=== PATIENT | female | born 1975 | race Caucasian/White ===

== ENCOUNTER 2019-11-04 03:20 | Emergency (ER) | payer MEDICARE, MEDICAID, SELFPAY ==
[2019-11-04 03:23] VITALS: BP 170/105; PULSE 81; RESP 18; TEMP 36.9; O2SAT 93
--- NOTE | 2019-11-04 03:40 | ED.EAR ---
HPI - Ear Problem General Chief complaint: Ear Stated complaint: qtip in eart Time Seen by Provider: 11/04/19 03:28 History of Present Illness HPI Narrative: Patient is a 44-year-old female who presents ER with concern for a Q-tip being retained in her left ear. She had nature nares trying to scratch it. When she pulled the Q-tip out part of it was missing. She believes a normal Q-tip went into her ear. No pain in the ear now, no difficulty hearing. Related Data Home Medications Medication Instructions Recorded Confirmed cholecalciferol (vitamin D3) 50 2,000 unit PO DAILY 07/30/19 07/30/19 mcg (2,000 unit) capsule dorzolamide 2 % eye drops 1 drop EACH EYE TID 07/30/19 07/30/19 hydrochlorothiazide 12.5 mg tablet 12.5 mg PO DAILY 07/30/19 07/30/19 ketorolac 0.5 % eye drops 1 drop EACH EYE QID ml 07/30/19 07/30/19 prednisolone acetate (PF) 1 % eye 1 drop EACH EYE QID ml 07/30/19 07/30/19 drops,suspension venlafaxine 75 mg capsule,extended 75 mg PO DAILY 07/30/19 07/30/19 release 24 hr Allergies Allergy/AdvReac Type Severity Reaction Status Date / Time No Known Allergies Allergy Verified 11/04/19 03:28 Review of Systems ENT: Comments: Left ear itching. Possible retained foreign body in ear. PMFSH Past Medical History Medical History (Updated 11/04/19 @ 03:43 by Gustavo Mcallister MD) Cholecystectomy planned 2012 Depression Hypertension Hypothyroidism Leukocytosis Prediabetes Vitamin D deficiency Surgical History Surgical History (Updated 07/30/19 @ 06:59 by Joleen Nixon CMA) H/O section 1992 H/O prior ablation treatment 2005 H/O tubal ligation BL 2001 History of carpal tunnel surgery 2009 Family History Family History (Updated 07/27/19 @ 07:12 by Joleen Nixon CMA) Sibling Hypertension Father Hypertension Cerebrovascular accident Diabetes mellitus Mother Diabetes mellitus Hypertension Social History Social History Smoking status: Heavy tobacco smoker Alcohol intake: never Exam Narrative: Exam Narrative: GENERAL: Well-appearing, well-nourished, and in no acute distress. HEAD: Normocephalic, atraumatic. ENT: Mucous membranes moist. TMs normal bilaterally. Ear canals free of foreign body or Q-tip flush. PSYCH: Normal mood and affect. Course Vital Signs Vital signs: Vital Signs Temperature 98.4 F 11/04/19 03:23 Pulse Rate 81 11/04/19 03:23 Respiratory Rate 18 11/04/19 03:23 Blood Pressure 170/105 H 11/04/19 03:23 Pulse Oximetry 93 11/04/19 03:23 Temperature 98.4 F 11/04/19 03:23 Pulse Rate 81 11/04/19 03:23 Respiratory Rate 18 11/04/19 03:23 Blood Pressure 170/105 H 11/04/19 03:23 Pulse Oximetry 93 11/04/19 03:23 Medical Decision Making Vital Signs Vital Signs: Vital Signs Temperature 98.4 F 11/04/19 03:23 Pulse Rate 81 11/04/19 03:23 Respiratory Rate 18 11/04/19 03:23 Blood Pressure 170/105 H 11/04/19 03:23 Pulse Oximetry 93 11/04/19 03:23 Temperature 98.4 F 11/04/19 03:23 Pulse Rate 81 11/04/19 03:23 Respiratory Rate 18 11/04/19 03:23 Blood Pressure 170/105 H 11/04/19 03:23 Pulse Oximetry 93 11/04/19 03:23 Discharge Plan Discharge Clinical Impression: Ear discomfort Patient Disposition: Home, Self-Care Condition: Stable Instructions: Normal Exam (ED) Additional Instructions: There is no retained foreign body in your ear. Prescriptions: No Action dorzolamide 2 % drops 1 drop EACH EYE TID RF: 0 hydrochlorothiazide 12.5 mg tablet 12.5 mg PO DAILY RF: 0 ketorolac 0.5 % drops 1 drop EACH EYE QID RF: 0 prednisolone acetate (PF) 1 % drops,suspension 1 drop EACH EYE QID RF: 0 venlafaxine 75 mg capsule,extended release 24hr 75 mg PO DAILY RF: 0 cholecalciferol (vitamin D3) 50 mcg (2,000 unit) capsule 2,000 unit PO DAILY RF: 0 lisinopril 40 mg tablet 40 mg PO DAILY Qty: 90 RF: 0 folic a
[2019-11-04 04:10] VITALS: BP 135/92; PULSE 76; RESP 20; O2SAT 94
== END 2019-11-04 04:11 | disposition home or self-care (01) ==
LOC: ANHED 04:00
PROVIDERS: Emergency Provider Emergency Medicine; PCP Internal Medicine
DX: H92.02 Otalgia, left ear (principal); F17.210 Nicotine dependence, cigarettes, uncomplicated; F32.9 Major depressive disorder, single episode, unspecified; I10 Essential (primary) hypertension; E03.9 Hypothyroidism, unspecified
CPT/HCPCS: 99281

== ENCOUNTER 2019-11-20 09:08 | Outpatient (CLI) | payer MEDICARE, MEDICAID, SELFPAY ==
--- NOTE | ~2019-11-20 | US_ITS ---
EXAMINATION: US venous doppler LE RT DATE: 11/20/2019 09:44 INDICATION: Right lower limb pain and swelling. TECHNIQUE: Grayscale ultrasound images without and with compression and Doppler ultrasound images of the right lower extremity veins were obtained. COMPARISON: Ultrasound 12/22/2016 FINDINGS: The visualized portions of right common femoral vein, profunda (deep) femoral vein, femoral vein, pop liteal vein, posterior tibial veins, and greater saphenous vein outflow are patent. There is a small Laureano's cyst. IMPRESSION: 1. No deep venous thrombosis. 2. Small Laureano's cyst. Reviewed, dictated and finalized at location A.
--- NOTE | ~2019-11-20 | XR_ITS ---
XR ankle RT min 3V 11/20/2019 09:43 INDICATION: Right ankle pain PROCEDURE: 4 views right ankle COMPARISON: No prior studies for comparison. FINDINGS: Fracture, dislocation or subluxation is not identified. Ankle mortise intact. The soft tiss ues appear within normal limits. No foreign bodies are identified. There is hardware transfixing the first tarsal metatarsal joint. IMPRESSION: 1: NO ACUTE BONE OR JOINT ABNORMALITY IDENTIFIED. Reviewed, dictated and finalized at location A.
== END 2019-11-20 09:09 | disposition home or self-care (01) ==
LOC: ANHIMG 09:10
PROVIDERS: PCP Internal Medicine; Visit Provider Clinical Nurse Specialist
DX: M79.89 Other specified soft tissue disorders (principal); M71.21 Synovial cyst of popliteal space [Baker], right knee
CPT/HCPCS: 73610; 93971

== ENCOUNTER 2020-02-08 00:32 | Day surgery (SDC) | payer MEDICARE, MEDICAID, SELFPAY ==
[2020-02-07 12:58] VITALS: BMI 42.3
--- NOTE | 2020-02-07 14:59 | PM.IMHP ---
H&P: HPI History of Present Illness Date/Time: 02/07/20 14:59 Chief complaint: Chronic Hoarseness Narrative: Bethany Domínguez is a 45 year old female With significant history of tobacco use who presents with approximately 1-2 months of hoarse voice with recent endoscopic examination demonstrating white lesions of the bilateral vocal cords. Patient presents for biopsy given her significant tobacco history and concern for malignancy. Review of Systems Constitutional: Constitutional: Denies fatigue, Denies fever(s) and Denies lethargy Eyes: Eyes: Denies blurry vision and Denies change in vision ENT: Reports as per HPI Cardiovascular: Cardiovascular: Denies chest pain Respiratory: Respiratory: Reports cough Endocrine: Endocrine: Denies fatigue Hematologic/Lymphatic: Hematologic/Lymphatic: Denies easy bleeding, Denies easy bruising and Denies lymphadenopathy [facility] Past Medical History Medical History (Updated 02/07/20 @ 15:01 by Jani Song MD) Cholecystectomy planned 2012 Depression Hypertension Hypothyroidism Leukocytosis Prediabetes Vitamin D deficiency Surgical History Surgical History (Updated 07/30/19 @ 06:59 by Joleen Nixon [facility]) H/O section 1992 H/O prior ablation treatment 2005 H/O tubal ligation 2001 History of carpal tunnel surgery 2009 Family History Family History (Updated 07/27/19 @ 07:12 by Joleen Nixon [facility]) Sibling Hypertension Father Hypertension Cerebrovascular accident Diabetes mellitus Mother Diabetes mellitus Hypertension Social History Social History (Updated 11/19/19 @ 14:48 by Sharron Cardozo [facility]) Smoking packs per day: 1 Smoking cigarettes per day: 20.0 Years smoked: 20 Smoking pack-years: 20.00 Smoking status: Current every day smoker Tobacco type: cigarettes Alcohol intake: never Living arrangements: with family Spiritual care concerns: No Meds Home Medications and Allergies Home Medications Medication Instructions Recorded Confirmed Type hydrochlorothiazide 12.5 mg tablet 12.5 mg PO DAILY #90 tablet 11/21/19 02/07/20 Rx levothyroxine 200 mcg tablet 200 mcg PO DAILY #90 tablet 12/04/19 02/07/20 Rx venlafaxine 75 mg capsule,extended 75 mg PO DAILY #90 cap 01/15/20 02/07/20 Rx release 24 hr lisinopril 40 mg tablet 40 mg PO DAILY #90 tablet 01/25/20 02/07/20 Rx cholecalciferol (vitamin D3) 50 mcg PO DAILY 02/07/20 02/07/20 History Allergies Allergy/AdvReac Type Severity Reaction Status Date / Time No Known Allergies Allergy Verified 02/07/20 12:56 Exam Const: General: cooperative, healthy appearing, comfortable, well developed and alert HENMT: Head: normal to inspection, normocephalic and atraumatic Ears: hearing grossly normal bilaterally, external ears normal, TM's normal bilaterally and EAC's normal General nose exam: Normal external nose present, Normal nares present, No nasal polyps present, Normal nasal mucous membranes and turbinates present and Normal septum present Face and sinus: normal facial exam Mouth: Yes Normal oral and palatal mucosa present, Yes lip normal, Yes tongue normal, Yes oropharynx normal and Yes moist mucous membranes Teeth and gingiva: dentition normal and gingiva normal Throat: posterior oropharynx normal, tonsils normal and uvula midline Other: Hoarse voice Eyes: General: appearance normal, both eyes and all related structures Periorbital: periorbital findings normal Eyelids: eyelids normal Conjunctivae: conjunctivae normal Sclera: sclerae normal Neck: Neck: normal visual inspection, full ROM and no lymphadenopathy Thyroid: thyroid normal Lymphatic: no lymphadenopathy noted Resp: Effort & Inspection: normal respiratory effort and able to speak in complete sentences Cardio: Jugular venous distension: no JVD Neuro: Cranial nerves: Yes CN's II-XII intact bilaterally Assessment and Plan Assessment and plan (1) Tobacco abuse: Code(s): Z72.
[2020-02-08] VITALS (8 sets, daily range): BP systolic 109–149; BP diastolic 68–114; PULSE 72–114; RESP 12–24; TEMP 36.7–37.1; O2SAT 90–97
--- NOTE | 2020-02-08 05:58 | ECG_ITS ---
Measurements Intervals [place] Rate: 79 P: 36 MT: 161 QRS: 72 QRSD: 107 T: -1 QT: 391 QTc: 448 Interpretive Statements SINUS RHYTHM DELAYED PRECORDIAL R/S TRANSITION NONSPECIFIC ST & T-WAVE ABNORMALITY- DIFFUSE LEADS BASELINE WANDER- I, II, III BORDERLINE ECG Electronically Signed On 02-08-2020 7:10:24 CDT by Reinaldo Ash D.O.
[2020-02-08] MEDS: LACTATED RINGERS 1,000 ML 30 ML IV CONT (07:20)
--- NOTE | 2020-02-08 07:33 | WPDHPUPDATE1 ---
History and Physical Update Update Date/Time: 02/08/20 07:33 History and Physical has been reviewed, including an updated exam of the patient. There are NO changes in the patient's condition. Risks, benefits, and alternatives have been discussed and questions answered. Patient agrees to proceed with procedure.
[2020-02-08 07:41] LABS: Anion Gap 7 mmol/L (8-16); Blood Urea Nitrogen 11 mg/dL (7-17); Calcium 8.9 mg/dL (8.4-10.2); Carbon Dioxide 26 mmol/L (22-30); Chloride 104 mmol/L (98-107); Estimated CRCL calculation 121 ml/min; Estimated Glomerular Filt Rate > 60; Glucose 169 mg/dL (65-105); Potassium 3.5 mmol/L (3.4-5.0); Sodium 137 mmol/L (137-145)
--- NOTE | 2020-02-08 08:19 | WPDANESEPPF ---
Anes - Initial Pre Proc Eval Procedure: Operation Date: 02/08/20 09:00 Proposed Procedures p Direct Laryngoscopy, Laryngeal Biopsy - Jani Song MD Date/Time: 02/08/20 08:19 Surgeon: Jani Song MD Pre Op Diagnosis: Chronic Hoarseness Patient Data Age: 45 Gender: F Height: 5 ft 11 in Weight: 136.8 kg Last Vital Signs Temp 98.1 F 02/08/20 06:58 Pulse 91 02/08/20 06:58 Resp 20 02/08/20 06:58 BP 147/80 H 02/08/20 06:58 Pulse Ox 97 02/08/20 06:58 Allergies Allergy/AdvReac Type Severity Reaction Status Date / Time No Known Allergies Allergy Verified 02/08/20 06:59 Home Medications Medication Instructions Recorded Confirmed Type hydrochlorothiazide 12.5 mg tablet 12.5 mg PO DAILY #90 tablet 11/21/19 02/07/20 Rx levothyroxine 200 mcg tablet 200 mcg PO DAILY #90 tablet 12/04/19 02/07/20 Rx venlafaxine 75 mg capsule,extended 75 mg PO DAILY #90 cap 01/15/20 02/07/20 Rx release 24 hr lisinopril 40 mg tablet 40 mg PO DAILY #90 tablet 01/25/20 02/07/20 Rx cholecalciferol (vitamin D3) 50 mcg PO DAILY 02/07/20 02/07/20 History Laboratory Tests 02/08/20 07:16 Sodium 137 mmol/L mmol/L (137-145) Potassium 3.5 mmol/L mmol/L (3.4-5.0) Chloride 104 mmol/L mmol/L (98-107) Carbon Dioxide 26 mmol/L mmol/L (22-30) Anion Gap 7 mmol/L L mmol/L (8-16) BUN 11 mg/dL mg/dL (7-17) Creatinine 0.80 mg/dL mg/dL (0.7-1.0) Estim Creat Clear Calc 121 ml/min ml/min Estimated GFR > 60 (59 - ) Glucose 169 mg/dL H mg/dL (65-105) Calcium 8.9 mg/dL mg/dL (8.4-10.2) Patient hx anesthesia problems: none Family hx anesthesia problems: none [facility] Past Medical History Medical History (Updated 02/07/20 @ 15:01 by Jani Song MD) Cholecystectomy planned 2012 Depression Hypertension Hypothyroidism Leukocytosis Prediabetes Vitamin D deficiency Surgical History Surgical History (Updated 07/30/19 @ 06:59 by Joleen Nixon [facility]) H/O section 1992 H/O prior ablation treatment 2005 H/O tubal ligation BL 2001 History of carpal tunnel surgery 2009 Family History Family History (Updated 07/27/19 @ 07:12 by Joleen Nixon [facility]) Sibling Hypertension Father Hypertension Cerebrovascular accident Diabetes mellitus Mother Diabetes mellitus Hypertension Social History Social History (Updated 11/19/19 @ 14:48 by Sharron Cardozo [facility]) Smoking packs per day: 1 Smoking cigarettes per day: 20.0 Years smoked: 20 Smoking pack-years: 20.00 Smoking status: Current every day smoker Tobacco type: cigarettes Alcohol intake: never Living arrangements: with family Spiritual care concerns: No Anes - Eval Final PreProcedure Day of Procedure 02/08/20 08:19 Patient weight: morbidly obese Heart: regular rate and rhythm Lungs: clear to auscultation Airway: Mallampati scale class III Neurological: alert and oriented Last oral intake: >/= 8 hours ASA classification: III Emergent: no Anesthetic plan: proceed Anesthesia type and monitoring: general ETT and standard monitoring Informed Consent: The patient's anesthetic plan and its attendant risks and benefits were discussed with the patient/family/POA. Questions were solicited and answers provided to the satisfaction of the patient/family/POA.
[2020-02-08] MEDS: OXYMETAZOLINE HCL 0.05% NAS 15 ML BTL (*BKC) 1 SPRAY NASAL (09:14)
--- NOTE | 2020-02-08 09:47 | PM.PROC ---
Procedure Note - Detailed Date of procedure: 02/08/20 Pre-op diagnosis: Chronic Hoarseness vocal cord lesion Post-op diagnosis: same Procedure performed: 1. Direct laryngoscopy 2. Vocal cord biopsy Description of procedure: the patient was correctly identified and consent was verified in the preoperative holding area. The patient was then brought to the operating room a time-out was performed. General anesthesia was induced and endotracheal tube was secured the patient's airway taped to the left lower lip. The bed was then rotated 90? and control the patient's airway was given Otolaryngology. A laryngoscope was inserted into the patient's airway following placement of a moist Ray-Peace over the maxillary gingiva. The vocal cords were brought into view. Of note the right vocal cord and false cord were somewhat edematous the left false cord was somewhat edematous and the left vocal cord anteriorly had a small ulceration/ hemorrhage as well as abnormal appearing leukoplakic tissue. This tissue was biopsied with 3 biopsies and bleeding was controlled with Afrin-soaked pledgets. No other abnormalities were noted. The laryngoscope as well as Ray-Peace remove the patient's airway and control the airway was again given over to anesthesia. This Marked the end of the procedure. I was present for and performed the entire procedure. Anesthesia: GLMA Surgeon: Jani Song MD Estimated blood loss (mL): 5 Pathology: yes Complications: No immediate complications Condition: stable Disposition: PACU Findings: See operative note
== END 2020-02-08 11:03 | disposition home or self-care (01) ==
PROVIDERS: PCP Internal Medicine; Visit Provider Otolaryngology
PROC: 0CJS8ZZ Inspection of Larynx, Via Natural or Artificial Opening Endoscopic (ICD-10-PCS; CPT 31535; principal; 2020-02-08 09:00)
DX: J04.0 Acute laryngitis (principal); J37.0 Chronic laryngitis; Z72.0 Tobacco use
CPT/HCPCS: 31535; 36415; 80048; 88305; 93005; A9270; J0330; J1100; J2250; J2405; J2704; J3010; J7120

== ENCOUNTER 2020-05-13 08:27 | Outpatient (CLI) | payer MEDICARE, MEDICAID, SELFPAY ==
--- NOTE | ~2020-05-13 | US_ITS ---
US abdomen limited 05/13/2020 09:17 Indication: Left lower quadrant pain. Procedure: Limited ultrasound of the left mid abdomen Comparison: CT dated 05/21/2016. Findings: Normal heterogeneous echotexture without focal solid or cystic mass. Impression: 1: Normal ultrasound of the left mid abdomen. No discrete mass or fluid collection identified. Reviewed, dictated and finalized at location A. E FARM MANAGER Impression: 1: Normal ultrasound of the left mid abdomen. No discrete mass or fluid collect ion identified.
--- NOTE | ~2020-05-13 | XR_ITS ---
EXAMINATION: XR chest 2V 05/13/2020 08:42 INDICATION: Shortness of breath. COPD. PROCEDURE: 2 view chest COMPARISON: 06/11/2015 FINDINGS: The lungs are clear. The cardiomediastinal silhouette is within normal limits. There are no pleural effusions. There is no pneumothorax suspected. IMPRESSION: 1: NO ACUTE CARDIOPULMONARY DISEASE. Reviewed, dictated and finalized at location A. REPRESENTATIVE
== END 2020-05-13 08:28 | disposition home or self-care (01) ==
PROVIDERS: PCP Internal Medicine; Visit Provider Clinical Nurse Specialist
DX: R10.32 Left lower quadrant pain (principal); R06.02 Shortness of breath
CPT/HCPCS: 71046; 76705

== ENCOUNTER 2020-05-19 17:23 | Outpatient (CLI) | payer MEDICARE, MEDICAID, SELFPAY ==
--- NOTE | ~2020-05-19 | CT_ITS ---
EXAMINATION: CT abdomen pelvis wo con DATE: 05/19/2020 17:52 INDICATION: Left lower quadrant abdominal pain TECHNIQUE: Computed tomography (CT) of the abdomen and pelvis was performed without intravenous contr ast. Automated exposure control and iterative reconstruction technique were employed. The dose-length product was 1569.45 mGy-cm. COMPARISON: 05/21/2016 FINDINGS: Mild emphysema. Discoid atelectasis in the bilateral lower lobes, right greater than left. Heart size is normal. No pericardial or pleural effusion. Cholecystectomy clips at the gallbladder fossa. Liver , spleen, pancreas and bilateral adrenal glands are normal. Bilateral nonobstructing nephrolithiasis with 1 mm stones at a lower pole calyx of the right kidney and middle calyx of the left kidney. No hy dronephrosis or stones seen along the course of the ureters. Bladder, anteverted uterus and bilateral adnexa are unremarkable. There is moderate colonic diverticulosis with a sigmoid predominance. Ther e is no adjacent inflammatory change to suggest diverticulitis. Small bowel and appendix are normal. No free intraperitoneal gas or fluid. No pathologically enlarged abdominal or pelvic lymphadenopathy. Surgical clips at the left groin likely related to prior vascular access. Small fat-containing umbil ical hernia. Moderate bilateral facet osteoarthritis at L5-S1 resulting in mild bilateral neural fora migue stenosis at this level. Bone islands at the right sacral ala and left femoral neck. IMPRESSION: 1. Bilateral nonobstructing nephrolithiasis. 2. Moderate diverticulosis. 3. Mild emphysema. Reviewed, dictated and finalized at location A. BURNER
== END 2020-05-19 17:24 | disposition home or self-care (01) ==
PROVIDERS: PCP Internal Medicine; Visit Provider Clinical Nurse Specialist
DX: R10.32 Left lower quadrant pain (principal); N20.0 Calculus of kidney; K57.90 Diverticulosis of intestine, part unspecified, without perforation or abscess without bleeding; J43.9 Emphysema, unspecified
CPT/HCPCS: 74176

== ENCOUNTER 2020-08-27 15:19 | Outpatient (CLI) | payer MEDICARE, MEDICAID, SELFPAY ==
--- NOTE | ~2020-08-27 | XR_ITS ---
XR chest 2V 08/27/2020 15:00 Indication: Shortness of breath Procedure: PA and lateral views of the chest Comparison: Comparison to multiple prior studies sequentially, with oldest reviewed study dated 05/21. Findings: Heart size is normal. There are developing ill-defined nodular densities in the left upper lung zone. The lungs are hyperinflated which is consistent with, but not diagnostic of chronic obstru ctive pulmonary disease. No focal pneumonia, pleural effusion or pneumothorax. Impression: 1: Developing nodular densities left upper lung zone. Follow-up CT chest recommended. Reviewed, dictated and finalized at location A. TATION ENGINEER Impression: 1: Developing nodular densities left upper lung zone. Follow-up CT chest recomm ended.
[2020-08-27 15:47] LABS: Basophils Absolute Auto 0.1 K/mm3 (0.0-0.1); Basophils Percent Auto 0.9 % (0.2-1.2); Eosinophils Absolute Auto 0.3 K/mm3 (0-0.3); Eosinophils Percent Auto 2.3 % (0-4.4); Hematocrit 46.9 % (37.0-47.0); Hemoglobin 15.9 g/dL (12.0-15.0); Immature Granulocyte Absolute 0.05 K/mm3 (0.00-0.031); Immature Granulocyte Percent A 0.4 % (0-0.5); Lymphocytes Absolute Auto 2.96 K/mm3 (0.9-3.2); Mean Corpuscular HGB Conc 33.9 g/dl (32-36); Mean Corpuscular Hemoglobin 30.9 pg (26-34); Mean Corpuscular Volume 91.1 fl (80-100); Mean Platelet Volume 9.3 fl (7.4-10.4); Monocytes Absolute Auto 0.6 K/mm3 (0.1-0.6); Monocytes Percent Auto 4.9 % (2.6-8.5); Neutrophils Absolute Auto 7.5 K/mm3 (1.3-6.7); Neutrophils Percent Auto 65.5 % (45.5-73.1); Platelet Count Result 303 k/mm3 (150-375); Red Blood Count 5.15 M/mm3 (4.2-5.4); Red Cell Distribution Width 13.6 % (11.5-14.5); White Blood Count 11.4 K/mm3 (4.5-10.0)
[2020-08-27 16:00] LABS: Alanine Aminotransferase 17 U/L (4-35); Albumin Level 3.9 g/dL (3.5-5.1); Alkaline Phosphatase 74 U/L (38-126); Anion Gap 2 mmol/L (8-16); Aspartate Amino Transferase 20 U/L (14-36); Bilirubin,Total 0.4 mg/dL (0.2-1.3); Blood Urea Nitrogen 9 mg/dL (7-17); Calcium 9.1 mg/dL (8.4-10.2); Carbon Dioxide 34 mmol/L (22-30); Chloride 104 mmol/L (98-107); Estimated Glomerular Filt Rate > 60; Glucose 107 mg/dL (65-105); Potassium 3.9 mmol/L (3.4-5.0); Sodium 140 mmol/L (137-145)
[2020-08-27 16:17] LABS: Hemoglobin A1C 5.9 % (<5.7)
[2020-08-27 17:32] LABS: Free T4 Free Thyroxine 1.46 ng/mL (0.78-2.19)
[2020-08-30 06:35] LABS: Triiodothyronine T3 Free 2.8 pg/mL (2.3-4.2)
== END 2020-08-27 15:20 | disposition home or self-care (01) ==
LOC: ANHIMG 15:19
PROVIDERS: PCP Internal Medicine; Visit Provider Clinical Nurse Specialist
DX: R06.02 Shortness of breath (principal); E03.9 Hypothyroidism, unspecified; I10 Essential (primary) hypertension; Z13.228 Encounter for screening for other metabolic disorders; E55.9 Vitamin D deficiency, unspecified; R73.9 Hyperglycemia, unspecified; R91.8 Other nonspecific abnormal finding of lung field
CPT/HCPCS: 36415; 71046; 80053; 83036; 84439; 84443; 84481; 85025

== ENCOUNTER 2020-09-02 09:06 | Outpatient (CLI) | payer MEDICARE, MEDICAID, SELFPAY ==
--- NOTE | ~2020-09-02 | CT_ITS ---
EXAMINATION: CT diagnostic chest w con EXAM DATE: 09/02/2020 09:43 INDICATION: Nodular densities left upper lung zone on chest x-ray. TECHNIQUE: Spiral CT of the chest following intravenous injection of 75 mL Omnipaque 350. Axial, cor onal and sagittal images were reviewed. Coronal maximum intensity pixel images of chest reviewed. T autumn dose-length product (DLP) for this examination was 952.54 mGy-cm. The exposure was tailored accor ding to patient size (auto mA exposure control), and iterative reconstruction (ASIR) was used as hortencia tional dose reduction technique. Correlation is made to chest x-ray 08/27/2020. FINDINGS: There is mild to moderate emphysema. There is posterior dependent groundglass opacity prob ably atelectasis. There is right basilar subsegmental atelectasis. No suspicious pulmonary nodules. There are no pleural or pericardial effusions. Tracheobronchial tree is patent. There is no media stinal, hilar or axillary lymphadenopathy. There is no pneumothorax. Heart normal in size. No e vidence of coronary arterial calcification. There are cholecystectomy clips. Left adrenal hyperplasi a. There is thoracic spondylosis without osteoblastic or osteolytic lesions identified. IMPRESSION: 1. Dependent groundglass opacity, likely atelectasis. 2. Mild to moderate emphysema. 3. No suspicious pulmonary nodules. Reviewed, dictated and finalized at location A.
== END 2020-09-02 09:07 | disposition home or self-care (01) ==
PROVIDERS: PCP Internal Medicine; Visit Provider Clinical Nurse Specialist
DX: R93.89 Abnormal findings on diagnostic imaging of other specified body structures (principal); R06.02 Shortness of breath; J43.9 Emphysema, unspecified
CPT/HCPCS: 71260; Q9967

== ENCOUNTER 2020-11-28 08:55 | Outpatient (CLI) | payer MEDICARE, MEDICAID, SELFPAY ==
[2020-11-28 09:30] VITALS: PULSE 95; O2SAT 93
[2020-11-28 09:35] VITALS: PULSE 114; O2SAT 86
[2020-11-28 09:37] VITALS: O2SAT 87
[2020-11-28 09:38] VITALS: PULSE 115; O2SAT 91
[2020-11-28 09:45] VITALS: PULSE 93; O2SAT 93
--- NOTE | 2020-11-28 10:06 | HOMEO2EVAL ---
Evaluation was performed at [facility] Home Oxygen Evaluation RC: Home Oxygen (O2) Evaluation Start: 11/28/20 10:04 Freq: Status: Active Protocol: RPE Activity Type Activity Date Activity User E-Sign Co-Sign Detail Recorded Client Recorded Date Recorded By Document 11/28/20 09:30 SHIRA [id number] 11/28/20 10:06 SHIRA Document 11/28/20 09:35 SHIRA [id number] 11/28/20 10:06 SHIRA Document 11/28/20 09:37 SHIRA [id number] 11/28/20 10:06 SHIRA Document 11/28/20 09:38 SHIRA [id number] 11/28/20 10:06 SHIRA Document 11/28/20 09:45 SHIRA [id number] 11/28/20 10:06 SHIRA 11/28/20 11/28/20 11/28/20 09:30 09:35 09:37 Home O2 Evaluation Test Phase Resting Exercise Exercise Oxygen Delivery Room Air Room Air Nasal Cannula Oxygen Flow Rate (L/min) 1 Pulse Oximetry (90-100 %) 93 86 L 87 L Pulse Rate (60-100 beats/min) 95 114 H Activity Tolerance Excellent Ambulation Distance (feet) 400 Home Oxygen Evaluation Comments Treatment Charges O2 Evaluation - Outpatient 11/28/20 11/28/20 09:38 09:45 Home O2 Evaluation Test Phase Exercise Resting Oxygen Delivery Nasal Cannula Room Air Oxygen Flow Rate (L/min) 2 Pulse Oximetry (90-100 %) 91 93 Pulse Rate (60-100 beats/min) 115 H 93 Activity Tolerance Ambulation Distance (feet) Home Oxygen Evaluation Comments Pt requires 2 L with exertion/ activity. Treatment Charges
--- NOTE | 2020-11-28 10:08 | PCRCNOTE ---
Faxed home O2 eval to office staff for set up with DME.
--- NOTE | 2020-12-05 12:01 | WPDPFTINT ---
PFT Procedure Performed PFT Procedure Performed Spirometry with Pre/Post Bronchodilator Plethysmography (Lung Vol) Diffusing Cap (DLCO) Flow Vol Loop PFT Interpretation DOS:11/28/2020 REQUESTING: Dr Awad REASON FOR TESTING: COPD, dyspnea PULMONARY FUNCTION TESTS Results are reliable and reproducible. Spirometry: FEV1 is 55% predicted, 1.96 L. This is moderately reduced. FVC is 72% predicted. The FEV1/ FVC ratio is 61% predicted. There is no significant response to bronchodilator administration. Lung volumes: Total lung capacity is normal 99% predicted. The slow vital capacity is 75% much higher than the forced vital capacity noted in the spirometry. This is consistent with dynamic airway collapse. residual volume is increased 131% mild air trapping. RV/TLC is increased 43%. Airway resistance is increased 213%. Diffusion: DLCO 62% mildly decreased. Flow volume loop: There is mild scooping of the expiratory limb. IMPRESSION: Moderate obstructive ventilatory impairment with mild air trapping and mild diffusion impairment. No response to bronchodilator. Lack of response to bronchodilator should not preclude use if clinically indicated. Compared to prior study on June 27, 2015 the FEV1 was normal 84%, there was no air trapping and the DLCO was 59% which is similar to the current DLCO 62%. There has been a significant decrease in the FEV1. Veronique Cowan MD
== END 2020-11-28 08:56 | disposition home or self-care (01) ==
PROVIDERS: PCP Internal Medicine; Visit Provider Internal Medicine Pulmonary Disease
DX: R06.00 Dyspnea, unspecified (principal); J44.9 Chronic obstructive pulmonary disease, unspecified
CPT/HCPCS: 94060; 94618; 94726; 94729

== ENCOUNTER 2021-03-22 22:45 | Emergency (ER) | payer MEDICARE, MEDICAID, SELFPAY ==
--- NOTE | ~2021-03-22 | XR_ITS ---
EXAMINATION: XR chest 1V portable DATE: 03/23/2021 01:41 INDICATION: Cough. Sore throat. TECHNIQUE: A single frontal view of the chest was obtained on 2 radiographs. COMPARISON: Chest 2 views 08/27/2020, chest CT 03/23/2021 FINDINGS: There are lucencies in the upper lungs, consistent with emphysema. There is mild atelectasi s in the lower lung zones. No pleural effusion or pneumothorax. The heart size is normal. IMPRESSION: 1. Mild atelectasis in the lower lung zones. 2. Emphysema. Reviewed, dictated and finalized at location A.
--- NOTE | ~2021-03-22 | CT_ITS ---
EXAMINATION: CT diagnostic chest wo con DATE: 03/23/2021 04:29 INDICATION: dyspnea TECHNIQUE: Computed tomography (CT) of the chest was performed without intravenous contrast. Addition al 3D reconstructions utilizing coronal maximum intensity projection (MIP) were performed. Automated exposure control and iterative reconstruction technique were employed. The dose-length product was 10 18.56 mGy-cm. COMPARISON: 09/02/2020 FINDINGS: Moderate emphysema. No significant change in discoid atelectasis at the bilateral lower lobes. No pne umonia, pulmonary edema or pleural effusion. Heart size is normal. No pericardial effusion. Thoracic aorta is normal in caliber. No pathologically enlarged thoracic lymphadenopathy. Cholecystectomy clip s at the gallbladder fossa. IMPRESSION: 1. Moderate emphysema with chronic discoid atelectasis/scarring the bilateral lower lobes. No evident acute cardiopulmonary disease. Reviewed, dictated and finalized at location B. IMPRESSION: 1. Moderate emphysema with chronic discoid atelectasis/scarring the bilateral l ower lobes. No evident acute cardiopulmonary disease.
[2021-03-22 23:02] VITALS: BP 154/112; PULSE 102; RESP 20; TEMP 36.8; O2SAT 100
[2021-03-23] VITALS (19 sets, daily range): BP systolic 150–176; BP diastolic 94–102; PULSE 77–88; RESP 16–20; O2SAT 93–98
[2021-03-23] MEDS: ACETAMINOPHEN 500 MG TABLET 1000 MG PO (02:29)
[2021-03-23 02:45] LABS: Alanine Aminotransferase 48 U/L (4-35); Albumin Level 4.5 g/dL (3.5-5.1); Alkaline Phosphatase 88 U/L (38-126); Anion Gap 7 mmol/L (8-16); Aspartate Amino Transferase 40 U/L (14-36); Bilirubin,Total 0.4 mg/dL (0.2-1.3); Blood Urea Nitrogen 15 mg/dL (7-17); Calcium 9.8 mg/dL (8.4-10.2); Carbon Dioxide 33 mmol/L (22-30); Chloride 99 mmol/L (98-107); Estimated CRCL calculation 120 ml/min; Estimated Glomerular Filt Rate > 60; Glucose 158 mg/dL (65-110); Sodium 139 mmol/L (137-145)
[2021-03-23 02:46] LABS: Lactic Acid Reflex 0.9 mmol/L (0.7-2.1)
[2021-03-23 02:53] LABS: Basophils Absolute Auto 0.1 K/mm3 (0.0-0.1); Basophils Percent Auto 0.8 % (0.2-1.2); Eosinophils Absolute Auto 0.3 K/mm3 (0-0.3); Eosinophils Percent Auto 2.6 % (0-4.4); Hematocrit 47.2 % (37.0-47.0); Hemoglobin 15.9 g/dL (12.0-15.0); Immature Granulocyte Absolute 0.11 K/mm3 (0.00-0.031); Immature Granulocyte Percent A 0.8 % (0-0.5); Lymphocytes Percent Auto 18.3 % (18.3-44.2); Mean Corpuscular HGB Conc 33.7 g/dl (32-36); Mean Corpuscular Hemoglobin 31.6 pg (26-34); Mean Corpuscular Volume 93.8 fl (80-100); Mean Platelet Volume 9.4 fl (7.4-10.4); Monocytes Absolute Auto 0.6 K/mm3 (0.1-0.6); Monocytes Percent Auto 4.3 % (2.6-8.5); Neutrophils Absolute Auto 9.6 K/mm3 (1.3-6.7); Neutrophils Percent Auto 73.2 % (45.5-73.1); Platelet Count Result 275 k/mm3 (150-375); Red Blood Count 5.03 M/mm3 (4.2-5.4); Red Cell Distribution Width 14.6 % (11.5-14.5); White Blood Count 13.1 K/mm3 (4.5-10.0)
[2021-03-23 03:31] LABS: Partial Thromboplastin Time 32.2 SECONDS (22.3-36.8)
[2021-03-23 03:33] LABS: D Dimer 0.44 ug/mL (<0.48)
[2021-03-23] MEDS: IPRATROPIUM BR 0.02% INH SOLN 0.5 MG/2.5 ML VIAL INHALATION (03:54)
[2021-03-23] MEDS: ALBUTEROL SULFATE NEB 2.5 MG/0.5 ML INH 5 MG INHALATION (03:54)
--- NOTE | 2021-03-23 05:12 | ED.GENADULT ---
HPI - General Adult General Chief complaint: Unspecified Stated complaint: Sore throat, pain and swelling. Time Seen by Provider: 03/23/21 00:39 Source: RN notes reviewed History of Present Illness HPI narrative: Patient presents emergency department from home for upper respiratory infection symptoms. Patient states symptoms began approximately a week ago states that she has had a sore throat with pain worse with swallowing she states that with this she has been having a feeling of shortness of breath and a cough that is been productive of some clear sputum patient states she has a history of COPD and is normally on oxygen 1 to 2 L however she is had to bump it up to 3 L over the past several days she denies any fevers or chills chest pain abdominal pain nausea or vomiting does note some rhinorrhea patient states she has not received Covid vaccination Related Data Home Medications Medication Instructions Recorded Confirmed cholecalciferol (vitamin D3) 50 mcg PO DAILY 02/07/20 01/01/21 Allergies Allergy/AdvReac Type Severity Reaction Status Date / Time No Known Allergies Allergy Verified 03/22/21 23:08 Review of Systems Review of Systems: Gen.: Denies fevers or chills Eyes: Denies eye pain or visual change ENT: See HPI Respiratory: Reports shortness of breath and cough CV: Denies chest pain or palpitations GI: Denies abdominal pain nausea, emesis or diarrhea Musculoskeletal: Denies back pain or muscle pain Neuro: Denies numbness, tingling, weakness or focal weakness Skin: Denies rash Except as documented, all other systems reviewed and negative PMF Past Medical History Medical History (Updated 03/23/21 @ 05:17 by Rahat Galarza DO) Cholecystectomy planned 2012 COPD (chronic obstructive pulmonary disease) Depression Hypertension Hypothyroidism Leukocytosis Prediabetes Vitamin D deficiency Surgical History Surgical History H/O section 1992 H/O prior ablation treatment 2005 H/O tubal ligation BL 2001 History of carpal tunnel surgery 2009 Family History Family History Sibling Hypertension Father Hypertension Cerebrovascular accident Diabetes mellitus Mother Diabetes mellitus Hypertension Social History Social History Social History: Patient states down to 1/2 pack a day Smoking packs per day: 1 Smoking cigarettes per day: 20.0 Years smoked: 25 Smoking pack-years: 25.00 Smoking status: Current every day smoker Tobacco type: cigarettes Alcohol intake: never Spiritual care concerns: No Exam Narrative: APPEARANCE: No acute distress, nontoxic, resting in bed EYES: EOMI HEENT: Normocephalic, atraumatic, TMs clear bilaterally nares patent oromucosa moist erythema the posterior pharynx and bilateral tonsils bilateral tonsils 3+ with whitish exudate present uvula midline no trismus tolerating own secretions RESPIRATORY: No respiratory distress mild wheezing the bilateral upper lung kulkarni no rhonchi or rales CARDIOVASCULAR: Regular rate and rhythm without murmurs rubs or gallops. ABDOMINAL: Soft, nontender, nondistended, no rebound or guarding MUSCULOSKELETAl: Moves all extremities. No clubbing, cyanosis or edema. NEURO: Awake and alert. Following commands, speech normal, no focal deficits SKIN:: Warm, dry. No rashes lesions or abrasions PSYCHIATRIC: Normal affect/mood, Course Course Emergency Course: Patient states she feels better following breathing treatment reveal exam clear to station bilaterally Discussed with patient results of workup and diagnosis. Discussed need for follow-up with primary care, proper use of medication, and reasons to return to the emergency department. Patient understands and agrees to current treatment plan discussed with patient will swab for COVID-19 with patient
[2021-03-23] MEDS: methylPREDNISolone SOD SUCC 125 MG VIAL IV PUSH (05:29)
[2021-03-23] MEDS: AMOXICILLIN/CLAVULANATE K 875-125 MG TAB 1 TABLET PO (05:29)
[2021-03-23 16:47] LABS: SARS-CoV-2 RNA PCR Negative
== END 2021-03-23 05:29 | disposition home or self-care (01) ==
PROVIDERS: Emergency Provider Emergency Medicine; PCP Internal Medicine
DX: J44.9 Chronic obstructive pulmonary disease, unspecified (principal); J06.9 Acute upper respiratory infection, unspecified; Z20.822 Contact with and (suspected) exposure to COVID-19; I10 Essential (primary) hypertension; E03.9 Hypothyroidism, unspecified; R73.03 Prediabetes; E55.9 Vitamin D deficiency, unspecified; F17.210 Nicotine dependence, cigarettes, uncomplicated; R06.02 Shortness of breath
CPT/HCPCS: 36415; 71045; 71250; 80053; 83605; 85025; 85380; 85610; 85730; 87040; 87081; 87880; 94640; 96374; 99284; A9270; C9803; J2930; U0003; U0005

== ENCOUNTER 2021-04-23 14:13 | Emergency (ER) | payer MEDICARE, MEDICAID, SELFPAY ==
[2021-04-23 14:23] VITALS: BP 148/99; PULSE 107; RESP 20; TEMP 37.4; O2SAT 97
[2021-04-23 14:28] VITALS: BP 148/99; PULSE 107; RESP 20; TEMP 37.4; O2SAT 97
--- NOTE | 2021-04-23 14:46 | ED.SKABFB ---
HPI - Skin/Abscess/Foreign Bdy General Chief complaint: Skin/Abscess/Foreign Body Stated complaint: Rash Time Seen by Provider: 04/23/21 14:38 Source: patient and RN notes reviewed Mode of arrival: ambulatory Limitations: no limitations History of Present Illness HPI narrative: Patient presents today complaining of a 2-week history of a rash to the groin folds, lower abdomen, and upper thighs. Prior to onset of symptoms, patient more a disposable undergarment for bladder leakage and is wondering if this is the cause of her symptoms. Patient has no rash to her buttocks. She has tried Benadryl, calamine lotion, hydrocortisone, eczema cream without relief. Patient states she has been profusely scratching her rash since onset. MD complaint: rash Related Data Allergies Allergy/AdvReac Type Severity Reaction Status Date / Time No Known Allergies Allergy Verified 04/07/21 13:16 Review of Systems Review of Systems: CONSTITUTIONAL: Denies body aches, fever, chills, or sweats. EYES: Denies visual changes, redness, or discharge. ENT: Denies rhinorrhea, congestion, sore throat, or otalgia. CARDIOVASCULAR: Denies chest pain, palpitations, or edema. RESPIRATORY: Denies cough or dyspnea. GASTROINTESTINAL: Denies abdominal pain, nausea, vomiting, or diarrhea. GENITOURINARY: Denies dysuria or hematuria. SKIN: Denies wounds.+ Pruritic rash MUSCULOSKELETAL: Denies back pain, joint pain, or myalgia. NEUROLOGIC: Denies headache, numbness, tingling, or weakness. PSYCH: Denies depression or anxiety. [facility] Past Medical History Medical History Cholecystectomy planned 2012 COPD (chronic obstructive pulmonary disease) Depression Hypertension Hypothyroidism Leukocytosis Prediabetes Vitamin D deficiency Surgical History Surgical History H/O section 1992 H/O prior ablation treatment 2005 H/O tubal ligation 2001 History of carpal tunnel surgery 2009 Family History Family History Sibling Hypertension Father Hypertension Cerebrovascular accident Diabetes mellitus Mother Diabetes mellitus Hypertension Social History Social History Social History: Caffeine- 6pk canned soda Smoking packs per day: 0.5 Smoking cigarettes per day: 10.0 Years smoked: 25 Smoking pack-years: 12.50 Smoking status: Current every day smoker Tobacco type: cigarettes Alcohol intake: never Spiritual care concerns: No Comments At time of signature, I have reviewed and agree with nursing past medical, surgical, social and family history unless otherwise noted. Please see nursing chart for further information. There is no relevant family history pertinent to the presenting complaint Exam Narrative: GENERAL: Well-appearing, well-nourished, and in no acute distress. HEAD: Normocephalic, atraumatic. EYES: EOMI. No redness or drainage. Conjunctivae normal. ENT: Mucous membranes pink and moist. NECK: Normal AROM. CHEST: No respiratory distress. EXTREMITIES: Normal range of motion. No edema. SKIN: Warm, dry. Capillary refill normal. Normal skin turgor. Scattered erythematous scabbed papular rash to the lower abdomen and pannus region, groin folds, upper thighs bilaterally. No induration or drainage noted, or signs of active bacterial infection. NEURO: No focal deficits. Alert and oriented x3. Gait steady. PSYCH: Normal affect. No signs of depression or anxiety. Course Vital Signs Vital signs: Vital Signs Temperature 99.3 F 04/23/21 14:23 Pulse Rate 107 H 04/23/21 14:23 Respiratory Rate 20 04/23/21 14:23 Blood Pressure 148/99 H 04/23/21 14:23 Pulse Oximetry 97 04/23/21 14:23 Temperature 99.3 F 04/23/21 14:28 Pulse Rate 107 H 04/23/21 14:28 R
== END 2021-04-23 14:54 | disposition home or self-care (01) ==
PROVIDERS: Emergency Provider Nurse Practitioner; PCP Internal Medicine
DX: L25.9 Unspecified contact dermatitis, unspecified cause (principal); F17.210 Nicotine dependence, cigarettes, uncomplicated; J44.9 Chronic obstructive pulmonary disease, unspecified; I10 Essential (primary) hypertension; E03.9 Hypothyroidism, unspecified; R73.03 Prediabetes; E55.9 Vitamin D deficiency, unspecified; F32.A Depression, unspecified
CPT/HCPCS: 99213; G0463

== ENCOUNTER 2021-07-04 09:36 | Emergency (ER) | payer MEDICARE, MEDICAID, SELFPAY ==
--- NOTE | ~2021-07-04 | CT_ITS ---
EXAMINATION: CT lumbar spine [facility] EXAM DATE: 07/04/2021 11:13 INDICATION: Low back pain radiating down right leg. TECHNIQUE: Spiral CT of the lumbar spine was performed without contrast. Axial, coronal and sagittal images lumbar spine were reviewed. The dose-length product (DLP) for this examination was 1230.85 m Gy-cm. The exposure was tailored according to patient size (auto mA exposure control), and iterativ e reconstruction (ASIR) was used as additional dose reduction technique. There is no prior study for comparison. FINDINGS: There are no acute fractures identified. There is no spondylolysis. Mild to moderate L5-S1 disc disease, mild at the other lumbar levels. Mild bilateral sacroiliac joint primary osteoarthritis . The vertebral bodies are aligned in the AP dimension. Paraspinal soft tissue is unremarkable. Level by level evaluation: T12-L1: Disc does not extend beyond the endplate margin. Facet arthropathy: None. Neural foraminal stenosis: No stenosis. Central canal stenosis: No stenosis. L1-L2: Disc does not extend beyond the endplate margin. Facet arthropathy: Mild. Neural foraminal stenosis: No stenosis. Central canal stenosis: No stenosis. L2-L3: There is a mild diffuse disc bulge. Facet arthropathy: Mild. Neural foraminal stenosis: No stenosis. Central canal stenosis: No stenosis. L3-L4: There is a mild to moderate diffuse disc bulge. Facet arthropathy: Mild. Neural foraminal stenosis: No stenosis. Central canal stenosis: Mild to moderate. L4-L5: There is a mild to moderate diffuse disc bulge. Facet arthropathy: Mild to moderate. Neural foraminal stenosis: Mild to moderate left, mild right. Central canal stenosis: Moderate. L5-S1: There is a moderate diffuse disc bulge. Facet arthropathy: Moderate. Neural foraminal stenosis: Severe right, moderate to severe left. Central canal stenosis: Moderate. Left lateral recess stenosis. IMPRESSION: 1. L5-S1 severe right, moderate to severe left neural foraminal stenosis. 2. No acute lumbar findings. Reviewed, dictated and finalized at location G. [employer]
[2021-07-04 09:42] VITALS: BP 152/97; PULSE 92; RESP 26; TEMP 36.9; O2SAT 97
--- NOTE | 2021-07-04 10:53 | ED.BACK ---
HPI - Back Pain/Injury General Chief Complaint: Back Pain/Injury Stated Complaint: severe back pain Time Seen by Provider: 07/04/21 10:14 Source: patient Mode of arrival: ambulatory Limitations: no limitations History of Present Illness HPI Narrative: This is a 46-year-old female that presents to the emergency department for low back pain present since yesterday. No recent injury or trauma. Reports sharp pain in the lower back. Worse with movement and relieved with rest. She has been taking anti-inflammatories with little relief. Does report history of disc disease. Denies fever, abdominal pain, vomiting, dysuria, hematuria, saddle anesthesia, or bowel/bladder incontinence. Related Data Allergies Allergy/AdvReac Type Severity Reaction Status Date / Time No Known Allergies Allergy Verified 07/04/21 09:44 Review of Systems Review of Systems: CONSTITUTIONAL: Denies fever GASTROINTESTINAL: Denies abdominal pain, nausea, vomiting GENITOURINARY: Denies dysuria or hematuria. SKIN: Denies rash MUSCULOSKELETAL: Reports back pain, joint pain, and myalgia. NEUROLOGIC: Denies numbness, or weakness. All systems reviewed & are unremarkable except as noted in HPI and below PMFSH Past Medical History Medical History (Updated 07/04/21 @ 15:29 by Beverly Guallpa PA-C) Cholecystectomy planned 2012 Chronic respiratory failure with hypoxia COPD (chronic obstructive pulmonary disease) Depression Hypertension Hypothyroidism Leukocytosis Prediabetes Vitamin D deficiency Surgical History Surgical History H/O section 1992 H/O prior ablation treatment 2005 H/O tubal ligation BL 2001 History of carpal tunnel surgery 2009 Family History Family History Sibling Hypertension Father Hypertension Cerebrovascular accident Diabetes mellitus Mother Diabetes mellitus Hypertension Social History Social History Social History: Caffeine- 6pk canned soda Smoking packs per day: 0.5 Smoking cigarettes per day: 10.0 Years smoked: 25 Smoking pack-years: 12.50 Smoking status: Current every day smoker Tobacco type: cigarettes Alcohol intake: never Spiritual care concerns: No Exam Narrative: GENERAL: Well-appearing, well-nourished, and in no acute distress. HEAD: Normocephalic, atraumatic. EYES: EOMI. CHEST: Clear to auscultation. No respiratory distress. No wheezes rales or rhonchi HEART: Regular rate and rhythm. No murmur heard. Normal peripheral pulses. BACK: No midline spinal tenderness EXTREMITIES: Normal range of motion. No edema. Strength equal in bilateral lower extremities (5/5) SKIN: Warm, dry, no rash. NEURO: No focal deficits. Alert and oriented x3. PSYCH: Normal mood and affect Course Vital Signs Vital signs: Vital Signs Temperature 98.5 F 07/04/21 09:42 Pulse Rate 92 07/04/21 09:42 Respiratory Rate 26 H 07/04/21 09:42 Blood Pressure 152/97 H 07/04/21 09:42 Pulse Oximetry 97 07/04/21 09:42 Temperature 98.5 F 07/04/21 09:42 Pulse Rate 92 07/04/21 09:42 Respiratory Rate 26 H 07/04/21 09:42 Blood Pressure 152/97 H 07/04/21 09:42 Pulse Oximetry 97 07/04/21 09:42 MDM - Back Pain/Injury MDM Narrative Medical decision making narrative: Patient presents to the ER for low back pain present since yesterday. No recent injury or trauma. Patient is neurologically intact. Denies any saddle anesthesia or bowel/bladder incontinence. Lumbar spine CT is without acute findings. She does have L5-S1 disc bulge with neural foraminal stenosis. Patient was updated on case findings. Instructed to rest, ice and take [id number] pain medication as needed. Will be prescribed muscle relaxer as needed for pain and given steroid taper. Instructed to have close follow-up with primary doc
[2021-07-04] MEDS: ACETAMINOPHEN 500 MG TABLET 1000 MG PO (11:01)
[2021-07-04] MEDS: diazePAM INJ (*CRX) 10 MG/2 ML SYRINGE 5 MG IM (11:02)
[2021-07-04] MEDS: oxyCODONE HCL (*CRX) 5 MG TAB IR PO (14:06)
[2021-07-04] MEDS: KETOROLAC (*BKC) 60 MG/2 ML VIAL IM (14:07)
[2021-07-04 15:45] VITALS: BP 156/90; PULSE 70; RESP 20; O2SAT 97
== END 2021-07-04 15:45 | disposition home or self-care (01) ==
PROVIDERS: Emergency Provider Emergency Medicine; PCP Internal Medicine
DX: M54.16 Radiculopathy, lumbar region (principal); J96.11 Chronic respiratory failure with hypoxia; J44.9 Chronic obstructive pulmonary disease, unspecified; I10 Essential (primary) hypertension; E03.9 Hypothyroidism, unspecified; R73.03 Prediabetes; E55.9 Vitamin D deficiency, unspecified; F17.210 Nicotine dependence, cigarettes, uncomplicated; M48.061 Spinal stenosis, lumbar region without neurogenic claudication
CPT/HCPCS: 72131; 96372; 99284; A9270; J1885; J3360

== ENCOUNTER → 2021-07-11 00:12 | Outpatient (CLI) | payer MEDICARE, MEDICAID, SELFPAY ==
[2021-07-11 20:23] LABS: SARS-CoV-2 RNA PCR Negative
== END ==
PROVIDERS: PCP Internal Medicine; Visit Provider Internal Medicine Critical Care Medicine
DX: Z01.812 Encounter for preprocedural laboratory examination (principal); Z01.818 Encounter for other preprocedural examination
CPT/HCPCS: C9803; U0003; U0005

== ENCOUNTER 2021-07-14 07:57 | Outpatient (CLI) | payer MEDICARE, MEDICAID, SELFPAY ==
--- NOTE | 2021-07-25 23:22 | WPDSLEEPSTUD ---
Sleep Study Date of Study: 07/14/21 <Alicia Flores, DO - Last Filed: 07/27/21 16:45> Ordering Provider: DANIEL Juarez <Alicia Flores DO - Last Filed: 07/27/21 16:45> Interpreting Physician: Alicia Flores DO <Alicia Flores DO - Last Filed: 07/27/21 16:45> Sleep Study Type: Split Polysomnogram <Alicia Flores DO - Last Filed: 07/27/21 16:45> Height: 1.78 m <Alicia Flores DO - Last Filed: 07/27/21 16:45> Weight: 145.603 kg <Alicia Flores DO - Last Filed: 07/27/21 16:45> Body Mass Index: 46.0 <Alicia Flores DO - Last Filed: 07/27/21 16:45> Neck Circumference (inches): 18 <Alicia Flores DO - Last Filed: 07/27/21 16:45> [place]: 7 <Alicia Flores DO - Last Filed: 07/27/21 16:45> Reason for Sleep Study Unrefreshing sleep, daytime hypersomnia <Alicia Flores DO - Last Filed: 07/27/21 16:45> Sleep History The patient is a 46-year-old female with COPD, depression, hypertension, hypothyroidism, prediabetes and over-active bladder that had a Split study ordered by the pulmonary group for evaluation of NIKOLE. She is currently using oxygen when she sleeps. The patient occasionally awakens from sleep short of breath. She occasionally awakens at night with heartburn, belching or cough. She occasionally snores but it is rarely loud enough that others complaints. She occasionally has trouble sleeping when she has a cold. She rarely wakes up gasping for air throughout the night. She occasionally sweats excessively at night. She rarely notices heart palpitations or irregular heartbeats during the night. She frequently falls asleep during the day but never while driving. She frequently has trouble at work due to sleepiness. She denies sleep paralysis, cataplexy and hypnagogic / hypnopompic hallucinations. She denies having nightmares. She frequently has thoughts racing through her mind. She frequently feels sad or depressed. She occasionally has anxiety. She rarely notices parts of her body jerk. She denies kicking during the night. She denies crawling and aching feelings in her legs as well as leg pain during the night. She denies grinding her teeth during sleep and awakening with morning jaw pain. She is occasionally bothered by pain during the day and a occasionally awakened by pain during the night. She rarely wakes up feeling stiff in the morning with sore or achy muscles. She rarely wakes up with pain in the neck, spine and other joints. She goes to bed between 11:00 p.m. and midnight on both weekdays and weekends. It takes her 30-45 minutes to fall asleep. She typically wakes up 2-3 times per night to use the restroom or to get a drink. It takes her 30-60 minutes to fall back asleep. She wakes up between 6 and 7 on weekdays and any time after 8:00 a.m. on the weekends. She typically gets at least 5 hours of sleep per night. She will stay in bed for 5-10 minutes after waking up in the morning. She currently lives with her , 2 adult children and 2 grand kids. Is she will consume caffeinated tea within 2 hours of bedtime. She does not engage in physical exercise before bedtime. She will read and watch television before falling asleep. She will take naps in the afternoon or the evening but they are not refreshing. She drinks caffeinated beverages throughout the day. She smokes 1 pack of cigarettes per day. She denies alcohol and recreational drug use. <Alicia Flores DO - Last Filed: 07/27/21 16:45> [facility] Past Medical History Medical History: Medical History Cholecystectomy planned 2012 Chronic respiratory failure with hypoxia COPD (chronic obstructive pulmonary disease) Depression Hypertension Hypothyroidism Leukocytosis Prediabetes Vitamin D deficiency <Alicia Flores DO - Last Filed: 07/27/21 16:45
[2021-07-27 16:32] VITALS: BMI 46.0
== END 2021-07-15 07:02 | disposition home or self-care (01) ==
LOC: ANHCSM 07:58
PROVIDERS: PCP Internal Medicine; Visit Provider Physician Assistant
DX: G47.10 Hypersomnia, unspecified (principal)
CPT/HCPCS: 95811

== ENCOUNTER 2021-11-06 02:16 | Emergency (ER) | payer MEDICARE, MEDICAID, SELFPAY ==
[2021-11-06] VITALS (27 sets, daily range): BP systolic 112–142; BP diastolic 75–115; PULSE 63–87; RESP 14–25; TEMP 36.4; O2SAT 88–99
--- NOTE | ~2021-11-06 | XR_ITS ---
EXAMINATION: [id number] DATE: 11/06/2021 04:51 INDICATION: Left flank pain TECHNIQUE: A frontal inspiratory view of the chest and 3 views of the left ribs were obtained. COMPARISON: Chest x-ray dated 08/27/[address] dated 03/23/2021 FINDINGS: Old healed fracture at the lateral left ninth rib. No acute rib fractures identified. Linear bandlike atelectasis at the left lung base. No other airspace opacities, pulmonary edema, pleural effusion or pneumothorax. Borderline heart size. Cholecystectomy clips in the right upper quadrant. Excreted con trast the bilateral renal collecting systems from an earlier contrast-enhanced CT. IMPRESSION: 1. No acute rib fractures. 2. Linear discoid atelectasis/scarring at the left lung base. Reviewed, dictated and finalized at location A.
--- NOTE | ~2021-11-06 | CT_ITS ---
EXAMINATION: CT abdomen pelvis w con DATE: 11/06/2021 04:33 INDICATION: Left flank pain TECHNIQUE: Computed tomography (CT) of the abdomen and pelvis was performed with 75 mL Omnipaque-300 intravenous contrast. Automated exposure control and iterative reconstruction technique were employed . The dose-length product was 1701.69 mGy-cm. COMPARISON: 05/19/2020 FINDINGS: Groundglass opacities in the bilateral lower lobes with bandlike consolidation on the right most like ly atelectasis. Heart size is normal. No pericardial or pleural effusion. Cholecystectomy clips the g allbladder fossa. Diffuse hepatic steatosis. Spleen, pancreas, bilateral adrenal glands and right kid ling are normal. 2 mm nonobstructing stone in a lower pole calyx of the left kidney. No ureteral stone s or hydronephrosis. There is mild colonic diverticulosis with a sigmoid predominance. There is no a djacent inflammatory change to suggest diverticulitis. Small fat-containing umbilical hernia with mi ld stranding in the immediately underlying omentum. Bladder, uterus and right adnexa are unremarkable . 3.1 cm left adnexal cyst/follicle. No free intraperitoneal gas or fluid. No pathologically enlarged abdominal or pelvic lymphadenopathy. Bone island at the left femoral neck. Mild scattered degenerati ve skeletal changes. IMPRESSION: 1. Nonobstructing 2 mm left renal stone. 2. Mild inflammatory stranding in the omental fat at the orifice of a small fat-containing umbilical hernia. Reviewed, dictated and finalized at location A. IMPRESSION: 1. Nonobstructing 2 mm left renal stone. 2. Mild inflammatory stranding in the omental fat at the orifice of a small fat -containing umbilical hernia.
--- NOTE | 2021-11-06 02:34 | ECG_ITS ---
Measurements Intervals Richards Rate: 76 P: 51 CT: 165 QRS: 72 QRSD: 113 T: 84 QT: 352 QTc: 397 Interpretive Statements SINUS RHYTHM DELAYED PRECORDIAL R/S TRANSITION BORDERLINE T WAVE ABNORMALITY- LAT/HIGH LAT LEADS BASELINE ARTIFACT- V4-V5 BORDERLINE ECG Electronically Signed On 11-06-2021 6:35:19 CDT by Reinaldo Ash D.O.
--- NOTE | 2021-11-06 02:38 | ED.GENADULT ---
HPI - General Adult General Chief complaint: Abdominal Pain Stated complaint: left flank pain and sob Time Seen by Provider: 11/06/21 02:17 Source: RN notes reviewed History of Present Illness HPI narrative: Patient presents emergency department from home for left-sided rib pain. Patient states symptoms been ongoing for the past 1 week but it worsened today the pain is located in the left lateral lower ribs pain is described as sharp and stabbing worse with deep inspiration and coughing movement of the torso states the pain radiates around into the back she denies any fevers or chills chest pain, abdominal pain nausea vomiting diarrhea or any other symptoms. States she has COPD and chronically feels short of breath. Patient states she wears 2 L nasal cannula at all times was not oriented upon arrival Related Data Allergies Allergy/AdvReac Type Severity Reaction Status Date / Time No Known Allergies Allergy Verified 11/06/21 02:23 Review of Systems Review of Systems: Gen.: Denies fevers or chills ENT: Denies congestion Respiratory: Denies shortness of breath or cough CV: Denies chest pain or palpitations reports left-sided rib pain GI: Denies abdominal pain nausea, emesis or diarrhea denies burning, urgency, frequency or hematuria Musculoskeletal: Denies back pain or muscle pain Neuro: Denies numbness, tingling, weakness or focal weakness Skin: Denies rash Except as documented, all other systems reviewed and negative PMFSH Past Medical History Medical History Cholecystectomy planned 2012 Chronic respiratory failure with hypoxia COPD (chronic obstructive pulmonary disease) Depression Hypertension Hypothyroidism Leukocytosis Prediabetes Vitamin D deficiency Surgical History Surgical History H/O section 1992 H/O prior ablation treatment 2005 H/O tubal ligation BL 2001 History of carpal tunnel surgery 2009 Family History Family History Sibling Hypertension Father Hypertension Cerebrovascular accident Diabetes mellitus Mother Diabetes mellitus Hypertension Social History Social History Social History: Caffeine- 6pk canned soda Smoking packs per day: 0.5 Smoking cigarettes per day: 10.0 Years smoked: 25 Smoking pack-years: 12.50 Smoking status: Current some day smoker Tobacco type: cigarettes Alcohol intake: never Spiritual care concerns: No Exam Narrative: APPEARANCE: No acute distress, nontoxic, resting in bed EYES: EOMI HEENT: Normocephalic, atraumatic, OMM RESPIRATORY: No respiratory distress wheezing throughout the bilateral lung kulkarni no rhonchi's or rales CARDIOVASCULAR: Regular rate and rhythm without murmurs rubs or gallops. Chest: Tender palpation over the left lateral ribs 8 through 10 no overlying erythema pain increased with deep inspiration and movement of the torso ABDOMINAL: Soft, nontender, nondistended, no rebound or guarding no flank tenderness MUSCULOSKELETAl: Moves all extremities. No clubbing, cyanosis or edema. NEURO: Awake and alert. Following commands, speech normal, no focal deficits SKIN:: Warm, dry. No rashes lesions or abrasions PSYCHIATRIC: Normal affect/mood, Course Course Emergency Course: Patient states she is feeling better following medication repeat lung exam is clear to auscultation bilaterally Discussed with patient results of workup and diagnosis. Discussed need for follow-up with primary care, proper use of medication, and reasons to return to the emergency department. Patient understands and agrees to current treatment plan. Patient states she has inhalers at home Vital Signs Vital signs: Vital Signs Pulse Oximetry 90 11/06/21 02:22 Temperature 97.6 F 11/06/21 02:23 Pulse Rate
[2021-11-06] MEDS: ALBUTEROL SULFATE NEB 2.5 MG/3 ML INH 5 MG INHALATION (02:43)
[2021-11-06] MEDS: IPRATROPIUM BR 0.02% INH SOLN 0.5 MG/2.5 ML VIAL INHALATION (02:43)
[2021-11-06 03:01] LABS: Basophils Absolute Auto 0.1 K/mm3 (0.0-0.1); Basophils Percent Auto 0.9 % (0.2-1.2); Eosinophils Absolute Auto 0.5 K/mm3 (0-0.3); Eosinophils Percent Auto 4.5 % (0-4.4); Hematocrit 48.7 % (37.0-47.0); Hemoglobin 16.2 g/dL (12.0-15.0); Immature Granulocyte Absolute 0.07 K/mm3 (0.00-0.031); Immature Granulocyte Percent A 0.6 % (0-0.5); Lymphocytes Absolute Auto 3.69 K/mm3 (0.9-3.2); Lymphocytes Percent Auto 31.3 % (18.3-44.2); Mean Corpuscular HGB Conc 33.3 g/dl (32-36); Mean Corpuscular Hemoglobin 31.6 pg (26-34); Mean Corpuscular Volume 94.9 fl (80-100); Mean Platelet Volume 10.1 fl (7.4-10.4); Monocytes Absolute Auto 0.6 K/mm3 (0.1-0.6); Monocytes Percent Auto 4.8 % (2.6-8.5); Neutrophils Absolute Auto 6.8 K/mm3 (1.3-6.7); Neutrophils Percent Auto 57.9 % (45.5-73.1); Platelet Count Result 310 k/mm3 (150-375); Red Blood Count 5.13 M/mm3 (4.2-5.4); Red Cell Distribution Width 13.6 % (11.5-14.5); White Blood Count 11.8 K/mm3 (4.5-10.0)
[2021-11-06 03:03] LABS: Appearance Urine Clear (Clear); Bilirubin Urine 1+ (Negative); Blood Urine 1+ (Negative); Color Urine Yellow (Yellow); Glucose Urine UA Negative (Negative); Ketones Urine Negative (Negative); Leukocyte Esterase Ur Negative LEU/UL (Negative); Nitrate Urine Negative (Negative); Protein Urine Negative (Negative); Specific Grav Ur >= 1.030 (1.001-1.035); Urobilinogen Urine 0.2 mg/dL (<2.0)
[2021-11-06] MEDS: MORPHINE SULFATE (*CRX) 4 MG/ML INJ IV PUSH (03:05)
[2021-11-06] MEDS: methylPREDNISolone SOD SUCC 125 MG VIAL IV PUSH (03:05)
[2021-11-06 03:10] LABS: Bacteria Urine Trace /hpf; Mucus Urine Rare /lpf; RBC Urine 51-75 /hpf (0-2); Squamous Epithelial Cell Urine Many /hpf (Few)
[2021-11-06 03:12] LABS: Add Urine Microscopic? YES
[2021-11-06 03:22] LABS: INR 1.1; Prothrombin Time 13.7 Seconds (11.1-14.7)
[2021-11-06 03:23] LABS: Partial Thromboplastin Time 31.4 SECONDS (22.3-36.8)
[2021-11-06 03:25] LABS: D Dimer 0.43 ug/mL (<0.48)
[2021-11-06 03:32] LABS: Troponin I < 0.012 ng/mL (0.000-0.034)
[2021-11-06 04:00] LABS: Alanine Aminotransferase 17 U/L (6-35); Alkaline Phosphatase 100 U/L (38-126); Anion Gap 7 mmol/L (8-16); Aspartate Amino Transferase 18 U/L (14-36); Bilirubin,Total 0.3 mg/dL (0.2-1.3); Blood Urea Nitrogen 17 mg/dL (7-17); Calcium 9.5 mg/dL (8.4-10.2); Carbon Dioxide 31 mmol/L (22-30); Chloride 102 mmol/L (98-107); Estimated CRCL calculation 110 ml/min; Estimated Glomerular Filt Rate > 60; Glucose 177 mg/dL (65-110); Lipase 74 U/L (23-300); Potassium 3.8 mmol/L (3.4-5.0); Sodium 140 mmol/L (137-145)
[2021-11-06] MEDS: KETOROLAC 30 MG/ML VIAL (*BKC) IV PUSH (04:53)
== END 2021-11-06 07:04 | disposition home or self-care (01) ==
PROVIDERS: Emergency Provider Emergency Medicine; PCP Internal Medicine
DX: J44.1 Chronic obstructive pulmonary disease with (acute) exacerbation (principal); R10.9 Unspecified abdominal pain; J96.11 Chronic respiratory failure with hypoxia; I10 Essential (primary) hypertension; E03.9 Hypothyroidism, unspecified; E55.9 Vitamin D deficiency, unspecified; R73.03 Prediabetes; F17.210 Nicotine dependence, cigarettes, uncomplicated; N20.0 Calculus of kidney; K42.9 Umbilical hernia without obstruction or gangrene; R94.31 Abnormal electrocardiogram [ECG] [EKG]
CPT/HCPCS: 36415; 71101; 74177; 80053; 81001; 83690; 84484; 85025; 85380; 85610; 85730; 93005; 94640; 96374; 96375; 99284; J1885; J2270; J2930; Q9967

== ENCOUNTER 2021-11-20 10:27 | Outpatient (CLI) | payer MEDICARE, MEDICAID, SELFPAY ==
--- NOTE | ~2021-11-20 | MM_ITS ---
EXAMINATION: MM screening miky BI w cary HISTORY: Screening mammogram TECHNIQUE: Craniocaudal and mediolateral oblique 3-D tomosynthesis images were obtained and synthetic 2-D images were generated. CAD analysis was submitted and interpreted. COMPARISON: August 09, 2017 bilateral screening mammogram BREAST PARENCHYMAL COMPOSITION: The breasts are almost entirely fatty. FINDINGS: There is no evidence of suspicious mass, calcification, or architectural distortion to sugg est malignancy in either breast. There has been no suspicious interval change. IMPRESSION: 1. No mammographic evidence of malignancy. 2. Recommend routine screening mammography in one year. BI-RADS Category 1: Negative Reviewed, dictated and finalized at location A.
== END 2021-11-20 10:28 | disposition home or self-care (01) ==
PROVIDERS: PCP Internal Medicine
DX: Z12.31 Encounter for screening mammogram for malignant neoplasm of breast (principal)
CPT/HCPCS: 77063; 77067

== ENCOUNTER 2022-01-05 16:44 | Inpatient (IN) | payer MEDICARE, MEDICAID, SELFPAY ==
--- NOTE | ~2022-01-05 | XR_ITS ---
EXAMINATION: XR abdomen obstructive series DATE: 01/06/2022 09:07 INDICATION: Incarcerated umbilical hernia TECHNIQUE: Frontal supine and upright views of the abdomen were obtained. COMPARISON: CT dated 01/05/2022 FINDINGS: Cholecystectomy clips in right upper quadrant. Small amount of colonic gas scattered throughout the a bdomen. No dilated gas-filled loops of small bowel to suggest obstruction. Excreted contrast within t he bladder related to the contrast enhanced CT performed one day prior. No free intraperitoneal gas. Persistent bibasilar atelectasis. Heart size is normal. IMPRESSION: 1. No free intraperitoneal gas or dilated gas-filled loops of bowel to suggest obstruction. Reviewed, dictated and finalized at location A.
--- NOTE | ~2022-01-05 | US_ITS ---
EXAMINATION: US thyroid DATE: 01/07/2022 10:49 INDICATION: Hypothyroidism. TECHNIQUE: Multiple ultrasound images of the thyroid were obtained. COMPARISON: Ultrasound 09/07/2016 FINDINGS: The right thyroid lobe measures 4.8 x 1.8 x 2.3 cm. The left thyroid lobe measures 3.5 x 1.5 x 2.4 c m. The thyroid demonstrates heterogeneous echogenicity. Vascularity is normal. No discrete nodule. IMPRESSION: 1. Heterogeneous thyroid, likely chronic lymphocytic (Hermes) thyroiditis. Reviewed, dictated and finalized at location A.
--- NOTE | ~2022-01-05 | CT_ITS ---
EXAMINATION: CT abdomen pelvis w con DATE: 01/05/2022 19:42 INDICATION: RLQ pain, bladder sling 3 weeks ago TECHNIQUE: Computed tomography (CT) of the abdomen and pelvis was performed with 100 mL Omnipaque-300 intravenous contrast. Automated exposure control and iterative reconstruction technique were employe d. The dose-length product was 1543.13 mGy-cm. COMPARISON: 11/06/2021. FINDINGS: Lower thorax: Bibasilar scar/atelectasis. Liver: Enlarged fatty infiltrated liver Biliary/Gallbladder: Gallbladder is absent. No bile duct dilation. Pancreas: No mass or duct dilation. Spleen: Normal. Adrenals:No mass. Kidneys: No mass or hydronephrosis. 2 mm left lower pole nonobstructive calcification. GI tract: No small or large bowel dilation. A short loop of small bowel herniates at the umbilicus th rough a narrow 1.6 cm neck, with mild dilation wall hyperemia and inflammation. Normal appendix. Gilman jenny submucosal fat as can be seen with chronic IBD, obesity, chemotherapy treatment, and celiac disea se. Diverticulosis without diverticulitis. Mesentery/Peritoneum: No ascites, mass, or free air. Retroperitoneum: No mass. Atherosclerotic abdominal aortic and/or arterial calcifications. Pelvis: Pelvic organs are within normal limits. Soft Tissues: Soft tissues and body wall unremarkable. Bones: No acute osseous finding. IMPRESSION: Small bowel containing umbilical hernia with inflammatory change. No proximal small bowel dilation at this time. Hepatomegaly and steatosis. Reviewed, dictated and finalized at location K. IMPRESSION: Small bowel containing umbilical hernia with inflammatory change. No proximal s mall bowel dilation at this time. Hepatomegaly and steatosis.
[2022-01-05 16:58] VITALS: BP 204/114; PULSE 85; RESP 18; TEMP 36.4; O2SAT 97
[2022-01-05 17:20] LABS: Basophils Absolute Auto 0.1 K/mm3 (0.0-0.1); Basophils Percent Auto 0.8 % (0.2-1.2); Eosinophils Absolute Auto 0.3 K/mm3 (0-0.3); Eosinophils Percent Auto 3.1 % (0-4.4); Hematocrit 47.8 % (37.0-47.0); Hemoglobin 15.8 g/dL (12.0-15.0); Immature Granulocyte Absolute 0.05 K/mm3 (0.00-0.031); Immature Granulocyte Percent A 0.4 % (0-0.5); Lymphocytes Absolute Auto 1.96 K/mm3 (0.9-3.2); Lymphocytes Percent Auto 17.6 % (18.3-44.2); Mean Corpuscular HGB Conc 33.1 g/dl (32-36); Mean Corpuscular Hemoglobin 31.5 pg (26-34); Mean Corpuscular Volume 95.4 fl (80-100); Mean Platelet Volume 9.3 fl (7.4-10.4); Monocytes Absolute Auto 0.4 K/mm3 (0.1-0.6); Monocytes Percent Auto 3.4 % (2.6-8.5); Neutrophils Absolute Auto 8.3 K/mm3 (1.3-6.7); Neutrophils Percent Auto 74.7 % (45.5-73.1); Platelet Count Result 310 k/mm3 (150-375); Red Blood Count 5.01 M/mm3 (4.2-5.4); Red Cell Distribution Width 14.2 % (11.5-14.5); White Blood Count 11.1 K/mm3 (4.5-10.0)
[2022-01-05 17:32] LABS: Alanine Aminotransferase 30 U/L (6-35); Albumin Level 4.4 g/dL (3.5-5.1); Alkaline Phosphatase 103 U/L (38-126); Anion Gap 3 mmol/L (8-16); Aspartate Amino Transferase 29 U/L (14-36); Bilirubin,Total 0.4 mg/dL (0.2-1.3); Blood Urea Nitrogen 13 mg/dL (7-17); Calcium 9.1 mg/dL (8.4-10.2); Carbon Dioxide 33 mmol/L (22-30); Chloride 103 mmol/L (98-107); Estimated CRCL calculation 99 ml/min; Estimated Glomerular Filt Rate 60; Glucose 170 mg/dL (65-110); Lipase 75 U/L (23-300); Potassium 4.8 mmol/L (3.4-5.0); Sodium 139 mmol/L (137-145)
--- NOTE | 2022-01-05 19:45 | ED.ABDPAIN ---
HPI - Abdominal Pain General Chief Complaint: Abdominal Pain <KIMBERLY Mckeon Last Filed: 01/05/22 22:06> Stated Complaint: abd pain <KIMBERLY Mckeon Last Filed: 01/05/22 22:06> Time Seen by Provider: 01/05/22 18:56 <KIMBERLY Mckeon Last Filed: 01/05/22 22:06> Source: patient <KIMBERLY Mckeon Last Filed: 01/05/22 22:06> Mode of arrival: ambulatory <KIMBERLY Mckeon Last Filed: 01/05/22 22:06> Limitations: no limitations <KIMBERLY Mckeon Last Filed: 01/05/22 22:06> History of Present Illness HPI narrative: Patient is a 46 y/o female who presents to the ED with c/o right lower quadrant abdominal pain. Patient reports she suddenly developed pain around 1:30 PM today while she was sitting down. She tried taking Tylenol around 2 PM without much relief. The pain has since worsened, and is aggravated with any movement or hitting bumps on the road here. Denies any nausea, vomiting, diarrhea, constipation, urinary symptoms, fever, chills, back pain, chest pain, difficulty breathing. Patient does mention she had a vaginal wall repair with bladder sling performed [address] Paulson at [facility]. She has not had any issues with this since. Patient has history of COPD and chronically wears 2 L nasal cannula. She denies any worsening of this recently. Oxygen saturation 97% on her 2 L currently. <KIMBERLY Mckeon Last Filed: 01/05/22 22:06> Related Data Allergies/Adverse Reactions: Allergies Allergy/AdvReac Type Severity Reaction Status Date / Time No Known Allergies Allergy Verified 11/10/21 11:28 <KIMBERLY Mckeon Last Filed: 01/05/22 22:06> Review of Systems Review of Systems: CONSTITUTIONAL: Denies fever, chills, or sweats. CARDIOVASCULAR: Denies chest pain. RESPIRATORY: Denies dyspnea. GASTROINTESTINAL: Reports right lower quadrant abdominal pain. Denies constipation, nausea, vomiting, or diarrhea. GENITOURINARY: Denies dysuria or hematuria. MUSCULOSKELETAL: Denies back pain, joint pain, or myalgia. NEUROLOGIC: Denies headache, numbness, or weakness. <Izzy Murphy PA-C - Last Filed: 01/05/22 22:06> All systems reviewed & are unremarkable except as noted in HPI and below <Izzy Murphy PA-C - Last Filed: 01/05/22 22:06> [facility] Past Medical History Medical History: Medical History Cholecystectomy planned 2012 Chronic respiratory failure with hypoxia COPD (chronic obstructive pulmonary disease) Depression Hypertension Hypothyroidism Leukocytosis Prediabetes Vitamin D deficiency <Izzy Murphy PA-C - Last Filed: 01/05/22 22:06> Surgical History Surgical History: Surgical History H/O section 1992 H/O prior ablation treatment 2005 H/O tubal ligation BL 2001 History of bladder surgery History of carpal tunnel surgery 2009 History of vaginal surgery <Izzy Murphy PA-C - Last Filed: 01/05/22 22:06> Family History Family History: Family History Sibling Hypertension Father Hypertension Cerebrovascular accident Diabetes mellitus Mother Diabetes mellitus Hypertension <Izzy Murphy PA-C - Last Filed: 01/05/22 22:06> Social History Social History: Social History Social History: Caffeine- 6pk canned soda Smoking packs per day: 0.5 Smoking cigarettes per day: 10.0 Years smoked: 25 Smoking pack-years: 12.50 Smoking status: Current every day smoker Tobacco type: cigarettes Alcohol intake: never Spiritual care concerns: No <Izzy Murphy PA-C - Last Filed: 01/05/22 22:06> Exam Narrative: GENERAL: Well appearing, morbid obesity, non-toxic, in no acute distress. HEAD: Normocephalic, atraumatic. NECK:
[2022-01-05 19:56] LABS: Appearance Urine Clear (Clear); Bilirubin Urine Negative (Negative); Color Urine Yellow (Yellow); Glucose Urine UA Negative (Negative); Ketones Urine Negative (Negative); Leukocyte Esterase Ur 1+ LEU/UL (Negative); Nitrate Urine Negative (Negative); Protein Urine Negative (Negative); Urobilinogen Urine 0.2 mg/dL (<2.0)
[2022-01-05 20:04] LABS: Bacteria Urine Trace /hpf; Mucus Urine Rare /lpf; Squamous Epithelial Cell Urine Rare /hpf (Few); WBC Urine 0-3 /hpf
[2022-01-05 20:07] LABS: Add Urine Microscopic? YES; Blood Urine Trace (Negative)
[2022-01-05] MEDS: MORPHINE SULFATE (*CRX) 4 MG/ML INJ IV PUSH (20:13)
[2022-01-05] MEDS: ONDANSETRON INJ 4 MG/2 ML VIAL IV PUSH (20:13)
[2022-01-05 21:10] VITALS: BP 178/87; PULSE 78; RESP 18; O2SAT 99
[2022-01-05] MEDS: HYDROmorphone HCL INJ (*CRX) 1 MG/ML SYR IV PUSH (21:37)
[2022-01-05 22:16] LABS: SARS-CoV-2 RNA PCR Negative
--- NOTE | 2022-01-05 23:11 | PC.NURSE ---
Assumed care of pt at this time, pt is alert to verbal stimuli - resting on stretcher. Discussed POC. VSS.
[2022-01-05 23:14] VITALS: BP 110/70; PULSE 79; RESP 18; O2SAT 93
[2022-01-06] VITALS (17 sets, daily range): BP systolic 109–175; BP diastolic 56–98; PULSE 61–96; RESP 12–25; TEMP 36.1–37.1; O2SAT 90–100; BMI 45.8
[2022-01-06] MEDS: MORPHINE SULFATE (*CRX) 4 MG/ML INJ IV PUSH ×3 (00:10→08:17)
[2022-01-06] MEDS: HYDROmorphone HCL INJ (*CRX) 1 MG/ML SYR IV PUSH ×2 (01:46→06:21)
[2022-01-06] MEDS: SODIUM CHLORIDE 0.9% IV 1,000 ML 125 ML IV CONT (03:12)
--- NOTE | 2022-01-06 08:52 | PM.IMHP ---
H&P: HPI History of Present Illness Date/Time: 01/06/22 08:52 <Lindsey Leong PA-C - Last Filed: 01/06/22 17:51> Chief Complaint: Abdominal pain x 8 hrs <Lindsey Leong PA-C - Last Filed: 01/06/22 17:51> Narrative: Patient reports yesterday at 1:30 PM, she noticed sharp lower abdominal pain which was not relieved with tylenol.At that point she came into the ER to be seen. She denies nausea, vomiting, diarrhea, constipation. She recently had surgery for vaginal wall prolapse with bladder sling placement 3 weeks ago at [facility]. She denies issues with this procedure. She denies prior episodes of umbilical hernia. She has been NPO since arrival last night at 10PM. She states she continues to have an appetite and would like to eat. She denies any new medications or foods leading up to this incident. she is a current every day smoker with a 12.5 pack year history. She denies alcohol or street/elicit drug use. CT showed small bowel containing umbilical hernia, which was unable to be reduced by ER or general surgery. She will be tentatively scheduled for surgical repair tonight at 5pm. She has been told that she is in fact a high risk surgical candidate due to her body habitus and COPD. She understands the risks and is proceeding with the surgery per general surgery's recommendations. Of note, her TSH was significantly elevated at 79, with low T4. She does have a history of hypothyroidism for which she takes daily Synthroid 225mcg daily, and she does not skip any doses. She also has depression for which she takes lamotrigine and venlafaxine. She also has hypertension for which she takes HCTZ daily. She also has COPD and is followed by Dr. Awad, pulmonology. She wears 2L supplemental O2 at home. She has only a rescue inhaler and does not take a daily steroid inhaler for this. Surgical history includes C-sections, tubal ligation, gallbladder surgery, carpal tunnel surgery, and the recent vaginal surgery with bladder sling. She reports family history significant for father from an [place] w/ history of DMII, mother and brother both living with DMII, and Grandfather with colon cancer. <Lindsey Leong PA-C - Last Filed: 01/06/22 17:51> Review of Systems Review of Systems: All systems reviewed & are unremarkable except as noted in HPI and below <Lindsey Leong PA-C - Last Filed: 01/06/22 17:51> [facility] Past Medical History Medical History: Medical History (Updated 01/20/22 @ 10:42 by Linda Hope) Chronic respiratory failure with hypoxia COPD (chronic obstructive pulmonary disease) Depression Hypertension Hypothyroidism On home O2 NIKOLE (obstructive sleep apnea) (~07/14/21) Tobacco abuse Vaginal wall prolapse 12/15/2021 Vitamin D deficiency <Lindsey Leong PA-C - Last Filed: 01/06/22 17:51> Surgical History Surgical History: Surgical History (Updated 01/20/22 @ 10:34 by NANCIE Juarez) H/O section 1992 H/O hernia repair 01/06/2022 H/O prior ablation treatment uterine ablation - 2005 H/O tubal ligation BL 2001 H/O ventral hernia repair 01/05/22 History of bladder surgery History of carpal tunnel surgery 2009 History of laparoscopic cholecystectomy 2013 History of vaginal surgery <Lindsey Leong PA-C - Last Filed: 01/06/22 17:51> Family History Family History: Family History Sibling Hypertension Father Hypertension Cerebrovascular accident Diabetes mellitus Mother Diabetes mellitus Hypertension <Lindsey Leong PA-C - Last Filed: 01/06/22 17:51> Social History Social History: Social History Social History: Caffeine- 6pk canned soda Smoking packs per day: 0.5 Smoking cigarettes per day: 10.0 Years smoked: 25 Smoking pack-years: 12.50 Smoking status: Former smoker Tobacco type: cigarettes Smok
[2022-01-06 08:53] LABS: Basophils Absolute Auto 0.1 K/mm3 (0.0-0.1); Basophils Percent Auto 0.8 % (0.2-1.2); Eosinophils Absolute Auto 0.4 K/mm3 (0-0.3); Eosinophils Percent Auto 3.9 % (0-4.4); Hematocrit 47.7 % (37.0-47.0); Hemoglobin 15.9 g/dL (12.0-15.0); Immature Granulocyte Absolute 0.02 K/mm3 (0.00-0.031); Immature Granulocyte Percent A 0.2 % (0-0.5); Lymphocytes Absolute Auto 2.66 K/mm3 (0.9-3.2); Lymphocytes Percent Auto 24.5 % (18.3-44.2); Mean Corpuscular HGB Conc 33.3 g/dl (32-36); Mean Corpuscular Hemoglobin 31.9 pg (26-34); Mean Corpuscular Volume 95.6 fl (80-100); Mean Platelet Volume 9.6 fl (7.4-10.4); Monocytes Absolute Auto 0.5 K/mm3 (0.1-0.6); Neutrophils Absolute Auto 7.1 K/mm3 (1.3-6.7); Neutrophils Percent Auto 65.6 % (45.5-73.1); Platelet Count Result 328 k/mm3 (150-375); Red Blood Count 4.99 M/mm3 (4.2-5.4); Red Cell Distribution Width 14.4 % (11.5-14.5); White Blood Count 10.9 K/mm3 (4.5-10.0)
[2022-01-06 09:04] LABS: Alanine Aminotransferase 34 U/L (6-35); Albumin Level 4.2 g/dL (3.5-5.1); Alkaline Phosphatase 100 U/L (38-126); Anion Gap 6 mmol/L (8-16); Aspartate Amino Transferase 33 U/L (14-36); Bilirubin,Total 0.4 mg/dL (0.2-1.3); Blood Urea Nitrogen 13 mg/dL (7-17); Calcium 8.8 mg/dL (8.4-10.2); Carbon Dioxide 30 mmol/L (22-30); Chloride 103 mmol/L (98-107); Estimated CRCL calculation 110 ml/min; Estimated Glomerular Filt Rate > 60; Glucose 164 mg/dL (65-110); Potassium 3.9 mmol/L (3.4-5.0); Sodium 139 mmol/L (137-145)
--- NOTE | 2022-01-06 09:40 | PM.CNGS ---
Assessment and Plan Assessment and plan (1) Umbilical hernia, incarcerated: Code(s): K42.0 - Umbilical hernia with obstruction, without gangrene Status: Acute Assessment and Plan: CT scan reviewed and discussed with the patient in detail. There is a loop of small bowel with inflammatory change in the periumbilical hernia. This was unable to be reduced in the ER, and I was also unsuccessful at reducing the hernia after multiple attempts. Her body habitus does make this more difficult. She continues to have abdominal pain, which has now been ongoing for just under 24 hours. There is definitely concern for strangulation and bowel ischemia, which I discussed with the patient. There is no evidence of obstruction on CT or plain films this morning, but without reducing the hernia this continues to be a concern. Even though she is a higher risk surgical candidate given her co-morbidities, tobacco abuse, and morbid obesity, it is possible she will need urgent surgical repair. I have discussed the case with Dr. Sevilla this morning. He will review the CT scan and decide if and when surgery should be scheduled. Will keep her NPO for now with IV fluids and analgesics as needed. She was getting IV Morphine and IV Dilaudid through the night, which I switched to just getting Dilaudid and IV Ofirmev for pain control. (2) Chronic respiratory failure with hypoxia: Code(s): J96.11 - Chronic respiratory failure with hypoxia Status: Acute Assessment and Plan: Increases risks for surgery and general anesthesia. (3) COPD (chronic obstructive pulmonary disease): Code(s): J44.9 - Chronic obstructive pulmonary disease, unspecified Status: Chronic Assessment and Plan: Increases risks for surgery and general anesthesia. (4) NIKOLE (obstructive sleep apnea): Onset Date: ~07/14/21 Code(s): G47.33 - Obstructive sleep apnea (adult) (pediatric) Status: Chronic Assessment and Plan: Increases risks for surgery and general anesthesia. (5) Obesity, morbid, BMI 40.0-49.9: Code(s): E66.01 - Morbid (severe) obesity due to excess calories Status: Chronic Assessment and Plan: Increases risks for surgery. Discussed the importance of diet and lifestyle modification to promote weight loss, which should be continued after discharge. (6) Tobacco abuse: Code(s): Z72.0 - Tobacco use Status: Chronic Assessment and Plan: Increases risks for surgery. Thoroughly discussed the importance of smoking cessation and how this can affect her healing from surgery and risk of recurrence. She states she has been trying to quit and seems open to the idea. (7) Hypertension: Qualifiers: Hypertension type: essential hypertension Qualified Code(s): I10 - Essential (primary) hypertension Code(s): I10 - Essential (primary) hypertension Status: Chronic (8) Hepatic steatosis: Code(s): K76.0 - Fatty (change of) liver, not elsewhere classified Status: Acute Assessment and Plan: Incidentally noted on CT. We discussed weight recommendations and f/u with PCP. Plan I have discussed the patient's case and plan of care with Dr. Sevilla. History of Present Illness Consult details Consult date: 01/06/22 Reason for consult: other ( incarcerated umbilical hernia) Requesting physician: Izzy Murphy PA-C Narrative: This is a 46-year-old woman with a history of COPD, chronic respiratory failure on 2 L of oxygen, tobacco abuse, hypertension, and hypothyroidism, who presented to the ER with complaints of periumbilical abdominal pain last night. She reports around 1:30 p.m. yesterday she had gotten up from her dining room to go sit in the living room, and immediately after sitting down she had a sudden onset of periumbilical pain. The pain was severe and there were no alleviating factors. Denies any nausea, vomiting, or bloating. Due to the persistent emir
[2022-01-06] MEDS: HYDROmorphone HCL INJ (*CRX) 1 MG/ML SYR 0.5 MG IV PUSH ×2 (10:35→13:08)
[2022-01-06 11:17] LABS: Free T4 Free Thyroxine Reflex 0.55 ng/dL (0.78-2.19)
--- NOTE | 2022-01-06 14:25 | WPDHPUPDATE1 ---
History and Physical Update Update Date/Time: 01/06/22 14:25 History and Physical has been reviewed, including an updated exam of the patient. There are NO changes in the patient's condition. I did try again to reduce this at the bedside with ice Trendelenburg position and pre medication with pain medicine. I could not reduce the incarcerated hernias shown on CT last night. Therefore, I have discussed with the patient and her proceeding to operative intervention and let them know that we may have to do a bowel resection but hopefully not. Have emphasized the importance of cessation of smoking wearing an abdominal binder and losing weight after the procedure. Risks, benefits, and alternatives have been discussed and questions answered. Patient agrees to proceed with procedure. JORGE.
--- NOTE | 2022-01-06 16:39 | PM.CNPUL ---
Assessment and Plan Assessment and plan (1) COPD (chronic obstructive pulmonary disease): Code(s): J44.9 - Chronic obstructive pulmonary disease, unspecified Status: Chronic Assessment and Plan: GOLD grade 2 group B 46-year-old woman with a history of current tobacco use and GOLD grade 2 group B COPD (FEV1 55%, airtrapping) and hypoxemic respiratory failure on 2 L at rest and 3 L with ambulation maintained on triple inhalers. Currently there is no evidence of a COPD exacerbation. At this time I will continue patient on triple inhalers and will provide them as nebulizers including albuterol 2.5 mg q.4 hours, ipratropium 0.5 mg q.4 hours and budesonide 500 mcg q.12 hours. Patient currently on 2 L nasal cannula saturations 92%. I do not feel the need for antibiotics form a pulmonary perspective. Do not feel a need to give her systemic steroids from a pulmonary perspective at this time. Postoperatively will encourage her to be out of bed with deep inspiration in order to help her pulmonary hygiene. I have spoken with the transporter who will discuss her COPD and obstructive sleep apnea with the anesthesia team. If possible would give her an albuterol and ipratropium nebulizer preoperatively. Discussed with Dr. Sevilla. Will follow with you. (2) NIKOLE (obstructive sleep apnea): Onset Date: ~07/14/21 Code(s): G47.33 - Obstructive sleep apnea (adult) (pediatric) Status: Chronic Assessment and Plan: patient was diagnosed with obstructive sleep apnea from a split night sleep study on 07/25/2021 with an AHI of 8.8 and her optimal CPAP pressure was 10 with 1 L bleed in. Patient has been unable to tolerate this pressure and has not been wearing her CPAP at home. I will order CPAP 8 with 1 L bleed in tonight. I spoken with Dr. Sevilla the surgeon and if there is any concern regarding her bowel integrity postoperatively from CPAP and the possibility of gastric distension would hold CPAP tonight. History of Present Illness History of Present Illness Consult date: 01/06/22 Chief complaint: Strangulated umbilical hernia Narrative: 01/06/2022: This is a new pulmonary consult for perioperative management of COPD and obstructive sleep apnea. 46-year-old woman with a history of GOLD grade 2 group B COPD (FEV1 55%, airtrapping) and hypoxemic respiratory failure on 2 L at rest and 3 L with ambulation maintained on triple inhalers. patient was diagnosed with obstructive sleep apnea from a split night sleep study on 07/25/2021 with an AHI of 8.8 and her optimal CPAP pressure was 10 with 1 L bleed in. Patient has been unable to tolerate this pressure and has not been wearing her CPAP at home. Patient presented to the hospital on 01/05/2022 with abdominal pain and was found to have an incarcerated umbilical hernia and is scheduled to go to the emergency room today. I was consulted for perioperative management of her COPD and obstructive sleep apnea. The patient denies any change in her respiratory symptoms and came to the hospital only for abdominal pain. She denies fever, chills, rigors, cough, phlegm production or chest pains. She denies wheezing. Patient states her breathing status is at her baseline. Patient continues to smoke but has improved on her cessation is down to 5 cigarettes a day. 01/06 Patient is in bed on 2 L nasal cannula saturations 92%. She has no wheezes on exam. She is not taking any bronchodilators today. DATA: 03/23/2021 - CT chest wo con - Moderate emphysema.? Chronic discoid atelectasis / scarring bilateral lower lobes.? No acute cardiopulmonary disease. 09/02/2020 CT with contrast - Moderate panlobular apical predominant emphysema.? Dependent ground-glass opacities likely atelectasis.? No suspicious pulmonary nodules. 11/20/2019 - RLE Doppler which demonstrated no DVT and a small Laureano cyst. 11/28/2020 - PFT -? Moderate obstructive venti
--- NOTE | 2022-01-06 17:30 | WPDANESEPPF ---
Anes - Initial Pre Proc Eval Procedure: Operation Date: 01/06/22 17:30 Proposed Procedures p Exploratory Laparotomy, Reduction Umbilical Hernia, Possible Bowel Resection - Donavan Sevilla MD Date/Time: 01/06/22 17:30 Surgeon: Lindsey Leong PA-C Pre Op Diagnosis: Strangulated umbilical hernia Patient Data Age: 46 Gender: F Height: 1.78 m Weight: 145 kg Last Vital Signs Temp 37.1 C 01/06/22 16:50 Pulse 65 01/06/22 16:50 Resp 12 01/06/22 16:50 BP 138/98 H 01/06/22 16:50 Pulse Ox 99 01/06/22 16:50 O2 Del Method Nasal Cannula 01/06/22 16:50 O2 Flow Rate 2 01/06/22 16:50 Allergies Allergy/AdvReac Type Severity Reaction Status Date / Time No Known Allergies Allergy Verified 11/10/21 11:28 Home Medications Medication Instructions Recorded Confirmed Type venlafaxine 150 mg 150 mg PO DAILY #90 caps 10/21/21 01/06/22 Rx capsule,extended release 24 hr venlafaxine 75 mg capsule,extended 75 mg PO DAILY #90 caps 10/21/21 01/06/22 Rx release 24 hr hydrochlorothiazide 12.5 mg tablet 12.5 mg PO DAILY #90 tabs 11/12/21 01/06/22 Rx lisinopril 40 mg tablet 40 mg PO DAILY #90 tabs 11/12/21 01/06/22 Rx levothyroxine 25 mcg tablet See Rx Instructions .Route 12/01/21 01/06/22 Rx .COMPLEX #90 tabs levothyroxine 200 mcg tablet See Rx Instructions .Route 12/09/21 01/06/22 Rx .COMPLEX #90 tabs lamotrigine 100 mg tablet 100 mg PO DAILY 01/06/22 01/06/22 History lamotrigine 25 mg tablet 25 mg PO DAILY 01/06/22 01/06/22 History Laboratory Tests 01/05/22 01/05/22 01/05/22 17:09 19:47 20:16 WBC RBC Hgb Hct MCV MCH MCHC RDW Plt Count MPV Immature Gran % (Auto) Neut % (Auto) Lymph % (Auto) Casey % (Auto) Eos % (Auto) Baso % (Auto) Lymph # (Auto) Casey # (Auto) Eos # (Auto) Baso # (Auto) Abs Immat Gran (auto) Absolute Neuts (auto) Absolute Nucleated RBC Nucleated RBC % Sodium 139 mmol/L mmol/L (137-145) Potassium 4.8 mmol/L mmol/L (3.4-5.0) Chloride 103 mmol/L mmol/L (98-107) Carbon Dioxide 33 mmol/L H mmol/L (22-30) Anion Gap 3 mmol/L L mmol/L (8-16) BUN 13 mg/dL mg/dL (7-17) Creatinine 1.00 mg/dL mg/dL (0.7-1.0) Estim Creat Clear Calc 99 ml/min ml/min Estimated GFR 60 (59 - ) Glucose 170 mg/dL H mg/dL (65-110) Lactic Acid 1.0 mmol/L mmol/L (0.7-2.0) Calcium 9.1 mg/dL mg/dL (8.4-10.2) Total Bilirubin 0.4 mg/dL mg/dL (0.2-1.3) AST 29 U/L U/L (14-36) ALT 30 U/L U/L (6-35) Alkaline Phosphatase 103 U/L U/L (38-126) Total Protein 8.0 g/dL g/dL (6.3-8.2) Albumin 4.4 g/dL g/dL (3.5-5.1) Lipase 75 U/L U/L (23-300) TSH (Reflex) Free T4 Urine Color Yellow (Yellow) Urine Appearance Clear (Clear) Urine pH 7.0 (5.0-9.0) Ur Specific [place] 1.020 (1.001-1.035) Urine Protein Negative mg/dL mg/dL (Negative) Urine Glucose (UA) Negative mg/dL mg/dL (Negative) Urine Ketones Negative mg/dL mg/dL (Negative) Ur Blood (Man) Trace (Negative) Urine Nitrate Negative (Negative) Urine Bilirubin Negative (Negative) Urine Urobilinogen 0.2 mg/dL mg/dL (<2.0) Leukocyte Esterase Rfl 1+ JAYLEEN/UL H JAYLEEN/UL (Negative) Urine RBC 3-5 /hpf H /hpf (0-2) Urine WBC 0-3 /hpf /hpf Ur Squamous Epith Cells Rare /hpf /hpf (Few) Urine Bacteria Trace /hpf /hpf Urine Mucus Rare /lpf /lpf CHANTAL
[2022-01-06] MEDS: BUPIVACAINE/EPINEPHRINE 0.25% 10 ML VIAL 30 ML INFILTRATE (17:39)
[2022-01-06] MEDS: LACTATED RINGERS 1,000 ML 30 ML IV CONT (18:58)
--- NOTE | 2022-01-06 19:24 | SUR.PHASEI ---
1900 - ice bag to abd umbilical area.
--- NOTE | 2022-01-06 19:24 | W.PM.PROC2 ---
Procedure Note - Detailed Date of Procedure 01/06/22 Pre-op Diagnosis Incarcerated ventral incisional hernia near umbilicus Post-op Diagnosis Same Procedure Performed Open exploration, reduction, and repair of ventral incisional hernia just above the umbilicus with sutures. Surgeon Donavan Sevilla MD Assistant Chief Of Police Sisi VALDEZ. OR First Asst. Indications bulging and pain under a supraumbilical scar from her previous laparoscopic cholecystectomy. Workup in ED last night using a CT scan of the abdomen and pelvis showeda suspicion for a loop of small bowel entering but not well exiting a narrow necked fascial defect just above the umbilicus. Multiple attempts last night in the ED this morning by our service service and in the early afternoon by myself were unsuccessful in reducing in maintain reduction of the apparent incarcerated hernia. Therefore, I recommended surgical intervention with reduction and closure. Findings A supraumbilical incision was made transversely & we found a fairly good size hernia sac approximately 5 x 4 cm with a 1.5-2 cm fascial defect allowing both hernia sac and densely adhered small bowel to herniate through. Description of Procedure Patient was brought to the OR room on a cart. She then slid over onto the OR table. After induction of adequate general anesthesia including placement of a standard oral endotracheal tube by James anesthesia we prepped the entire abdomen concentrating on the center with chlorhexidine. Time-out was then performed with the surgery team and appropriate draping was completed. Local anesthetic was then instilled in a curvilinear line right above the umbilicus as previously outlined. This transverse incision was measured to be approximately 5 cm long and curve slightly across the curve of the umbilicus. We then carefully lifted the skin flap superiorly off the hernia sac and dissected straight down to the inferior edge of the fascial defect. It was a round fascial defect. I used a 15 blade knife and two Allis's to elevate the umbilical skin and at the apex of the hernia sac we entered the sac and a little bit of the thin hernia sac was left on the underside of the skin overlying the middle of hernia. As we lifted the skin each way it appeared that there was some filmy adhesions or thinned out fascia outlining a hernia sac which was able to be dissected and gradually dissected down. I then carefully incised the hernia sac and dissected into the subcutaneous tissues above the level of the defect in the fascia such that we could dissect under the subcutaneous tissues for 1 cm cephalad. This nicely exposed the circular fascial defect Which we appeared to be about 2 cm in diameter. There were dense adhesions around most of it and eventually I entered the sac then we defined the edges of the fascia with Bovie cautery used to stop any bleeding and careful dissection with Metzenbaum scissors exposing the fascial edges. I then used a small Brice scissors to dissect adherent omentum off the edges of the fascial defect and the omentum was able to be pushed back into the abdomen. and did also appear to be 1 adhesed somewhat curvilinear area of bowel that almost look like a diverticulum up in the hernia sac and we dissected completely around this and then I was able to reduce it within the abdomen. It was pink did not appear to have any purulence around it or any hole in it. After freshening the edges of the fascia I then did a [id number] closure with 8 sutures. Four of these were 0 Ethibond starting each suture with a deep bite superiorly then the superficial bite by coming through top to bottom inferiorly then going again deep under inferiorly and then bringing the suture in a [id number] fashion superficially superiorly deep to superficial such that when we tied all of them it pulled the lower fascia slightly underneath the edge of the upper fascia. In between each of these and using a simple s
[2022-01-06] MEDS: fentaNYL CITRATE INJ (*CRX) 100 MCG/2 ML VIAL 25 MCG IV PUSH ×2 (19:40→19:49)
[2022-01-06] MEDS: HYDROcodone/acetaminophen (*CRX) 7.5-325 MG TABLET 1 TAB PO (21:10)
[2022-01-06] MEDS: SENNA/DOCUSATE SODIUM TABLET 2 TAB PO (21:10)
[2022-01-06] MEDS: ALBUTEROL SULFATE NEB 2.5 MG/3 ML INH INHALATION (21:41)
[2022-01-06] MEDS: BUDESONIDE RESPULE NEB 0.5 MG/2 ML AMP INHALATION (21:41)
[2022-01-06] MEDS: IPRATROPIUM BR 0.02% INH SOLN 0.5 MG/2.5 ML VIAL INHALATION (21:41)
--- NOTE | 2022-01-06 22:40 | PC.NURSE ---
01/06/222035 pt back to floor from surgery. pt noncompliant with care refusing iv fluids, persistent to ambulating to the restroom with unsteady gait. family member at bedside.
--- NOTE | 2022-01-06 23:14 | PC.NURSE ---
01/06/22 2310 gino on floor at this time given update on pt and also informed pt noncompliant.
[2022-01-07] VITALS (10 sets, daily range): BP systolic 108–135; BP diastolic 62–100; PULSE 64–88; RESP 16–22; TEMP 35.9–36.5; O2SAT 91–95
--- NOTE | 2022-01-07 | ECHO_ITS ---
Patient Info Name: Bethany Domínguez Age: 46 years : 1975 Gender: Female Ht: 70 in Wt: 319 lbs BSA: 2.75 m2 HR: 80 bpm BP: 116 / 98 mmHg Heart Rhythm: Sinus Rhythm Technical Quality: Poor Exam Date: 01/07/2022 11:08 AM Exam Location: [facility] Pulmonary Exam Room: 302 Patient Status: Inpatient Admit Date: 01/07/2022 Staff Ordering Physician: Lindsey Leong PA-C Barrel Filler: Lashaun Finch RDCS Attending Provider: Lindsey Leong PA-C Referring Physician: Salo FARIAS; Exam Type: CA echo dop color flow w con Study Info Indications - severe hypothyroidism Complete two-dimensional, color flow and Doppler transthoracic echocardiogram is performed with contrast to opacify the left ventricle and to improve the deliniation of the left ventricle endocardial borders. Contrast/Agitated Saline Contrast/Ag. Saline: Definity Amount: 2.00 ml Administered By: Lashaun Finch [facility] Existing IV Access: Yes IV Access Condition: patent with no signs of infiltration Reason for Poor Study: patient body habitus Summary 1. Left ventricular size at the upper limit of normal. Moderate concentric hypertrophy. Good systolic function of all segments with no segmental wall motion abnormalities. Ejection fraction is 60-65%. Normal diastolic function. 2. Left atrial chamber dimension is mildly enlarged. 3. No pulmonary hypertension, estimated pulmonary arterial systolic pressure is 33 mmHg. 4. No significant valve disease. 5. Normal sinus rhythm. 6. Technically difficult study due to body habitus. Definity echo contrast used. Left Ventricle Left ventricular chamber dimension is normal. Left ventricular systolic function is normal, estimated at 60-65%. There is moderately increased left ventricular wall thickness. Left ventricular septal wall motion is normal. The left ventricular diastolic function is normal. Right Ventricle Right ventricular chamber dimension is normal. Right ventricular systolic function is normal. Left Atria Left atrial chamber dimension is mildly enlarged. Right Atria Right atrial chamber dimension is normal. Aortic Valve The aortic valve is trileaflet. There is no aortic valve sclerosis. There is no aortic valve stenosis. There is no aortic valve regurgitation. Pulmonic Valve The pulmonic valve is normal. There is no pulmonic valve stenosis. There is no pulmonic regurgitation. Mitral Valve The mitral valve has normal leaflets. There is no mitral valve stenosis. There is trace mitral valve regurgitation. Tricuspid Valve The tricuspid valve leaflets are normal. There is no significant tricuspid valve stenosis. There is trace tricuspid valve regurgitation. No pulmonary hypertension, estimated pulmonary arterial systolic pressure is 33 mmHg. Pericardium/Pleural The pericardium appears normal. There is no pericardial effusion. Inferior Vena Cava Normal inferior vena cava with >50% collapse upon inspiration consistent with Empty right atrial pressure, 10 mmHg. Aorta The aortic root size at the sinus of Valsalva is normal. The prox ascending aorta size is normal. Left Ventricular Outflow Tract Name Value Normal LVOT 2D
[2022-01-07] MEDS: HYDROcodone/acetaminophen (*CRX) 7.5-325 MG TABLET 1 TAB PO (01:03)
[2022-01-07] MEDS: IPRATROPIUM BR 0.02% INH SOLN 0.5 MG/2.5 ML VIAL INHALATION ×2 (02:00→07:52)
[2022-01-07] MEDS: ALBUTEROL SULFATE NEB 2.5 MG/3 ML INH INHALATION ×2 (02:00→07:52)
[2022-01-07] MEDS: HYDROmorphone HCL INJ (*CRX) 1 MG/ML SYR 0.5 MG IV PUSH (03:05)
[2022-01-07] MEDS: HYDROcodone/acetaminophen (*CRX) 5-325 MG TABLET 1 TAB PO ×3 (05:17→17:49)
[2022-01-07] MEDS: LEVOTHYROXINE SODIUM INJ 100 MCG/5 ML VIAL 112.5 MCG IV PUSH (05:32)
[2022-01-07 06:27] LABS: Basophils Absolute Auto 0.1 K/mm3 (0.0-0.1); Basophils Percent Auto 0.6 % (0.2-1.2); Eosinophils Absolute Auto 0.2 K/mm3 (0-0.3); Eosinophils Percent Auto 1.7 % (0-4.4); Hemoglobin 14.4 g/dL (12.0-15.0); Immature Granulocyte Absolute 0.07 K/mm3 (0.00-0.031); Immature Granulocyte Percent A 0.5 % (0-0.5); Lymphocytes Absolute Auto 1.95 K/mm3 (0.9-3.2); Lymphocytes Percent Auto 14.4 % (18.3-44.2); Mean Corpuscular Hemoglobin 31.2 pg (26-34); Mean Corpuscular Volume 97.6 fl (80-100); Monocytes Absolute Auto 0.4 K/mm3 (0.1-0.6); Monocytes Percent Auto 3.2 % (2.6-8.5); Neutrophils Absolute Auto 10.8 K/mm3 (1.3-6.7); Neutrophils Percent Auto 79.6 % (45.5-73.1); Platelet Count Result 293 k/mm3 (150-375); Red Blood Count 4.61 M/mm3 (4.2-5.4); Red Cell Distribution Width 14.3 % (11.5-14.5); White Blood Count 13.6 K/mm3 (4.5-10.0)
[2022-01-07] MEDS: BUDESONIDE RESPULE NEB 0.5 MG/2 ML AMP INHALATION (07:52)
--- NOTE | 2022-01-07 08:14 | PM.IMPN ---
Progress Note: A&P Assessment and Plan (1) Umbilical hernia, incarcerated: Code(s): K42.0 - Umbilical hernia with obstruction, without gangrene <Lindsey Leong PA-C - Last Filed: 01/07/22 16:53> Status: Acute <Lindsey Leong PA-C - Last Filed: 01/07/22 16:53> Assessment and Plan: Pt now POD 1 Incarcerated ventral incisional hernia repair near umbilicus, which she tolerated well. Surgery will be managing her postoperative care. Pt presented with <24 hr history of abdominal pain, attempts at reduction non-successful in the ER. CT abd pelvis showing small bowel containing umbilical hernia with inflammatory change. No proximal small-bowel dilation at that time. Persistent mild leukocytosis at 13.6 likely postoperative. Diet order remains NPO except meds with sips Awaiting return of bowel function, patient will remain inpatient at this time. Nausea and pain control per surgery Daily labs. <Lindsey Leong PA-C - Last Filed: 01/07/22 16:53> (2) History of vaginal surgery: Code(s): Z98.890 - Other specified postprocedural states <Lindsey Leong PA-C - Last Filed: 01/07/22 16:53> Status: Acute <Lindsey Leong PA-C - Last Filed: 01/07/22 16:53> Assessment and Plan: vaginal wall repair with bladder sling 3 wks ago at [place] with Dr. Paulson. No other complications. <Lindsey Leong PA-C - Last Filed: 01/07/22 16:53> (3) Depression with anxiety: Code(s): F41.8 - Other specified anxiety disorders <Lindsey Leong PA-C - Last Filed: 01/07/22 16:53> Status: Acute <Lindsey Leong PA-C - Last Filed: 01/07/22 16:53> Assessment and Plan: Continued home meds <Lindsey Leong PA-C - Last Filed: 01/07/22 16:53> (4) NIKOLE (obstructive sleep apnea): Onset Date: ~07/14/21 <Lindsey Leong PA-C - Last Filed: 01/07/22 16:53> Code(s): G47.33 - Obstructive sleep apnea (adult) (pediatric) <OSMAR DiazC - Last Filed: 01/07/22 16:53> Status: Chronic <Lindsey NessLILY Sarmiento-C - Last Filed: 01/07/22 16:53> Assessment and Plan: Will order CPAP for use in hospital. <OSMAR DiazC - Last Filed: 01/07/22 16:53> (5) COPD (chronic obstructive pulmonary disease): Code(s): J44.9 - Chronic obstructive pulmonary disease, unspecified <LILY Diaz-C - Last Filed: 01/07/22 16:53> Status: Chronic <Lindsey NessLILY Sarmiento-C - Last Filed: 01/07/22 16:53> Assessment and Plan: Chronically on 2L supplemental O2 by nasal cannula at home. Will continue this. In addition, pulmonology has been consulted for their post-operative management of patient's respiratory conditions. - Pulm added albuteral PRN, Budesonide, and ipraptropium bromide inhalers for patient. <OSMAR DiazC - Last Filed: 01/07/22 16:53> (6) Tobacco abuse: Code(s): Z72.0 - Tobacco use <LILY Diaz-C - Last Filed: 01/07/22 16:53> Status: Chronic <OSMAR DiazC - Last Filed: 01/07/22 16:53> Assessment and Plan: 12.5 pack year smoking history and current smoker. Smoking cessation discussed. <LILY Diaz-C - Last Filed: 01/07/22 16:53> (7) Hypothyroidism: Qualifiers: Hypothyroidism type: unspecified Qualified Code(s): E03.9 - Hypothyroidism, unspecified <LILY Diaz-C - Last Filed: 01/07/22 16:53> Code(s): E03.9 - Hypothyroidism, unspecified <LILY Diaz-C - Last Filed: 01/07/22 16:53> Status: Chronic <Lindsey Leong PA-C - Last Filed: 01/07/22 16:53> Assessment and Plan: Dosed with IV levothyroxine preoperatively, will restart PO synthroid tomorrow. TSH 79, T4 0.55, low. Patient confirmed compliance and appropriate administration of synthroid QAM with water 1-2 hrs prior to food or other medications. subtherapeutic on her home dose of 225mcg synthroid. - Free T3 ordere
[2022-01-07 08:31] LABS: Alanine Aminotransferase 28 U/L (6-35); Albumin Level 3.6 g/dL (3.5-5.1); Alkaline Phosphatase 79 U/L (38-126); Anion Gap 3 mmol/L (8-16); Aspartate Amino Transferase 25 U/L (14-36); Bilirubin,Total 0.5 mg/dL (0.2-1.3); Blood Urea Nitrogen 9 mg/dL (7-17); Calcium 8.6 mg/dL (8.4-10.2); Carbon Dioxide 31 mmol/L (22-30); Chloride 104 mmol/L (98-107); Estimated CRCL calculation 110 ml/min; Estimated Glomerular Filt Rate > 60; Glucose 124 mg/dL (65-110); Sodium 138 mmol/L (137-145)
[2022-01-07] MEDS: ENOXAPARIN 40 MG/0.4 ML SYRINGE SUB-Q (08:41)
[2022-01-07 09:15] LABS: Hemoglobin A1C 7.3 % (<5.7)
[2022-01-07] MEDS: lisinopriL 20 MG TABLET 40 MG PO (09:38)
[2022-01-07] MEDS: VENLAFAXINE HCL XR 75 MG CAP.ER.24H 225 MG PO (09:38)
[2022-01-07] MEDS: hydroCHLOROthiazide 12.5 MG CAPSULE PO (09:38)
[2022-01-07] MEDS: lamoTRIgine 100 MG TABLET PO (09:38)
[2022-01-07] MEDS: lamoTRIgine 25 MG TABLET PO (09:39)
[2022-01-07] MEDS: SODIUM CHLORIDE 0.9% IV 1,000 ML 125 ML IV CONT (09:49)
[2022-01-07] MEDS: PERFLUTREN LIPID MICROSPHERES 1.5 ML VIAL DILUTED TO 10 ML TOTAL VOLUME IV PUSH (11:28)
--- NOTE | 2022-01-07 11:28 | IVDEFINITY ---
Prior to administration of IV Definity the patient was educated on the risks and benefits of the imaging enhancing agent including potential adverse side effects. The patient verbalized understanding. Allergies were verified. No exclusion criteria were identified and at least one of the following inclusion criteria were met: 1) physician request, 2) patient technically difficult to image (per the [place] [employer] guidelines of two or more segments not discernable within the apical view), or 3) questionable left ventricular function. ?
--- NOTE | 2022-01-07 11:57 | PM.PNPUL ---
Progress Note: A&P Assessment and Plan (1) COPD (chronic obstructive pulmonary disease): Code(s): J44.9 - Chronic obstructive pulmonary disease, unspecified Status: Chronic Assessment and Plan: GOLD grade 2 group B 46-year-old woman with a history of current tobacco use and GOLD grade 2 group B COPD (FEV1 55%, airtrapping) and hypoxemic respiratory failure on 2 L at rest and 3 L with ambulation maintained on triple inhalers. 01/06 Currently there is no evidence of a COPD exacerbation. At this time I will continue patient on triple inhalers and will provide them as nebulizers including albuterol 2.5 mg q.4 hours, ipratropium 0.5 mg q.4 hours and budesonide 500 mcg q.12 hours. Patient currently on 2 L nasal cannula saturations 92%. I do not feel the need for antibiotics form a pulmonary perspective. Do not feel a need to give her systemic steroids from a pulmonary perspective at this time. Postoperatively will encourage her to be out of bed with deep inspiration in order to help her pulmonary hygiene. I have spoken with the transporter who will discuss her COPD and obstructive sleep apnea with the anesthesia team. If possible would give her an albuterol and ipratropium nebulizer preoperatively. Discussed with Dr. Sevilla. 01/07 Patient was sitting up in the chair and said that she has some incisional abdominal pain but no incarcerated hernia pain and denied any shortness of breath. Patient denies cough, hemoptysis, wheezing or phlegm production. She is currently on 3 L nasal cannula with saturatiosn 94%. she tolerated the hospital CPAP of 8 with a fullface mask and said the fullface mask is more comfortable than which he was using at home which was nasal pillows. Today I will change her nebulized medicines to inhaled trelegy. Will follow with you. (2) NIKOLE (obstructive sleep apnea): Onset Date: ~07/14/21 Code(s): G47.33 - Obstructive sleep apnea (adult) (pediatric) Status: Chronic Assessment and Plan: patient was diagnosed with obstructive sleep apnea from a split night sleep study on 07/25/2021 with an AHI of 8.8 and her optimal CPAP pressure was 10 with 1 L bleed in. Patient has been unable to tolerate this pressure and has not been wearing her CPAP at home. 01/06 I will order CPAP 8 with 1 L bleed in tonight. I spoken with Dr. Sevilla the surgeon and if there is any concern regarding her bowel integrity postoperatively from CPAP and the possibility of gastric distension would hold CPAP tonight. 01/07 she tolerated the hospital CPAP of 8 with a fullface mask and said the fullface mask is more comfortable than which he was using at home which was nasal pillows. Tonight I will place her on a hospital machine with a CPAP 10 with 1 L bleed in and a fullface mask to see if she can tolerate this. Subjective Date/time seen: 01/07/22 11:57 Interval history: 01/06/2022:? This is a new pulmonary consult for perioperative management of COPD and obstructive sleep apnea. ? 46-year-old woman with a history of GOLD grade 2 group B COPD (FEV1 55%, airtrapping) and hypoxemic respiratory failure on 2 L at rest and 3 L with ambulation maintained on triple inhalers.? patient was diagnosed with obstructive sleep apnea from a split night sleep study on 07/25/2021 with an AHI of 8.8 and her optimal CPAP pressure was 10 with 1 L bleed in.? Patient has been unable to tolerate this pressure and has not been wearing her CPAP at home. ? Patient presented? to the hospital on 01/05/2022 with abdominal pain and was found to have an incarcerated umbilical hernia and is scheduled to go to the emergency room today.? I was consulted for perioperative management of her COPD and obstructive sleep apnea.? The patient denies any change in her respiratory symptoms and came to the hospital only for abdominal pain.? She denies fever, chills, rigors, cough, phlegm production or chest pains.? She rachel
--- NOTE | 2022-01-07 16:23 | PM.PNGS ---
Progress Note: A&P Assessment and Plan (1) Ventral incisional hernia with obstruction: Code(s): K43.0 - Incisional hernia with obstruction, without gangrene Status: Acute Assessment and Plan: postop day status post exploration, reduction repair of same. Starting to tolerate liquids Positive flatus, no bowel movement probably needs 1 more day of recovery & unless medically needs further treatment here hopefully home tomorrow. (2) Hepatic steatosis: Code(s): K76.0 - Fatty (change of) liver, not elsewhere classified Status: Acute Assessment and Plan: Secondary to her obesity encouraged her to consider working hard at losing weight. Discussed with her yesterday that if she is really hypothyroid which some of the testing here indicate this could be a contributing factor to why she has trouble losing weight and why she feels tired. (3) Tobacco abuse: Code(s): Z72.0 - Tobacco use Status: Chronic Assessment and Plan: Again continue to talk to themm about smoking cessation. (4) Obesity, morbid, BMI 40.0-49.9: Code(s): E66.01 - Morbid (severe) obesity due to excess calories Status: Chronic (5) NIKOLE (obstructive sleep apnea): Onset Date: ~07/14/21 Code(s): G47.33 - Obstructive sleep apnea (adult) (pediatric) Status: Chronic Assessment and Plan: as per Pulmonary (6) Hypothyroidism: Qualifiers: Hypothyroidism type: unspecified Qualified Code(s): E03.9 - Hypothyroidism, unspecified Code(s): E03.9 - Hypothyroidism, unspecified Status: Chronic Assessment and Plan: this may be severe. Medicine/ hospitalist continue to work this up. (7) COPD (chronic obstructive pulmonary disease): Qualifiers: COPD type: unspecified COPD Qualified Code(s): J44.9 - Chronic obstructive pulmonary disease, unspecified Code(s): J44.9 - Chronic obstructive pulmonary disease, unspecified Status: Acute Assessment and Plan: As per Pulmonary. Seems to be doing okay status post general anesthesia. However, did have some rales or rhonchi at right base. I whole emphasized again the importance of the incentive spirometry and moving. Subjective Subjective Date/Time Seen: 01/07/22 11:23 Post Op day: 1 ( Status post reduction repair of incarcerated ventral incisional hernia near umbilicus) Patient reports: feels better, pain is less, tolerating liquids well, flatus and no bowel movement Review of Systems Review of Systems: All systems reviewed & are unremarkable except as noted in HPI and below Constitutional: Constitutional: Reports as per HPI, Denies chills and Denies fever(s) Cardiovascular: Cardiovascular: Denies chest pain and Denies dyspnea Respiratory: Respiratory: Reports no additional respiratory complaints and Denies dyspnea Comments: history of smoking History of obstructive sleep apnea on CPAP at home History of continued smoking even though on home oxygen. Gastrointestinal: Gastrointestinal: Reports as per HPI and Denies bloating Musculoskeletal: Musculoskeletal: Reports no additional musculoskeletal complaints Neurologic: Denies memory loss Psychiatric: Psychiatric: Denies anxiety and Denies memory loss Exam Const: General: cooperative, comfortable, alert and awake Orientation/consciousness: patient oriented x3 HENMT: Head: normal to inspection Mouth: Yes moist mucous membranes Eyes: Sclera: sclerae normal Pupils: Equal, round and reactive pupils present Neck: Neck: normal visual inspection and no JVD Chest: Chest palpation & inspection: normal inspection of the chest Resp: Effort & Inspection: normal respiratory effort Auscultation: rhonchi ( Right base greater than left) Other: nasal cannula oxygen in place. Cardio: Jugular venous distension: no JVD Rate: regular rate GI: Inspection: incision ( Clean and dry with Tegaderm and Telfa over
[2022-01-07] MEDS: SENNA/DOCUSATE SODIUM TABLET 2 TAB PO (20:55)
[2022-01-08] MEDS: HYDROcodone/acetaminophen (*CRX) 5-325 MG TABLET 1 TAB PO (00:42)
[2022-01-08] MEDS: SODIUM CHLORIDE 0.9% IV 1,000 ML 125 ML IV CONT (03:47)
[2022-01-08] MEDS: LEVOTHYROXINE SODIUM 75 MCG TABLET 225 MCG PO (05:27)
[2022-01-08 06:00] VITALS: BP 121/65; PULSE 70; RESP 20; TEMP 36.1; O2SAT 99
[2022-01-08 06:25] LABS: Basophils Absolute Auto 0.1 K/mm3 (0.0-0.1); Basophils Percent Auto 0.7 % (0.2-1.2); Eosinophils Absolute Auto 0.4 K/mm3 (0-0.3); Eosinophils Percent Auto 4.9 % (0-4.4); Hematocrit 42.4 % (37.0-47.0); Hemoglobin 13.5 g/dL (12.0-15.0); Immature Granulocyte Absolute 0.03 K/mm3 (0.00-0.031); Immature Granulocyte Percent A 0.3 % (0-0.5); Lymphocytes Absolute Auto 1.92 K/mm3 (0.9-3.2); Lymphocytes Percent Auto 21.9 % (18.3-44.2); Mean Corpuscular HGB Conc 31.8 g/dl (32-36); Mean Corpuscular Hemoglobin 31.3 pg (26-34); Mean Corpuscular Volume 98.4 fl (80-100); Mean Platelet Volume 9.8 fl (7.4-10.4); Monocytes Absolute Auto 0.5 K/mm3 (0.1-0.6); Monocytes Percent Auto 5.8 % (2.6-8.5); Neutrophils Absolute Auto 5.8 K/mm3 (1.3-6.7); Neutrophils Percent Auto 66.4 % (45.5-73.1); Platelet Count Result 235 k/mm3 (150-375); Red Blood Count 4.31 M/mm3 (4.2-5.4); White Blood Count 8.8 K/mm3 (4.5-10.0)
[2022-01-08 06:41] LABS: Alanine Aminotransferase 22 U/L (6-35); Albumin Level 3.3 g/dL (3.5-5.1); Alkaline Phosphatase 76 U/L (38-126); Anion Gap 3 mmol/L (8-16); Aspartate Amino Transferase 20 U/L (14-36); Bilirubin,Total 0.4 mg/dL (0.2-1.3); Blood Urea Nitrogen 9 mg/dL (7-17); Calcium 8.7 mg/dL (8.4-10.2); Carbon Dioxide 32 mmol/L (22-30); Chloride 104 mmol/L (98-107); Estimated CRCL calculation 138 ml/min; Estimated Glomerular Filt Rate > 60; Glucose 152 mg/dL (65-110); Potassium 3.7 mmol/L (3.4-5.0); Sodium 139 mmol/L (137-145)
--- NOTE | 2022-01-08 07:34 | PM.DS ---
DS: Admitting Diagnosis Discharge Date 01/08/2022 1600 <Lindsey BlountKIMBERLY - Last Filed: 01/10/22 06:42> Admitting Diagnosis Abdominal pain <Lindsey BlountKIMBERLY - Last Filed: 01/10/22 06:42> DS: Discharge Diagnosis Discharge Diagnosis (1) Umbilical hernia, incarcerated: Code(s): K42.0 - Umbilical hernia with obstruction, without gangrene <Lindsey LeongOSMARC - Last Filed: 01/10/22 06:42> Status: Acute <Lindsey Leong, OSMARC - Last Filed: 01/10/22 06:42> Assessment and Plan: Pt now POD 2 incarcerated ventral incisional hernia repair near umbilicus, which she tolerated well. Pt presented with <24 hr history of abdominal pain, attempts at reduction non-successful in the ER. CT abd pelvis showing small bowel containing umbilical hernia with inflammatory change. No proximal small-bowel dilation at that time. Leukocytosis has now resolved. Diet advanced to full liquids per surgery. Awaiting return of bowel function, surgery states likely discharge today. <Lindsey Leong, OSMARC - Last Filed: 01/10/22 06:42> (2) COPD (chronic obstructive pulmonary disease): Code(s): J44.9 - Chronic obstructive pulmonary disease, unspecified <Lindsey Leong, PA-C - Last Filed: 01/10/22 06:42> Status: Chronic <Lindsey Leong, LILY-C - Last Filed: 01/10/22 06:42> Assessment and Plan: Chronically on 2L supplemental O2 by nasal cannula at home. Will continue this. In addition, pulmonology has been consulted for their post-operative management of patient's respiratory conditions. - Pulm added albuteral PRN, Budesonide, and trelegy ellipta inhaler while in the hospital. I spoke with pulmonology who advised patient has these inhalers already and does not ened a prescription upon discharge. <Lindsey Leong, OSMARC - Last Filed: 01/10/22 06:42> (3) Hypothyroidism: Qualifiers: Hypothyroidism type: unspecified Qualified Code(s): E03.9 - Hypothyroidism, unspecified <Lindsey LeongKIMBERLY - Last Filed: 01/10/22 06:42> Code(s): E03.9 - Hypothyroidism, unspecified <Lindsey RGt Salo, KIMBERLY - Last Filed: 01/10/22 06:42> Status: Chronic <Lindsey R. Salo, OSMARC - Last Filed: 01/10/22 06:42> Assessment and Plan: Dosed with IV levothyroxine preoperatively, will restart PO synthroid tomorrow. On admission: TSH 79, T4 0.55, low. 01/08: repeat TSH 44.5, T4 still low. Patient has been compliant with her Thyroid medication during her stay here. Patient confirmed compliance and appropriate administration of synthroid QAM with water 1-2 hrs prior to food or other medications. subtherapeutic on her home dose of 225mcg synthroid. - Free T3 ordered - Thyroid US showed chronic jarad thyroiditis - Echo showed preserved EF with a technically difficult study due to body habitus. - Will refer patient to OP endocrinology, Dr. Pérez for further follow up. <Lindsey LeongKIMBERLY - Last Filed: 01/10/22 06:42> (4) History of vaginal surgery: Code(s): Z98.890 - Other specified postprocedural states <Lindsey LaiixKIMBERLY - Last Filed: 01/10/22 06:42> Status: Acute <Lindsey R. Salo, OSMARC - Last Filed: 01/10/22 06:42> Assessment and Plan: vaginal wall repair with bladder sling 3 wks ago at [place] with Dr. Paulson. No other complications. <Lindsey RGt LaiixKIMBERLY - Last Filed: 01/10/22 06:42> (5) Depression with anxiety: Code(s): F41.8 - Other specified anxiety disorders <Lindsey Laiix, KIMBERLY - Last Filed: 01/10/22 06:42> Status: Acute <Lindsey R. SaloKIMBERLY - Last Filed: 01/10/22 06:42> Assessment and Plan: Continued home meds <Lindsey BlountKIMBERLY - Last Filed: 01/10/22 06:42> (6) NIKOLE (obstructive sleep apnea): Onset Date: ~07/14/21 <Lindsey BlountKIMBERLY - Last Filed: 01/10/22 06:42> Code(s): G47.33
[2022-01-08] MEDS: FLUTICASONE/UMECLIDIN/VILANTER 100-62.5-25 MCG ELLIPTA 1 PUFF INHALATION (07:48)
[2022-01-08 07:49] VITALS: O2SAT 96
[2022-01-08 08:25] LABS: Cholesterol 188 mg/dL (0-200); HDL Direct 33 mg/dL; Triglycerides 201 mg/dL (<150)
[2022-01-08 08:37] LABS: LDL Cholesterol Direct 113 mg/dL
[2022-01-08] MEDS: lamoTRIgine 100 MG TABLET PO (09:47)
[2022-01-08] MEDS: hydroCHLOROthiazide 12.5 MG CAPSULE PO ×2 (09:47→16:34)
[2022-01-08] MEDS: lisinopriL 20 MG TABLET 40 MG PO (09:47)
[2022-01-08] MEDS: VENLAFAXINE HCL XR 75 MG CAP.ER.24H 225 MG PO (09:47)
[2022-01-08] MEDS: ENOXAPARIN 40 MG/0.4 ML SYRINGE SUB-Q (09:47)
[2022-01-08] MEDS: lamoTRIgine 25 MG TABLET PO (09:48)
--- NOTE | 2022-01-08 10:00 | PM.PNPUL ---
Progress Note: A&P Assessment and Plan (1) COPD (chronic obstructive pulmonary disease): Code(s): J44.9 - Chronic obstructive pulmonary disease, unspecified Status: Chronic Assessment and Plan: GOLD grade 2 group B 46-year-old woman with a history of current tobacco use and GOLD grade 2 group B COPD (FEV1 55%, airtrapping) and hypoxemic respiratory failure on 2 L at rest and 3 L with ambulation maintained on triple inhalers. 01/06 Currently there is no evidence of a COPD exacerbation. At this time I will continue patient on triple inhalers and will provide them as nebulizers including albuterol 2.5 mg q.4 hours, ipratropium 0.5 mg q.4 hours and budesonide 500 mcg q.12 hours. Patient currently on 2 L nasal cannula saturations 92%. I do not feel the need for antibiotics form a pulmonary perspective. Do not feel a need to give her systemic steroids from a pulmonary perspective at this time. Postoperatively will encourage her to be out of bed with deep inspiration in order to help her pulmonary hygiene. I have spoken with the transporter who will discuss her COPD and obstructive sleep apnea with the anesthesia team. If possible would give her an albuterol and ipratropium nebulizer preoperatively. Discussed with Dr. Sevilla. 01/07 Patient was sitting up in the chair and said that she has some incisional abdominal pain but no incarcerated hernia pain and denied any shortness of breath. Patient denies cough, hemoptysis, wheezing or phlegm production. She is currently on 3 L nasal cannula with saturatiosn 94%. she tolerated the hospital CPAP of 8 with a fullface mask and said the fullface mask is more comfortable than which he was using at home which was nasal pillows. Today I will change her nebulized medicines to inhaled trelegy. 01/08 Patient says she has no respiratory complaints. Patient tolerated fullface mask with CPAP 8 last night with 1 L bleed in. Tolerating trelegy with no wheezes or SOB. White blood cell count is 8.8. Patient on 3 L nasal cannula saturations 96%. patient to be referred to endocrinology for thyroid condition and diabetes. From a pulmonary perspective patient can be discharged today on these pulmonary medicines: Trelegy 100/62.5/25 at 1 puff Q day ( she told me she has medicine and does not need a prescription) Rescue albuterol 2 puffs q.4 hours p.r.n. shortness of breath or wheezing Home oxygen 2 L at rest and 3 with ambulation CPAP 10 with full face mask with 1 L bleed in when she sleeps. Follow-up in Pulmonary Clinic in 4 weeks. I have informed our medical appointment scheduler. discussed with Lindsey Leong and Dr. Sevilla. (2) NIKOLE (obstructive sleep apnea): Onset Date: ~07/14/21 Code(s): G47.33 - Obstructive sleep apnea (adult) (pediatric) Status: Chronic Assessment and Plan: patient was diagnosed with obstructive sleep apnea from a split night sleep study on 07/25/2021 with an AHI of 8.8 and her optimal CPAP pressure was 10 with 1 L bleed in. Patient has been unable to tolerate this pressure and has not been wearing her CPAP at home. 01/06 I will order CPAP 8 with 1 L bleed in tonight. I spoken with Dr. Sevilla the surgeon and if there is any concern regarding her bowel integrity postoperatively from CPAP and the possibility of gastric distension would hold CPAP tonight. 01/07 she tolerated the hospital CPAP of 8 with a fullface mask and said the fullface mask is more comfortable than which he was using at home which was nasal pillows. Tonight I will place her on a hospital machine with a CPAP 10 with 1 L bleed in and a fullface mask to see if she can tolerate this. 01/08 Patient tolerated fullface mask with CPAP 8 last night with 1 L bleed in. She was not placed on CPAP 10. We have called her DME, [employer] and they have confirmed she is on CPAP 10 and we have placed an order for fullface mask and will fax that to [employer] today. We will also give her the
[2022-01-08 11:45] LABS: Free T4 Free Thyroxine Reflex 0.76 ng/dL (0.78-2.19)
[2022-01-08 12:03] LABS: Glucose Point of Care 124 mg/dl (65-105)
[2022-01-08 12:32] LABS: Creatinine Urine 16.9 mg/dL
[2022-01-08 12:35] LABS: Total Protein Urine Random 11 mg/dL
[2022-01-08 13:50] VITALS: BMI 45.8
[2022-01-08 14:00] VITALS: BP 182/118; PULSE 74; RESP 22; TEMP 35.7; O2SAT 92
--- NOTE | 2022-01-08 15:09 | PM.PNGS ---
Progress Note: A&P Assessment and Plan (1) Ventral incisional hernia with obstruction: Code(s): K43.0 - Incisional hernia with obstruction, without gangrene Status: Acute Assessment and Plan: postop day #2 status post exploration, reduction repair of same. tolerating liquids & soft deiet Positive flatus, no + bowel movement Okay with me if she has discharge. Would recommend 3-4 days more of oral narcotic medication. No antibiotics required. (2) Hepatic steatosis: Code(s): K76.0 - Fatty (change of) liver, not elsewhere classified Status: Acute Assessment and Plan: Secondary to her obesity encouraged her to consider working hard at losing weight. Discussed with her yesterday that if she is really hypothyroid which some of the testing here indicate this could be a contributing factor to why she has trouble losing weight and why she feels tired. (3) Tobacco abuse: Code(s): Z72.0 - Tobacco use Status: Chronic Assessment and Plan: Again continue to talk to themm about smoking cessation. Patient indicated to me yesterday that shows the plan is for her to stop. She was unclear about whether her is stopping with her. (4) Obesity, morbid, BMI 40.0-49.9: Code(s): E66.01 - Morbid (severe) obesity due to excess calories Status: Chronic Assessment and Plan: Will see how treatment of her diabetes NIKOLE and newly discovered severe hypothyroidism affect her possibility of weight loss then if not consider referral to a bariatric surgical center for evaluation and possible treatment. (5) NIKOLE (obstructive sleep apnea): Onset Date: ~07/14/21 Code(s): G47.33 - Obstructive sleep apnea (adult) (pediatric) Status: Chronic Assessment and Plan: as per Pulmonary (6) Hypothyroidism: Qualifiers: Hypothyroidism type: unspecified Qualified Code(s): E03.9 - Hypothyroidism, unspecified Code(s): E03.9 - Hypothyroidism, unspecified Status: Chronic Assessment and Plan: this may be severe. Medicine/ hospitalist continue to work this up. (7) COPD (chronic obstructive pulmonary disease): Qualifiers: COPD type: unspecified COPD Qualified Code(s): J44.9 - Chronic obstructive pulmonary disease, unspecified Code(s): J44.9 - Chronic obstructive pulmonary disease, unspecified Status: Acute Assessment and Plan: As per Pulmonary. Seems to be doing okay status post general anesthesia. However, did have some rales or rhonchi at right base. I whole emphasized again the importance of the incentive spirometry and moving. Subjective Subjective Date/Time Seen: 01/08/22 10:09 Post Op day: 2 (Status post reduction & repair of ventral incisional hernia just above the umbilicus) Patient reports: no new complaints, feels better and bowel movement Interval history: Indicates verbally to me she is going to stop smoking and also realizes that she has problems with diabetes and hypothyroidism. Review of Systems Review of Systems: All systems reviewed & are unremarkable except as noted in HPI and below Constitutional: Constitutional: Reports as per HPI, Denies chills and Denies fever(s) Cardiovascular: Cardiovascular: Denies chest pain and Denies dyspnea Respiratory: Respiratory: Reports no additional respiratory complaints and Denies dyspnea Comments: history of smoking History of obstructive sleep apnea on CPAP at home History of continued smoking even though on home oxygen. Gastrointestinal: Gastrointestinal: Reports as per HPI and Denies bloating Musculoskeletal: Musculoskeletal: Reports no additional musculoskeletal complaints Neurologic: Denies memory loss Psychiatric: Psychiatric: Denies anxiety and Denies memory loss Exam Const: General: cooperative, comfortable, alert and awake Orientation/consciousness: patient oriented x3 HENMT: Head: normal to inspection
[2022-01-08 16:51] LABS: Glucose Point of Care 125 mg/dl (65-105)
[2022-01-08] MEDS: hydrALAZINE HCL 20 MG/ML VIAL 10 MG IV PUSH (17:45)
[2022-01-10 03:42] LABS: Triiodothyronine T3 Free 1.9 pg/mL (2.3-4.2)
== END 2022-01-08 18:32 | disposition home or self-care (01) | DRG 354 ==
LOC: ANHED 21:40 → ANH3MEDSUR 01-06 00:47
PROVIDERS: Emergency Medicine; Physician Assistant; Student in an Organized Health Care Education/Training Program; Surgery; Admitting Provider Internal Medicine; Emergency Provider Emergency Medicine; PCP Internal Medicine; Visit Provider Internal Medicine
PROC: 0WQF0ZZ Repair Abdominal Wall, Open Approach (ICD-10-PCS; CPT 49000; principal; 2022-01-06 17:30)
DX: K42.0 Umbilical hernia with obstruction, without gangrene (principal); J96.11 Chronic respiratory failure with hypoxia; Z68.42 Body mass index [BMI] 45.0-49.9, adult; J44.9 Chronic obstructive pulmonary disease, unspecified; E03.9 Hypothyroidism, unspecified; F41.8 Other specified anxiety disorders; E11.9 Type 2 diabetes mellitus without complications; G47.33 Obstructive sleep apnea (adult) (pediatric); I10 Essential (primary) hypertension; E55.9 Vitamin D deficiency, unspecified; K76.0 Fatty (change of) liver, not elsewhere classified; E66.01 Morbid (severe) obesity due to excess calories; Z20.822 Contact with and (suspected) exposure to COVID-19; F17.210 Nicotine dependence, cigarettes, uncomplicated; Z99.81 Dependence on supplemental oxygen; Z98.890 Other specified postprocedural states; Z90.49 Acquired absence of other specified parts of digestive tract
CPT/HCPCS: 36415; 74019; 74177; 76536; 80053; 80061; 81001; 81025; 81050; 82570; 82948; 83036; 83605; 83690; 84156; 84439; 84443; 84481; 85025; 94640; 96361; 96365; 96372; 96374; 96375; 96376; 99285; A9270; C8929; C9803; G0378; J0131; J0360; J1170; J1650; J1940; J2250; J2270; J2370; J2405; J2704; J2710; J3010; J7030; J7120; Q9957; Q9967; U0003; U0005

== ENCOUNTER 2022-05-04 13:46 | Outpatient (CLI) | payer MEDICARE, MEDICAID, SELFPAY | END 2022-05-04 13:47 | disposition home or self-care (01) | LOC: ANHWCLAB 13:49 | PROVIDERS: PCP Internal Medicine; Visit Provider Internal Medicine Endocrinology, Diabetes & Metabolism | DX: E03.9 Hypothyroidism, unspecified (principal) | CPT/HCPCS: 36415; 84439; 84443 ==

== ENCOUNTER 2022-06-28 13:45 | Outpatient (CLI) | payer MEDICARE, MEDICAID, SELFPAY ==
--- NOTE | ~2022-06-28 | CT_ITS ---
EXAMINATION: CT abdomen pelvis wo con DATE: 06/28/2022 14:07 INDICATION: Recurrent ventral hernia TECHNIQUE: Computed tomography (CT) of the abdomen and pelvis was performed without intravenous contr ast. The dose-length product (DLP) was 1623.45 mGy-cm. Automated exposure control and iterative recon struction technique were employed. COMPARISON: 01/05/2022 FINDINGS: Minimal dependent atelectasis is present in the lung bases. The heart size is normal. There is a healed left seventh rib fracture. The gallbladder is surgically absent. The liver, spleen, panc reas, and adrenal glands are normal. The right kidney is unremarkable. There is a 2 mm nonobstructing stone of the left kidney. No pathologically enlarged abdominal or pelvic lymph nodes are identified. There is no free intraperitoneal gas or evidence of bowel obstruction. Colonic diverticulosis is pre sent without evidence of diverticulitis. The appendix is normal. There is an umbilical hernia contain ing a short segment of nonobstructed small bowel. There is mild lower lumbar spondylosis. IMPRESSION: 1. Small umbilical hernia containing a short segment of nonobstructed small bowel. 2. Nonobstructing left nephrolithiasis. Reviewed, dictated and finalized at location [facility]. [facility] IMPRESSION: 1. Small umbilical hernia containing a short segment of nonobstructed small bow el. 2. Nonobstructing left nephrolithiasis.
== END 2022-06-28 13:46 | disposition home or self-care (01) ==
PROVIDERS: PCP Internal Medicine; Visit Provider Surgery
DX: K42.9 Umbilical hernia without obstruction or gangrene (principal); N20.0 Calculus of kidney
CPT/HCPCS: 74176

== ENCOUNTER 2022-07-27 08:24 | Outpatient (CLI) | payer MEDICARE, MEDICAID, SELFPAY ==
[2022-07-27 10:13] LABS: Anion Gap 4 mmol/L (8-16); Blood Urea Nitrogen 11 mg/dL (7-17); Calcium 9.3 mg/dL (8.4-10.2); Carbon Dioxide 32 mmol/L (22-30); Chloride 104 mmol/L (98-107); Estimated Glomerular Filt Rate > 60; Glucose 230 mg/dL (65-110); Potassium 4.9 mmol/L (3.4-5.0); Sodium 140 mmol/L (137-145)
== END 2022-07-27 08:25 | disposition home or self-care (01) ==
LOC: ANHSURGERY 08:28
PROVIDERS: Anesthesiology; PCP Internal Medicine; Visit Provider Surgery
DX: Z01.818 Encounter for other preprocedural examination (principal); K43.2 Incisional hernia without obstruction or gangrene
CPT/HCPCS: 36415; 80048

== ENCOUNTER 2022-08-03 14:43 | Inpatient (IN) | payer MEDICARE, MEDICAID, SELFPAY ==
[2022-07-22 08:23] VITALS: BMI 45.8
--- NOTE | 2022-07-22 08:30 | PC.NURSE ---
Report to the Outpatient Waiting Room, entrance under the green pavilion located off [facility], at time _0600_ on date _[id number]_. Planned Procedure Time: _0730_. Time changes happen often and if your time is changed the preop area will call you the afternoon before. - You and your visitor will be asked to self-screen and do not enter if you have any COVID symptoms. - Only one visitor is requested with a max of two and NO children visitors are allowed at this time. - The patient visitor may be requested to leave or wait in car when not with patient due to distancing restrictions. - A mask is optional within the hospital at this time. Patients may have clear liquids (water, carbonated beverages, clear teas, apple juice) until 3 hours prior to surgery with a maximum of 20 ounces. - No food from midnight until time of surgery Take the following medications with a SIP of water the morning of surgery: _Levothyroxine, Venlafaxine, Pregabalin and inhalers. DO NOT STOP ANY OF YOUR OTHER PRESCRIPTION MEDICATIONS PRIOR TO SURGERY ?EXCEPT THE FOLLOWING Medications to discontinue per physician ____Multivitamin Date to take last jwtw___[id number] Please no make-up, nail kenyan, hairspray, perfume, deodorant, or body powder the day of surgery. No jewelry (including any body piercings) or valuables the day of surgery, leave them at home. Please take a shower or bath the night before, or the morning of, surgery with an antibacterial soap. Wear comfortable, loose fitting clothing. - Jewelry must be removed prior to entering the operating room. Rings and piercings that are not removed may be cut off. - The hospital will not accept responsibility for valuables. - Please leave all valuables, including medications, at home the day of surgery. If you are going home after surgery, a licensed waste collection driver must drive you home. - NO public transportation without another adult if you receive anesthesia. - We recommend that an adult stay with you for 24 hours following discharge. - We also recommend that you do not drive, make important decision, drink alcoholic beverages, or take any drugs that were not prescribed by your health care provider for at least 24 hours after your discharge time. Follow any additional instructions given to you from your surgeon. If you or anyone in your household have experienced Covid symptoms in the past week, please notify your surgeon or the nurse liaison at the phone number below for possible testing. Telephone instructions given to __Patient___and asked if any additional questions and then verbalized understanding. Patient advised to call surgeon office or pre surgery nurse liaison [phone] if any additional questions.
[2022-08-02] VITALS (21 sets, daily range): BP systolic 117–174; BP diastolic 74–124; PULSE 74–104; RESP 15–21; TEMP 36.4–36.9; O2SAT 91–98
[2022-08-02] MEDS: ACETAMINOPHEN 500 MG TABLET 1000 MG PO (06:49)
[2022-08-02] MEDS: LACTATED RINGERS 1,000 ML 30 ML IV CONT ×2 (07:00→09:57)
[2022-08-02] MEDS: KETOROLAC 15 MG/ML VIAL (*BKC) IV PUSH (07:01)
[2022-08-02 07:05] LABS: Glucose Point of Care 237 mg/dl (65-105)
--- NOTE | 2022-08-02 07:12 | WPDHPUPDATE1 ---
History and Physical Update Update Date/Time: 08/02/22 07:12 History and Physical has been reviewed, including an updated exam of the patient. There are NO changes in the patient's condition. Risks, benefits, and alternatives have been discussed and questions answered. Patient agrees to proceed with procedure.
[2022-08-02] MEDS: ceFAZolin 3 GM/D5W 100 ML 100 ML IVPB (07:24)
[2022-08-02] MEDS: BUPivacaine HCL 0.5% PF 30 ML VIAL INFILTRATE (08:13)
[2022-08-02] MEDS: ALBUTEROL SULFATE NEB 2.5 MG/3 ML INH INHALATION ×3 (10:10→13:46)
[2022-08-02 10:19] LABS: Glucose Point of Care 227 mg/dl (65-105)
[2022-08-02] MEDS: fentaNYL CITRATE INJ (*CRX) 100 MCG/2 ML VIAL 25 MCG IV PUSH ×2 (11:17→11:20)
--- NOTE | 2022-08-02 11:38 | ADMGEN ---
This patient, Bethany Domínguez, was admitted to 2 Medical Room 261-01. Patient/family oriented to hospital policies and general routines including ID bracelet, bed and alarms, visiting hours, pain management, procedures, bathroom and other care routines, personal items, smoking policy, room service/diet, and visiting hours. Information on how to activate the Rapid Response Team has been discussed. Patient/Family are encouraged to report perceived risks to care and to ask questions if they do not understand what they are told or what they should do.
[2022-08-02] MEDS: SODIUM CHLORIDE 0.9% IV 1,000 ML 100 ML IV CONT ×2 (12:02→22:46)
[2022-08-02] MEDS: guaiFENesin/DEXTROMETHORPHAN 10 ML UDC PO ×2 (12:02→17:08)
[2022-08-02] MEDS: diazePAM INJ (*CRX) 10 MG/2 ML SYRINGE 5 MG IV PUSH ×2 (12:03→21:33)
[2022-08-02] MEDS: VENLAFAXINE HCL XR 75 MG CAP.ER.24H 225 MG BY MOUTH (12:37)
[2022-08-02] MEDS: lisinopriL 20 MG TABLET 40 MG BY MOUTH (12:38)
--- NOTE | 2022-08-02 13:18 | PM.IMCN ---
Assessment and Plan Assessment and plan (1) History of incisional hernia repair: Code(s): Z98.890 - Other specified postprocedural states; Z87.19 - Personal history of other diseases of the digestive system Status: Acute Assessment and Plan: See anesthesia an operative note. -wound care per surgery. -analgesics per surgery -DVT prophylaxis per surgery. The patient currently has on SCDs. (2) Chronic respiratory failure with hypoxia: Code(s): J96.11 - Chronic respiratory failure with hypoxia Status: Acute Assessment and Plan: -the patient is on 2 L per nasal cannula at home but has been bump to 3 L per nasal cannula here. -patient uses tobacco products and has a history of COPD. (3) COPD (chronic obstructive pulmonary disease): Code(s): J44.9 - Chronic obstructive pulmonary disease, unspecified Status: Chronic Assessment and Plan: -continue with oxygen -continue with Trelegy Ellipta -continue with albuterol nebulizer treatments and add Atrovent as well. (4) Depression with anxiety: Code(s): F41.8 - Other specified anxiety disorders Status: Acute Assessment and Plan: -continue with Effexor -continue with Lyrica (5) Hyperglycemia: Code(s): R73.9 - Hyperglycemia, unspecified Status: Acute Assessment and Plan: Patient denies diagnosis of diabetes. However her blood sugars are in the 200s today. -Accu-Cheks AC and HS with sliding scale insulin and hypoglycemic protocol. -check A1c (6) Hypertension: Qualifiers: Hypertension type: essential hypertension Qualified Code(s): I10 - Essential (primary) hypertension Code(s): I10 - Essential (primary) hypertension Status: Chronic Assessment and Plan: P.r.n. hydralazine -continue with lisinopril and monitor renal functions. -her hydrochlorothiazide has been continued as well. (7) Hypothyroidism: Qualifiers: Hypothyroidism type: unspecified Qualified Code(s): E03.9 - Hypothyroidism, unspecified Code(s): E03.9 - Hypothyroidism, unspecified Status: Chronic Assessment and Plan: -her levothyroxine has been continued. (8) Tobacco abuse: Code(s): Z72.0 - Tobacco use Status: Chronic Assessment and Plan: -the patient was given smoking cessation information. -we spoke for approximately 5 minutes concerning smoking cessation. -the patient was offered a nicotine patch. HPI Data of Consult Consult date: 08/02/22 Requesting Physician: Richard Lee MD Primary Care Provider: Asad Stahl DO Consult Narrative Narrative: Bethany Domínguez is a 47 year old female who has a history of COPD and chronic hypoxia chronically on oxygen at 2 L per nasal cannula. The patient has a chronic cough due to her COPD. The patient's coughing has aggravated her incisional hernia. She has a history of open exploration, read adduction, and repair of ventral incisional hernia just above the umbilicus. Her pain is been getting worse and feels that the hernia has been getting bigger. The patient had open recurrent incisional hernia repair with mesh today. The patient's oxygen was turned up to 3 L per nasal cannula postoperatively. The hospitalist group was asked to consult on the patient today. Although the patient denies diabetes her blood sugars have been in the 200s. The patient denies any recent prednisone use. The hospitalist consultation date of service is 08/02/2022. Review of Systems Review of Systems: See HPI All systems reviewed & are unremarkable except as noted in HPI and below Constitutional: Constitutional: Reports as per HPI and Reports no additional constitutional complaints Eyes: Eyes: Reports as per HPI and Reports no additional eye complaints ENT: Reports system reviewed and no additional complaints, except as documented and Reports Normal hearing present Cardiovascular: Cardiovascular: Reports
[2022-08-02] MEDS: LEVOTHYROXINE SODIUM 125 MCG TABLET 250 MCG PO (13:39)
[2022-08-02] MEDS: IPRATROPIUM BR 0.02% INH SOLN 0.5 MG/2.5 ML VIAL INHALATION (13:46)
[2022-08-02 16:53] LABS: Glucose Point of Care 342 mg/dl (65-105)
[2022-08-02] MEDS: INSULIN ASPART (*BKC) 100 UNITS/ML SUB-Q (17:07)
[2022-08-02] MEDS: FLUTICASONE PROPIONATE 0.05% NA SPR 16 GM BTL (*BKC) 1 SPRAY NASAL (17:08)
[2022-08-02] MEDS: PREGABALIN (*CRX) 50 MG CAPSULE 100 MG PO (17:13)
[2022-08-02] MEDS: oxyCODONE HCL (*CRX) 5 MG TAB IR PO (17:20)
--- NOTE | 2022-08-02 17:58 | W.PM.PROC2 ---
Procedure Note - Detailed Date of Procedure 08/02/22 Pre-op Diagnosis Reducible incisional hernia Post-op Diagnosis Same Procedure Performed Open reducible incisional hernia repair with Phasix ST mesh Surgeon Richard Lee MD Nylon Winder ABIODUN Denny Anesthesia General Indications Patient is a 47-year-old female who underwent an emergent incarcerated periumbilical ventral hernia repair without mesh last year. She has a recurrence of the hernia with increasing pain and a loop of small bowel within the hernia on CT scan which is at risk for small bowel obstruction. She presents now for an open repair of the incisional hernia. Findings Contents of the hernia sac reducible. The hernia defect was approximately 4cm in diameter. The defect was located in the periumbilical region. Description of Procedure After informed consent was obtained the patient was brought to the operating room where she is placed in a supine position and then general endotracheal anesthesia was administered. A Peraza catheter was placed to decompress the bladder and an orogastric tube placed to decompress the stomach. The abdomen was then prepped draped in usual sterile fashion and a time-out was performed correctly identifying the patient as well as the procedure to be performed and verified she was given 3g of Ancef for preoperative IV antibiotics. I then made an incision in the midline extending from the mid epigastric region to midway between the umbilicus and pubic symphysis. Dissection is carried down through the subcutaneous tissues into the hernia sac was encountered. I then dissected around the hernia sac with electrocautery and then opened the hernia sac with electrocautery. There were no incarcerated contents within the hernia sac and I then proceeded to resect the hernia sac down to the level of the fascial defect. The defect in the fascia was approximately 4cm in diameter. There was some old Ethibond sutures noted but no mesh. I then swept underneath the anterior abdominal wall with my fingers and there were no adhesions of the omentum or bowel in the central portion of the abdomen. I then opened the defect for about 2cm cephalad and caudad with electrocautery so that I could place a larger piece of Phasix ST mesh. I then chose a piece of Phasix ST mesh with the open positioning system measuring 20cm in length by 15cm in width . I placed it into the abdomen with the barrier surface facing the intra-abdominal viscera and the bioprosthetic mesh the surface facing the undersurface of the anterior abdominal wall. I centered the mesh in the defect and there was at least 6 to 7 cm of overlap between the edges of the fascia and the edge of the mesh. I then secured the mesh with 0 Ethibond sutures placed transfascially with the aid of a suture assist device at the 4 cardinal points with the mesh. I then utilized an absorable tacker and placed a double crown of circumferential abnormal tacks within the positioning pocket of the mesh. In total 30 as overall tacks were placed. This secured the mesh in the intraperitoneal underlay position very nicely. I then removed the opening positioning device from the pocket of the mesh and discarded it. I then irrigated out the mesh with sterile saline solution. A 15 [place] round Abel drain was brought in through the left lower quadrant abdominal wall and placed within the positioning pocket of the mesh. The drain was sutured in place at the skin with a 3-0 nylon suture. I then proceeded to approximate the fascial edges utilizing looped #1 PDS sutures and the fascial edges approximated in the midline easily without any tension. The mesh was completely covered with vascularized fascia and muscle. The subcutaneous tissues were then closed utilizing multiple layers of interrupted 3-0 Vicryl sutures. The skin edges were then approximated utilizing a running subcuticular 4-0 Monocryl suture. I then injected Exparel liposomal bu
[2022-08-02 19:58] LABS: Glucose Point of Care 284 mg/dl (65-105)
[2022-08-02] MEDS: HYDROmorphone HCL INJ (*CRX) 1 MG/ML SYR IV PUSH (21:33)
[2022-08-03] VITALS (14 sets, daily range): BP systolic 134–158; BP diastolic 81–96; PULSE 80–100; RESP 18–20; TEMP 36.4–37.1; O2SAT 90–94
--- NOTE | ~2022-08-03 | XR_ITS ---
EXAMINATION: XR chest 2V DATE: 08/04/2022 10:42 INDICATION: Cough TECHNIQUE: AP and lateral views of the chest are obtained. COMPARISON: 03/23/2021; CT, 06/28/2022 FINDINGS: There is airspace opacity of the right lower lobe not seen on the relatively recent CT of t he abdomen and pelvis which included the lung bases. There are small pleural effusions. No pneumothor ax is identified. The cardiomediastinal silhouette is normal. There is moderate thoracic spondylosis. Cholecystectomy clips are noted. There is a healed left-sided rib fracture. IMPRESSION: 1. Right lower lobe airspace opacity, likely pneumonia. Reviewed, dictated and finalized at location B. STICS MANAGEMENT SPECIALIST
[2022-08-03] MEDS: guaiFENesin/DEXTROMETHORPHAN 10 ML UDC PO ×4 (01:02→17:05)
[2022-08-03] MEDS: IPRATROPIUM BR 0.02% INH SOLN 0.5 MG/2.5 ML VIAL INHALATION ×4 (02:44→20:56)
[2022-08-03] MEDS: ALBUTEROL SULFATE NEB 2.5 MG/3 ML INH INHALATION ×4 (02:46→20:55)
[2022-08-03] MEDS: HYDROmorphone HCL INJ (*CRX) 1 MG/ML SYR IV PUSH ×2 (05:56→21:04)
[2022-08-03] MEDS: LEVOTHYROXINE SODIUM 125 MCG TABLET 250 MCG PO (05:57)
[2022-08-03 06:20] LABS: Basophils Absolute Auto 0.1 K/mm3 (0.0-0.1); Basophils Percent Auto 0.5 % (0.2-1.2); Eosinophils Absolute Auto 0.1 K/mm3 (0-0.3); Eosinophils Percent Auto 0.4 % (0-4.4); Hemoglobin 15.5 g/dL (12.0-15.0); Immature Granulocyte Absolute 0.17 K/mm3 (0.00-0.031); Immature Granulocyte Percent A 0.8 % (0-0.5); Lymphocytes Percent Auto 16.9 % (18.3-44.2); Mean Corpuscular Hemoglobin 31.7 pg (26-34); Mean Corpuscular Volume 96.1 fl (80-100); Mean Platelet Volume 9.6 fl (7.4-10.4); Monocytes Absolute Auto 0.9 K/mm3 (0.1-0.6); Monocytes Percent Auto 4.4 % (2.6-8.5); Neutrophils Absolute Auto 15.9 K/mm3 (1.3-6.7); Platelet Count Result 291 k/mm3 (150-375); Red Blood Count 4.89 M/mm3 (4.2-5.4); Red Cell Distribution Width 14.4 % (11.5-14.5); White Blood Count 20.7 K/mm3 (4.5-10.0)
[2022-08-03 06:32] LABS: Anion Gap 4 mmol/L (8-16); Blood Urea Nitrogen 9 mg/dL (7-17); Calcium 8.7 mg/dL (8.4-10.2); Carbon Dioxide 29 mmol/L (22-30); Chloride 102 mmol/L (98-107); Estimated CRCL calculation 135 ml/min; Estimated Glomerular Filt Rate > 60; Glucose 170 mg/dL (65-110); Potassium 4.3 mmol/L (3.4-5.0); Sodium 135 mmol/L (137-145)
[2022-08-03 07:25] LABS: Hemoglobin A1C 7.9 % (<5.7)
[2022-08-03] MEDS: FLUTICASONE/UMECLIDIN/VILANTER 100-62.5-25 MCG ELLIPTA 1 PUFF INHALATION (07:55)
[2022-08-03 08:59] LABS: Glucose Point of Care 207 mg/dl (65-105)
[2022-08-03] MEDS: VENLAFAXINE HCL XR 75 MG CAP.ER.24H 225 MG BY MOUTH (09:08)
[2022-08-03] MEDS: LORATADINE 10 MG TABLET PO (09:08)
[2022-08-03] MEDS: DOCUSATE SODIUM 100 MG CAPSULE PO (09:08)
[2022-08-03] MEDS: MULTIVITAMINS THERAPEUTIC TAB (*BKC) 1 TABLET PO (09:08)
[2022-08-03] MEDS: PANTOPRAZOLE 40 MG TABLET PO (09:08)
[2022-08-03] MEDS: hydroCHLOROthiazide 25 MG TABLET PO (09:08)
[2022-08-03] MEDS: lisinopriL 20 MG TABLET 40 MG BY MOUTH (09:08)
[2022-08-03] MEDS: diazePAM INJ (*CRX) 10 MG/2 ML SYRINGE 5 MG IV PUSH ×2 (09:09→20:05)
[2022-08-03] MEDS: ENOXAPARIN 40 MG/0.4 ML SYRINGE SUB-Q (09:09)
[2022-08-03] MEDS: PREGABALIN (*CRX) 50 MG CAPSULE 100 MG PO ×2 (09:10→16:39)
[2022-08-03] MEDS: INSULIN ASPART (*BKC) 100 UNITS/ML SUB-Q ×3 (09:11→16:39)
[2022-08-03] MEDS: FLUTICASONE PROPIONATE 0.05% NA SPR 16 GM BTL (*BKC) 1 SPRAY NASAL ×2 (09:14→16:39)
[2022-08-03] MEDS: oxyCODONE HCL (*CRX) 5 MG TAB IR PO ×2 (11:41→15:48)
[2022-08-03] MEDS: SODIUM CHLORIDE 0.9% IV 1,000 ML 100 ML IV CONT (11:42)
[2022-08-03 12:42] LABS: Glucose Point of Care 250 mg/dl (65-105)
--- NOTE | 2022-08-03 13:19 | WPDANESPN ---
Anes - Prog Note Post-Op Date/Time: 08/03/22 13:19 Cardiovascular status: normal Respiratory status: normal Airway patency: baseline Mental status: baseline Post-Op hydration status: normal Vital Signs: Last Vital Signs Temp 36.9 C 08/03/22 05:13 Pulse 87 08/03/22 08:00 Resp 18 08/03/22 08:00 BP 134/87 08/03/22 05:13 Pulse Ox 91 08/03/22 09:05 O2 Del Method Nasal Cannula 08/03/22 09:05 O2 Flow Rate 2 08/03/22 09:05 Pain Score (VAS): Patient asleep, no nonverbal signs of pain present at this time I/O: Intake & Output 08/02/22 08/03/22 08/03/22 23:59 07:59 15:59 Intake Total 1757 594 8347 Output Total 150 Balance 5012 550 1951 Laboratory Tests 08/03/22 06:04 08/03/22 06:04 08/02/22 08/02/22 08/03/22 16:49 19:41 06:04 WBC RBC Hgb Hct MCV MCH MCHC RDW Plt Count MPV Immature Gran % (Auto) Neut % (Auto) Lymph % (Auto) Young % (Auto) Eos % (Auto) Baso % (Auto) Lymph # (Auto) Young # (Auto) Eos # (Auto) Baso # (Auto) Abs Immat Gran (auto) Absolute Neuts (auto) Absolute Nucleated RBC Nucleated RBC % Sodium Potassium Chloride Carbon Dioxide Anion Gap BUN Creatinine Estim Creat Clear Calc Estimated GFR Glucose POC Capillary Glucose 342 H 284 H Hemoglobin A1c 7.9 H Calcium 08/03/22 08/03/22 08/03/22 06:04 06:04 08:48 WBC 20.7 H RBC 4.89 Hgb 15.5 H Hct 47.0 MCV 96.1 MCH 31.7 MCHC 33.0 RDW 14.4 Plt Count 291 MPV 9.6 Immature Gran % (Auto) 0.8 H Neut % (Auto) 77.0 H Lymph % (Auto) 16.9 L Young % (Auto) 4.4 Eos % (Auto) 0.4 Baso % (Auto) 0.5 Lymph # (Auto) 3.50 H Young # (Auto) 0.9 H Eos # (Auto) 0.1 Baso # (Auto) 0.1 Abs Immat Gran (auto) 0.17 H Absolute Neuts (auto) 15.9 H Absolute Nucleated RBC 0.0 Nucleated RBC % 0.0 Sodium 135 L Potassium 4.3 Chloride 102 Carbon Dioxide 29 Anion Gap 4 L BUN 9 Creatinine 0.70 Estim Creat Clear Calc 135 Estimated GFR > 60 Glucose 170 H POC Capillary Glucose 207 H Hemoglobin A1c Calcium 8.7 08/03/22 12:38 WBC RBC Hgb Hct MCV MCH MCHC RDW Plt Count MPV Immature Gran % (Auto) Neut % (Auto) Lymph % (Auto) Young % (Auto) Eos % (Auto) Baso % (Auto) Lymph # (Auto) Young # (Auto) Eos # (Auto) Baso # (Auto) Abs Immat Gran (auto) Absolute Neuts (auto) Absolute Nucleated RBC Nucleated RBC % Sodium Potassium Chloride Carbon Dioxide Anion Gap BUN Creatinine Estim Creat Clear Calc Estimated GFR Glucose POC Capillary Glucose 250 H Hemoglobin A1c Calcium Post-procedural complaints: none Patient Feedback: Patient satisfied with anesthetic care.
--- NOTE | 2022-08-03 13:43 | PM.IMPN ---
Progress Note: A&P Assessment and Plan (1) History of incisional hernia repair: Code(s): Z98.890 - Other specified postprocedural states; Z87.19 - Personal history of other diseases of the digestive system Status: Acute Assessment and Plan: See anesthesia an operative note. -wound care per surgery. -analgesics per surgery -DVT prophylaxis per surgery. The patient currently has on SCDs. (2) Chronic respiratory failure with hypoxia: Code(s): J96.11 - Chronic respiratory failure with hypoxia Status: Acute Assessment and Plan: -the patient is on 2 L per nasal cannula at home but has been bump to 3 L per nasal cannula here. -patient uses tobacco products and has a history of COPD. (3) COPD (chronic obstructive pulmonary disease): Code(s): J44.9 - Chronic obstructive pulmonary disease, unspecified Status: Chronic Assessment and Plan: -continue with oxygen -continue with Trelegy Ellipta -continue with albuterol nebulizer treatments and add Atrovent as well. -consider chest x-ray if white count and wheezing is not improved by tomorrow. (4) Depression with anxiety: Code(s): F41.8 - Other specified anxiety disorders Status: Acute Assessment and Plan: -continue with Effexor -continue with Lyrica (5) Hyperglycemia: Code(s): R73.9 - Hyperglycemia, unspecified Status: Acute Assessment and Plan: Patient denies diagnosis of diabetes. However her blood sugars are in the 200s today. -Accu-Cheks AC and HS with sliding scale insulin and hypoglycemic protocol. -Hemoglobin A1c 7.9 and sugars are in the mid 200s. -Start metformin 500 mg BID (6) Hypertension: Qualifiers: Hypertension type: essential hypertension Qualified Code(s): I10 - Essential (primary) hypertension Code(s): I10 - Essential (primary) hypertension Status: Chronic Assessment and Plan: P.r.n. hydralazine -continue with lisinopril and monitor renal functions. -her hydrochlorothiazide has been continued as well. (7) Hypothyroidism: Qualifiers: Hypothyroidism type: unspecified Qualified Code(s): E03.9 - Hypothyroidism, unspecified Code(s): E03.9 - Hypothyroidism, unspecified Status: Chronic Assessment and Plan: -her levothyroxine has been continued. (8) Tobacco abuse: Code(s): Z72.0 - Tobacco use Status: Chronic Assessment and Plan: -the patient was given smoking cessation information. -we spoke for approximately 5 minutes concerning smoking cessation. -the patient was offered a nicotine patch. Time Spent With Patient Time with patient: 25 - 35 minutes Subjective Date/time seen: 08/03/22 13:43 Interval history: Patient resting comfortably in bed. Patient is still having some abdominal pain but is being managed with medications. Patient does wear 2 L of O2 at home and this has increased to 3.5 L in the hospital. Patient denies shortness of breath although she is a little wheezy. Patient has no difficulty with walking. Patient does not have any new complaints at this time. Review of Systems Review of Systems: All systems reviewed & are unremarkable except as noted in HPI and below Exam Narrative: GENERAL: Comfortable, no acute distress HENMT: moist mucous membranes EYES: EOM intact b/l NECK: no lymphadenopathy RESPIRATORY: clear to auscultation CARDIO: RRR GI: soft, tender, bowel sounds present, abdominal binder present with 1 drain draining bloody fluid SKIN: no rashes EXTREMITIES: no edema, redness or tenderness Objective Data Vital Signs Vital Signs: Vital Signs - 24 hr 08/02/22 13:52 08/02/22 17:53 08/02/22 21:27 Temperature 97.9 F 98.0 F Pulse Rate 92 81 78 Respiratory Rate 18 20 18 Blood Pressure 138/83 120/74 Pulse Oximetry 91 92 Oxygen Delivery Oxygen Flow Rate 08/02/22 20:00 02
--- NOTE | 2022-08-03 14:00 | PM.PNGS ---
Progress Note: A&P Assessment and Plan (1) Recurrent incisional hernia: Code(s): K43.2 - Incisional hernia without obstruction or gangrene Status: Acute Assessment and Plan: Post-op day 1 and the patient is doing well. Pain is well controlled but did still require IV Dilaudid this morning for pain. Try transitioning to oral analgesics today. She is tolerating a low fat diet. Will stop her IV fluids. Increase activity as tolerated and walk in the halls today. Monitor OSIRIS drain output. Patient could potentially discharge in the next 1-2 days if she continues to progress well. (2) COPD (chronic obstructive pulmonary disease): Qualifiers: COPD type: unspecified COPD Qualified Code(s): J44.9 - Chronic obstructive pulmonary disease, unspecified Code(s): J44.9 - Chronic obstructive pulmonary disease, unspecified Status: Acute Assessment and Plan: Currently on 3 liters NC and typically wears 2 liters at home. No respiratory complaints. Hospitalist was consulted for medical management. Continue to monitor. Plan I have discussed the patient's case and plan of care with Dr. Lee. Subjective Subjective Date/Time Seen: 08/03/22 11:40 Post Op day: 1 (Open reducible incisional hernia repair with Phasix ST mesh) Patient reports: tolerating a regular diet, no flatus, no bowel movement and afebrile Interval history: Patient is currently sitting in bed eating lunch. She reports having surgical soreness and pain at the center of her abdomen, but this being controlled with the analgesics. She did require IV Dilaudid earlier this morning but is going to try sticking to the oral analgesics today. She is tolerating walking into the bathroom and is voiding without any difficulty. She does have a hx of COPD on 2 liters of O2 at home and is currently on 3L O2. Denies shortness of breath or cough. No other complaints at this time. Review of Systems Review of Systems: All systems reviewed & are unremarkable except as noted in HPI and below Exam Const: General: comfortable, no acute distress and awake Orientation/consciousness: patient oriented x3 Resp: Effort & Inspection: normal respiratory effort Auscultation: clear to auscultation bilaterally Cardio: Rate: regular rate Rhythm: regular rhythm GI: Inspection: non-distended, incision (dry and glue intact) and other (OSIRIS drain with serosanguineous drainage) GI Palp: Yes Soft to palpation and Yes Tenderness to palpation present (GI) (incisional) Auscultation: Hypoactive bowel sounds present Neuro: General: moves all extremities and no focal motor deficits Extrem: General: no calf tenderness and no edema Psych: Mental Status: mental status grossly normal Insight: Good insight present (Psych) Objective Data Vital Signs Vital Signs: Vital Signs - 24 hr 08/02/22 17:53 08/02/22 21:27 08/02/22 20:00 Temperature 97.9 F 98.0 F Pulse Rate 81 78 Respiratory Rate 20 18 Blood Pressure 138/83 120/74 Pulse Oximetry 91 92 93 Oxygen Delivery Nasal Cannula Oxygen Flow Rate 2 08/03/22 02:47 08/03/22 02:56 08/03/22 05:13 Temperature 98.4 F Pulse Rate 84 86 80 Respiratory Rate 18 18 18 Blood Pressure 134/87 Pulse Oximetry 92 Oxygen Delivery Oxygen Flow Rate 08/03/22 07:55 08/03/22 07:55 08/03/22 08:00 Temperature Pulse Rate 86 86 87 Respiratory Rate 18 18 18 Blood Pressure Pulse Oximetry 91 Oxygen Delivery Nasal Cannula Oxygen Flow Rate 3 08/03/22 09:05 Temperature Pulse Rate Respiratory Rate Blood Pressure Pulse Oximetry 91 Oxygen Delivery Nasal Cannula Oxygen Flow Rate 2 Intake/Output Intake/Output: Intake & Output 07/31/22 08/01/22 08/02/22 08/03/22 23:59 23:59 23:59 23:59 Intake Total 3520 1940 Output Total 150 Balance 3370 1940 Meds/Results Medications: Active Medications Generic Name Dose Route Start Last Admin Trade Name Freq PRN Reason Stop Dose Admi
[2022-08-03 16:28] LABS: Glucose Point of Care 206 mg/dl (65-105)
[2022-08-03] MEDS: metFORMIN HCL 500 MG TABLET PO (16:39)
[2022-08-03 22:48] LABS: Glucose Point of Care 224 mg/dl (65-105)
[2022-08-04] VITALS (20 sets, daily range): BP systolic 120–163; BP diastolic 69–97; PULSE 80–96; RESP 16–18; TEMP 36.4–37; O2SAT 75–94
[2022-08-04] MEDS: guaiFENesin/DEXTROMETHORPHAN 10 ML UDC PO ×5 (00:43→23:35)
[2022-08-04] MEDS: IPRATROPIUM BR 0.02% INH SOLN 0.5 MG/2.5 ML VIAL INHALATION ×4 (02:55→21:17)
[2022-08-04] MEDS: ALBUTEROL SULFATE NEB 2.5 MG/3 ML INH INHALATION ×4 (02:55→21:17)
[2022-08-04] MEDS: HYDROmorphone HCL INJ (*CRX) 1 MG/ML SYR IV PUSH (04:29)
[2022-08-04 06:25] LABS: Basophils Absolute Auto 0.1 K/mm3 (0.0-0.1); Basophils Percent Auto 0.7 % (0.2-1.2); Eosinophils Absolute Auto 0.3 K/mm3 (0-0.3); Eosinophils Percent Auto 1.9 % (0-4.4); Hematocrit 45.5 % (37.0-47.0); Hemoglobin 14.4 g/dL (12.0-15.0); Immature Granulocyte Absolute 0.11 K/mm3 (0.00-0.031); Immature Granulocyte Percent A 0.8 % (0-0.5); Lymphocytes Absolute Auto 2.33 K/mm3 (0.9-3.2); Lymphocytes Percent Auto 16.8 % (18.3-44.2); Mean Corpuscular HGB Conc 31.6 g/dl (32-36); Mean Corpuscular Hemoglobin 31.6 pg (26-34); Mean Corpuscular Volume 99.8 fl (80-100); Monocytes Absolute Auto 0.7 K/mm3 (0.1-0.6); Monocytes Percent Auto 4.7 % (2.6-8.5); Neutrophils Absolute Auto 10.4 K/mm3 (1.3-6.7); Neutrophils Percent Auto 75.1 % (45.5-73.1); Platelet Count Result 264 k/mm3 (150-375); Red Blood Count 4.56 M/mm3 (4.2-5.4); Red Cell Distribution Width 14.7 % (11.5-14.5); White Blood Count 13.8 K/mm3 (4.5-10.0)
[2022-08-04] MEDS: LEVOTHYROXINE SODIUM 125 MCG TABLET 250 MCG PO (06:40)
[2022-08-04] MEDS: oxyCODONE HCL (*CRX) 5 MG TAB IR PO ×4 (06:40→21:45)
[2022-08-04 06:43] LABS: Alanine Aminotransferase 20 U/L (6-35); Albumin Level 3.8 g/dL (3.5-5.1); Alkaline Phosphatase 101 U/L (38-126); Anion Gap 2 mmol/L (8-16); Aspartate Amino Transferase 23 U/L (14-36); Bilirubin,Total 0.6 mg/dL (0.2-1.3); Blood Urea Nitrogen 8 mg/dL (7-17); Calcium 8.7 mg/dL (8.4-10.2); Carbon Dioxide 38 mmol/L (22-30); Chloride 99 mmol/L (98-107); Estimated CRCL calculation 135 ml/min; Estimated Glomerular Filt Rate > 60; Glucose 210 mg/dL (65-110); Potassium 4.5 mmol/L (3.4-5.0); Sodium 139 mmol/L (137-145)
[2022-08-04] MEDS: VENLAFAXINE HCL XR 75 MG CAP.ER.24H 225 MG BY MOUTH (08:26)
[2022-08-04] MEDS: LORATADINE 10 MG TABLET PO (08:26)
[2022-08-04] MEDS: MULTIVITAMINS THERAPEUTIC TAB (*BKC) 1 TABLET PO (08:27)
[2022-08-04] MEDS: DOCUSATE SODIUM 100 MG CAPSULE PO (08:27)
[2022-08-04] MEDS: PREGABALIN (*CRX) 50 MG CAPSULE 100 MG PO ×2 (08:27→16:22)
[2022-08-04] MEDS: metFORMIN HCL 500 MG TABLET PO ×2 (08:28→16:22)
[2022-08-04] MEDS: diazePAM INJ (*CRX) 10 MG/2 ML SYRINGE 5 MG IV PUSH (08:28)
[2022-08-04] MEDS: hydroCHLOROthiazide 25 MG TABLET PO (08:29)
[2022-08-04] MEDS: FLUTICASONE PROPIONATE 0.05% NA SPR 16 GM BTL (*BKC) 1 SPRAY NASAL ×2 (08:29→16:22)
[2022-08-04] MEDS: ENOXAPARIN 40 MG/0.4 ML SYRINGE SUB-Q (08:29)
[2022-08-04] MEDS: lisinopriL 20 MG TABLET 40 MG BY MOUTH (08:29)
[2022-08-04] MEDS: PANTOPRAZOLE 40 MG TABLET PO (08:30)
[2022-08-04 08:34] LABS: Glucose Point of Care 184 mg/dl (65-105)
[2022-08-04] MEDS: FLUTICASONE/UMECLIDIN/VILANTER 100-62.5-25 MCG ELLIPTA 1 PUFF INHALATION (09:16)
--- NOTE | 2022-08-04 11:45 | PM.PNGS ---
Progress Note: A&P Assessment and Plan (1) Recurrent incisional hernia: Code(s): K43.2 - Incisional hernia without obstruction or gangrene Status: Acute Assessment and Plan: Post-op day 2 and doing fair. Encouraged sticking with oral analgesics for post-op pain. Tolerating a low fat diet. Encouraged increasing activity as tolerated and ambulating more today. (2) COPD (chronic obstructive pulmonary disease): Qualifiers: COPD type: unspecified COPD Qualified Code(s): J44.9 - Chronic obstructive pulmonary disease, unspecified Code(s): J44.9 - Chronic obstructive pulmonary disease, unspecified Status: Acute Assessment and Plan: Patient had an increase in her oxygen requirements this morning, currently at 6 liters, which occurred possibly after aspirating and having a coughing fit. CXR ordered by Hospitalist and reviewed, suggesting possible pneumonia. Discussed with the Hospitalist who is adding empiric IV antibiotics. Plan I have discussed the patient's case and plan of care with Dr. Lee. Subjective Subjective Date/Time Seen: 08/04/22 11:45 Post Op day: 2 Patient reports: tolerating a regular diet, voiding w/o difficulty, no flatus, no bowel movement and afebrile Interval history: Patient is currently complaining of some lower abdominal gas pains. She said it feels like she needs to pass gas. She did get up and walk this morning. The patient reports believing she choked on some of her breakfast and had a coughing fit. At that time, she became short of breath and her O2 sats went down into the 70's per nursing. They then increased her O2 to 8 liters, which has since been titrated down to 6 liters. She denies any shortness of breath now, but does report a productive cough. No other complaints at this time. Exam Const: General: no acute distress Orientation/consciousness: patient oriented x3 Resp: Effort & Inspection: normal respiratory effort Auscultation: rhonchi throughout, wheezes expiratory wheezes and right upper and diminished lung sounds bilateral in the lower lung kulkarni Cardio: Rate: regular rate Rhythm: regular rhythm GI: Inspection: non-distended, incision (dry and glue intact) and other (OSIRIS drain with more serous drainage today) GI Palp: Yes Soft to palpation, Yes Tenderness to palpation present (GI) (across the lower abdomen and expected incisional tenderness), No Guarding due to palpation present (GI), No Hernia present and No Rebound tenderness present Auscultation: normal bowel sounds Neuro: General: moves all extremities Extrem: General: no calf tenderness and no edema Psych: Mental Status: mental status grossly normal Insight: Good insight present (Psych) Objective Data Vital Signs Vital Signs: Vital Signs - 24 hr 08/03/22 13:40 08/03/22 13:45 08/03/22 14:40 Temperature 97.6 F Pulse Rate 88 86 86 Respiratory Rate 18 18 18 Blood Pressure 158/96 H Pulse Oximetry 94 Oxygen Delivery Oxygen Flow Rate 08/03/22 16:06 08/03/22 20:57 08/03/22 21:12 Temperature 98.7 F Pulse Rate 97 100 Respiratory Rate 20 18 Blood Pressure 148/84 H 152/81 H Pulse Oximetry 90 Oxygen Delivery Oxygen Flow Rate 08/03/22 21:11 08/03/22 20:00 08/04/22 01:00 Temperature 98.4 F Pulse Rate 91 96 Respiratory Rate 18 16 Blood Pressure 163/97 H Pulse Oximetry 90 91 Oxygen Delivery Nasal Cannula Oxygen Flow Rate 3 08/04/22 02:55 08/04/22 03:03 08/04/22 06:32 Temperature 98.6 F Pulse Rate 89 87 84 Respiratory Rate 18 18 16 Blood Pressure 138/78 Pulse Oximetry 90 Oxygen Delivery Oxygen Flow Rate 08/04/22 08:54 08/04/22 08:48 08/04/22 08:58 Temperature Pulse Rate 89 80 88 Respiratory Rate 18 18 Blood Pressure Pulse Oximetry 91 Oxygen Delivery Nasal Cannula Oxygen Flow Rate 3.5 08/04/22 09:35 08/04/22 08:24 08/04/22 08:24 Temperature Pulse Rate Respiratory Rate Blood
[2022-08-04 12:09] LABS: Glucose Point of Care 200 mg/dl (65-105)
--- NOTE | 2022-08-04 13:52 | PM.IMPN ---
Progress Note: A&P Assessment and Plan (1) Pneumonia: Code(s): J18.9 - Pneumonia, unspecified organism Status: Acute Assessment and Plan: Chest x-ray performed on 08/04/2022 due to increased secretions and bibasilar crackles on exam. Chest x-ray revealed pneumonia. Is unclear pneumonia is postoperative vs hospital-acquired vs community-acquired. patient was seen on 08/03/2022 with wheezing and bibasilar crackles and was postop day 1. Patient continued on breathing treatments and guaifenesin. When patient did not improve overnight chest x-ray performed today revealed pneumonia. Patient with a white count of 20.7 when consulted. This could have been due to surgery and could have reactive white count 08/04/2022 white count of 13.8 Per up-to-date guidelines patient was started on cefepime and Levaquin. Patient requiring higher oxygen demands. Consider pulmonology consultation if patient does not improve on antibiotic therapy (2) History of incisional hernia repair: Code(s): Z98.890 - Other specified postprocedural states; Z87.19 - Personal history of other diseases of the digestive system Status: Acute Assessment and Plan: See anesthesia an operative note. -wound care per surgery. -analgesics per surgery -DVT prophylaxis per surgery. The patient currently has on SCDs. (3) Chronic respiratory failure with hypoxia: Code(s): J96.11 - Chronic respiratory failure with hypoxia Status: Acute Assessment and Plan: -the patient is on 2 L per nasal cannula at home but has been bump to 3 L per nasal cannula here. -patient uses tobacco products and has a history of COPD. (4) COPD (chronic obstructive pulmonary disease): Code(s): J44.9 - Chronic obstructive pulmonary disease, unspecified Status: Chronic Assessment and Plan: -continue with oxygen -continue with Trelegy Ellipta -continue with albuterol nebulizer treatments and add Atrovent as well. -consider chest x-ray if white count and wheezing is not improved by tomorrow. (5) Hyperglycemia: Code(s): R73.9 - Hyperglycemia, unspecified Status: Acute Assessment and Plan: Patient denies diagnosis of diabetes. However her blood sugars are in the 200s today. -Accu-Cheks AC and HS with sliding scale insulin and hypoglycemic protocol. -Hemoglobin A1c 7.9 and sugars are in the mid 200s. -Start metformin 500 mg BID (6) Hypertension: Qualifiers: Hypertension type: essential hypertension Qualified Code(s): I10 - Essential (primary) hypertension Code(s): I10 - Essential (primary) hypertension Status: Chronic Assessment and Plan: P.r.n. hydralazine -continue with lisinopril and monitor renal functions. -her hydrochlorothiazide has been continued as well. (7) Tobacco abuse: Code(s): Z72.0 - Tobacco use Status: Chronic Assessment and Plan: -the patient was given smoking cessation information. -we spoke for approximately 5 minutes concerning smoking cessation. -the patient was offered a nicotine patch. Time Spent With Patient Time with patient: 25 - 35 minutes Subjective Date/time seen: 08/04/22 13:52 Interval history: Patient lying in bed resting. Patient states that she is still having some abdominal pain. Patient has chronic wet cough that she states is not new or worsened. Patient denies shortness of breath although she has required increased oxygen demands. Patient denies fevers, Chills,difficulty breathing, chest pain, shortness a breath worse than baseline, nausea, vomiting and diarrhea. Review of Systems Review of Systems: All systems reviewed & are unremarkable except as noted in HPI and below Exam Narrative: GENERAL: Comfortable, no acute distress HENMT: moist mucous membranes EYES: EOM intact b/l NECK: no lymphadenopathy RESPIRATORY: diffuse bibasilar crackles CARDIO: RR
[2022-08-04 17:23] LABS: Glucose Point of Care 171 mg/dl (65-105)
[2022-08-04 20:52] LABS: Glucose Point of Care 158 mg/dl (65-105)
[2022-08-04] MEDS: diazePAM (*CRX) 5 MG TABLET PO (21:35)
[2022-08-05] VITALS (11 sets, daily range): BP systolic 127–130; BP diastolic 76–88; PULSE 87–93; RESP 16–20; TEMP 36.4–36.8; O2SAT 92–98
[2022-08-05] MEDS: guaiFENesin/DEXTROMETHORPHAN 10 ML UDC PO ×3 (05:42→16:50)
[2022-08-05] MEDS: oxyCODONE HCL (*CRX) 5 MG TAB IR PO ×3 (05:47→16:49)
[2022-08-05 06:32] LABS: Basophils Absolute Auto 0.1 K/mm3 (0.0-0.1); Basophils Percent Auto 0.5 % (0.2-1.2); Eosinophils Absolute Auto 0.3 K/mm3 (0-0.3); Eosinophils Percent Auto 2.1 % (0-4.4); Hematocrit 44.1 % (37.0-47.0); Hemoglobin 14.1 g/dL (12.0-15.0); Immature Granulocyte Absolute 0.08 K/mm3 (0.00-0.031); Immature Granulocyte Percent A 0.6 % (0-0.5); Lymphocytes Percent Auto 14.1 % (18.3-44.2); Mean Corpuscular Hemoglobin 31.4 pg (26-34); Mean Corpuscular Volume 98.2 fl (80-100); Mean Platelet Volume 9.5 fl (7.4-10.4); Monocytes Absolute Auto 0.6 K/mm3 (0.1-0.6); Monocytes Percent Auto 4.2 % (2.6-8.5); Neutrophils Absolute Auto 10.6 K/mm3 (1.3-6.7); Neutrophils Percent Auto 78.5 % (45.5-73.1); Platelet Count Result 253 k/mm3 (150-375); Red Blood Count 4.49 M/mm3 (4.2-5.4); Red Cell Distribution Width 14.6 % (11.5-14.5); White Blood Count 13.5 K/mm3 (4.5-10.0)
[2022-08-05 06:39] LABS: Alanine Aminotransferase 25 U/L (6-35); Albumin Level 3.6 g/dL (3.5-5.1); Alkaline Phosphatase 96 U/L (38-126); Anion Gap 1 mmol/L (8-16); Aspartate Amino Transferase 27 U/L (14-36); Bilirubin,Total 0.7 mg/dL (0.2-1.3); Blood Urea Nitrogen 8 mg/dL (7-17); Calcium 8.8 mg/dL (8.4-10.2); Carbon Dioxide 39 mmol/L (22-30); Chloride 94 mmol/L (98-107); Estimated CRCL calculation 156 ml/min; Estimated Glomerular Filt Rate > 60; Glucose 186 mg/dL (65-110); Potassium 3.8 mmol/L (3.4-5.0); Sodium 134 mmol/L (137-145)
[2022-08-05 08:18] LABS: Glucose Point of Care 170 mg/dl (65-105)
[2022-08-05] MEDS: PREGABALIN (*CRX) 50 MG CAPSULE 100 MG PO ×2 (09:08→16:48)
[2022-08-05] MEDS: LORATADINE 10 MG TABLET PO (09:08)
[2022-08-05] MEDS: PANTOPRAZOLE 40 MG TABLET PO (09:08)
[2022-08-05] MEDS: metFORMIN HCL 500 MG TABLET PO ×2 (09:08→16:49)
[2022-08-05] MEDS: MULTIVITAMINS THERAPEUTIC TAB (*BKC) 1 TABLET PO (09:08)
[2022-08-05] MEDS: lisinopriL 20 MG TABLET 40 MG BY MOUTH (09:08)
[2022-08-05] MEDS: VENLAFAXINE HCL XR 75 MG CAP.ER.24H 225 MG BY MOUTH (09:08)
[2022-08-05] MEDS: DOCUSATE SODIUM 100 MG CAPSULE PO ×2 (09:09→21:12)
[2022-08-05] MEDS: hydroCHLOROthiazide 25 MG TABLET PO (09:09)
[2022-08-05] MEDS: ENOXAPARIN 40 MG/0.4 ML SYRINGE SUB-Q (09:10)
[2022-08-05] MEDS: diazePAM (*CRX) 5 MG TABLET PO ×2 (09:10→21:11)
[2022-08-05] MEDS: FLUTICASONE PROPIONATE 0.05% NA SPR 16 GM BTL (*BKC) 1 SPRAY NASAL ×2 (09:11→16:50)
[2022-08-05] MEDS: IPRATROPIUM BR 0.02% INH SOLN 0.5 MG/2.5 ML VIAL INHALATION ×2 (09:16→20:52)
[2022-08-05] MEDS: ALBUTEROL SULFATE NEB 2.5 MG/3 ML INH INHALATION ×2 (09:18→20:53)
[2022-08-05] MEDS: ACETYLCYSTEINE 20% INHAL SOLN 800 MG/4 ML VIAL 200 MG INHALATION (09:18)
--- NOTE | 2022-08-05 09:34 | PM.PNGS ---
Progress Note: A&P Assessment and Plan (1) Recurrent incisional hernia: Code(s): K43.2 - Incisional hernia without obstruction or gangrene Status: Acute Assessment and Plan: Post-op day 3 and doing well from a surgical standpoint. Incisions healing well. Continue to monitor OSIRIS drain, which we plan to keep in place for at least a week. Tolerating a low fat diet. Continue increasing activity as tolerated and try ambulating. (2) COPD (chronic obstructive pulmonary disease): Qualifiers: COPD type: unspecified COPD Qualified Code(s): J44.9 - Chronic obstructive pulmonary disease, unspecified Code(s): J44.9 - Chronic obstructive pulmonary disease, unspecified Status: Acute Assessment and Plan: CXR yesterday suggesting possible RLL pneumonia. She was started on empiric IV antibiotics. Lungs sound better today and she is down to 5 liters of O2. Continue medical management per Hospitalist. Plan I have discussed the patient's case and plan of care with Dr. Lee. Subjective Subjective Date/Time Seen: 08/05/22 09:34 Post Op day: 3 (Open reducible incisional hernia repair with Phasix ST mesh) Patient reports: no new complaints, feels better, tolerating a regular diet, voiding w/o difficulty, flatus, no bowel movement and afebrile Interval history: Patient seen this morning. Her O2 has been titrated down to 5 liters. She denies any coughing through the night or today. She denies any shortness of breath that is different from her baseline. Her post-op pain is being controlled with the oxycodone and has not required IV Dilaudid since early yesterday morning. She reports the gas pains she was experiencing yesterday has resolved now that she is passing flatus. No acute events overnight. Review of Systems Review of Systems: ROS unchanged Exam Const: General: comfortable and no acute distress Nutritional Appearance: obese Orientation/consciousness: patient oriented x3 Resp: Effort & Inspection: normal respiratory effort Auscultation: wheezes inspiratory wheezes and upper bilaterally and diminished lung sounds bilateral in the lower lung kulkarni Cardio: Rate: regular rate Rhythm: regular rhythm GI: Inspection: non-distended, incision (dry and glue intact) and other (OSIRIS drain with serous drainage) GI Palp: Yes Soft to palpation and Yes Tenderness to palpation present (GI) (expected incisional tenderness) Auscultation: Hypoactive bowel sounds present Neuro: General: moves all extremities and no focal motor deficits Extrem: General: no calf tenderness and no edema Psych: Mental Status: mental status grossly normal Insight: Good insight present (Psych) Objective Data Vital Signs Vital Signs: Vital Signs - 24 hr 08/04/22 09:35 08/04/22 16:15 08/04/22 16:29 Temperature Pulse Rate 89 85 Respiratory Rate 18 18 Blood Pressure Pulse Oximetry 91 Oxygen Delivery High Flow Nasal Cannula Oxygen Flow Rate 8 08/04/22 13:30 08/04/22 16:47 08/04/22 18:46 Temperature 97.6 F Pulse Rate 94 Respiratory Rate 18 Blood Pressure 139/81 Pulse Oximetry 93 93 91 Oxygen Delivery High Flow Nasal Cannula Nasal Cannula Oxygen Flow Rate 6 5 08/04/22 21:17 08/04/22 21:25 08/04/22 21:26 Temperature Pulse Rate 92 92 88 Respiratory Rate 18 18 Blood Pressure Pulse Oximetry 92 Oxygen Delivery Nasal Cannula Oxygen Flow Rate 5 08/04/22 21:39 08/05/22 07:08 08/05/22 09:18 Temperature 98.1 F 97.6 F Pulse Rate 88 92 93 Respiratory Rate 16 18 Blood Pressure 120/69 130/76 Pulse Oximetry 94 93 92 Oxygen Delivery Nasal Cannula Oxygen Flow Rate 5 Intake/Output Intake/Output: Intake & Output 08/02/22 08/03/22 08/04/22 08/05/22 23:59 23:59 23:59 23:59 Intake Total 3520 2190 1460 450 Output Total 150 60 280 Balance 3370 2130 1180 450 Meds/Results Medications: Active Medications Generic Name Dose Route Start Last Admin Trad
[2022-08-05 12:17] LABS: Glucose Point of Care 199 mg/dl (65-105)
--- NOTE | 2022-08-05 14:41 | P.PNIM_ITS ---
Progress Note: A&P Assessment and Plan (1) Pneumonia: Code(s): J18.9 - Pneumonia, unspecified organism Status: Acute Assessment and Plan: Chest x-ray performed on 08/04/2022 due to increased secretions and bibasilar crackles on exam. Chest x-ray revealed pneumonia. Is unclear pneumonia is postoperative vs hospital-acquired vs community-acquired. patient was seen on 08/03/2022 with wheezing and bibasilar crackles and was postop day 1. Patient continued on breathing treatments and guaifenesin. When patient did not improve overnight chest x-ray performed today revealed pneumonia. * Patient with a white count of 20.7 when consulted. This could have been due to surgery and could have reactive white count * 08/04/2022 white count of 13.8 * Per up-to-date guidelines patient was started on cefepime and Levaquin. * Patient requiring higher oxygen demands. * Consider pulmonology consultation if patient does not improve on antibiotic therapy 08/05/22 * Patient still does not have any symptoms * patient's O2 demands are decreasing. Patient currently on 5 L And saturation at 92%. * goal is to decrease oxygen demands as well as improve lung sounds. * cefepime and Levaquin antibiotic day 2 (2) History of incisional hernia repair: Code(s): Z98.890 - Other specified postprocedural states; Z87.19 - Personal history of other diseases of the digestive system Status: Acute Assessment and Plan: See anesthesia an operative note. * wound care per surgery. * analgesics per surgery * DVT prophylaxis per surgery. The patient currently has on SCDs. 08/05/22 * Patient cleared to be discharged per surgery. * Will follow-up as an outpatient for drain removal (3) Chronic respiratory failure with hypoxia: Code(s): J96.11 - Chronic respiratory failure with hypoxia Status: Acute Assessment and Plan: * the patient is on 2 L per nasal cannula at home. * patient uses tobacco products and has a history of COPD. * continue with oxygen * continue with Trelegy Ellipta * continue with albuterol nebulizer treatments and add Atrovent as well. * consider chest x-ray if white count and wheezing is not improved by tomorrow. (4) Hyperglycemia: Code(s): R73.9 - Hyperglycemia, unspecified Status: Acute Assessment and Plan: Patient denies diagnosis of diabetes. However her blood sugars are in the 200s today. * Accu-Cheks AC and HS with sliding scale insulin and hypoglycemic protocol. * Hemoglobin A1c 7.9 and sugars are in the mid 200s. * Start metformin 500 mg BID * audiovisual lead technician consulted (5) Hypertension: Qualifiers: Hypertension type: essential hypertension Qualified Code(s): I10 - Essential (primary) hypertension Code(s): I10 - Essential (primary) hypertension Status: Chronic Assessment and Plan: * P.r.n. hydralazine * continue with lisinopril and monitor renal functions. * her hydrochlorothiazide has been continued as well. (6) Tobacco abuse: Code(s): Z72.0 - Tobacco use Status: Chronic Assessment and Plan: * the patient was given smoking cessation information. * we spoke for approximately 5 minutes concerning smoking cessation. * the patient was offered a nicotine patch. Time Spent With Patient Time with patient: Greater than 35 minutes Subjective Date/time seen: 08/05/22 14:41 Interval history: patient sitting up in bed doing well. Patient states she has no n
--- NOTE | 2022-08-05 14:41 | PM.IMPN ---
Progress Note: A&P Assessment and Plan (1) Pneumonia: Code(s): J18.9 - Pneumonia, unspecified organism Status: Acute Assessment and Plan: Chest x-ray performed on 08/04/2022 due to increased secretions and bibasilar crackles on exam. Chest x-ray revealed pneumonia. Is unclear pneumonia is postoperative vs hospital-acquired vs community-acquired. patient was seen on 08/03/2022 with wheezing and bibasilar crackles and was postop day 1. Patient continued on breathing treatments and guaifenesin. When patient did not improve overnight chest x-ray performed today revealed pneumonia. Patient with a white count of 20.7 when consulted. This could have been due to surgery and could have reactive white count 08/04/2022 white count of 13.8 Per up-to-date guidelines patient was started on cefepime and Levaquin. Patient requiring higher oxygen demands. Consider pulmonology consultation if patient does not improve on antibiotic therapy 08/05/22 Patient still does not have any symptoms patient's O2 demands are decreasing. Patient currently on 5 L And saturation at 92%. goal is to decrease oxygen demands as well as improve lung sounds. cefepime and Levaquin antibiotic day 2 (2) History of incisional hernia repair: Code(s): Z98.890 - Other specified postprocedural states; Z87.19 - Personal history of other diseases of the digestive system Status: Acute Assessment and Plan: See anesthesia an operative note. wound care per surgery. analgesics per surgery DVT prophylaxis per surgery. The patient currently has on SCDs. 08/05/22 Patient cleared to be discharged per surgery. Will follow-up as an outpatient for drain removal (3) Chronic respiratory failure with hypoxia: Code(s): J96.11 - Chronic respiratory failure with hypoxia Status: Acute Assessment and Plan: the patient is on 2 L per nasal cannula at home. patient uses tobacco products and has a history of COPD. continue with oxygen continue with Trelegy Ellipta continue with albuterol nebulizer treatments and add Atrovent as well. consider chest x-ray if white count and wheezing is not improved by tomorrow. (4) Hyperglycemia: Code(s): R73.9 - Hyperglycemia, unspecified Status: Acute Assessment and Plan: Patient denies diagnosis of diabetes. However her blood sugars are in the 200s today. Accu-Cheks AC and HS with sliding scale insulin and hypoglycemic protocol. Hemoglobin A1c 7.9 and sugars are in the mid 200s. Start metformin 500 mg BID taxi driver consulted (5) Hypertension: Qualifiers: Hypertension type: essential hypertension Qualified Code(s): I10 - Essential (primary) hypertension Code(s): I10 - Essential (primary) hypertension Status: Chronic Assessment and Plan: P.r.n. hydralazine continue with lisinopril and monitor renal functions. her hydrochlorothiazide has been continued as well. (6) Tobacco abuse: Code(s): Z72.0 - Tobacco use Status: Chronic Assessment and Plan: the patient was given smoking cessation information. we spoke for approximately 5 minutes concerning smoking cessation. the patient was offered a nicotine patch. Time Spent With Patient Time with patient: Greater than 35 minutes Subjective Date/time seen: 08/05/22 14:41 Interval history: patient sitting up in bed doing well. Patient states she has no new concerns. She is feeling like she did prior to the surgery. Patient shortness of breath at baseline as well as her cough. Review of Systems Review of Systems: All systems reviewed & are unremarkable except as noted in HPI and below Exam Narrative: GENERAL: Comfortable, no acute distress HENMT: moist mucous membranes EYES: EOM intact b/l NECK: no lymphadenopathy RESPIRATORY: right lower quadrant crackles. Much improved. CARDIO: RRR GI:
--- NOTE | 2022-08-05 15:42 | PCRCNOTE ---
Patient refused CPAP at this time. Patient educated on the importance of using a CPAP. Patient verbalized understanding.
[2022-08-05 17:17] LABS: Glucose Point of Care 159 mg/dl (65-105)
--- NOTE | 2022-08-05 20:58 | PCRCNOTE ---
Patient refused acetylcysteine updraft treatment due to making her nauseous.
[2022-08-06] VITALS (13 sets, daily range): BP systolic 113–141; BP diastolic 60–95; PULSE 82–92; RESP 14–20; TEMP 36.1–36.7; O2SAT 91–96; BMI 44.9
[2022-08-06] MEDS: guaiFENesin/DEXTROMETHORPHAN 10 ML UDC PO ×4 (00:13→17:51)
--- NOTE | 2022-08-06 03:57 | PCRCNOTE ---
Patient refused 0200 updraft treatment due to wanting sleep. Treatment to resume at 0800.
[2022-08-06 05:54] LABS: Basophils Absolute Auto 0.1 K/mm3 (0.0-0.1); Basophils Percent Auto 0.5 % (0.2-1.2); Eosinophils Absolute Auto 0.4 K/mm3 (0-0.3); Eosinophils Percent Auto 2.9 % (0-4.4); Hematocrit 43.7 % (37.0-47.0); Hemoglobin 14.1 g/dL (12.0-15.0); Immature Granulocyte Absolute 0.09 K/mm3 (0.00-0.031); Immature Granulocyte Percent A 0.8 % (0-0.5); Lymphocytes Absolute Auto 1.85 K/mm3 (0.9-3.2); Lymphocytes Percent Auto 15.5 % (18.3-44.2); Mean Corpuscular HGB Conc 32.3 g/dl (32-36); Monocytes Absolute Auto 0.6 K/mm3 (0.1-0.6); Monocytes Percent Auto 4.6 % (2.6-8.5); Neutrophils Percent Auto 75.7 % (45.5-73.1); Platelet Count Result 301 k/mm3 (150-375); Red Blood Count 4.55 M/mm3 (4.2-5.4); Red Cell Distribution Width 14.3 % (11.5-14.5); White Blood Count 11.9 K/mm3 (4.5-10.0)
[2022-08-06] MEDS: LEVOTHYROXINE SODIUM 125 MCG TABLET 250 MCG PO (05:59)
[2022-08-06 06:07] LABS: Alanine Aminotransferase 30 U/L (6-35); Albumin Level 3.7 g/dL (3.5-5.1); Alkaline Phosphatase 101 U/L (38-126); Anion Gap 4 mmol/L (8-16); Aspartate Amino Transferase 30 U/L (14-36); Bilirubin,Total 0.6 mg/dL (0.2-1.3); Blood Urea Nitrogen 10 mg/dL (7-17); Calcium 8.8 mg/dL (8.4-10.2); Carbon Dioxide 37 mmol/L (22-30); Chloride 97 mmol/L (98-107); Estimated CRCL calculation 135 ml/min; Estimated Glomerular Filt Rate > 60; Glucose 199 mg/dL (65-110); Potassium 3.7 mmol/L (3.4-5.0); Sodium 138 mmol/L (137-145)
[2022-08-06] MEDS: oxyCODONE HCL (*CRX) 5 MG TAB IR PO ×2 (07:01→16:13)
[2022-08-06] MEDS: IPRATROPIUM BR 0.02% INH SOLN 0.5 MG/2.5 ML VIAL INHALATION ×4 (07:13→21:02)
[2022-08-06] MEDS: ALBUTEROL SULFATE NEB 2.5 MG/3 ML INH INHALATION ×3 (07:13→21:00)
[2022-08-06] MEDS: FLUTICASONE/UMECLIDIN/VILANTER 100-62.5-25 MCG ELLIPTA 1 PUFF INHALATION (07:15)
[2022-08-06 08:04] LABS: Glucose Point of Care 232 mg/dl (65-105)
[2022-08-06] MEDS: metFORMIN HCL 500 MG TABLET PO ×2 (08:17→17:50)
[2022-08-06] MEDS: VENLAFAXINE HCL XR 75 MG CAP.ER.24H 225 MG BY MOUTH (08:17)
[2022-08-06] MEDS: polyethylene glycoL 3350 17 GM POWD.PACK PO (08:18)
[2022-08-06] MEDS: ENOXAPARIN 40 MG/0.4 ML SYRINGE SUB-Q (08:18)
[2022-08-06] MEDS: PANTOPRAZOLE 40 MG TABLET PO (08:19)
[2022-08-06] MEDS: DOCUSATE SODIUM 100 MG CAPSULE PO ×2 (08:19→21:54)
[2022-08-06] MEDS: MULTIVITAMINS THERAPEUTIC TAB (*BKC) 1 TABLET PO (08:19)
[2022-08-06] MEDS: lisinopriL 20 MG TABLET 40 MG BY MOUTH (08:19)
[2022-08-06] MEDS: hydroCHLOROthiazide 25 MG TABLET PO (08:19)
[2022-08-06] MEDS: LORATADINE 10 MG TABLET PO (08:20)
[2022-08-06] MEDS: FLUTICASONE PROPIONATE 0.05% NA SPR 16 GM BTL (*BKC) 1 SPRAY NASAL ×2 (08:20→17:50)
[2022-08-06] MEDS: INSULIN ASPART (*BKC) 100 UNITS/ML SUB-Q ×3 (08:21→17:49)
[2022-08-06] MEDS: diazePAM (*CRX) 5 MG TABLET PO ×2 (08:31→21:54)
[2022-08-06] MEDS: PREGABALIN (*CRX) 50 MG CAPSULE 100 MG PO ×2 (08:31→17:50)
[2022-08-06 12:09] LABS: Glucose Point of Care 202 mg/dl (65-105)
--- NOTE | 2022-08-06 15:16 | P.PNIM_ITS ---
Progress Note: A&P Assessment and Plan (1) Pneumonia: Code(s): J18.9 - Pneumonia, unspecified organism Status: Acute Assessment and Plan: Chest x-ray performed on 08/04/2022 due to increased secretions and bibasilar crackles on exam. Chest x-ray revealed pneumonia. Is unclear pneumonia is postoperative vs hospital-acquired vs community-acquired. patient was seen on 08/03/2022 with wheezing and bibasilar crackles and was postop day 1. Patient continued on breathing treatments and guaifenesin. When patient did not improve overnight chest x-ray performed today revealed pneumonia. * Patient with a white count of 20.7 when consulted. This could have been due to surgery and could have reactive white count * 08/04/2022 white count of 13.8 * Per up-to-date guidelines patient was started on cefepime and Levaquin. * Patient requiring higher oxygen demands. * Consider pulmonology consultation if patient does not improve on antibiotic therapy 08/05/22 * Patient still does not have any symptoms * patient's O2 demands are decreasing. Patient currently on 5 L And saturation at 92%. * goal is to decrease oxygen demands as well as improve lung sounds. * cefepime and Levaquin antibiotic day 2 08/06/22 * sputum culture positive for Haemophilus influenza and group C strep. * Sensitivities pending . Tailor antibiotic therapy to these results. * Cefepime and Levaquin antibiotic day 3 * Blood culture negative. (2) History of incisional hernia repair: Code(s): Z98.890 - Other specified postprocedural states; Z87.19 - Personal history of other diseases of the digestive system Status: Acute Assessment and Plan: See anesthesia an operative note. * wound care per surgery. * analgesics per surgery * DVT prophylaxis per surgery. The patient currently has on SCDs. 08/05/22 * Patient cleared to be discharged per surgery. * Will follow-up as an outpatient for drain removal (3) Chronic respiratory failure with hypoxia: Code(s): J96.11 - Chronic respiratory failure with hypoxia Status: Acute Assessment and Plan: * the patient is on 2 L per nasal cannula at home. * patient uses tobacco products and has a history of COPD. * continue with oxygen * continue with Trelegy Ellipta * continue with albuterol nebulizer treatments and add Atrovent as well. * Chest x-ray revealed pneumonia. See treatment above (4) Hyperglycemia: Code(s): R73.9 - Hyperglycemia, unspecified Status: Acute Assessment and Plan: Patient denies diagnosis of diabetes. However her blood sugars are in the 200s today. * Accu-Cheks AC and HS with sliding scale insulin and hypoglycemic protocol. * Hemoglobin A1c 7.9 and sugars are in the mid 200s. * Start metformin 500 mg BID * stone fabricator consulted (5) Hypertension: Qualifiers: Hypertension type: essential hypertension Qualified Code(s): I10 - Essential (primary) hypertension Code(s): I10 - Essential (primary) hypertension Status: Chronic Assessment and Plan: * P.r.n. hydralazine * continue with lisinopril and monitor renal functions. * her hydrochlorothiazide has been continued as well. (6) Tobacco abuse: Code(s): Z72.0 - Tobacco use Status: Chronic Assessment and Plan: * the patient was given smoking cessation information. * we spoke for approximately 5 minutes concerning smoking cessation. * the patient was offered a nicotine patch. Time
--- NOTE | 2022-08-06 15:16 | PM.IMPN ---
Progress Note: A&P Assessment and Plan (1) Pneumonia: Code(s): J18.9 - Pneumonia, unspecified organism Status: Acute Assessment and Plan: Chest x-ray performed on 08/04/2022 due to increased secretions and bibasilar crackles on exam. Chest x-ray revealed pneumonia. Is unclear pneumonia is postoperative vs hospital-acquired vs community-acquired. patient was seen on 08/03/2022 with wheezing and bibasilar crackles and was postop day 1. Patient continued on breathing treatments and guaifenesin. When patient did not improve overnight chest x-ray performed today revealed pneumonia. Patient with a white count of 20.7 when consulted. This could have been due to surgery and could have reactive white count 08/04/2022 white count of 13.8 Per up-to-date guidelines patient was started on cefepime and Levaquin. Patient requiring higher oxygen demands. Consider pulmonology consultation if patient does not improve on antibiotic therapy 08/05/22 Patient still does not have any symptoms patient's O2 demands are decreasing. Patient currently on 5 L And saturation at 92%. goal is to decrease oxygen demands as well as improve lung sounds. cefepime and Levaquin antibiotic day 2 08/06/22 sputum culture positive for Haemophilus influenza and group C strep. Sensitivities pending . Tailor antibiotic therapy to these results. Cefepime and Levaquin antibiotic day 3 Blood culture negative. (2) History of incisional hernia repair: Code(s): Z98.890 - Other specified postprocedural states; Z87.19 - Personal history of other diseases of the digestive system Status: Acute Assessment and Plan: See anesthesia an operative note. wound care per surgery. analgesics per surgery DVT prophylaxis per surgery. The patient currently has on SCDs. 08/05/22 Patient cleared to be discharged per surgery. Will follow-up as an outpatient for drain removal (3) Chronic respiratory failure with hypoxia: Code(s): J96.11 - Chronic respiratory failure with hypoxia Status: Acute Assessment and Plan: the patient is on 2 L per nasal cannula at home. patient uses tobacco products and has a history of COPD. continue with oxygen continue with Trelegy Ellipta continue with albuterol nebulizer treatments and add Atrovent as well. Chest x-ray revealed pneumonia. See treatment above (4) Hyperglycemia: Code(s): R73.9 - Hyperglycemia, unspecified Status: Acute Assessment and Plan: Patient denies diagnosis of diabetes. However her blood sugars are in the 200s today. Accu-Cheks AC and HS with sliding scale insulin and hypoglycemic protocol. Hemoglobin A1c 7.9 and sugars are in the mid 200s. Start metformin 500 mg BID healthcare educator consulted (5) Hypertension: Qualifiers: Hypertension type: essential hypertension Qualified Code(s): I10 - Essential (primary) hypertension Code(s): I10 - Essential (primary) hypertension Status: Chronic Assessment and Plan: P.r.n. hydralazine continue with lisinopril and monitor renal functions. her hydrochlorothiazide has been continued as well. (6) Tobacco abuse: Code(s): Z72.0 - Tobacco use Status: Chronic Assessment and Plan: the patient was given smoking cessation information. we spoke for approximately 5 minutes concerning smoking cessation. the patient was offered a nicotine patch. Time Spent With Patient Time with patient: 25 - 35 minutes Subjective Date/time seen: 08/06/22 15:16 Interval history: patient resting in bed comfortably. Patient with no new complaints. Patient has been up and walking around. Review of Systems Review of Systems: All systems reviewed & are unremarkable except as noted in HPI and below Exam Narrative: GENERAL: Comfortable, no acute distress HENMT: moist mucous membranes EYES: EOM intact b/l
[2022-08-06 17:07] LABS: Glucose Point of Care 228 mg/dl (65-105)
--- NOTE | 2022-08-06 18:26 | PM.PNGS ---
Progress Note: A&P Assessment and Plan (1) Pneumonia: Code(s): J18.9 - Pneumonia, unspecified organism Status: Acute Assessment and Plan: Continue management as per hospitalist. Antibiotics as per hospitalist team. (2) History of incisional hernia repair: Code(s): Z98.890 - Other specified postprocedural states; Z87.19 - Personal history of other diseases of the digestive system Status: Acute Assessment and Plan: The patient is doing well in a from a surgical perspective to be discharged home with the drain in place when she has been adequately treated for her pneumonia by the hospitalist service. She will need to follow up with me in the office in 1 week after discharge for wound check and possible removal of her drain. Subjective Subjective Date/Time Seen: 08/06/22 18:26 Post Op day: 4 Interval history: The patient is now postop day 4 after a incisional hernia repair with Phasix ST mesh. She is doing very well from the surgical standpoint her pain is well controlled. She is on regular diet. The incision is healing well without problems. The drain output is serosanguineous. Her postoperative course has been complicated by pneumonia which is being managed by the hospitalist service. White blood cell count is down to 11,700 today. Exam Narrative: The abdomen soft and nondistended. Midline incision is healing well without any redness or drainage. OSIRIS drain output is becoming more serous. Output is low. Objective Data Vital Signs Vital Signs: Vital Signs - 24 hr 08/05/22 20:54 08/05/22 21:00 08/05/22 21:00 Temperature Pulse Rate 87 87 88 Respiratory Rate 18 18 Blood Pressure Pulse Oximetry 93 Oxygen Delivery Nasal Cannula Oxygen Flow Rate 5 Fraction of Inspired Oxygen 08/05/22 20:00 08/05/22 22:00 08/06/22 02:00 Temperature 36.6 C 36.4 C Pulse Rate 88 92 90 Respiratory Rate 18 16 14 Blood Pressure 130/88 141/95 H Pulse Oximetry 93 98 95 Oxygen Delivery Nasal Cannula Oxygen Flow Rate 5 Fraction of Inspired Oxygen 08/06/22 06:53 08/06/22 07:13 08/06/22 07:13 Temperature 36.7 C Pulse Rate 82 87 87 Respiratory Rate 16 18 20 Blood Pressure 139/82 Pulse Oximetry 96 92 Oxygen Delivery Nasal Cannula Oxygen Flow Rate 5 Fraction of Inspired Oxygen 40 08/06/22 07:30 08/06/22 13:02 08/06/22 13:21 Temperature Pulse Rate 91 92 91 Respiratory Rate 18 18 18 Blood Pressure Pulse Oximetry Oxygen Delivery Oxygen Flow Rate Fraction of Inspired Oxygen 08/06/22 14:02 Temperature 36.1 C L Pulse Rate 82 Respiratory Rate 17 Blood Pressure 113/67 Pulse Oximetry 91 Oxygen Delivery Oxygen Flow Rate Fraction of Inspired Oxygen Intake/Output Intake/Output: Intake & Output 08/03/22 08/04/22 08/05/22 08/06/22 23:59 23:59 23:59 23:59 Intake Total 2190 1460 1680 1180 Output Total 60 280 40 40 Balance 2130 1180 1640 1140 Meds/Results Medications: Active Medications Generic Name Dose Route Start Last Admin Trade Name Freq PRN Reason Stop Dose Admin Acetaminophen 1,000 mg 08/04/22 13:49 Acetaminophen 500 Mg Tablet PO Q6H PRN Mild Pain (1-3) or Fever Acetylcysteine 200 mg 08/04/22 20:00 08/05/22 20:57 Acetylcysteine 20% Inhal Soln 800 Mg/4 Ml Vial INHALATION Not Given Q12HRT SEBASTIAN Albuterol 2.5 mg 08/02/22 14:00 08/06/22 13:02 Albuterol Sulfate Neb 2.5 Mg/3 Ml Inh INHALATION 2.5 mg Q6HRT SEBASTIAN Administration Dextrose 12.5 gm 08/02/22 13:29 Dextrose 50% 25 Gm/50 Ml Syringe IV PUSH PRN PRN Hypoglycemia Protocol Diazepam 5 mg 08/04/22 21:00 08/06/22 08:31 Diazepam (*Crx) 5 Mg Tablet PO 5 mg Q12H SEBASTIAN Administration Docusate Sodium 100 mg 08/05/22 21:00 08/06/22 08:19 Docusate Sodium 100 Mg Capsule PO 100 mg Q12HR SEBASTIAN Administration Enoxaparin Sodium 40 mg 08/03/22 09:00 08/06/22 08:18 Enoxaparin 40 Mg/0.
[2022-08-06 21:32] LABS: Glucose Point of Care 150 mg/dl (65-105)
[2022-08-07] VITALS (7 sets, daily range): BP systolic 118–138; BP diastolic 60–74; PULSE 81–108; RESP 18; TEMP 36.2; O2SAT 90–94
[2022-08-07] MEDS: ALBUTEROL SULFATE NEB 2.5 MG/3 ML INH INHALATION ×2 (02:55→08:04)
[2022-08-07] MEDS: IPRATROPIUM BR 0.02% INH SOLN 0.5 MG/2.5 ML VIAL INHALATION ×2 (02:56→08:05)
[2022-08-07] MEDS: LEVOTHYROXINE SODIUM 125 MCG TABLET 250 MCG PO (05:44)
[2022-08-07] MEDS: guaiFENesin/DEXTROMETHORPHAN 10 ML UDC PO ×2 (05:44→11:59)
[2022-08-07 06:40] LABS: Hematocrit 42.4 % (37.0-47.0); Hemoglobin 13.8 g/dL (12.0-15.0); Mean Corpuscular HGB Conc 32.5 g/dl (32-36); Mean Corpuscular Hemoglobin 31.7 pg (26-34); Mean Corpuscular Volume 97.5 fl (80-100); Mean Platelet Volume 9.5 fl (7.4-10.4); Platelet Count Result 281 k/mm3 (150-375); Red Blood Count 4.35 M/mm3 (4.2-5.4); Red Cell Distribution Width 14.3 % (11.5-14.5)
[2022-08-07 06:56] LABS: Alanine Aminotransferase 27 U/L (6-35); Albumin Level 3.6 g/dL (3.5-5.1); Alkaline Phosphatase 69 U/L (38-126); Anion Gap 3 mmol/L (8-16); Aspartate Amino Transferase 29 U/L (14-36); Bilirubin,Total 0.7 mg/dL (0.2-1.3); Blood Urea Nitrogen 13 mg/dL (7-17); Calcium 8.5 mg/dL (8.4-10.2); Carbon Dioxide 34 mmol/L (22-30); Chloride 95 mmol/L (98-107); Estimated CRCL calculation 156 ml/min; Estimated Glomerular Filt Rate > 60; Glucose 171 mg/dL (65-110); Sodium 132 mmol/L (137-145)
[2022-08-07 08:19] LABS: Glucose Point of Care 187 mg/dl (65-105)
[2022-08-07] MEDS: FLUTICASONE/UMECLIDIN/VILANTER 100-62.5-25 MCG ELLIPTA 1 PUFF INHALATION (08:28)
--- NOTE | 2022-08-07 08:54 | P.PNIM_ITS ---
Progress Note: A&P Assessment and Plan (1) Pneumonia: Code(s): J18.9 - Pneumonia, unspecified organism Status: Acute Assessment and Plan: Chest x-ray performed on 08/04/2022 due to increased secretions and bibasilar crackles on exam. Chest x-ray revealed pneumonia. Is unclear pneumonia is postoperative vs hospital-acquired vs community-acquired. patient was seen on 08/03/2022 with wheezing and bibasilar crackles and was postop day 1. Patient continued on breathing treatments and guaifenesin. When patient did not improve overnight chest x-ray performed today revealed pneumonia. * Patient with a white count of 20.7 when consulted. This could have been due to surgery and could have reactive white count * 08/04/2022 white count of 13.8 * Per up-to-date guidelines patient was started on cefepime and Levaquin. * Patient requiring higher oxygen demands. * Consider pulmonology consultation if patient does not improve on antibiotic therapy 08/05/22 * Patient still does not have any symptoms * patient's O2 demands are decreasing. Patient currently on 5 L And saturation at 92%. * goal is to decrease oxygen demands as well as improve lung sounds. * cefepime and Levaquin antibiotic day 2 08/06/22 * sputum culture positive for Haemophilus influenza and group C strep. * Sensitivities pending . Tailor antibiotic therapy to these results. * Cefepime and Levaquin antibiotic day 3 * Blood culture negative. 08/07/22 * Sputum cultures positive for group C strep and H. flu * Patient transitioned to Augmentin and will continue therapy as an outpatient. * Home O2 evaluation before discharge. * Patient is okay to be discharged from a medication standpoint. (2) History of incisional hernia repair: Code(s): Z98.890 - Other specified postprocedural states; Z87.19 - Personal history of other diseases of the digestive system Status: Acute Assessment and Plan: See anesthesia an operative note. * wound care per surgery. * analgesics per surgery * DVT prophylaxis per surgery. The patient currently has on SCDs. 08/05/22 * Patient cleared to be discharged per surgery. * Will follow-up as an outpatient for drain removal (3) Chronic respiratory failure with hypoxia: Code(s): J96.11 - Chronic respiratory failure with hypoxia Status: Acute Assessment and Plan: * the patient is on 2 L per nasal cannula at home. * patient uses tobacco products and has a history of COPD. * continue with oxygen * continue with Trelegy Ellipta * continue with albuterol nebulizer treatments and add Atrovent as well. * Chest x-ray revealed pneumonia. See treatment above (4) Hyperglycemia: Code(s): R73.9 - Hyperglycemia, unspecified Status: Acute Assessment and Plan: Patient denies diagnosis of diabetes. However her blood sugars are in the 200s today. * Accu-Cheks AC and HS with sliding scale insulin and hypoglycemic protocol. * Hemoglobin A1c 7.9 and sugars are in the mid 200s. * Start metformin 500 mg BID * nurse informatics educator consulted (5) Hypertension: Qualifiers: Hypertension type: essential hypertension Qualified Code(s): I10 - Essential (primary) hypertension Code(s): I10 - Essential (primary) hypertension Status: Chronic Assessment and Plan: * P.r.n. hydralazine * continue with lisinopril and monitor renal functions. * her hydrochlorothiazide has been continued as well. (6) Tobacco abuse: Code(s): Z72.0 - Tobacco use
--- NOTE | 2022-08-07 08:54 | PM.IMPN ---
Progress Note: A&P Assessment and Plan (1) Pneumonia: Code(s): J18.9 - Pneumonia, unspecified organism Status: Acute Assessment and Plan: Chest x-ray performed on 08/04/2022 due to increased secretions and bibasilar crackles on exam. Chest x-ray revealed pneumonia. Is unclear pneumonia is postoperative vs hospital-acquired vs community-acquired. patient was seen on 08/03/2022 with wheezing and bibasilar crackles and was postop day 1. Patient continued on breathing treatments and guaifenesin. When patient did not improve overnight chest x-ray performed today revealed pneumonia. Patient with a white count of 20.7 when consulted. This could have been due to surgery and could have reactive white count 08/04/2022 white count of 13.8 Per up-to-date guidelines patient was started on cefepime and Levaquin. Patient requiring higher oxygen demands. Consider pulmonology consultation if patient does not improve on antibiotic therapy 08/05/22 Patient still does not have any symptoms patient's O2 demands are decreasing. Patient currently on 5 L And saturation at 92%. goal is to decrease oxygen demands as well as improve lung sounds. cefepime and Levaquin antibiotic day 2 08/06/22 sputum culture positive for Haemophilus influenza and group C strep. Sensitivities pending . Tailor antibiotic therapy to these results. Cefepime and Levaquin antibiotic day 3 Blood culture negative. 08/07/22 Sputum cultures positive for group C strep and H. flu Patient transitioned to Augmentin and will continue therapy as an outpatient. Home O2 evaluation before discharge. Patient is okay to be discharged from a medication standpoint. (2) History of incisional hernia repair: Code(s): Z98.890 - Other specified postprocedural states; Z87.19 - Personal history of other diseases of the digestive system Status: Acute Assessment and Plan: See anesthesia an operative note. wound care per surgery. analgesics per surgery DVT prophylaxis per surgery. The patient currently has on SCDs. 08/05/22 Patient cleared to be discharged per surgery. Will follow-up as an outpatient for drain removal (3) Chronic respiratory failure with hypoxia: Code(s): J96.11 - Chronic respiratory failure with hypoxia Status: Acute Assessment and Plan: the patient is on 2 L per nasal cannula at home. patient uses tobacco products and has a history of COPD. continue with oxygen continue with Trelegy Ellipta continue with albuterol nebulizer treatments and add Atrovent as well. Chest x-ray revealed pneumonia. See treatment above (4) Hyperglycemia: Code(s): R73.9 - Hyperglycemia, unspecified Status: Acute Assessment and Plan: Patient denies diagnosis of diabetes. However her blood sugars are in the 200s today. Accu-Cheks AC and HS with sliding scale insulin and hypoglycemic protocol. Hemoglobin A1c 7.9 and sugars are in the mid 200s. Start metformin 500 mg BID reed maker consulted (5) Hypertension: Qualifiers: Hypertension type: essential hypertension Qualified Code(s): I10 - Essential (primary) hypertension Code(s): I10 - Essential (primary) hypertension Status: Chronic Assessment and Plan: P.r.n. hydralazine continue with lisinopril and monitor renal functions. her hydrochlorothiazide has been continued as well. (6) Tobacco abuse: Code(s): Z72.0 - Tobacco use Status: Chronic Assessment and Plan: the patient was given smoking cessation information. we spoke for approximately 5 minutes concerning smoking cessation. the patient was offered a nicotine patch. Time Spent With Patient Time with patient: 25 - 35 minutes Subjective Date/time seen: 08/07/22 08:55 Interval history: Patient sitting up in bed watching TV comfortably. Patient back on her home O2 settings.
[2022-08-07] MEDS: VENLAFAXINE HCL XR 75 MG CAP.ER.24H 225 MG BY MOUTH (10:02)
[2022-08-07] MEDS: hydroCHLOROthiazide 25 MG TABLET PO (10:02)
[2022-08-07] MEDS: polyethylene glycoL 3350 17 GM POWD.PACK PO (10:02)
[2022-08-07] MEDS: MULTIVITAMINS THERAPEUTIC TAB (*BKC) 1 TABLET PO (10:03)
[2022-08-07] MEDS: diazePAM (*CRX) 5 MG TABLET PO (10:03)
[2022-08-07] MEDS: PREGABALIN (*CRX) 50 MG CAPSULE 100 MG PO (10:03)
[2022-08-07] MEDS: PANTOPRAZOLE 40 MG TABLET PO (10:03)
[2022-08-07] MEDS: DOCUSATE SODIUM 100 MG CAPSULE PO (10:03)
[2022-08-07] MEDS: LORATADINE 10 MG TABLET PO (10:03)
[2022-08-07] MEDS: ENOXAPARIN 40 MG/0.4 ML SYRINGE SUB-Q (10:03)
[2022-08-07] MEDS: metFORMIN HCL 500 MG TABLET PO (10:03)
[2022-08-07] MEDS: lisinopriL 20 MG TABLET 40 MG BY MOUTH (10:03)
[2022-08-07] MEDS: AMOXICILLIN/CLAVULANATE K 875-125 MG TAB 1 TABLET PO (10:04)
[2022-08-07] MEDS: FLUTICASONE PROPIONATE 0.05% NA SPR 16 GM BTL (*BKC) 1 SPRAY NASAL (10:04)
[2022-08-07] MEDS: oxyCODONE HCL (*CRX) 5 MG TAB IR PO (10:12)
[2022-08-07 12:12] LABS: Glucose Point of Care 191 mg/dl (65-105)
--- NOTE | 2022-08-07 13:58 | PM.PNGS ---
Progress Note: A&P Assessment and Plan (1) History of incisional hernia repair: Code(s): Z98.890 - Other specified postprocedural states; Z87.19 - Personal history of other diseases of the digestive system Status: Acute Assessment and Plan: Doing well. Tolerating regular diet. Discharge home today. She will need to follow up with Dr. Lee in the office in 1 week after discharge for wound check and possible removal of her drain. (2) Pneumonia: Code(s): J18.9 - Pneumonia, unspecified organism Status: Acute Assessment and Plan: Continue management as per hospitalist. Antibiotics as per hospitalist team. Subjective Subjective Date/Time Seen: 08/07/22 13:58 Interval history: Pain improved. Tolerating regular diet. Bowels moving. No nausea or vomiting. Breathing improved. Exam GI: Inspection: non-distended, incision (intact with glue) and other (OSIRIS drain with minimal serous output) GI Palp: Yes Soft to palpation, Yes Tenderness to palpation present (GI) (incisional) and No Guarding due to palpation present (GI) Auscultation: normal bowel sounds Objective Data Vital Signs Vital Signs: Vital Signs - 24 hr 08/06/22 14:02 08/06/22 20:34 08/06/22 21:02 Temperature 36.1 C L 36.4 C L Pulse Rate 82 92 86 Respiratory Rate 17 18 18 Blood Pressure 113/67 114/60 Pulse Oximetry 91 96 Oxygen Delivery Oxygen Flow Rate Fraction of Inspired Oxygen 08/06/22 21:04 08/06/22 21:14 08/06/22 20:00 Temperature Pulse Rate 88 88 Respiratory Rate 18 18 Blood Pressure Pulse Oximetry 93 93 Oxygen Delivery Nasal Cannula Nasal Cannula Oxygen Flow Rate 4 4 Fraction of Inspired Oxygen 40 08/07/22 02:58 08/07/22 04:05 08/07/22 08:05 Temperature 36.2 C L Pulse Rate 82 81 Respiratory Rate 18 18 Blood Pressure 138/74 Pulse Oximetry 93 94 Oxygen Delivery Nasal Cannula Oxygen Flow Rate 4 Fraction of Inspired Oxygen 08/07/22 08:05 08/07/22 08:19 08/07/22 08:43 Temperature Pulse Rate 81 84 Respiratory Rate 18 18 Blood Pressure Pulse Oximetry 94 Oxygen Delivery Nasal Cannula Oxygen Flow Rate 2 Fraction of Inspired Oxygen 08/07/22 09:58 08/07/22 08:10 Temperature Pulse Rate 108 H Respiratory Rate Blood Pressure 118/60 Pulse Oximetry 90 Oxygen Delivery Nasal Cannula Oxygen Flow Rate 2 Fraction of Inspired Oxygen Intake/Output Intake/Output: Intake & Output 08/04/22 08/05/22 08/06/22 08/07/22 23:59 23:59 23:59 23:59 Intake Total 1460 1680 2400 350 Output Total 280 40 100 30 Balance 1180 1640 2300 320 Meds/Results Medications: Active Medications Generic Name Dose Route Start Last Admin Trade Name Freq PRN Reason Stop Dose Admin Acetaminophen 1,000 mg 08/04/22 13:49 Acetaminophen 500 Mg Tablet PO Q6H PRN Mild Pain (1-3) or Fever Acetylcysteine 200 mg 08/04/22 20:00 08/07/22 08:10 Acetylcysteine 20% Inhal Soln 800 Mg/4 Ml Vial INHALATION Not Given Q12HRT SEBASTIAN Albuterol 2.5 mg 08/02/22 14:00 08/07/22 08:04 Albuterol Sulfate Neb 2.5 Mg/3 Ml Inh INHALATION 2.5 mg Q6HRT SEBASTIAN Administration Amoxicillin/Clavulanate Potassium 1 tablet 08/07/22 09:00 08/07/22 10:04 Amoxicillin/Clavulanate K 875-125 Mg Tab PO 1 tablet Q12HR SEBASTIAN Administration Dextrose 12.5 gm 08/02/22 13:29 Dextrose 50% 25 Gm/50 Ml Syringe IV PUSH PRN PRN Hypoglycemia Protocol Diazepam 5 mg 08/04/22 21:00 08/07/22 10:03 Diazepam (*Crx) 5 Mg Tablet PO 5 mg Q12H SEBASTIAN Administration Docusate Sodium 100 mg 08/05/22 21:00 08/07/22 10:03 Docusate Sodium 100 Mg Capsule PO 100 mg Q12HR SEBASTIAN Administration Enoxaparin Sodium 40 mg 08/03/22 09:00 08/07/22 10:03 Enoxaparin 40 Mg/0.4 Ml Syringe SUB-Q 40 mg DAILY SEBASTIAN Administration Fluticasone Propionate 1 spray 08/02/22 17:00 08/07/22 10:04 Fluticasone Propionate 0.05% Na Spr 16 Gm Btl
--- NOTE | 2022-08-18 13:11 | PM.DS ---
DS: Admitting Diagnosis Discharge Date 08/07/22 Admitting Diagnosis Status post open repair of recurrent incisional hernia with mesh. DS: Discharge Diagnosis Discharge Diagnosis (1) Recurrent incisional hernia: Code(s): K43.2 - Incisional hernia without obstruction or gangrene Status: Resolved Assessment and Plan: Resolved after open repair with Phasix ST bioprosthetic mesh. (2) Pneumonia of right lower lobe due to group B Streptococcus: Code(s): J15.3 - Pneumonia due to streptococcus, group B Status: Acute Assessment and Plan: Resolving after treatment with IV antibiotics and transitioning to oral antibiotics at home. DS: Summary Hospital Course Reason for hospitalization: Postoperative pain requiring IV pain medications after open recurrent incisional hernia pair with Phasix ST bioprosthetic mesh. Right lower lobe pneumonia. Hospital Course: The patient came to [facility] on August 02, 2022 and went to the operating room where she underwent an uncomplicated open recurrent incisional hernia repair with Phasix ST bioprosthetic mesh. Given her history of COPD and expected issues with postoperative pain she was retained in the hospital postoperatively for observation as well as breathing treatments and the administration of IV pain medications. Initially she was kept on clear liquids and then advance to regular diet over 48hours without difficulty. She was kept on a scheduled dose of albuterol and Atrovent nebulized breathing treatments as per respiratory therapy. Hospitalist service was also consult to assist in management of her COPD and pulmonary condition. She did need IV narcotic pain medications for the 1st 48hours to manage her postoperative pain. She remained afebrile throughout her hospital course. She had a pre-existing cough prior to coming to the hospital and continued during her hospitalization. Chest x-ray obtained during her hospitalization revealed presence of a right lower lobe pneumonia but it was not clear whether this was due to community-acquired organisms or hospital-acquired organisms. She was placed on IV antibiotics as per the hospitalist service for treatment of the pneumonia. Sputum cultures revealed Haemophilus influenzae and group C strep. Her pulmonary condition improved after her IV antibiotics. Was able to get up and ambulate to a chair and walk in the hallways. She eventually was able to transition to only oral narcotic pain medications she tolerated well. Her incision was inspected each day and appear to be healing appropriately. The intraperitoneal drain between the mesh and the abdominal wall had output which was initially serosanguineous but then became totally serous without any purulence. Her white count in the immediate postoperatively had elevated at 20,000 thousand but that was likely due to postoperative stress response. It trended lower down to normal levels over the course of 3 days postoperatively. On postop day 5 she was doing well from a surgical perspective and healing appropriately. Hospital service felt that she could be managed as an outpatient on oral antibiotics for her right lower lobe pneumonia. She was discharged home on postop day 5 with the abdominal drain in place and a binder on her abdomen. She was to resume all her previous home medications and she was discharged home with prescription for a muscle relaxer, a oral narcotic agent, and or antibiotics for pneumonia. During her hospitalization she did have mechanical DVT prophylaxis with SCDs on the bilateral lower extremities as well as chemical DVT prophylaxis with administration of Lovenox. Status at Discharge Functional status at discharge: independent ambulation Overall status at discharge: patient is progressing back to baseline Time Spent with Patient Time attestation: Total time spent providing and/or coordinating discharge services: Time spent: Less than 30 minut
== END 2022-08-07 14:40 | disposition home or self-care (01) | DRG 987 ==
LOC: ANHSURGERY 14:49 → ANH2MED 14:49
PROVIDERS: Internal Medicine Critical Care Medicine; Nurse Practitioner; Admitting Provider Surgery; PCP Internal Medicine; Visit Provider Surgery
PROC: 0WQF0ZZ Repair Abdominal Wall, Open Approach (ICD-10-PCS; principal; 2022-08-02 07:30)
DX: J95.89 Other postprocedural complications and disorders of respiratory system, not elsewhere classified (principal); J15.3 Pneumonia due to streptococcus, group B; J96.11 Chronic respiratory failure with hypoxia; Z68.42 Body mass index [BMI] 45.0-49.9, adult; K43.2 Incisional hernia without obstruction or gangrene; I10 Essential (primary) hypertension; J44.9 Chronic obstructive pulmonary disease, unspecified; E78.5 Hyperlipidemia, unspecified; E11.65 Type 2 diabetes mellitus with hyperglycemia; E03.9 Hypothyroidism, unspecified; E55.9 Vitamin D deficiency, unspecified; E66.01 Morbid (severe) obesity due to excess calories; K21.9 Gastro-esophageal reflux disease without esophagitis; K76.0 Fatty (change of) liver, not elsewhere classified; M54.16 Radiculopathy, lumbar region; G47.33 Obstructive sleep apnea (adult) (pediatric); F41.9 Anxiety disorder, unspecified; F32.A Depression, unspecified; F17.210 Nicotine dependence, cigarettes, uncomplicated; Z99.81 Dependence on supplemental oxygen
CPT/HCPCS: 36415; 71046; 80048; 80053; 82948; 83036; 85025; 85027; 87070; 87077; 87147; 87185; 87205; 94640; A9270; C9290; G0378; G0379; J0131; J0330; J0690; J0692; J1100; J1170; J1650; J1815; J1885; J1956; J2250; J2405; J2710; J3010; J3360; J7030; J7120

== ENCOUNTER 2022-12-24 10:17 | Outpatient (CLI) | payer MEDICARE, MEDICAID, SELFPAY ==
[2022-12-24 11:02] LABS: Blood Urea Nitrogen 11 mg/dL (7-17); Calcium 9.6 mg/dL (8.4-10.2); Carbon Dioxide > 40 mmol/L (22-30); Chloride 96 mmol/L (98-107); Estimated Glomerular Filt Rate > 60; Glucose 164 mg/dL (65-110); Potassium 3.6 mmol/L (3.4-5.0); Sodium 142 mmol/L (137-145)
== END 2022-12-24 10:18 | disposition home or self-care (01) ==
LOC: ANHSURGERY 10:24
PROVIDERS: Anesthesiology; PCP Internal Medicine; Visit Provider Urology
DX: N36.42 Intrinsic sphincter deficiency (ISD) (principal); E11.65 Type 2 diabetes mellitus with hyperglycemia; Z01.818 Encounter for other preprocedural examination
CPT/HCPCS: 36415; 80048; 87086; 87088

== ENCOUNTER 2022-12-31 00:19 | Day surgery (SDC) | payer MEDICARE, MEDICAID, SELFPAY ==
[2022-12-22 14:39] VITALS: BMI 42.7
--- NOTE | 2022-12-22 15:05 | PC.NURSE ---
Report to the Outpatient Waiting Room, entrance under the green pavilion located off [facility], at time 1000 on date 12/31/22. Planned Procedure Time: _1200. Time changes happen often and if your time is changed the preop area will call you the afternoon before. - You and your visitor will be asked to self-screen and do not enter if you have any COVID symptoms. - A mask is optional within the hospital at this time. Patients may have clear liquids (water, carbonated beverages, clear teas, apple juice) until 3 hours prior to surgery with a maximum of 20 ounces. - No food from midnight until time of surgery - Infants may have breast milk until 4 hours before surgery, formula 6 hours prior to surgery. - Children will be allowed to drink immediately following surgery. If applicable, please bring a bottle or sippy cup to assist with drinking. Juice, water, soda, and popsicles are readily available. For infants on formula, please bring formula the day of surgery. Pacifiers are allowed. Take the following medications with a SIP of water the morning of surgery: _levothyroxine, venlafaxine, inhalers_ DO NOT STOP ANY OF YOUR OTHER PRESCRIPTION MEDICATIONS PRIOR TO SURGERY ?EXCEPT THE FOLLOWING Medications to discontinue per physician vitamin Date to take last dose_12/28/22___ Please no make-up, nail nicaraguan, hairspray, perfume, deodorant, or body powder the day of surgery. No jewelry (including any body piercings) or valuables the day of surgery, leave them at home. Please take a shower or bath the night before, or the morning of, surgery with an antibacterial soap. Wear comfortable, loose fitting clothing. Children are encouraged to wear pajamas. - Jewelry must be removed prior to entering the operating room. Rings and piercings that are not removed may be cut off. - The hospital will not accept responsibility for valuables. - Please leave all valuables, including medications, at home the day of surgery. If you are going home after surgery, a licensed production truck driver must drive you home. - NO public transportation without another adult if you receive anesthesia. - We recommend that an adult stay with you for 24 hours following discharge. - We also recommend that you do not drive, make important decision, drink alcoholic beverages, or take any drugs that were not prescribed by your health care provider for at least 24 hours after your discharge time. For Pediatric surgeries, we recommend two adults accompany the child home. Follow any additional instructions given to you from your surgeon. If you or anyone in your household have experienced Covid symptoms in the past week, please notify your surgeon or the nurse liaison at the phone number below for possible testing. Telephone instructions given to Bethany Arguelloand asked if any additional questions and then verbalized understanding. Patient advised to call surgeon office or pre surgery nurse liaison [phone] if any additional questions.
--- NOTE | 2022-12-30 13:20 | PM.IMHP ---
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 She is had a previous urethral sling Review of Systems Review of Systems: All systems reviewed & are unremarkable except as noted in HPI and below PMFSH Past Medical History Medical History Anxiety Bilateral lower extremity edema Body mass index (BMI) 35 or more (11/17/18) Chronic respiratory failure with hypoxia COPD (chronic obstructive pulmonary disease) Depression Diabetes mellitus Emphysema of lung Essential hypertension GERD (gastroesophageal reflux disease) Hepatic steatosis Hyperlipidemia Hypertrophy of both inferior nasal turbinates Hypothyroidism (acquired) Lesion of vocal cord Leukocytosis Lumbar radiculopathy On home O2 NIKOLE (obstructive sleep apnea) (~07/14/21) Tobacco abuse Urinary incontinence Vaginal wall prolapse 12/15/2021 Ventral incisional hernia with obstruction Vitamin D deficiency Surgical History Surgical History H/O section 1992 H/O dilation and curettage H/O hernia repair 01/06/2022 H/O prior ablation treatment uterine ablation - 2005 H/O tubal ligation 2002 H/O ventral hernia repair 01/05/22 History of bilateral tubal ligation History of bladder surgery bladder sling placed in 12/2021. History of bunionectomy right foot History of carpal tunnel release Bilaterally History of carpal tunnel surgery 2010 left and right wrist History of cholecystectomy History of incisional hernia repair Open reducible incisional hernia repair with Phasix ST mesh 08/02/[address] Lee. History of laparoscopic cholecystectomy 2012 History of vaginal surgery Family History Family History Sibling Hypertension Diabetes mellitus brother Father Hypertension Cerebrovascular accident Diabetes mellitus Heart disease Mother Diabetes mellitus Hypertension Thyroid disorder Grandparent Cancer Diabetes mellitus Daughter Thyroid disorder Social History Social History Social History: Caffeine- 6pk canned soda The patient is and lives with her . She is disabled due to her COPD. She has 4 children. She smokes approximately half a pack a cigarettes a day. She occasionally drinks an alcoholic beverage. Code status full code. Smoking packs per day: 0.5 Smoking cigarettes per day: 10.0 Years smoked: 20 Smoking pack-years: 10.00 Smoking status: Current every day smoker Tobacco type: cigarettes Second hand tobacco smoke exposure: No Smoking end date: 01/05/22 Alcohol intake: never Substance use: never Lack of Transportation: No Lack of Food: Sometimes True Current Housing: I Have Housing Concerned About Future Housing: No Difficulty Paying Gas/Electric Bills: No Difficulty Paying for Meds: No Currently Unemployed: No Education: High School Diploma/GED Difficulty w/ Childcare or Family Care: No Living arrangements: with family Spiritual care concerns: No Agree to blood products: Yes Meds Home Medications and Allergies Home Medications Medication Instructions Recorded Confirmed Type blood sugar diagnostic ([employer] #1 [facility] 01/08/22 12/22/22 Rx Verio test strips) blood-glucose meter ([employer] #1 [facility] 01/08/22 12/22/22 Rx Verio Flex Meter) lancets 30 gauge ([employer] [facility] #1 [facility] 01/08/22 12/22/22 Rx Plus Lancet) lisinopril 40 mg tablet See Rx Instructions .Route 05/10/22 12/22/22 Rx .COMPLEX #90 tabs albuterol sulfate 90 mcg/actuation 1 - 2 puff inhalation Q4-6H PRN 06/22/22 12/22/22 Rx aerosol inhaler shortness of breath or wheezing #8.5 grams fluticasone propio
--- NOTE | 2022-12-31 07:12 | WPDHPUPDATE1 ---
History and Physical Update Update Date/Time: 12/31/22 07:12 History and Physical has been reviewed, including an updated exam of the patient. There are NO changes in the patient's condition. Risks, benefits, and alternatives have been discussed and questions answered. Patient agrees to proceed with procedure.
--- NOTE | 2022-12-31 07:33 | WPDANESEPPF ---
Anes - Initial Pre Proc Eval Procedure: Operation Date: 12/31/22 09:45 Proposed Procedures p Cystoscopy with Injection Bulkamid Agent - Hussain Gordon MD Date/Time: 12/31/22 07:33 Surgeon: Hussain Gordon MD Pre Op Diagnosis: Intrinsic Sphincter Deficiency Patient Data Age: 47 Gender: F Height: 1.78 m Weight: 135 kg Allergies Allergy/AdvReac Type Severity Reaction Status Date / Time No Known Allergies Allergy Verified 11/02/22 11:17 Home Medications Medication Instructions Recorded Confirmed Type blood sugar diagnostic ([employer] #1 pkg 01/08/22 12/22/22 Rx Verio test strips) blood-glucose meter ([employer] #1 pkg 01/08/22 12/22/22 Rx Verio Flex Meter) lancets 30 gauge ([employer] Delica #1 pkg 01/08/22 12/22/22 Rx Plus Lancet) lisinopril 40 mg tablet See Rx Instructions .Route 05/10/22 12/22/22 Rx .COMPLEX #90 tabs albuterol sulfate 90 mcg/actuation 1 - 2 puff inhalation Q4-6H PRN 06/22/22 12/22/22 Rx aerosol inhaler shortness of breath or wheezing #8.5 grams fluticasone propionate 50 1 spray intranasal BID #16 grams 06/22/22 12/22/22 Rx mcg/actuation nasal spray,suspension (Flonase Allergy Relief) loratadine 10 mg tablet (Claritin) 10 mg PO DAILY #30 tabs 08/13/22 12/22/22 Rx omeprazole 40 mg capsule,delayed 40 mg PO DAILY #14 caps 09/06/22 12/22/22 Rx release tiotropium 2.5 mcg-olodaterol 2.5 2 puff inhalation DAILY #4 grams 09/28/22 12/22/22 Rx mcg/actuation mist for inhalation (Stiolto Respimat) hydrochlorothiazide 12.5 mg tablet 25 mg PO DAILY #90 tabs 09/30/22 12/22/22 Rx cholecalciferol (vitamin D3) 125 125 mcg PO DAILY 11/01/22 12/22/22 History mcg (5,000 unit) tablet levothyroxine 125 mcg tablet 250 mcg PO DAILY 90 days #180 tabs 11/01/22 12/22/22 Rx rosuvastatin 5 mg tablet 5 mg PO DAILY #90 tabs 11/01/22 12/22/22 Rx ondansetron 4 mg disintegrating 4 mg PO Q8H PRN nausea and 11/23/22 12/22/22 Rx tablet vomiting #20 tabs venlafaxine 150 mg tablet,extended 150 mg PO DAILY #90 tabs 12/06/22 12/22/22 Rx release 24 hr venlafaxine 75 mg tablet,extended 75 mg PO DAILY #90 tabs 12/06/22 12/22/22 Rx release 24 hr semaglutide 1 mg/dose (4 mg/3 mL) 1 mg subcut WEEKLY 12/22/22 12/22/22 History subcutaneous pen injector (Ozempic) Patient hx anesthesia problems: none Family hx anesthesia problems: none Results Review: All pre-operative results and documents have been reviewed as part of the pre-operative evaluation. [facility] Past Medical History Medical History Anxiety Bilateral lower extremity edema Body mass index (BMI) 35 or more (11/17/18) Chronic respiratory failure with hypoxia COPD (chronic obstructive pulmonary disease) Depression Diabetes mellitus Emphysema of lung Essential hypertension GERD (gastroesophageal reflux disease) Hepatic steatosis Hyperlipidemia Hypertrophy of both inferior nasal turbinates Hypothyroidism (acquired) Lesion of vocal cord Leukocytosis Lumbar radiculopathy On home O2 NIKOLE (obstructive sleep apnea) (~07/14/21) Tobacco abuse Urinary incontinence Vaginal wall prolapse 12/15/2021 Ventral incisional hernia with obstruction Vitamin D deficiency Surgical History Surgical History H/O section 1992 H/O dilation and curettage H/O hernia repair 01/06/2022 H/O prior ablation treatment uterine ablation - 2005 H/O tubal ligation 2002 H/O ventral hernia repair 01/05/22 History of bilateral tubal ligation History of bladder surgery bladder sling placed in 12/2021. History of bunionectomy right foot History of carpal tunnel release Bilaterally History of carpal tunnel surgery 2009 left and right wrist History of cholecystectomy History of incisional hernia repair Open reducible incisional hernia repair with Phasix ST mesh 08/02/[address] Lee. History of l
[2022-12-31 08:05] VITALS: BP 121/101; PULSE 90; RESP 20; TEMP 37.1; O2SAT 94
[2022-12-31] MEDS: LACTATED RINGERS 1,000 ML 30 ML IV CONT ×2 (08:27→10:26)
[2022-12-31 08:28] LABS: Glucose Point of Care 163 mg/dl (65-105)
[2022-12-31 09:16] VITALS: BP 162/99
[2022-12-31] MEDS: ceFAZolin 3 GM/D5W 100 ML 100 ML IVPB (10:07)
--- NOTE | 2022-12-31 10:23 | P.OP_ITS ---
Procedure Note - Detailed Date of Procedure 12/31/22 Pre-op Diagnosis Intrinsic Sphincter Deficiency Post-op Diagnosis Same Procedure Performed Cystoscopy with suburethral injection of implant material Surgeon Hussain Gordon MD [place] Operator None Anesthesia MAC and Local (Uro jet) Indications This is a with stress incontinence. She has intrinsic sphincter deficiency. She is not a candidate for urethral sling. She presents for bulking agent. She understands risks of bleeding, infection, lack of efficacy, urinary retention, need for repeat procedures. She agrees to proceed Findings Uncomplicated bulking agent Description of Procedure She was correctly identified. Informed consent obtained. She from the operating room. She was given MAC anesthesia. She was placed in dorsal l ithotomy position. All pressure points were padded. She was given appropriate perioperative antibiotics. A time-out performed. Cystoscopy revealed normal- appearing bladder with normal ureteral orifices. There was no bladder abnormalities. Urethra is open consistent with intrinsic sphincter deficiency. I chose a site 2 cm distal bladder neck. I injected bulking agent circumferentially. I used 1 syringe total. There was excellent bulking effect. Her bladder was left partially full. She was awakened transferred to PACU in stable condition. Estimated Blood Loss 1 Complications No immediate complications Condition Stable Disposition PACU
[2022-12-31] MEDS: LIDOCAINE HCL 2% GEL UROJET 10 ML PKG MUCOUS MEM (10:24)
[2022-12-31 10:26] VITALS: BP 88/62; PULSE 91; RESP 18; O2SAT 94
[2022-12-31 10:32] LABS: Glucose Point of Care 152 mg/dl (65-105)
[2022-12-31 10:50] VITALS: BP 118/75; PULSE 81; RESP 18; O2SAT 95
[2022-12-31 11:20] VITALS: BP 122/89; PULSE 78; RESP 18; O2SAT 95
== END 2022-12-31 11:25 | disposition home or self-care (01) ==
PROVIDERS: PCP Internal Medicine; Visit Provider Urology
PROC: 3E0K8GC Introduction of Other Therapeutic Substance into Genitourinary Tract, Via Natural or Artificial Opening Endoscopic (ICD-10-PCS; CPT 51715; principal; 2022-12-31 09:45)
DX: N36.42 Intrinsic sphincter deficiency (ISD) (principal); N39.3 Stress incontinence (female) (male); J96.11 Chronic respiratory failure with hypoxia; I10 Essential (primary) hypertension; E78.5 Hyperlipidemia, unspecified; E03.9 Hypothyroidism, unspecified; G47.33 Obstructive sleep apnea (adult) (pediatric); Z99.81 Dependence on supplemental oxygen; F41.9 Anxiety disorder, unspecified; F32.A Depression, unspecified; J43.9 Emphysema, unspecified; E55.9 Vitamin D deficiency, unspecified; Z79.51 Long term (current) use of inhaled steroids; F17.210 Nicotine dependence, cigarettes, uncomplicated; E66.01 Morbid (severe) obesity due to excess calories; Z68.41 Body mass index [BMI] 40.0-44.9, adult
CPT/HCPCS: 51715; 36415; 80048; 82948; 87086; 87088; J0690; J2250; J2704; J3010; J7120; L8606

== ENCOUNTER 2023-01-19 00:33 | Day surgery (SDC) | payer MEDICARE, MEDICAID, SELFPAY ==
[2023-01-07 13:24] VITALS: BMI 42.0
[2023-01-19 09:32] VITALS: BP 120/81; PULSE 96; RESP 18; TEMP 36.1; O2SAT 94
[2023-01-19] MEDS: LACTATED RINGERS 1,000 ML 150 ML IV CONT (09:41)
[2023-01-19 09:46] LABS: Glucose Point of Care 187 mg/dl (65-105)
--- NOTE | 2023-01-19 09:56 | WPDANESEPPF ---
Anes - Initial Pre Proc Eval Procedure: Operation Date: 01/19/23 10:45 Proposed Procedures p Esophagogastroduodenoscopy & Colonoscopy - Vinny Fajardo MD Date/Time: 01/19/23 09:56 Surgeon: Vinny Fajardo MD Pre Op Diagnosis: GERD, Constipation Patient Data Age: 48 Gender: F Height: 1.78 m Weight: 128.3 kg Last Vital Signs Temp 97 F L 01/19/23 09:32 Pulse 96 01/19/23 09:32 Resp 18 01/19/23 09:32 BP 120/81 01/19/23 09:32 Pulse Ox 94 01/19/23 09:32 O2 Del Method Room Air 01/19/23 09:32 Allergies Allergy/AdvReac Type Severity Reaction Status Date / Time No Known Allergies Allergy Verified 01/19/23 09:27 Home Medications Medication Instructions Recorded Confirmed Type blood sugar diagnostic ([employer] #1 pkg 01/08/22 01/06/23 Rx Verio test strips) blood-glucose meter ([employer] #1 pkg 01/08/22 01/06/23 Rx Verio Flex Meter) lancets 30 gauge ([employer] Delica #1 pkg 01/08/22 01/06/23 Rx Plus Lancet) lisinopril 40 mg tablet See Rx Instructions .Route 05/10/22 01/07/23 Rx .COMPLEX #90 tabs albuterol sulfate 90 mcg/actuation 1 - 2 puff inhalation Q4-6H PRN 06/22/22 01/07/23 Rx aerosol inhaler shortness of breath or wheezing #8.5 grams fluticasone propionate 50 1 spray intranasal BID #16 grams 06/22/22 01/07/23 Rx mcg/actuation nasal spray,suspension (Flonase Allergy Relief) loratadine 10 mg tablet (Claritin) 10 mg PO DAILY #30 tabs 08/13/22 01/07/23 Rx omeprazole 40 mg capsule,delayed 40 mg PO DAILY #14 caps 09/06/22 01/07/23 Rx release tiotropium 2.5 mcg-olodaterol 2.5 2 puff inhalation DAILY #4 grams 09/28/22 01/07/23 Rx mcg/actuation mist for inhalation (Stiolto Respimat) cholecalciferol (vitamin D3) 125 125 mcg PO DAILY 11/01/22 01/07/23 History mcg (5,000 unit) tablet levothyroxine 125 mcg tablet 250 mcg PO DAILY 90 days #180 tabs 11/01/22 01/07/23 Rx rosuvastatin 5 mg tablet 5 mg PO DAILY #90 tabs 11/01/22 01/07/23 Rx ondansetron 4 mg disintegrating 4 mg PO Q8H PRN nausea and 11/23/22 01/07/23 Rx tablet vomiting #20 tabs venlafaxine 150 mg tablet,extended 150 mg PO DAILY #90 tabs 12/06/22 01/07/23 Rx release 24 hr venlafaxine 75 mg tablet,extended 75 mg PO DAILY #90 tabs 12/06/22 01/07/23 Rx release 24 hr semaglutide 1 mg/dose (4 mg/3 mL) 1 mg subcut WEEKLY 12/22/22 01/07/23 History subcutaneous pen injector (Ozempic) phenazopyridine 200 mg tablet 200 mg PO TID PRN pain 14 doses 12/31/22 01/07/23 Rx (Pyridium) #14 tabs hydrochlorothiazide 12.5 mg tablet 25 mg PO DAILY #90 tabs 01/11/23 01/19/23 Rx Laboratory Tests 01/19/23 09:35 POC Capillary Glucose 187 H mg/dl (65-105) Patient hx anesthesia problems: none Family hx anesthesia problems: none Results Review: All pre-operative results and documents have been reviewed as part of the pre-operative evaluation. [facility] Past Medical History Medical History Anxiety Bilateral lower extremity edema Body mass index (BMI) 35 or more (11/17/18) Chronic respiratory failure with hypoxia COPD (chronic obstructive pulmonary disease) Depression Diabetes mellitus Emphysema of lung Essential hypertension GERD (gastroesophageal reflux disease) Hepatic steatosis Hyperlipidemia Hypertrophy of both inferior nasal turbinates Hypothyroidism (acquired) Lesion of vocal cord Leukocytosis Lumbar radiculopathy On home O2 NIKOLE (obstructive sleep apnea) (~07/14/21) Tobacco abuse Urinary incontinence Vaginal wall prolapse 12/15/2021 Ventral incisional hernia with obstruction Vitamin D deficiency Surgical History Surgical History H/O section 1992 H/O dilation and curettage H/O hernia repair 01/06/2022 H/O prior ablation treatment uterine ablation - 2005 H/O tubal ligation 2002 H/O ventral hernia repair 01/05/22
--- NOTE | 2023-01-19 09:59 | PM.HPGS ---
History of Present Illness History of Present Illness Consent: Risks, benefits, and alternatives have been discussed and questions answered. Patient agrees to proceed with procedure. Chief complaint: GERD, Constipation Narrative: Bethany Domínguez is a 48 year old female with h/o DM, gerd using mylanta, peptobismol and recently omeprazole, never had egd or colonoscopy Review of Systems Constitutional: Constitutional: Denies headache(s) and Denies weakness Eyes: Eyes: Denies blurry vision ENT: Reports Normal hearing present, Denies headache(s) and Denies neck pain Cardiovascular: Cardiovascular: Denies chest pain and Denies dyspnea Respiratory: Respiratory: Denies dyspnea Gastrointestinal: Gastrointestinal: Reports no additional gastrointestinal complaints Genitourinary: Genitourinary: Denies dysuria Musculoskeletal: Musculoskeletal: Denies neck pain Integumentary/Breasts: Skin/Breast: Denies dry skin Neurologic: Reports Normal hearing present, Denies headache(s) and Denies weakness Psychiatric: Psychiatric: Denies anxiety Endocrine: Endocrine: Denies change in body appearance Hematologic/Lymphatic: Hematologic/Lymphatic: Denies easy bleeding Allergic/Immunologic: Allergic/Immunologic: Denies urticaria PMF Past Medical History Medical History (Updated 01/19/23 @ 10:00 by Vinny Fajardo MD) Anxiety Bilateral lower extremity edema Body mass index (BMI) 35 or more (11/17/18) Chronic respiratory failure with hypoxia Colon cancer screening COPD (chronic obstructive pulmonary disease) Depression Diabetes mellitus Emphysema of lung Essential hypertension GERD (gastroesophageal reflux disease) Hepatic steatosis Hyperlipidemia Hypertrophy of both inferior nasal turbinates Hypothyroidism (acquired) Lesion of vocal cord Leukocytosis Lumbar radiculopathy On home O2 NIKOLE (obstructive sleep apnea) (~07/14/21) Tobacco abuse Urinary incontinence Vaginal wall prolapse 12/15/2021 Ventral incisional hernia with obstruction Vitamin D deficiency Surgical History Surgical History H/O section 1992 H/O dilation and curettage H/O hernia repair 01/06/2022 H/O prior ablation treatment uterine ablation - 2005 H/O tubal ligation 2002 H/O ventral hernia repair 01/05/22 History of bilateral tubal ligation History of bladder surgery bladder sling placed in 12/2021. History of bunionectomy right foot History of carpal tunnel release Bilaterally History of carpal tunnel surgery 2010 left and right wrist History of cholecystectomy History of incisional hernia repair Open reducible incisional hernia repair with Phasix ST mesh 08/02/[address] Lee. History of laparoscopic cholecystectomy 2013 History of vaginal surgery Family History Family History Sibling Hypertension Diabetes mellitus brother Father Hypertension Cerebrovascular accident Diabetes mellitus Heart disease Mother Diabetes mellitus Hypertension Thyroid disorder Grandparent Cancer Diabetes mellitus Daughter Thyroid disorder Social History Social History Social History: Caffeine- 6pk canned soda The patient is and lives with her . She is disabled due to her COPD. She has 4 children. She smokes approximately half a pack a cigarettes a day. She occasionally drinks an alcoholic beverage. Code status full code. Smoking packs per day: 0.5 Smoking cigarettes per day: 10.0 Years smoked: 20 Smoking pack-years: 10.00 Smoking status: Current every day smoker Tobacco type: cigarettes Second hand tobacco smoke exposure: No Smoking end date: 01/05/22 Alcohol intake: never Substance use: never Lack of Transportation: No Lack of Food: Sometimes True Current Housing: I Have Housing Co
[2023-01-19 10:33] VITALS: BP 124/84; PULSE 86; RESP 20; O2SAT 96
--- NOTE | 2023-01-19 10:33 | SUR.OPER ---
EGD started at 1008 and ended at 1011. Colonoscopy started at 1016 and ended at 1030.
[2023-01-19 10:43] VITALS: BP 128/90; PULSE 82; RESP 19; O2SAT 94
[2023-01-19 10:53] VITALS: BP 127/88; PULSE 82; RESP 20; O2SAT 95
== END 2023-01-19 11:06 | disposition home or self-care (01) ==
PROVIDERS: PCP Internal Medicine; Visit Provider Internal Medicine Gastroenterology
PROC: 0DJ08ZZ Inspection of Upper Intestinal Tract, Via Natural or Artificial Opening Endoscopic (ICD-10-PCS; CPT 43235; principal; 2023-01-19 10:45)
DX: Z12.11 Encounter for screening for malignant neoplasm of colon (principal); D12.3 Benign neoplasm of transverse colon; K57.30 Diverticulosis of large intestine without perforation or abscess without bleeding; K20.80 Other esophagitis without bleeding; B49 Unspecified mycosis; Z79.51 Long term (current) use of inhaled steroids; Z79.899 Other long term (current) drug therapy; J43.9 Emphysema, unspecified; I10 Essential (primary) hypertension; Z99.81 Dependence on supplemental oxygen; E11.9 Type 2 diabetes mellitus without complications; E55.9 Vitamin D deficiency, unspecified; J96.11 Chronic respiratory failure with hypoxia; E78.5 Hyperlipidemia, unspecified; E03.9 Hypothyroidism, unspecified; F41.9 Anxiety disorder, unspecified; F32.A Depression, unspecified; G47.33 Obstructive sleep apnea (adult) (pediatric); F17.210 Nicotine dependence, cigarettes, uncomplicated; E66.01 Morbid (severe) obesity due to excess calories; Z68.41 Body mass index [BMI] 40.0-44.9, adult
CPT/HCPCS: 45380; 43239; 82948; 88305; J2704; J7120

== ENCOUNTER 2023-03-08 11:38 | Outpatient (CLI) | payer MEDICARE, MEDICAID, SELFPAY ==
[2023-03-08 12:35] LABS: Anion Gap 7 mmol/L (8-16); Blood Urea Nitrogen 7 mg/dL (7-17); Calcium 9.1 mg/dL (8.4-10.2); Carbon Dioxide 29 mmol/L (22-30); Chloride 105 mmol/L (98-107); Estimated Glomerular Filt Rate > 60; Glucose 114 mg/dL (65-110); Potassium 3.9 mmol/L (3.4-5.0); Sodium 141 mmol/L (137-145)
== END 2023-03-08 11:39 | disposition home or self-care (01) ==
LOC: ANHSURGERY 11:43
PROVIDERS: Anesthesiology; PCP Internal Medicine; Visit Provider Urology
DX: E11.9 Type 2 diabetes mellitus without complications (principal)
CPT/HCPCS: 36415; 80048

== ENCOUNTER 2023-03-09 18:16 | Emergency (ER) | payer MEDICARE, MEDICAID, SELFPAY ==
--- NOTE | ~2023-03-09 | XR_ITS ---
XR abdomen/kub 1V DATE: 03/09/2023 19:10 INDICATION: Hematuria. Lower back pain. TECHNIQUE: 3 supine AP views of the abdomen and pelvis COMPARISON: 07/08/2022 CT abdomen pelvis 01/06/2022 KUB FINDINGS: Surgical clips, right upper quadrant, consistent with cholecystectomy. The psoas shadows are intact. No visceromegaly is evident. No significant abnormal calcification is n oted. There is no evidence of bowel obstruction. Surgical clips overlie left inguinal area. IMPRESSION: Status post cholecystectomy Surgical clips overlying left inguinal area Nonspecific abdomen Reviewed, dictated and finalized at [facility] Reviewed, dictated and finalized at [facility].
[2023-03-09 18:39] VITALS: BP 200/130; PULSE 80; RESP 24; TEMP 36.5; O2SAT 95
--- NOTE | 2023-03-09 19:13 | ED.FEMALEGU ---
HPI - Female Genitourinary General Chief complaint: Urogenital-Female Stated complaint: UTI Time Seen by Provider: 03/09/23 19:14 Source: patient and RN notes reviewed Mode of arrival: ambulatory Limitations: no limitations History of Present Illness HPI Narrative: 48-year-old female with hx DM and HTN presented for complaint of right lower abdominal pain, onset 5 days. Endorses associated burning with urination, and urine appears pink in color. She reports suprapubic pain radiates to right lower back. At onset she drank water and cranberry juice, which helped the symptoms until yesterday, when she states the pain return and was worse. Denies nausea, vomiting, diarrhea, fevers or chills. Smokes 1ppd. Reports med compliance. Related Data Allergies Allergy/AdvReac Type Severity Reaction Status Date / Time No Known Allergies Allergy Verified 03/09/23 18:45 Review of Systems Review of Systems: CONSTITUTIONAL: Denies body aches, fever, chills, or sweats. CARDIOVASCULAR: Denies chest pain, palpitations, or edema. RESPIRATORY: Denies cough or dyspnea. GASTROINTESTINAL: Reports RLQ abdominal pain, Denies nausea, vomiting, or diarrhea. GENITOURINARY: Reports dysuria, denies frequency, urgency, hematuria, flank pain SKIN: Denies rash, itching, or wounds. MUSCULOSKELETAL: Denies back pain or myalgia. [facility] Past Medical History Medical History Anxiety Bilateral lower extremity edema Body mass index (BMI) 35 or more (11/17/18) Chronic respiratory failure with hypoxia Colon cancer screening COPD (chronic obstructive pulmonary disease) Depression Diabetes mellitus Emphysema of lung Esophageal candidiasis Essential hypertension GERD (gastroesophageal reflux disease) Hepatic steatosis Hyperlipidemia Hypertrophy of both inferior nasal turbinates Hypothyroidism (acquired) Lesion of vocal cord Leukocytosis Lumbar radiculopathy On home O2 NIKOLE (obstructive sleep apnea) (~07/14/21) Tobacco abuse Urinary incontinence Vaginal wall prolapse 12/15/2021 Ventral incisional hernia with obstruction Vitamin D deficiency Surgical History Surgical History H/O section 1992 H/O dilation and curettage H/O hernia repair 01/06/2022 H/O prior ablation treatment uterine ablation - 2005 H/O tubal ligation 2002 H/O ventral hernia repair 01/05/22 History of bilateral tubal ligation History of bladder surgery bladder sling placed in 12/2021. History of bunionectomy right foot History of carpal tunnel release Bilaterally History of carpal tunnel surgery 2010 left and right wrist History of cholecystectomy History of incisional hernia repair Open reducible incisional hernia repair with Phasix ST mesh 08/02/[address] Lee. History of laparoscopic cholecystectomy 2012 History of vaginal surgery Family History Family History Sibling Hypertension Diabetes mellitus brother Father Hypertension Cerebrovascular accident Diabetes mellitus Heart disease Mother Diabetes mellitus Hypertension Thyroid disorder Grandparent Cancer Diabetes mellitus Daughter Thyroid disorder Social History Social History Social History: Caffeine- 6pk canned soda The patient is and lives with her . She is disabled due to her COPD. She has 4 children. She smokes approximately half a pack a cigarettes a day. She occasionally drinks an alcoholic beverage. Code status full code. Smoking packs per day: 1 Smoking cigarettes per day: 20.0 Years smoked: 30 Smoking pack-years: 30.00 Smoking status: Current every day smoker Tobacco type: cigarettes Second hand tobacco smoke exposure: No Smoking end date: 01/05/22 Alcohol intake: never Substance use: nev
[2023-03-09 19:27] VITALS: BP 167/105; PULSE 79
== END 2023-03-09 19:37 | disposition short-term general hospital (02) ==
PROVIDERS: Emergency Provider Nurse Practitioner Family; PCP Internal Medicine
DX: R10.31 Right lower quadrant pain (principal); Z87.891 Personal history of nicotine dependence; J44.9 Chronic obstructive pulmonary disease, unspecified; E11.9 Type 2 diabetes mellitus without complications; I10 Essential (primary) hypertension; K21.9 Gastro-esophageal reflux disease without esophagitis; K76.0 Fatty (change of) liver, not elsewhere classified; E78.5 Hyperlipidemia, unspecified; E03.9 Hypothyroidism, unspecified; Z99.81 Dependence on supplemental oxygen
CPT/HCPCS: 74018; 81003; 87077; 87086; 87088; 87186; 99213; G0463

== ENCOUNTER 2023-03-09 20:10 | Emergency (ER) | payer MEDICARE, MEDICAID, SELFPAY ==
[2023-03-09 20:20] VITALS: BP 180/106; PULSE 84; RESP 15; TEMP 36.4; O2SAT 97
[2023-03-09 20:36] LABS: Basophils Absolute Auto 0.1 K/mm3 (0.0-0.1); Basophils Percent Auto 0.6 % (0.2-1.2); Eosinophils Absolute Auto 0.2 K/mm3 (0-0.3); Eosinophils Percent Auto 0.8 % (0-4.4); Hematocrit 47.8 % (37.0-47.0); Hemoglobin 15.9 g/dL (12.0-15.0); Immature Granulocyte Absolute 0.12 K/mm3 (0.00-0.031); Immature Granulocyte Percent A 0.6 % (0-0.5); Lymphocytes Absolute Auto 2.43 K/mm3 (0.9-3.2); Lymphocytes Percent Auto 12.3 % (18.3-44.2); Mean Corpuscular HGB Conc 33.3 g/dl (32-36); Mean Corpuscular Volume 93.2 fl (80-100); Mean Platelet Volume 10.3 fl (7.4-10.4); Monocytes Absolute Auto 0.8 K/mm3 (0.1-0.6); Monocytes Percent Auto 4.1 % (2.6-8.5); Neutrophils Absolute Auto 16.2 K/mm3 (1.3-6.7); Neutrophils Percent Auto 81.6 % (45.5-73.1); Platelet Count Result 317 k/mm3 (150-375); Red Blood Count 5.13 M/mm3 (4.2-5.4); Red Cell Distribution Width 13.3 % (11.5-14.5); White Blood Count 19.8 K/mm3 (4.5-10.0)
[2023-03-09 20:46] LABS: Alanine Aminotransferase 22 U/L (6-35); Albumin Level 4.3 g/dL (3.5-5.1); Alkaline Phosphatase 90 U/L (38-126); Anion Gap 5 mmol/L (8-16); Aspartate Amino Transferase 20 U/L (14-36); Bilirubin,Total 0.4 mg/dL (0.2-1.3); Blood Urea Nitrogen 10 mg/dL (7-17); Carbon Dioxide 32 mmol/L (22-30); Chloride 102 mmol/L (98-107); Estimated CRCL calculation 124 ml/min; Estimated Glomerular Filt Rate > 60; Glucose 137 mg/dL (65-110); Lipase 175 U/L (23-300); Potassium 4.2 mmol/L (3.4-5.0); Sodium 139 mmol/L (137-145)
[2023-03-09 20:55] LABS: Bacteria Urine Rare /hpf; Need Manual Microscopic Reviewed; RBC Urine >100 /hpf (0-2); Squamous Epithelial Cell Urine None seen /hpf (Few); WBC Urine >100 /hpf
[2023-03-09 20:58] LABS: Bilirubin Urine Negative (Negative); Blood Urine 3+ (Negative); Color Urine Amber (Yellow); Glucose Urine UA Negative (Negative); Ketones Urine Negative (Negative); Leukocyte Esterase Ur 1+ LEU/UL (Negative); Nitrate Urine Negative (Negative); Protein Urine 2+ mg/dL (Negative); Specific Grav Ur 1.015 (1.001-1.035); Urobilinogen Urine 0.2 mg/dL (<2.0); pH Urine 6.5 (5.0-9.0)
[2023-03-09 20:59] LABS: Appearance Urine Slightly Cloudy (Clear)
[2023-03-09 21:00] LABS: Add Urine Microscopic? YES
--- NOTE | 2023-03-09 22:52 | PC.NURSE ---
patient called up for room, no answer
--- NOTE | 2023-03-09 23:09 | PC.NURSE ---
Patient was called up to triage area for a room again, no answer.
== END 2023-03-09 22:52 | disposition left against medical advice (07) ==
PROVIDERS: Emergency Provider Student in an Organized Health Care Education/Training Program; PCP Internal Medicine
DX: R10.9 Unspecified abdominal pain (principal)
CPT/HCPCS: 36415; 80053; 81001; 83690; 85025; 99199

== ENCOUNTER 2023-03-10 09:00 | Emergency (ER) | payer MEDICARE, MEDICAID, SELFPAY ==
--- NOTE | ~2023-03-10 | CT_ITS ---
EXAMINATION: CT abdomen pelvis w con DATE: 03/10/2023 12:38 INDICATION: Right lower quadrant abdominal pain radiating to the right flank. Dysuria. TECHNIQUE: Computed tomography (CT) of the abdomen and pelvis was performed with 100 mL Omnipaque-350 intravenous contrast. Automated exposure control and iterative reconstruction technique were employe d. The dose-length product was 1657.94 mGy-cm. COMPARISON: 07/08/2022 FINDINGS: Emphysema with dependent atelectasis in bilateral lower lungs. Heart size is normal. No pericardial o r pleural effusion. Focal hepatic steatosis at the ligamentum teres. Cholecystectomy clips the gallbl adder fossa. Spleen, pancreas, bilateral adrenal glands and left kidney are normal. No urolithiasis o r hydronephrosis. There is urothelial enhancement at the right renal collecting system and right uret er with right periureteral stranding. There is also stranding surrounding the bladder. Findings sugge stive of cystitis and ascending urinary tract infection. No region of abnormal parenchymal hypoenhanc ement or inflammatory stranding surrounding the right kidney to suggest pyelonephritis. There is mode rate colonic diverticulosis with a sigmoid predominance. There is no adjacent inflammatory change to suggest diverticulitis. Small bowel and appendix are normal. Anteverted uterus and bilateral adnexa are unremarkable. Postoperative change of prior ventral hernia mesh repair. No free intraperitoneal g as or fluid. No pathologically enlarged abdominal or pelvic lymphadenopathy. Mild degenerative skelet al changes in the spine and pelvis. Bone island at the left femoral neck. IMPRESSION: 1. Findings consistent with cystitis and right-sided ascending urinary tract infection. Correlate wit h urinalysis. Reviewed, dictated and finalized at [facility]. IMPRESSION: 1. Findings consistent with cystitis and right-sided ascending urinary tract in fection. Correlate with urinalysis.
[2023-03-10 09:03] VITALS: BP 161/102; PULSE 95; RESP 20; TEMP 36.1; O2SAT 96
[2023-03-10 11:49] LABS: Basophils Absolute Auto 0.1 K/mm3 (0.0-0.1); Basophils Percent Auto 0.5 % (0.2-1.2); Eosinophils Absolute Auto 0.2 K/mm3 (0-0.3); Hematocrit 48.7 % (37.0-47.0); Immature Granulocyte Absolute 0.07 K/mm3 (0.00-0.031); Immature Granulocyte Percent A 0.4 % (0-0.5); Lymphocytes Absolute Auto 2.35 K/mm3 (0.9-3.2); Lymphocytes Percent Auto 13.4 % (18.3-44.2); Mean Corpuscular HGB Conc 32.9 g/dl (32-36); Mean Corpuscular Hemoglobin 30.7 pg (26-34); Mean Corpuscular Volume 93.5 fl (80-100); Mean Platelet Volume 10.2 fl (7.4-10.4); Monocytes Absolute Auto 0.9 K/mm3 (0.1-0.6); Monocytes Percent Auto 4.8 % (2.6-8.5); Neutrophils Absolute Auto 14.1 K/mm3 (1.3-6.7); Neutrophils Percent Auto 79.9 % (45.5-73.1); Platelet Count Result 323 k/mm3 (150-375); Red Blood Count 5.21 M/mm3 (4.2-5.4); Red Cell Distribution Width 13.3 % (11.5-14.5); White Blood Count 17.6 K/mm3 (4.5-10.0)
[2023-03-10 12:04] LABS: Potassium 3.7 mmol/L (3.4-5.0)
[2023-03-10 12:06] LABS: Alanine Aminotransferase 23 U/L (6-35); Albumin Level 4.6 g/dL (3.5-5.1); Alkaline Phosphatase 91 U/L (38-126); Anion Gap 8 mmol/L (8-16); Aspartate Amino Transferase 20 U/L (14-36); Bilirubin,Total 0.5 mg/dL (0.2-1.3); Blood Urea Nitrogen 8 mg/dL (7-17); Carbon Dioxide 32 mmol/L (22-30); Chloride 101 mmol/L (98-107); Estimated CRCL calculation 123 ml/min; Estimated Glomerular Filt Rate > 60; Glucose 131 mg/dL (65-110); Lipase 615 U/L (23-300); Sodium 141 mmol/L (137-145)
[2023-03-10] MEDS: SODIUM CHLORIDE 0.9% IV 1,000 ML 999 ML IV CONT (12:20)
[2023-03-10] MEDS: ONDANSETRON INJ 4 MG/2 ML VIAL IV PUSH (12:20)
[2023-03-10] MEDS: MORPHINE SULFATE (*CRX) 4 MG/ML INJ IV PUSH (12:20)
--- NOTE | 2023-03-10 13:52 | ED.GENADULT ---
HPI - General Adult General Chief complaint: Abdominal Pain Stated complaint: right flank pain Time Seen by Provider: 03/10/23 11:57 History of Present Illness HPI narrative: Patient is a 48-year-old female who presents ER with right-sided flank pain and burning urination. Started having burning urination 6 days ago. She tried to take care of her infection with cranberry juice and lots of water. It helped for about a day and then symptoms return. She is not feeling hot flashes and cold chills. Has some nausea without vomiting. No chest pain or chest pressure. Has some mild lower abdominal discomfort especially on the right side moving into her right flank. No alleviating factors. Related Data Allergies Allergy/AdvReac Type Severity Reaction Status Date / Time No Known Allergies Allergy Verified 03/10/23 11:23 Review of Systems Review of Systems: All systems reviewed & are unremarkable except as noted in HPI and below Constitutional: Constitutional: Denies chills, Denies fatigue and Denies fever(s) ENT: Denies nasal congestion and Denies sore throat Cardiovascular: Cardiovascular: Denies chest pain, Denies rapid heart rate and Denies radiating jaw, neck or arm pain Gastrointestinal: Gastrointestinal: Reports abdominal pain, Denies nausea and Denies vomiting Genitourinary: Genitourinary: Reports nocturia, Reports dysuria and Reports flank pain PMFSH Past Medical History Medical History Anxiety Bilateral lower extremity edema Body mass index (BMI) 35 or more (11/17/18) Chronic respiratory failure with hypoxia Colon cancer screening COPD (chronic obstructive pulmonary disease) Depression Diabetes mellitus Emphysema of lung Esophageal candidiasis Essential hypertension GERD (gastroesophageal reflux disease) Hepatic steatosis Hyperlipidemia Hypertrophy of both inferior nasal turbinates Hypothyroidism (acquired) Lesion of vocal cord Leukocytosis Lumbar radiculopathy On home O2 NIKOLE (obstructive sleep apnea) (~07/14/21) Tobacco abuse Urinary incontinence Vaginal wall prolapse 12/15/2021 Ventral incisional hernia with obstruction Vitamin D deficiency Surgical History Surgical History H/O section 1992 H/O dilation and curettage H/O hernia repair 01/06/2022 H/O prior ablation treatment uterine ablation - 2005 H/O tubal ligation 2002 H/O ventral hernia repair 01/05/22 History of bilateral tubal ligation History of bladder surgery bladder sling placed in 12/2021. History of bunionectomy right foot History of carpal tunnel release Bilaterally History of carpal tunnel surgery 2010 left and right wrist History of cholecystectomy History of incisional hernia repair Open reducible incisional hernia repair with Phasix ST mesh 08/02/[address] Lee. History of laparoscopic cholecystectomy 2012 History of vaginal surgery Family History Family History Sibling Hypertension Diabetes mellitus brother Father Hypertension Cerebrovascular accident Diabetes mellitus Heart disease Mother Diabetes mellitus Hypertension Thyroid disorder Grandparent Cancer Diabetes mellitus Daughter Thyroid disorder Social History Social History Social History: Caffeine- 6pk canned soda The patient is and lives with her . She is disabled due to her COPD. She has 4 children. She smokes approximately half a pack a cigarettes a day. She occasionally drinks an alcoholic beverage. Code status full code. Smoking packs per day: 1 Smoking cigarettes per day: 20.0 Years smoked: 30 Smoking pack-years: 30.00 Smoking status: Current every day smoker Tobacco type: cigarettes Second hand tobacco smoke exposure: No Smoking end date: 01/05/22
--- NOTE | 2023-03-11 10:50 | PM.IMHP ---
H&P: HPI History of Present Illness Date/Time: 03/11/23 10:50 Chief Complaint: Incontinence Narrative: She has history of intrinsic sphincter deficiency. She has had a bulking agent in December 2022. She has residual stress incontinence and would like a repeat injection procedure to improve her incontinence. Of note she is on antibiotics for a recent urinary tract infection Review of Systems Review of Systems: All systems reviewed & are unremarkable except as noted in HPI and below PMFSH Past Medical History Medical History Anxiety Bilateral lower extremity edema Body mass index (BMI) 35 or more (11/17/18) Chronic respiratory failure with hypoxia Colon cancer screening COPD (chronic obstructive pulmonary disease) Depression Diabetes mellitus Emphysema of lung Esophageal candidiasis Essential hypertension GERD (gastroesophageal reflux disease) Hepatic steatosis Hyperlipidemia Hypertrophy of both inferior nasal turbinates Hypothyroidism (acquired) Lesion of vocal cord Leukocytosis Lumbar radiculopathy On home O2 NIKOLE (obstructive sleep apnea) (~07/14/21) Tobacco abuse Urinary incontinence Vaginal wall prolapse 12/15/2021 Ventral incisional hernia with obstruction Vitamin D deficiency Surgical History Surgical History H/O section 1992 H/O dilation and curettage H/O hernia repair 01/06/2022 H/O prior ablation treatment uterine ablation - 2005 H/O tubal ligation 2002 H/O ventral hernia repair 01/05/22 History of bilateral tubal ligation History of bladder surgery bladder sling placed in 12/2021. History of bunionectomy right foot History of carpal tunnel release Bilaterally History of carpal tunnel surgery 2010 left and right wrist History of cholecystectomy History of incisional hernia repair Open reducible incisional hernia repair with Phasix ST mesh 08/02/[address] Lee. History of laparoscopic cholecystectomy 2013 History of vaginal surgery Family History Family History Sibling Hypertension Diabetes mellitus brother Father Hypertension Cerebrovascular accident Diabetes mellitus Heart disease Mother Diabetes mellitus Hypertension Thyroid disorder Grandparent Cancer Diabetes mellitus Daughter Thyroid disorder Social History Social History Social History: Caffeine- 6pk canned soda The patient is and lives with her . She is disabled due to her COPD. She has 4 children. She smokes approximately half a pack a cigarettes a day. She occasionally drinks an alcoholic beverage. Code status full code. Smoking packs per day: 1 Smoking cigarettes per day: 20.0 Years smoked: 30 Smoking pack-years: 30.00 Smoking status: Current every day smoker Tobacco type: cigarettes Second hand tobacco smoke exposure: No Smoking end date: 01/05/22 Alcohol intake: never Substance use: never Substance use type: does not use Lack of Transportation: No Lack of Food: Sometimes True Current Housing: I Have Housing Concerned About Future Housing: No Difficulty Paying Gas/Electric Bills: No Difficulty Paying for Meds: No Currently Unemployed: No Education: High School Diploma/GED Difficulty w/ Childcare or Family Care: No Living arrangements: with family Spiritual care concerns: No Agree to blood products: Yes Meds Home Medications and Allergies Home Medications Medication Instructions Recorded Confirmed Type blood-glucose meter (OneTouch #1 pkg 01/08/22 03/09/23 Rx Verio Flex Meter) lancets 30 gauge (OneTouch Delica #1 pkg 01/08/22 03/09/23 Rx Plus Lancet) lisinopril 40 mg tablet See Rx Instructions .Route 05/10/22 03/09/23 Rx .COMPLEX #90 tabs albuterol sulfate
== END 2023-03-10 14:10 | disposition home or self-care (01) ==
PROVIDERS: Physician Assistant; Emergency Provider Emergency Medicine; PCP Internal Medicine
DX: N12 Tubulo-interstitial nephritis, not specified as acute or chronic (principal); J96.11 Chronic respiratory failure with hypoxia; J43.9 Emphysema, unspecified; I10 Essential (primary) hypertension; E11.9 Type 2 diabetes mellitus without complications; E78.5 Hyperlipidemia, unspecified; E03.9 Hypothyroidism, unspecified; E55.9 Vitamin D deficiency, unspecified; G47.33 Obstructive sleep apnea (adult) (pediatric); F17.210 Nicotine dependence, cigarettes, uncomplicated; Z99.81 Dependence on supplemental oxygen; Z90.49 Acquired absence of other specified parts of digestive tract; Z79.85 Long-term (current) use of injectable non-insulin antidiabetic drugs
CPT/HCPCS: 36415; 74177; 80053; 81025; 83690; 85025; 96361; 96374; 96375; 99284; J2270; J2405; J7030; Q9967

== ENCOUNTER 2023-03-14 00:33 | Day surgery (SDC) | payer MEDICARE, MEDICAID, SELFPAY ==
[2023-03-07 11:16] VITALS: BMI 39.6
--- NOTE | 2023-03-07 11:20 | PC.NURSE ---
Report to the Outpatient Waiting Room, entrance under the green pavilion located off [facility], at time 10:15 on date 03/14/23. Planned Procedure Time: 12:15. Time changes happen often and if your time is changed the preop area will call you the afternoon before. - You and your visitor will be asked to self-screen and do not enter if you have any COVID symptoms. - A mask is optional within the hospital at this time. Patients may have clear liquids (water, carbonated beverages, clear teas, apple juice) until 3 hours prior to surgery (9:15) with a maximum of 20 ounces. - No food from midnight until time of surgery Take the following medications with a SIP of water the morning of surgery: INHALER IF NEEDED, LEVOTHYROXINE, VENLAFAXINE DO NOT STOP ANY OF YOUR OTHER PRESCRIPTION MEDICATIONS PRIOR TO SURGERY ?EXCEPT THE FOLLOWING Medications to discontinue per physician: N/A Date to take last dose: N/A Please no make-up, nail [place], hairspray, perfume, deodorant, or body powder the day of surgery. No jewelry (including any body piercings) or valuables the day of surgery, leave them at home. Please take a shower or bath the night before, or the morning of, surgery with an antibacterial soap. Wear comfortable, loose fitting clothing. - Jewelry must be removed prior to entering the operating room. Rings and piercings that are not removed may be cut off. - The hospital will not accept responsibility for valuables. - Please leave all valuables, including medications, at home the day of surgery. If you are going home after surgery, a licensed solo truck driver must drive you home. - NO public transportation without another adult if you receive anesthesia. - We recommend that an adult stay with you for 24 hours following discharge. - We also recommend that you do not drive, make important decision, drink alcoholic beverages, or take any drugs that were not prescribed by your health care provider for at least 24 hours after your discharge time. Follow any additional instructions given to you from your surgeon. If you or anyone in your household have experienced Covid symptoms in the past week, please notify your surgeon or the nurse liaison at the phone number below for possible testing. Telephone instructions given to PT - ZENAIDA LAZARO and asked if any additional questions and then verbalized understanding. Patient advised to call surgeon office or pre surgery nurse liaison [phone] if any additional questions.
--- NOTE | 2023-03-14 07:16 | WPDHPUPDATE1 ---
History and Physical Update Update Date/Time: 03/14/23 07:16 History and Physical has been reviewed, including an updated exam of the patient. There are NO changes in the patient's condition. Risks, benefits, and alternatives have been discussed and questions answered. Patient agrees to proceed with procedure.
[2023-03-14 10:45] VITALS: BP 113/74; PULSE 89; RESP 16; TEMP 36.2; O2SAT 94
[2023-03-14] MEDS: LACTATED RINGERS 1,000 ML 30 ML IV CONT (11:00)
[2023-03-14 11:23] LABS: Glucose Point of Care 102 mg/dl (65-105)
--- NOTE | 2023-03-14 11:49 | W.PM.PROC2 ---
Procedure Note - Detailed Date of Procedure 03/14/23 Pre-op Diagnosis Intrinsic sphincter deficiency Post-op Diagnosis Same Procedure Performed Cystoscopy with suburethral injection of implant material Surgeon Hussain Gordon MD Anesthesia MAC and Local (Uro jet) Indications The some with ISD type stress incontinence. She has had bulking agent done in the summer. She was 50% improved in symptoms. She would like a repeat injection. She understands risks of bleeding, infection, lack of efficacy, urinary retention requiring catheterization, need for repeat procedures. She agrees to proceed Findings Intrinsic sphincter deficiency Description of Procedure She was correctly identified. Informed consent obtained. She from the operating room. She was given MAC anesthesia. She was placed in dorsal thigh position. She was prepped draped sterile fashion. Time-out performed. I examined her bladder and cystoscopy. There was evidence of previous bulking agent. Her bladder was otherwise normal. No significant bladder abnormalities. No redness. Of note she was pretreated with antibiotics due to urinary tract infection I chose a site urethra 2 cm distal to bladder neck. I injected 1-1/2 syringe of bulking agent circumferentially forming pillows collapsing urethra. She had bladder spasms at the end of the procedure and urge incontinence. I re-examined the urethra I felt the bulking effect was adequate. Her bladder was left partially full. She was awakened transferred to PACU in stable condition. Implants Bulking material Estimated Blood Loss 0 Drains No Packing No Pathology None sent Complications No immediate complications Condition Stable Disposition PACU
[2023-03-14 11:55] VITALS: BP 98/74; PULSE 97; RESP 16; O2SAT 94
[2023-03-14 12:09] LABS: Glucose Point of Care 99 mg/dl (65-105)
[2023-03-14 12:25] VITALS: BP 98/69; PULSE 81
[2023-03-14 12:50] VITALS: BP 103/70; PULSE 76
== END 2023-03-14 12:58 | disposition home or self-care (01) ==
PROVIDERS: PCP Internal Medicine; Visit Provider Urology
PROC: 3E0K8GC Introduction of Other Therapeutic Substance into Genitourinary Tract, Via Natural or Artificial Opening Endoscopic (ICD-10-PCS; CPT 51715; principal; 2023-03-14 12:15)
DX: N36.42 Intrinsic sphincter deficiency (ISD) (principal); I10 Essential (primary) hypertension; E11.9 Type 2 diabetes mellitus without complications; J96.11 Chronic respiratory failure with hypoxia; E78.5 Hyperlipidemia, unspecified; E03.9 Hypothyroidism, unspecified; Z99.81 Dependence on supplemental oxygen; F41.9 Anxiety disorder, unspecified; F32.A Depression, unspecified; J43.9 Emphysema, unspecified; K21.9 Gastro-esophageal reflux disease without esophagitis; G47.33 Obstructive sleep apnea (adult) (pediatric); F17.210 Nicotine dependence, cigarettes, uncomplicated; Z79.51 Long term (current) use of inhaled steroids; Z79.85 Long-term (current) use of injectable non-insulin antidiabetic drugs
CPT/HCPCS: 51715; 82948; J2250; J2704; J3010; J7120; L8606

== ENCOUNTER 2023-03-30 08:25 | Outpatient (CLI) | payer MEDICARE, MEDICAID, SELFPAY ==
--- NOTE | ~2023-03-30 | MR_ITS ---
MRI of the lumbar spine Clinical History: Radiculopathy Technique: Axial T2-weighted images, and sagittal T1-weighted, T2-weighted, and T2 fat-sat images wer e acquired. COMPARISON: 07/17/2018 Findings: There is no acute fracture or subluxation of the lumbar spine. Osseous alignment is unchang ed. There are stable reactive marrow signal changes about the L5-S1 disc space due to underlying dege nerative disc disease. No suspicious bone marrow signal abnormality seen. At L1-L2, there is no disc bulge or herniation. There is minimal facet joint hypertrophy. No central canal stenosis or neural foraminal narrowing. At L2-L3, there is no disc bulge or herniation. There is mild facet arthropathy. No central canal rod nosis or neural foraminal narrowing. At L3-L4, there is mild diffuse disc bulge with small central disc protrusion. There is minimal facet joint hypertrophy. No lula central canal stenosis or neural foraminal narrowing. At L4-L5, there is mild disc bulge with moderate facet arthropathy. No lula central canal stenosis o r neural foraminal narrowing. At L5-S1, there is left paracentral disc extrusion/herniation, resulting in left lateral recess steno sis, and mild compression of the thecal sac on the left side. There is mild bilateral neural foramina l narrowing. Paravertebral soft tissues are unremarkable. Impression: Left paracentral disc extrusion/herniation at L5-S1, resulting in left lateral recess stenosis and pr obable impingement of the descending left-sided S1-S2 level nerve root. Reviewed, dictated and finalized at [facility]. Impression: Left paracentral disc extrusion/herniation at L5-S1, resulting in left lateral recess stenosis and probable impingement of the descending left-sided S1-S2 lev el nerve root.
== END 2023-03-30 08:26 | disposition home or self-care (01) ==
PROVIDERS: PCP Internal Medicine; Visit Provider Nurse Practitioner Family
DX: M54.16 Radiculopathy, lumbar region (principal); M51.27 Other intervertebral disc displacement, lumbosacral region
CPT/HCPCS: 72148

== ENCOUNTER 2023-07-14 10:09 | Outpatient (CLI) | payer MEDICARE, SELFPAY ==
--- NOTE | ~2023-07-14 | MR_ITS ---
EXAMINATION: MR lumbar spine wo/w con DATE: 07/14/2023 11:04 INDICATION: Lumbar radiculopathy. TECHNIQUE: Magnetic resonance imaging (MRI) of the lumbar spine was performed without and with 20 mL Multihance intravenous contrast. Sequences included sagittal T2-weighted FSE, sagittal T2-weighted FS FSE, and sagittal and axial T1-weighted FSE. Postcontrast sequences included axial T2-weighted FSE, sagittal T1-weighted FSE, and axial and sagittal T1-weighted FS FSE. COMPARISON: 03/30/2023 and 07/17/2018 FINDINGS: 8 degree lumbar levocurvature. 3 mm retrolisthesis L5 on S1. Chronic mild posterior wedging of L5 wit h 20% posterior vertebral body height loss. Remaining lumbar vertebral body heights are normal. Chron ic fibrovascular degenerative endplate changes at both sides of L5-S1 disc space. Marrow signal is ot herwise normal. Mild disc height loss and annular fissure at L5-S1. Mild disc desiccation without sig nificant disc height loss at L4-L5. The conus medullaris terminates at L1-L2. There is normal signal in the caudal spinal cord. There are postoperative changes of an interval left L5 hemilaminectomy. Th ere is peripheral enhancement surrounding a 4.0 x 2.3 x 1.9 cm fluid collection in the subcutaneous t issues at the operative bed posterior to the L4 and L5 spinous processes. There is a second small per ipheral enhancing fluid collection at the measuring 2.3 x 2.0 x 1.0 cm at the hemilaminectomy bed. Mo re diffuse subcutaneous edema in the subcutaneous fat overlying the lumbar spine and sacrum. The foll owing disc levels are specifically discussed: T12-L1: The disc does not extend beyond the endplate margin. There is mild bilateral facet joint oste oarthritis. There is no neural foraminal stenosis. There is no central canal stenosis. L1-L2: The disc does not extend beyond the endplate margin. There is mild bilateral facet joint osteo arthritis. There is no neural foraminal stenosis. There is no central canal stenosis. L2-L3: The disc does not extend beyond the endplate margin. There is mild bilateral facet joint osteo arthritis. There is no neural foraminal stenosis. There is no central canal stenosis. L3-L4: Disc is minimally bulging with superimposed small central disc protrusion. There is mild bilat eral facet joint osteoarthritis. There is minimal bilateral neural foraminal stenosis. There is mild central canal stenosis. L4-L5: Disc is bulging with annular fissure. There is mild bilateral facet joint osteoarthritis. Ther e is mild bilateral neural foraminal stenosis. There is mild central canal stenosis. L5-S1: Disc is mildly bulging with interval increase in size of a left paracentral to foraminal zone disc extrusion. The nonenhancing extruded disc material currently measures 1.5 cm from left to right, 1.1 cm anteroposteriorly and up to 10 mm craniocaudally with disc material extending couple millimet er cephalad and caudal to the level of the endplates. There is a small amount of surrounding enhancin g soft tissue which could be related to either reactive change or scarring related to the interval colin rgery. There is severe right and moderate left facet joint osteoarthritis. There is moderate right an d moderate to severe left neural foraminal stenosis. There is mild central canal stenosis but with se kendall narrowing of the left lateral recess which appears to exert mass effect upon the traversing left S1 nerve root. IMPRESSION: 1. Interval increase in size of a large left paracentral to foraminal zone disc extrusion at L5-S1 wh ich contributes to moderate to severe left-sided neural foraminal stenosis as well as severe narrowin g the left lateral recess at this level. 2. Interval left L5 hemilaminectomy with small peripherally enhancing fluid collections both at the h emilaminectomy bed as well as in the overlying subcutaneous fat. This could represent either postoper ative hematomas or seromas or abscesses in
== END 2023-07-14 10:10 ==
LOC: GOSHIMG 10:10
PROVIDERS: PCP Neurological Surgery; Visit Provider Neurological Surgery
DX: M43.06 Spondylolysis, lumbar region (principal); M47.817 Spondylosis without myelopathy or radiculopathy, lumbosacral region
CPT/HCPCS: 72158; A9577

== ENCOUNTER 2024-05-12 09:41 | Emergency (ER) | payer MEDICARE, MEDICAID, SELFPAY ==
--- NOTE | ~2024-05-12 | XR_ITS ---
EXAMINATION: XR chest 2V DATE: 05/12/2024 10:12 INDICATION: COPD presenting with one week of cough with shortness of breath TECHNIQUE: frontal and lateral views of the chest were obtained. COMPARISON: Chest radiograph dated 08/04/2022 FINDINGS: The prior airspace opacities have resolved. The lungs are now clear with no focal airspace opacities, pulmonary edema, pleural effusion or pneumothorax. The cardiomediastinal silhouette is normal. Mild thoracic spondylosis. IMPRESSION: 1. No acute cardiopulmonary disease. Reviewed, dictated and finalized at location [facility] [employer] [facility]
[2024-05-12 09:50] VITALS: BP 157/101; PULSE 82; RESP 19; TEMP 36.9; O2SAT 97
--- NOTE | 2024-05-12 10:03 | ED_ITS ---
HPI - URI/Sore Throat General Chief Complaint: Upper Respiratory Infection Stated Complaint: Sinus Time Seen by Provider: 05/12/24 09:59 Source: patient and RN notes reviewed Mode of arrival: ambulatory Limitations: no limitations History of Present Illness HPI Narrative: Patient presents today with congestion, postnasal drip, cough, sweats, fatigue, shortness of breath. Symptoms have been present for over a week. Denies fever. She has tried NyQuil and occasional albuterol nebulizer treatments with some mild relief. Her last treatment was several days ago. Patient does have supplemental oxygen via nasal cannula at home at 2 L that she typically wears at night, but has been wearing it during the day sent she has been ill. History of COPD. Smokes half pack per day. Related Data Allergies Allergy/AdvReac Type Severity Reaction Status Date / Time No Known Allergies Allergy Verified 05/12/24 09:46 Review of Systems Review of Systems: CONSTITUTIONAL: Denies body aches, fever, chills.+ sweats EYES: Denies visual changes, redness, or discharge. ENT: Denies rhinorrhea, sore throat, or otalgia.+ congestion postnasal drip CARDIOVASCULAR: Denies chest pain, palpitations, or edema. RESPIRATORY: Denies dyspnea.+ cough GASTROINTESTINAL: Denies abdominal pain, nausea, vomiting, or diarrhea. GENITOURINARY: Denies dysuria or hematuria. SKIN: Denies rash, itching, or wounds. MUSCULOSKELETAL: Denies back pain, joint pain, or myalgia. NEUROLOGIC: Denies headache, numbness, tingling, or weakness. PSYCH: Denies depression or anxiety. [facility] Past Medical History Medical History (Reviewed 05/12/24 @ 10:07 by Le Urbina, [facility], ) Anxiety Bilateral lower extremity edema Body mass index (BMI) 35 or more (11/17/18) Chronic respiratory failure with hypoxia Colon cancer screening COPD (chronic obstructive pulmonary disease) Depression Diabetes mellitus Emphysema of lung Esophageal candidiasis Essential hypertension GERD (gastroesophageal reflux disease) Hepatic steatosis Hyperlipidemia Hypertrophy of both inferior nasal turbinates Hypothyroidism (acquired) Lesion of vocal cord Leukocytosis Lumbar radiculopathy On home O2 NIKOLE (obstructive sleep apnea) (~07/14/21) Tobacco abuse Urinary incontinence Vaginal wall prolapse 12/15/2021 Ventral incisional hernia with obstruction Vitamin D deficiency Surgical History Surgical History H/O section 1992 H/O dilation and curettage H/O hernia repair 01/06/2022 H/O prior ablation treatment uterine ablation - 2005 H/O tubal ligation 2002 H/O ventral hernia repair 01/05/22 History of back surgery History of bilateral tubal ligation History of bladder surgery bladder sling placed in 12/2021. History of bunionectomy right foot History of carpal tunnel release Bilaterally History of carpal tunnel surgery 2010 left and right wrist History of cholecystectomy History of incisional hernia repair Open reducible incisional hernia repair with Phasix ST mesh 08/02/[address] Lee. History of laparoscopic cholecystectomy 2012 History of vaginal surgery Family History Family History (Reviewed 05/12/24 @ 10:07 by Le Urbina, [facility], ) Sibling Hypertension Diabetes mellitus brother Father Hypertension Cerebrovascular accident Diabetes mellitus Heart disease Mother Diabetes mellitus Hypertension Thyroid disorder Grandparent Cancer Diabetes mellitus Daughter Thyroid disorder Social History Social History Social History: Caffeine- 6pk canned soda The patient is and lives with her . She is disabled due to her COPD. She has 4 children. She smokes approximately half a pack a cigarettes a day. She occasionally drinks an alcoholic beverage. Code status full code. Smoking packs per day: 1 Smoking cigarettes per day: 20.0 Years smoked: 30 Smoking pack-years: 30.00 Smoking status: Current every day smoker Tobacco type: cigarettes Second hand tobacco smoke exposure: No Smoking end date: 01/05/22 Alcohol intake: never Substance use: never Substance use type: does not use Do You Feel Safe in your Home?: Yes Lack of Transportation: No Lack of Food: Sometimes True Current Housing: I Have Housing Concerned About Future Housing: No Difficulty Paying Gas/Electric Bills: No Difficulty Paying for Meds: No Currently Unemployed: YES Education: High School Diploma/GED Difficulty w/ Childcare or Family Care: No Living arrangements: with family Spiritual care concerns: No Agree to blood products: Yes Comments At time of signature, I have reviewed and agree with nursing past medical, surgical, social and family history unless otherwise noted. Please see nursing chart for further information. There is no relevant family history pertinent to the presenting complaint Exam Narrative: GENERAL: Chronically ill-appearing, well-nourished, and in no acute distress. HEAD: Normocephalic, atraumatic. EYES: EOMI. No redness or drainage. Conjunctivae normal. ENT: Mucous membranes pink and moist. Nares mildly congested. No rhinorrhea. TMs normal bilaterally. Throat normal. Uvula midline. NECK: Normal AROM. Supple. No lymphadenopathy. CHEST: No respiratory distress. Significantly diminished throughout, except the right lower which is clear. HEART: Regular rate and rhythm. No murmur appreciated. Normal peripheral pulses. EXTREMITIES: Normal range of motion. No edema. SKIN: Warm, dry, no rash. Capillary refill normal. Normal skin turgor. NEURO: No focal deficits. Alert and oriented x3. Gait steady. PSYCH: Normal affect. No signs of depression or anxiety. Course Course Level of Care: Express Care Visit Vital Signs Vital signs: Vital Signs Temperature 98.4 F 05/12/24 09:50 Pulse Rate 82 05/12/24 09:50 Respiratory Rate 19 05/12/24 09:50 Blood Pressure 157/101 H 05/12/24 09:50 Pulse Oximetry 97 05/12/24 09:50 Oxygen Delivery Room Air 05/12/24 09:50 Temperature 98.4 F 05/12/24 09:50 Pulse Rate 82 05/12/24 09:50 Respiratory Rate 19 05/12/24 09:50 Blood Pressure 157/101 H 05/12/24 09:50 Pulse Oximetry 97 05/12/24 09:50 Oxygen Delivery Room Air 05/12/24 09:50 Reviewed. Per patient's chart, she has just had her hypertension medications adjusted last month and will follow-up with her PCP in a few months. MDM - URI/Sore Throat MDM Narrative Medical decision making narrative: Chest x-ray negative. Will treat patient for COPD exacerbation with azithromycin based on Up To Date guidelines and prednisone as patient's oxygen requirement has increased. Patient is diabetic and aware that the steroids will increase her blood sugar for duration of treatment. Discussed that she needs to be using her nebulizer treatments more often at home to help open up her lungs and help with her coughing and shortness of breath. Patient agrees with plan. Anticipatory guidance given.. Differential Diagnosis Differential diagnosis: Likely upper respiratory infection, sinusitis, viral infection, bronchitis and other (Pneumonia, COPD exacerbation) Lab Data Attestation: I reviewed the patient's lab results. Lab results narrative: Rapid strep negative Imaging Data Radiologist's impression: ITS Impressions Chest X-Ray 05/12/24 10:17 IMPRESSION: 1. No acute cardiopulmonary disease. Critical Care Time Critical Care Time Critical Care Time: No Discharge Plan Discharge Clinical Impression: Viral syndrome, COPD exacerbation Patient Disposition: Home, Self-Care Condition: Stable Instructions: Antibiotic Form, COPD (Chronic Obstructive Pulmonary Disease) (DC) Additional Instructions: Your chest x-ray is negative for pneumonia. Please start the azithromycin and prednisone today and take as directed. Use your nebulizer treatments at home at least a few times per day to help open up your lungs. Follow-up with your PCP next week if symptoms are not improving. Go to the ER immediately if symptoms worsen. Your blood pressure was elevated above 120/80 today at Urgent Care. This puts you above the threshold for follow up. Please schedule a followup visit with your personal physician as soon as possible, for further evaluation and treatment. Even blood pressure exceeding 120/80 may indicate pre-hypertension. Prescriptions: New azithromycin 250 mg tablet 250 mg PO DAILY Qty: 6 0RF Rx Instructions: take 500 mg today (day 1), then 250 mg daily on days 2-5. prednisone 50 mg tablet 50 mg PO DAILY 5 Days Qty: 5 0RF No Action (DME) OneTouch Verio test strips Strip Qty: 100 0RF Rx Instructions: check once - twice weekly Linzess 145 mcg capsule 145 mcg PO DAILY 30 Days Qty: 30 2RF Breztri Aerosphere 160-9-4.8 mcg/actuation HFA aerosol inhaler 2 inh inhalation BID Qty: 10.7 3RF Rx Instructions: Rinse mouth and spit after each use. Use with spacer. pregabalin [Lyrica] 200 mg capsule 200 mg PO BID Qty: 60 3RF amlodipine 5 mg tablet 5 mg PO DAILY Qty: 90 0RF albuterol sulfate 90 mcg/actuation HFA aerosol inhaler 1 - 2 puff inhalation Q4-6H PRN (Reason: shortness of breath or wheezing) Qty: 8.5 2RF sumatriptan succinate [Imitrex] 50 mg tablet See Rx Instructions PO .COMPLEX Qty: 9 3RF Rx Instructions: take 1 tab at onset of headache; if no relief may repeat 1 tab after at least 2 hrs; max = 4 tabs/24 hr PO (DME) blood-glucose meter [OneTouch Verio Flex meter] Misc Qty: 1 0RF Rx Instructions: May substitute to in-stock meter and/or covered by insurance. Use As Directed (DME) lancets [OneTouch Delica Plus Lancet] 30 gauge misc Qty: 1 0RF Rx Instructions: May substitute to in-stock and/or covered by insurance lancets. Use As Directed venlafaxine 75 mg capsule,extended release 24hr 75 mg PO DAILY Qty: 90 3RF Rx Instructions: to be taken with the 150mg venlafaxine 150 mg capsule,extended release 24hr 150 mg PO DAILY Qty: 90 3RF loratadine 10 mg tablet See Rx Instructions .ROUTE .COMPLEX Qty: 30 5RF Dose Instruction: TAKE 1 TABLET BY MOUTH ONCE DAILY Rx Instructions: TAKE 1 TABLET BY MOUTH ONCE DAILY Ozempic 2 mg/dose (8 mg/3 mL) pen injector See Rx Instructions .ROUTE .COMPLEX Qty: 9 1RF Dose Instruction: INJECT 2 MG (0.75 ML) SUBCUTANEOUSLY WEEKLY ON WEDNESDAYS Rx Instructions: INJECT 2 MG (0.75 ML) SUBCUTANEOUSLY WEEKLY ON WEDNESDAYS lisinopril 40 mg tablet See Rx Instructions .ROUTE .COMPLEX Qty: 90 3RF Dose Instruction: TAKE 1 TABLET BY MOUTH DAILY Rx Instructions: TAKE 1 TABLET BY MOUTH DAILY levothyroxine 200 mcg tablet See Rx Instructions .ROUTE .COMPLEX Qty: 90 1RF Dose Instruction: TAKE 1 TABLET BY MOUTH DAILY Rx Instructions: TAKE 1 TABLET BY MOUTH DAILY rosuvastatin 5 mg tablet See Rx Instructions .ROUTE .COMPLEX Qty: 90 0RF Dose Instruction: TAKE 1 TABLET BY MOUTH DAILY Rx Instructions: TAKE 1 TABLET BY MOUTH DAILY Follow-up/Referrals: Alba Hendricks [employer] [Primary Care Provider] - Time of Disposition: 10:38
[2024-05-12 10:36] LABS: EDSTREPNEGPOS1 Negative (Negative)
== END 2024-05-12 10:40 | disposition home or self-care (01) ==
PROVIDERS: Emergency Provider Nurse Practitioner; PCP Clinical Nurse Specialist
DX: B34.9 Viral infection, unspecified (principal); J44.1 Chronic obstructive pulmonary disease with (acute) exacerbation; E11.9 Type 2 diabetes mellitus without complications; I10 Essential (primary) hypertension; K21.9 Gastro-esophageal reflux disease without esophagitis; E78.5 Hyperlipidemia, unspecified; E03.9 Hypothyroidism, unspecified; F17.210 Nicotine dependence, cigarettes, uncomplicated
CPT/HCPCS: 71046; 87880; 99213; G0463

== ENCOUNTER 2024-12-13 10:40 | Outpatient (CLI) | payer MEDICARE, SELFPAY ==
--- NOTE | 2024-12-13 10:59 | CY_PTH ---
PATIENT: Bethany Domínguez LOC: [facility] #:[id number] AGE/SX: 49/F ROOM: RE12/13/[address]: Anatoliy Ghosh MD : 1975 BED: DIS: 12/13/2024 SPEC #: [id number] RECD: 12/14/24 07:40 STATUS: SHIVANI REQ #: [id number] MALLORY: 12/13/24 10:[address]: Anatoliy Ghosh DEPT: [facility] Cytology RECD BY: Christine Maharaj ENTERED: 12/14/24 07:41 SP TYPE: Cytology OT DR: Asad Stahl DO Tissues: A - Peripheral Blood Procedures: Flow Cytometry
[2024-12-13 11:04] LABS: Basophils Absolute Auto 0.1 K/mm3 (0.0-0.1); Basophils Percent Auto 0.9 % (0.2-1.2); Eosinophils Absolute Auto 0.4 K/mm3 (0-0.3); Eosinophils Percent Auto 3.1 % (0-4.4); Hematocrit 45.3 % (37.0-47.0); Hemoglobin 15.1 g/dL (12.0-15.0); Immature Granulocyte Absolute 0.05 K/mm3 (0.00-0.031); Immature Granulocyte Percent A 0.4 % (0-0.5); Lymphocytes Absolute Auto 3.21 K/mm3 (0.9-3.2); Lymphocytes Percent Auto 28.4 % (18.3-44.2); Mean Corpuscular HGB Conc 33.3 g/dl (32-36); Mean Corpuscular Hemoglobin 29.7 pg (26-34); Mean Corpuscular Volume 89.2 fl (80-100); Mean Platelet Volume 9.8 fl (7.4-10.4); Monocytes Absolute Auto 0.6 K/mm3 (0.1-0.6); Monocytes Percent Auto 5.7 % (2.6-8.5); Neutrophils Absolute Auto 6.9 K/mm3 (1.3-6.7); Neutrophils Percent Auto 61.5 % (45.5-73.1); Platelet Count Result 277 k/mm3 (150-375); Red Blood Count 5.08 M/mm3 (4.2-5.4); Red Cell Distribution Width 13.2 % (11.5-14.5); White Blood Count 11.3 K/mm3 (4.5-10.0)
[2024-12-13 12:00] LABS: Alanine Aminotransferase 17 U/L (6-35); Albumin Level 4.1 g/dL (3.5-5.1); Alkaline Phosphatase 75 U/L (38-126); Anion Gap 9 mmol/L (4-12); Aspartate Amino Transferase 41 U/L (14-36); Bilirubin,Total 0.2 mg/dL (0.2-1.3); Blood Urea Nitrogen 10 mg/dL (7-17); CRP 0.5 mg/dL (<1.0); Calcium 9.2 mg/dL (8.4-10.2); Carbon Dioxide 24 mmol/L (22-30); Chloride 108 mmol/L (98-107); Estimated Glomerular Filt Rate > 60; Glucose 99 mg/dL (65-110); Potassium 4.1 mmol/L (3.4-5.0); Sodium 141 mmol/L (137-145); Total Protein 7.6 g/dL (6.3-8.2)
[2024-12-13 12:01] LABS: Erythrocyte Sedimentation Rate 11 mm/hr (0-20)
[2024-12-18 12:39] LABS: Erythropoietin (EPO). 8.1 mIU/mL (2.6-18.5)
== END 2024-12-13 10:41 | disposition home or self-care (01) ==
LOC: ANHLAB 10:42
PROVIDERS: PCP Internal Medicine; Visit Provider Internal Medicine Hematology & Oncology
DX: D72.829 Elevated white blood cell count, unspecified (principal); D75.1 Secondary polycythemia
CPT/HCPCS: 36415; 80053; 82668; 85025; 85652; 86140; 88184

== ENCOUNTER 2025-02-06 06:40 | Outpatient (CLI) | payer MEDICARE, SELFPAY ==
--- NOTE | ~2025-02-06 | MR_ITS ---
MRI of the brain Clinical History: Migraine Technique: Axial and sagittal T1-weighted images were acquired. These were followed by axial T2-weighted, diffusion weighted, gradient, and FLAIR images. Following intravenous administration of 20 cc MultiHance gadolinium, T1-weighted fat-sat imaging was performed in the axial and coronal planes. Findings: No significant signal abnormality seen in the brain parenchyma. No acute infarct, intracranial hemorrhage, or mass lesion. Ventricles and subarachnoid spaces are unremarkable. Orbits are unremarkable. Paranasal sinuses and mastoid air cells are clear. Major intracranial flow voids appear intact. Sagittal midline structures are intact. No abnormal postcontrast enhancement identified. IMPRESSION: No significant abnormality seen. Reviewed, dictated and finalized at [facility].
== END 2025-02-06 06:41 | disposition home or self-care (01) ==
LOC: ANHIMG 06:43
PROVIDERS: PCP Internal Medicine; Visit Provider Clinical Nurse Specialist
DX: G43.909 Migraine, unspecified, not intractable, without status migrainosus (principal)
CPT/HCPCS: 70553; A9577

== ENCOUNTER 2025-03-28 13:09 | Outpatient (CLI) | payer MEDICARE, SELFPAY ==
[2025-03-28 13:30] VITALS: PULSE 88; O2SAT 95
[2025-03-28 13:32] VITALS: PULSE 114; O2SAT 87
[2025-03-28 13:33] VITALS: PULSE 110; O2SAT 88
[2025-03-28 13:34] VITALS: PULSE 107; O2SAT 92
[2025-03-28 13:45] VITALS: PULSE 90; O2SAT 95
--- NOTE | 2025-03-29 08:51 | P.PCNPFT_ITS ---
PFT Procedure Performed PFT Procedure Performed Spirometry with Pre/Post Bronchodilator Plethysmography (Lung Vol) Diffusing Cap (DLCO) Flow Vol Loop PFT Interpretation This is a pulmonary function test with pre and post-bronchodilator spirometry, plethysmography and diffusing capacity. The test was performed and results interpreted in accordance with the 2019 and 2005 ATS/ERS Task Force guidelines respectively using the Global Lung Function Initiative-2012 reference equations. Patient demonstrated good effort and cooperation. Reproducibility criteria were met. The quality of the pre bronchodilator spirometry maneuver was Grade A and post bronchodilator spirometry maneuver was Grade A. Findings: Spirometry: There is decreased maximal expiratory airflow at all lung volumes with concave expiratory flow tracing. The contour the inspiratory flow tracing is normal. The pre bronchodilator FVC is 3.88 L, 90% predicted. The pre bronchodilator FEV1 is 2.21 L, 65% predicted. The pre bronchodilator FEV1: FVC ratio is 57%. The post bronchodilator FVC is 3.68 L, representing a 5% decrease. The post bronchodilator FEV1 is 1.95 L, representing a 12% decrease. The post bronchodilator FEV1: FVC ratio is 53%. Plethysmography: The total lung capacity is 7.01 L, 118% predicted. The functional residual capacity is 4.03 L, 119% predicted. the residual volume is 2.84 L, 139% predicted. The residual volume: Total lung capacity ratio is 41%. Diffusing capacity: The diffusing capacity unadjusted for hemoglobin and carboxyhemoglobin is 12.4, 49% predicted. The diffusing capacity adjusted for alveolar volume is 3.52, 81% predicted. In comparison to previous pulmonary function testing on 11/28/2020, the post bronchodilator FVC is unchanged from 3.39 L to 3.68 L. The post bronchodilator FEV1 is unchanged from 2.08 L to 1.95 L. The total lung capacity has increased from 5.90 L to 7.01 L. The functional residual capacity has increased from 3.23 L to 4.03 L. The residual volume is unchanged from 2.56 L to 2.84 L. The residual volume: Total lung capacity ratio is unchanged from 43% to 41%. The diffusing capacity unadjusted for hemoglobin and carboxyhemoglobin is decreased from 16.0 to 12.4. The diffusing capacity adjusted for alveolar volume is unchanged from 3.55 to 3.52. Impression: There is a severe obstructive abnormality. There is no significant improvement after inhaling a single dose of albuterol. The increased Total lung capacity with a normal residual volume to total lung volume ratio is consistent with large lungs. The diffusing capacity unadjusted for hemoglobin and carboxyhemoglobin is moderately decreased and normalizes when adjusted for a lveolar volume. In comparison to previous pulmonary function testing on 11/28/2020, there has been a greater than anticipated time dependent increase in the total lung capacity, functional residual capacity. There has been a greater than anticipated time dependent decrease in the diffusing capacity unadjusted for hemoglobin and carboxyhemoglobin with no significant change in the FVC, FEV1, residual volume or diffusing capacity adjusted for alveolar volume. Clinical correlation is recommended.
== END 2025-03-28 13:10 | disposition home or self-care (01) ==
PROVIDERS: PCP Internal Medicine; Visit Provider Physician Assistant
DX: R94.2 Abnormal results of pulmonary function studies (principal); J44.9 Chronic obstructive pulmonary disease, unspecified
CPT/HCPCS: 94060; 94618; 94726; 94729

== ENCOUNTER 2025-04-05 11:46 | Outpatient (CLI) | payer MEDICARE, SELFPAY ==
[2025-04-05 11:57] LABS: Hematocrit 47.4 % (37.0-47.0); Hemoglobin 15.6 g/dL (12.0-15.0); Immature Granulocyte Percent A 0.4 % (0-0.5); Lymphocytes Absolute Auto 2.60 K/mm3 (0.9-3.2); Mean Corpuscular HGB Conc 32.9 g/dl (32-36); Mean Corpuscular Hemoglobin 30.2 pg (26-34); Mean Corpuscular Volume 91.9 fl (80-100); Nucleated Red Blood Cells Absolute Auto 0.000 K/mm3 (0.0-0.012); Nucleated Red Blood Cells Perc 0.0 % (0.0-0.2); Platelet Count Result 289 k/mm3 (150-375); Red Blood Count 5.16 M/mm3 (4.2-5.4); White Blood Count 11.0 K/mm3 (4.5-10.0)
[2025-04-05 12:00] LABS: Blood Urea Nitrogen 10 mg/dL (8-26); Carbon Dioxide 31 mmol/L (22-30); Chloride 103 mmol/L (98-109); Estimated Glomerular Filt Rate 59; Glucose 125 mg/dL (70-105); Ionized Calcium (POC) 1.23 mmol/L (1.11-1.31); Potassium 4.3 mmol/L (3.5-4.9); Sodium 143 mmol/L (138-146)
--- OUTSIDE RECORDS SUMMARY | 2025-04-05 12:15 | XMS_ITS | Encounter Summary ---
Author Organization [facility] Address [address] [place] [address] Care Team Providers Care Devops Solutions Architect Name Role Phone Asad Stahl DO Primary Care Provider Reason for Visit * Reason Comments Follow Up Encounter Details Date Type Department Care Team ([facility] st Contact Info) Description 04/05/2025 12:15 PM CDT Office Visit [facility] Oncology and Hematology - James [address] [facility] [address] [place] [address] Anatoliy Ghosh MD [address] [facility] [address] [place] [address] Erythrocytosis (Primary Dx) Social History Tobacco Use Types Packs/Day Years Used Date Smoking Tobacco: Every Day Cigarettes 0.7 36.8 Started: 06/20/1988 Tobacco Cessation:Ready to Q uit: Not Asked; Counseling Given: Not Answered Alcohol Use Standard Drinks/Week Comments Never 0 (1 standard drink = 0.6 oz pur e alcohol) Comments Unknown Sex and Gender Information Value Date Recorded Sex Assigned at Not on file Legal Sex Female 11:09 AM YOUTH PROGRAM DIRECTOR Gender Identity Not on file Sexual Orientation Not on file documented as of this encounter Last Filed Vital Signs Vital Sign Reading Time Taken Comments Blood Pressure 126/86 04/05/2025 11:59 AM CDT Pulse 94 04/05/2025 11:59 AM CDT Temperature 36 C (96.8 F) 04/05/2025 11:59 AM CDT Respiratory Rate 16 04/05/2025 11:59 AM CDT Oxygen Saturation 92% 04/05/2025 11:59 AM CDT Inhaled Oxygen Concentration - - Weight 120.2 kg (265 lb) 04/05/2025 11:59 AM CDT Height - - Body Mass Index 38.02 12/13/2024 10:15 AM CDT documented in this encounter Progress Notes * Anatoliy Ghosh MD - 04/05/2025 12:08 PM CDT HEMATOLOGY / ONCOLOGY PROGRESS NOTE Patient Identification: Name: Bethany Domínguez Age: 50 y.o. Sex: female : 1975 DIAGNOSIS Reactive leukocytosis Secondary erythrocytosis CURRENT TREATMENT Baby aspirin TREATMENT HISTORY SUBJECTIVE Patient came to the office for follow-up visit. She continues to smoke 1 pack/day. Denies any chestpain and shortness of breath. She has lost 3 pound weight. No other new complaints. Review of system Constitutional: Patient did not mention fevers, sweats, pound weight loss without any tiredness andfatigue HEENT: Patient did not mention sinus congestion, hearing or vision problems Respiratory: Patient did not mention cough, dyspnea, wheeze Cardiovascular: Patient did not mention chest pain, exertional chest pressure/discomfort, nausea, syncope, shortness of breath GI: Patient did not mention constipation, diarrhea, dsyphagia, reflux symptoms, vomiting, melena : Patient did not mention dysuria, frequency, incontinence, urgency Integumentary system: no lymphadenopathy, sweats, flushing Musculoskeletal: Patient not mention: myalgia, arthralgia Neurological: Patient did not mention blurry or disturbed vision, numbness/weakness, dizziness Skin: No lumps, bumps or rashes. 12 point review of system was reviewed Objective: Vital signs in last 24 hours: As per nursing note Exam: HEENT: Atraumatic, external ears normal, nose normal, oropharynx moist, no pharyngeal exudates. no sinus tenderness Neck- normal range of motion, no tenderness, supple Respiratory: No respiratory distress, normal breath sounds, no rales, no wheezing Cardiovascular: Normal rate, normal rhythm, no murmurs, no gallops, no rubs GI: Soft, nondistended, normal bowel sounds, nontender, no splenomegaly, no hepatomegaly, no mass, no rebound, no guarding : No costovertebral angle tenderness Musculoskeletal: No edema, no tenderness, no deformities. Back- no tenderness Integument: Well hydrated, no rash, Digits and nails inspection normal Lymphatic: No lymphadenopathy noted Neurologic: Alert & oriented x 3, CN 2-12 normal, normal motor function, normal sensory function, no focal deficits noted Exam as above PATH LABS Labs from December 13 showed C-reactive protein 0.5 WBC 11.3 hemoglobin 15.1 hematocrit 45.3 platelet 277,000 neutrophils 61% sedimentation rate 11 erythropoietin level 8.1 Labs from April 05 showed WBC 11 hemoglobin 15.7 hematocrit 47.4 platelet 289,000 @IMAGEIMP@ Assessment: Plan: Patient Active Problem List Diagnosis Date Noted Chronic bilateral low back pain with bilateral sciatica 07/30/2021 Exogenous obesity 07/30/2021 Reactive leukocytosis. Flow cytometric analysis showed no evidence of leukemia and lymphoma. Labs showed slightly elevated WBC count. Clinically she is asymptomatic. No lymphadenopathy. Will continueto observe. 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 Erythropoietin level was previously checked normal. She continues to smoke 1 pack/day. Hematocrit has gone up but no need for phlebotomy yet. Continue baby aspirin. I have recommended regular exercise weight loss and smoking cessation. COPD. She is on 3 L of oxygen at home. Hypertension. Stable. Follow-up with labs and return to clinic in 4 months 04/05/2025 Anatoliy Ghosh MD documented in this encounter Plan of Treatment Upcoming Encounters Date Type Department Care Team (Late st Contact Info) Description 08/06/2025 11:15 AM YOUTH PROGRAM DIRECTOR Office Visit [facility] Oncology and Hematology - James [address] [facility] [address] [place] [address] Anatoliy Ghosh MD [address] [facility] [place] [address] Scheduled Orders Name Type Priority Associated Diagnoses Orde r Schedule CBC WITH DIFFERENTIAL Lab Stat Erythrocytosis Expected: 07/26/2025, Expires: 04/05/2026 documented as of this encounter Visit Diagnoses Diagnosis Erythrocytosis- Primary Reserved for inherently not codable concepts WITHOUT codable children documented in this encounter Care Teams Devops Solutions Architect Relationship Specialty Start Date End Date Asad Stahl DO [address] [facility] [address] [place] [address] PCP - General Internal Medicine 07/30/21 documented as of this encounter
--- OUTSIDE RECORDS SUMMARY | 2025-04-05 12:30 | XMS_ITS | Clinical Summary ---
Author Organization [facility] Address [address] [place] [address] Phone Care Team Providers Care Back Tender Cloth Printing Name Role Phone MelanieAsad gonsalez Alessandro Primary Care Provider Allergies No known active allergies Medications ALBUTEROL SULFATE PO Take by mouth. Acti ve levothyroxine (SYNTHROID) 200 MCG Tablet Take 200 mcg by mouth daily. Active levothyroxine (SYNTHROID) 25 MCG Tablet Take 25 mcg by mouth daily. Active fluticasone-uri meterol (ADVAIR) 100-50 MCG/DOSE AEROSOL POWDER, BREATH ACTIVATED take 1 Puff by inhalation 2 times daily. Active lisinopril (PRINIVIL, ZESTRIL) 40 MG Tablet Take 40 mg by mouth daily. Active hydroCHLOROthia zide 12.5 MG Tablet Take by mouth daily. Active venlafaxine (EFFEXOR-XR) 150 MG CAPSULE SR 24 HR Take 150 mg by mouth daily. Active mupirocin (BACTROBAN) 2 % Ointment Apply 3 times daily. Active predniSONE (DELTASONE) 50 MG Tablet Take 50 mg by mouth daily. Active oxybutynin (DITROPAN-XL) 5 MG TABLET SR 24 HR Take 1 Tablet by mouth daily. 30 Tablet 11 1 Active Trelegy Ellipta 100-62.5-25 MCG/INH AEROSOL POWDER, BREATH ACTIVATED INHALE 1 PUFF BY MOUTH EVERY 24 HOURS. TAKE AT THE SAME TIME EACH DAY. RINSE MOUTH WITH WATER AND SPIT AFTER EACH USE. DO NOT SWALLOW WATER 2 Active Active Problems Problem Noted Date Diagnosed Date COPD (chronic obstructive pulmonary disease) 11/ Depression 05/06/2021 Hypertension 05/06/2021 Hypothyroidism 05/06/2021 Leukocytosis 05/06/2021 Prediabetes 05/06/2021 Vitamin D deficiency 05/06/2021 Social History Tobacco Use Types Packs/Day Years Used Date Smoking Tobacco: Every Day Cigarettes Smokeless Tobacco: Never Tobacco Cessation:Ready to Q uit: No; Counseling Given: No Alcohol Use Standard Drinks/Week Comments Not Currently 0 (1 standard drink = 0.6 oz pur e alcohol) Sexually Active Control Partners Comments Yes Male Comments Unknown Sex and Gender Information Value Date Recorded Sex Assigned at Not on file Legal Sex Female 12:07 PM PLEATING SUPERVISOR Gender Identity Not on file Sexual Orientation Not on file Last Filed Vital Signs Vital Sign Reading Time Taken Comments Blood Pressure 160/130 08/21/2021 10:04 AM PLEATING SUPERVISOR Pulse 93 08/21/2021 10:04 AM PLEATING SUPERVISOR Temperature 36.3 C (97.4 F) 08/21/2021 10:04 AM PLEATING SUPERVISOR Respiratory Rate 22 08/21/2021 10:04 AM PLEATING SUPERVISOR Oxygen Saturation 91% 08/21/2021 10:04 AM PLEATING SUPERVISOR Inhaled Oxygen Concentration - - Weight 145.2 kg (320 lb) 08/21/2021 10:04 AM PLEATING SUPERVISOR Height 177.8 cm (5' 10) 08/21/2021 10:04 AM PLEATING SUPERVISOR Body Mass Index 45.92 08/21/2021 10:04 AM PLEATING SUPERVISOR Plan of Treatment Health Maintenance Due Date Last Done Comments Hepatitis C Virus (HCV) Screening 1975 Hepatitis B Immunization (1 of 3 - 19+ 3-dose series) 01/18/1996 Pneumococcal Immunization Combined (1 of 2 - PCV) 01/18/1996 Pap Smear 1998 Cervical Cancer Screening (CCS) 2007 HPV/Cotest 2007 Medicare Initial AWV [id number] 07/21/2014 Cologuard 2022 Colonoscopy 2022 Colorectal Cancer Screening 2022 Immunochemical Fecal Occult Blood 2022 Influenza Immunization (#1) 2025 04/30/2013, 1 SARS-COV-2 Immunization ( season) 2025 Respiratory Syncytial Virus (RSV) Immunization (Adult) (1 - 1-dose 75+ series) 01/18/2052 DTaP/Tdap/Td Immunization Discontinued 2012, 01/30/1982, 07/26/1978, Additional history exists TdaP Immunization Completed 03/27/2013 Human Papillomavirus (HPV) Immunization Aged Out No longer eligible based on patient's age to complete this topic Meningococcal Immunization (ACWY) Aged Out No longer eligible based on patient's age to complete this topic Rotavirus Immunization Aged Out No lo nger eligible based on patient's age to complete this topic Insurance MEDICARE C [facility] Advance Directives Documents on File Type Date Recorded Patient Master Barber Expl anation Other Advance Directive 08/17/2021 3:29 PM UROLOGY SURGERY PRIO R AUTH APPROVAL Other Advance Directive 08/17/2021 2:21 PM MEDICAL CLEARANCE FO FOR UROLOGY SURGERY Care Teams Back Tender Cloth Printing Relationship Specialty Start Date End Date Asad Stahl DO [facility] [facility] [place] [address] PCP - General Internal Medicine 06/03/21
--- OUTSIDE RECORDS SUMMARY | 2025-04-05 12:30 | XMS_ITS | Clinical Summary ---
Author Organization [facility] Address [address] [place] [address] Care Team Providers Care Cement Finisher Name Role Phone PhyllisanushaAsad gonsalez Alessandro Primary Care Provider Allergies No known active allergies Medications albuterol sulfate 90 mcg/actuation metered powder inhaler Take by mouth. Activ e fluticasone propion-salmete roL (ADVAIR DISKUS,WIXELA INHUB) 100-50 mcg/dose disk inhaler Take 1 Puff by inhalation 2 times daily. Active hydroCHLOROthia zide (HYDRODIURIL) 12.5 mg tablet Take by mouth daily. Active levothyroxine 25 mcg tablet Take 25 mcg by mouth daily. Active levothyroxine 200 mcg tablet Take 200 mcg by mouth daily. Active lisinopriL (PRINIVIL) 40 mg tablet Take 40 mg by mouth daily. Active venlafaxine (EFFEXOR XR) 150 mg Extended Release 24 hour capsule Take 150 mg by mouth daily. Active loratadine (CLARITIN) 10 mg tablet Take 10 mg by mouth daily. Active tolterodine (DETROL) 2 mg tablet TAKE 1 TABLET(2 MG) BY MOUTH TWICE DAILY 4 Active amLODIPine (NORVASC) 10 mg tablet Take 1 Tablet by mouth daily. 5 Active rosuvastatin (CRESTOR) 5 mg tablet Take 5 mg by mouth daily. Active cyanocobalamin, vitamin B-12, 5,000 mcg Tablet, Rapid Dissolve Take by mouth. Activ e Active Problems Problem Noted Date Diagnosed Date Chronic bilateral low back pain with bilateral s ciatica 07/30/2021 Exogenous obesity 07/30/2021 Encounters Date Type Department Care Team Description 04/05/2025 12:15 PM CDT Office Visit [facility] Oncology and Hematology [place] [address] [facility] [address] [place] [phone] Anatoliy Ghosh MD Erythrocytosis (Primary Dx) 03/05/2025 External Device Data STL ABSTRACTION Provider, Abstract 01/22/2025 External Device Data STL ABSTRACTION Provider, Abstract from Last 3 Months Family History Medical History Relation Name Comments Diabetes Brother Heart Disease Brother No Known Problems Child 1 No Known Problems Child 2 No Known Problems Child 3 No Known Problems Child 4 Diabetes Father Heart Disease Father Diabetes Mother Relation Name Status Comments Brother Alive Child 1 Alive Child 2 Alive Child 3 Alive Child 4 Alive Father Mother Alive Social History Tobacco Use Types Packs/Day Years [...] on file Legal Sex Female 11:09 AM LIFT TRUCK 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 [place] [phone] Anatoliy Ghosh MD [address] [facility] [address] [place] [address] Health Maintenance Due Date Last Done Comments Pre-Diabetes and Diabetes Screening 1975 HEPATITIS B VACCINES (1 of 3 - 19+ 3-dose series) 01/18/1996 HPV/Cotest (21-29) 1998 HPV/Cotest (30-65) 2007 BREAST CANCER SCREENING 2017 COLORECTAL SCREENING 2022 Colorectal Cancer Screening 2022 FIT-DNA Q 3 years 2022 FIT/FOBT Q 1 year 2022 Flex Sig/CT Colonography Q 5 years 2022 DTAP/TDAP/TD VACCINES (7 - T d or Tdap) 03/27/2023 03/27/2013, 01/30/1982, 07/26/1978, Additional history exists Medicare Advantage (PR) Preventative Visit/Annual Wellness Visit 06/20/2024 11/18/2023 CERVICAL CANCER SCREENING 09/28/2024 PAP SMEAR 09/28/2024 09/28/2021 INFLUENZA VACCINE (#1) 2025 Procedures Procedure Name Priority Date/Time Associated Diagnosis Comments ERYTHROPOIETIN LEVEL Routine 01/09/2025 8:29 AM CDT Erythrocytosis SEDIMENTATION RATE Routine 01/09/2025 8: 29 AM CDT Leukocytosis, unspecified type C-REACTIVE PROTEIN Routine 01/09/2025 8: 29 AM CDT Leukocytosis, unspecified type from Last 3 Months Results * ERYTHROPOIETIN LEVEL (01/09/2025 8:29 AM CDT) ERYTHROPOIETIN LEVEL 10.2 2.6 - 18.5 mIU/mL [facility] Comment: FASTING:YES FASTING: YES Test Performed at: [facility] [address] [place] [address] Daryn Choi Blood 01/09/2025 8:29 AM CDT 01/09/2025 8:30 AM CDT Anatoliy Ghosh MD CHEMISTRY ORDERABLES Final Resu lt Performing Organization Address City/[facility]/ZIP [facility] Phone Number [facility] [phone] [facility] [address] [place] [address] * SEDIMENTATION RATE (01/09/2025 8:29 AM CDT) ESR (SEDIMENTATION RATE) 5 < OR = 20 mm/h [facility] Comment: FASTING:YES FASTING: YES Test Performed at: [place] [address] [address] [place] [phone] [facility] Blood 01/09/2025 8:29 AM CDT 01/09/2025 8:30 AM CDT Anatoliy Ghosh MD HEMATOLOGY ORDERABLES Final Res ult Performing Organization Address [facility] Phone Number [facility] [phone] [place] [address] [address] [place] [phone] * C-REACTIVE PROTEIN (01/09/2025 8:29 AM CDT) CRP <5.0 <8.0 mg/L [facility] Comment: FASTING:YES FASTING: YES Test Performed at: [place] [address] [address] [place] [phone] [facility] Blood 01/09/2025 8:29 AM CDT 01/09/2025 8:30 AM CDT Anatoliy Ghosh MD CHEMISTRY ORDERABLES Final Resu lt Performing Organization Address [facility] Phone Number [facility] [phone] [place] [address] [address] [place] [phone] from Last [address] [place] [address] [address] [id number] [place] [id number] Care Teams Cement Finisher Relationship Specialty Start Date End Date Asad Stahl DO [address] [address] PCP - General Internal Medicine 07/30/21
--- OUTSIDE RECORDS SUMMARY | 2025-04-05 12:30 | XMS_ITS | Encounter Summary ---
Author Organization [facility] Address [address] [facility] [address] Care Team Providers Care Central Office Operator Name Role Phone Unavailable Primary Care Provider Unavailabl e Encounter Details Date Type Department Care Team (Late st Contact Info) Description 08/12/2021 Lab Requisition [facility] [address] [place] [phone] Erlin Pimentel MD [address] [place] [address] Social History Tobacco Use Types Packs/Day Years Used Date Smoking Tobacco: Some Days Cigarettes Smokeless Tobacco: Never Alcohol Use Standard Drinks/Week Comments No 0 (1 standard drink = 0.6 oz pur e alcohol) Comments Unknown Sex and Gender Information Value Date Recorded Sex Assigned at Not on file Legal Sex Female 6:25 PM ARMOR OFFICER Gender Identity Not on file Sexual Orientation Not on file documented as of this encounter Plan of Treatment Not on file documented as of this encounter Procedures Procedure Name Priority Date/Time Associated Diagnosis Comments DERMATOPATHOLOGY Routine 08/11/2021 12:0 0 AM ARMOR OFFICER documented in this encounter Results * DERMATOPATHOLOGY (08/11/2021 12:00 AM ARMOR OFFICER) Case Report Dermatopathology Report Case: [id number] Authorizing Provider: Erlin Pimentel MD Collected: 08/11/2021 12:00 AM Ordering Location: [facility] Received: 08/12/2021 04:13 PM Pathologist: Simona Kraus MD Specimen: Skin, left post thigh 2 4:01 PM [facility] DERMATOPATHOLOGY LABORATORY Final Diagnosis Specimen A. SKIN, left post thigh: SCABIES ([id number]) (see microscopic description) 2 4:01 PM [facility] DERMATOPATHOLOGY LABORATORY at [address] ARMOR OFFICER Clinical History Folliculitis vs other. Path # [id number]. 2 4:01 PM [facility] DERMATOPATHOLOGY LABORATORY Gross Description Specimen A: Received is one formalin filled container labeled with the patient's name and designated left post thigh. The specimen consists of a shave biopsy measuring [id number]. Jar 0. 2 4:01 PM [facility] DERMATOPATHOLOGY LABORATORY Microscopic Description Specimen A. SKIN, left post thigh: Sections show spongiosis. Mite parts are in present in the upper epidermis. In the dermis there is a perivascular and interstitial lymphocytic infiltrate with eosinophils. Additional deeper sections were obtained and reviewed. 2 4:01 PM [facility] DERMATOPATHOLOGY LABORATORY Disclaimer An external and internal positive and negative controls are appropriate for the histochemical, immunohistochemical and immunofluorescence stain(s) in this case (if any), except where stated explicitly. The performance characteristics of the stain(s) cited in this report were developed and its performance characteristic determined by the Dermatopathology Laboratory at [facility], directed by Dr. Ann Walker. These tests need not be, and therefore are not, approved by the [place] Food and Drug Administration. The tests are used for clinical purposes. Billing Codes Specimen Charges Stain Charges 56808 1 76793 1 2 4:01 PM [facility] DERMATOPATHOLOGY LABORATORY Embedded Images 2 4:01 PM [facility] DERMATOPATHOLOGY LABORATORY Pathology/Cytolog y TISSUE SPECIMEN FROM SKIN / Unknown 08/11/2021 08/12/2021 4:13 PM [facility] us Erlin Pimentel MD LAB - PATHOLOGY/CYTOLOGY ORDER FELICIA Final Result DERMATOPATHOLOGY LABORATORY [facility] - Department of Dermatology [address], [address] [phone] documented in this encounter Visit Diagnoses Not on filedocumented in this encounter
--- OUTSIDE RECORDS SUMMARY | 2025-04-05 12:30 | XMS_ITS | Clinical Summary ---
Author Organization [facility] Address [address] [place] [address] Care Team Providers Care Nurse Wound Care Name Role Phone Asad Stahl DO Primary Care Provider Randell Paulson MD Unavailable [phone] Allergies No known active allergies Medications levothyroxine (SYNTHROID) 200 mcg tablet Take 225 mcg by mouth daily Takes (200 mcg + 25 mcg tablet = 225 mcg daily) 09/01/19 22 Active lisinopriL (PRINIVIL,ZESTRI L) 40 mg tablet Take 1 tablet (40 mg total) by mouth daily Active venlafaxine 225 mg tablet extended release 24hr 24 hr tablet Take 1 tablet (225 mg total) by mouth daily Active solifenacin (VESIcare) 5 mg tablet Take 1 tablet (5 mg total) by mouth daily 30 tablet 2 09/25/19 22 Active albuterol HFA (PROVENTIL HFA,VENTOLIN HFA,PROAIR HFA) 90 mcg/actuation inhaler INHALE ONE PUFF BY MOUTH EVERY 4 HOURS NEEDED FOR SHORTNESS OF BREATH OR WHEEZING 10/25/19 22 Active ibuprofen (ADVIL,MOTRIN) 600 mg tablet Take by mouth every 6 (six) hours as needed 11/07/19 22 Active lamoTRIgine (LaMICtal) 100 mg tablet Take 1 tablet (100 mg total) by mouth nightly 11/10/19 22 Active cholecalciferol (VITAMIN D-3) 25 mcg (1,000 unit) tablet Take 1 tablet (1,000 Units total) by mouth 3 (three) times a week Active acetaminophen-as pirin-caffeine (EXCEDRIN MIGRAINE) 250-250-65 mg per tablet Take 2 tablets by mouth every 6 (six) hours as needed Active hydroCHLOROthiaz emma (HYDRODIURIL) 12.5 mg tablet Take 1 tablet (12.5 mg total) by mouth daily Active omeprazole (PriLOSEC) 20 mg capsule Take 1 capsule (20 mg total) by mouth daily 09/22/19 23 Active terbinafine (LamiSIL) 250 mg tablet Take 1 tablet (250 mg total) by mouth daily 10/08/19 23 Active Stiolto Respimat 2.5-2.5 mcg/actuation inhaler INHALE 2 PUFFS BY MOUTH DAILY 09/30/19 23 Active linaCLOtide (Linzess) 145 mcg capsule Take 1 capsule (145 mcg total) by mouth daily 05/18/20 23 Active pregabalin (LYRICA) 200 mg capsule Take 1 capsule (200 mg total) by mouth 2 (two) times a day 09/03/19 24 Active rosuvastatin (CRESTOR) 5 mg tablet Take 1 tablet (5 mg total) by mouth daily 10/29/19 24 Active Ozempic 2 mg/dose (8 mg/3 mL) pen injector injection INJECT 2 MG (0.75 ML) SUBCUTANEOUSLY WEEKLY ON WEDNESDAYS Active tolterodine (DETROL) 2 mg tabletIndication s:Overactive bladder,Urge incontinence TAKE 1 TABLET(2 MG) BY MOUTH TWICE DAILY 180 tablet 3 01/11/20 24 Active Active Problems Problem Noted Date Diagnosed Date 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 -She reports urgency and loss of control of urine at times. -She is working to reduce tea and soda intake and trying to replace with water. She recently signed up for [facility] and plans on working on weight loss. PLAN: -Encouraged weight loss, elimination of bladder irritants, and exercise to improve overall health and urinary issues. -Will trial solifenacin 5mg. -Kegel exercises daily. Urinary frequency 09/24/2021 Stress incontinence 09/24/2021 Assessment & Plan (09/24/2021 1:18 PM CDT): -Discussed importance of Kegel exercises in reducing stress incontinence and complete loss of urinary control. -She is working to lose weight. PLAN: -Kegel exercises daily. She was given handout on these exercises. 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 Arnold-Chiari malformation 09/25/2009 Encounters Date Type Department Care Team Description 02/07/2025 12:30 PM CDT - 02/07/2025 11:59 PM CDT Hospital Encounter [address] [address] Fatty (change of) liver, not elsewhere classified Discharge Disposition: Discharge to home or self care from Last 3 Months Immunizations Immunization Administration Dates Next Due DTP 01/30/1982, 9,1977,1977, 7 Influenza, Unspecified 04/30/2013,03/26/2011 MMR 05/05/1978 OPV 01/30/1982, 9,1977,1977, 7 Tdap 03/27/2013 Surgical History Surgery Date Site/Laterality Comments SECTION x 1 CARPAL TUNNEL RELEASE Bilateral CHOLECYSTECTOMY BUNIONECTOMY Right TUBAL LIGATION BLADDER SUSPENSION 12/15/2021 COLPORRHAPHY 12/15/2021 Posterior ENDOMETRIAL ABLATION HERNIA REPAIR 12/18/2021 - 2022 BACK SURGERY 06/20/2022 - 06/19/2023 BACK SURGERY 06/20/2023 - 06/19/2024 Medical History Medical History Date Comments Sleep apnea NIKOLE on CPAP cpap at night Hypertension COPD (chronic obstructive pulmonary disease) Hypothyroidism Depression Anxiety Obesity Urinary incontinence Date of last menstrual period (LMP) unknown patient states 2008 Vaginal delivery x 3 G 4 P 4 Family History Medical History Relation Name Comments Heart attack Father Stroke Father Diabetes Mother Hypertension Mother Breast cancer Neg Hx Ovarian cancer Neg Hx Relation Name Status Comments Father Mother Alive Social History Tobacco Use Types Packs/Day Years Used Date Smoking Tobacco: Former Cigarettes 1 20 0 11/18/2001 - 11/18/2021 Smokeless Tobacco: Never AUDIT-C Answer Date Recorded Q1: How often do you have a drink containing alcohol? Monthly or less 12/15/2021 Q2: How many drinks containi ng alcohol do you have on a typical day when you are drinking? Patient does not drink Q3: How often do you have si x or more drinks on one occasion? 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 Gender Identity Not on file Sexual Orientation Not on file Obstetrics History Para Term AB IAB SAB Ectopic Multiple Livin g Live Births 4 4 4 0 0 0 0 0 0 4 4 Date Outcome GA Total Labor Labor/2nd/3rd Weight Sex Type Anes PTL Noemi A1 A5 Name Clin Term Term Term Term Comments Last Filed Vital Signs Vital Sign Reading Time Taken Comments Blood Pressure 132/84 11/18/2023 9:38 AM CDT Pulse 85 12/16/2021 7:00 AM CDT Temperature 36.8 C (98.2 F) 12/16/2021 7:00 AM CDT Respiratory Rate 22 12/16/2021 7:00 AM CDT Oxygen Saturation 95% 12/16/2021 7:00 AM CDT 4 LITER Inhaled Oxygen Concentration - - Weight 120.2 kg (265 lb) 11/18/2023 9:38 AM CDT Height 177.9 cm (5' 10.04) 11/18/2023 9:38 AM C DT Body Mass Index 37.98 11/18/2023 9:38 AM CDT Plan of Treatment Health Maintenance Due Date Last Done Comments Breast Cancer Screening-Mammogram 1977 Colon Cancer Screening-Colonoscopy 1977 Depression Screening 1977 Hepatitis C Screening 1977 Hepatitis B Screening 1995 Pneumococcal vaccine <65 (1 of 2 - PCV) 01/18/1996 Cervical Cancer Screening 09/28/2022 09/28/2021, DTaP/Tdap/Td Vaccine (7 - Td or Tdap) 03/27/2023 03/27/2013, 01/30/1982, 07/26/1978, Additional history exists Regular Well Visit/Exam 18-64 11/17/2024 11/18/2023 Influenza Vaccine (#1) 2025 04/30/2013, 2010 Medical Devices Implanted Type Area Chief Librarian Music Department Device Identifier Shelf Expiration Date Model / Serial / Lot [employer] Herlinda [id number] Solyx Advantage 9cm Incision Sling Delivery Device Mesh - [id number] Implanted:Qty: 1 on 12/15/2021 by Randell Paulson MD at [facility] N/A: Pelvis [employer] 10/14/2024 [id number] / / [id number] Procedures Procedure Name Priority Date/Time Associated Diagnosis Comments US RUQ Schedule Routine, Read Routine (OP Routine) 02/07/2025 1:23 PM CDT Fatty (change of) liver, not elsewhere classified PAP AND HIGH RISK HPV, REFLEX TO GENOTYPING Routine 09/28/2021 7:36 AM CDT Encounter for gynecological examination from Last 3 Months or Most Recently Relevant to Health Maintenance Results * US RUQ (02/07/2025 1:23 PM CDT) Anatomical Region Laterality Modality Abdomen N/A Ultrasound 02/18/2025 11:3 6 PM CDT Narrative 02/18/2025 11:38 PM CDT EXAM DESCRIPTION: US RUQ REASON FOR STUDY: Follow-up fatty liver TECHNIQUE: Ultrasound of the right upper quadrant of the abdomen was performed with grayscale and color doppler. COMPARISON: None FINDINGS: PANCREAS: Visualized portions of the pancreas are within normal limits. Portions of the pancreatic body and tail are obscured due to bowel gas. LIVER: The liver demonstrates surface nodularity suggesting underlying chronic liver parenchymal disease. Somewhat increased echotexture within the liver suggesting fatty infiltration. No cystic or solid mass lesions were seen within the liver. The liver is enlarged, measuring 20 cm in greatest diameter. GALLBLADDER: Gallbladder surgically absent. BILIARY: There is no intrahepatic or extrahepatic biliary ductal dilatation. Common bile duct measures 7 mm in diameter. RIGHT KIDNEY: Normal size. Normal echogenicity. No solid mass or cyst. No hydronephrosis. Measures 12.9 cm in length. OTHER: No other significant findings. IMPRESSION: 1. Hepatomegaly. The liver demonstrates surface nodularity suggesting underlying chronic liver parenchymal disease. Somewhat increased echotexture within the liver suggesting fatty infiltration. 2. Surgical absence of the gallbladder. THIS IS AN ELECTRONICALLY VERIFIED FINAL REPORT 02/18/2025 11:38 PM - Electronically signed by Piero Choi M.D. KT T: Report ID: [id number] Reading Location: [id number] Procedure Note Piero Choi MD - 02/18/2025 EXAM DESCRIPTION: US RUQ REASON FOR STUDY: Follow-up fatty liver TECHNIQUE: Ultrasound of the right upper quadrant of the abdomen wasperformed with grayscale and color doppler. COMPARISON: None FINDINGS: PANCREAS: Visualized portions of the pancreas are withinnormal limits. Portions of the pancreatic body and tail are obscured due to bowel gas. LIVER: The liver demonstrates surface nodularity suggesting underlying chronic liver parenchymal disease. Somewhat increased echotexture withinthe liver suggesting fatty infiltration. No cystic or solid mass lesions were seen within the liver. The liver is enlarged, measuring 20 cm in greatest diameter. GALLBLADDER: Gallbladder surgically absent. BILIARY: There is no intrahepatic or extrahepatic biliary ductaldilatation. Common bile duct measures 7 mm in diameter. RIGHT KIDNEY: Normal size. Normal echogenicity. No solid mass or cyst.No hydronephrosis. Measures 12.9 cm in length. OTHER: No other significant findings. IMPRESSION: 1. Hepatomegaly. The liver demonstrates surface nodularity suggesting underlying chronic liver parenchymal disease. Somewhat increasedechotexture within the liver suggesting fatty infiltration. 2. Surgical absence of the gallbladder. THIS IS AN ELECTRONICALLY VERIFIED FINAL REPORT 02/18/2025 11:38 PM - Electronically signed by Piero Choi M.D. KT T: Report ID: [id number] Reading Location: [id number] us Alba Hendricks MANAGER SEMICONDUCTOR IMG US PROCEDURES Final Resu lt * Pap and High Risk HPV, reflex to Genotyping (09/28/2021 7:36 AM CDT) Thin prep (Pap test) 09/28/2021 7:36 AM CDT 09/29/2021 7:36 AM CDT Narrative PATHOLOGY [facility] - 10/01/2021 10:[address] [facility] Department of Pathology [address] [place] [address] Final Report with Addendum Note to Patients: This report may contain a detailed description of human tissue sent by a health care provider to the laboratory for pathologic evaluation. The content of this report is essential for diagnosis and may provide important critical findings. This information may be unfamiliar to patients to review without a medical professional present. It is advised that the patient review this report in the presence of a health care provider who can answer questions and explain the details. Patient Name: ZENAIDA DOMÍNGUEZ Address: [address] [place] [address] Gender: F : 1975 (Age: 46) Service: Laboratory Location: N : [id number] Hospital #: [id number] Patient Type: [facility] SPECIMEN Taken: 09/28/2021 Received: 09/29/2021 Accessioned:: 09/30/2021 Reported: 10/01/2021 Physician(s): Dr. Hernan Mcdermott M.D. [facility] Diagnosis: Source of Specimen: SCREENING THIN PREP IMAGED PAP w/ HPV Specimen Adequacy: - Satisfactory for evaluation; endocervical/transformation zone component present General Category: - Negative for intraepithelial lesion or malignancy Interpretation/Results: - Changes consistent with Hyperkeratosis DONTRELL Crowley(ASCP) Report Electronically Reviewed and Signed Out By DONTRELL Crowley(ASCP) 10/01/2021 10:52:29 Addenda: HPV Test Interpretation NEGATIVE for types 16, 18, 31, 33, 35, 39, 45, 51, 52, 56, 58, 59, 66 and 68. Test performed utilizing Gen-Probe Aptima assay. DONTRELL Chavez(ASCP) Report Electronically Reviewed and Signed Out By DONTRELL Chavez(ASCP) 09/30/2021 14:09:18 Specimen(s) Received: A: SCREENING THIN PREP IMAGED PAP w/ HPV Clinical History: Menstrual History: Ablation: 2006 The Pap test is a screening test used to aid in the detection of cervical cancer and its precursors. It should not be the sole means by which malignant and premalignant lesions are diagnosed. Both false negative and false positive results may occur. It also has poor sensitivity for the detection of endometrial lesions and should not be used to evaluate suspected endometrial abnormalities. For these reasons it is most important to obtain Pap tests at regular intervals. The performance characteristics of some immunohistochemical stains, fluorescence in-situ hybridization tests and immunophenotyping by flow cytometry cited in this report (if any) were determined by the Surgical Pathology Department at [facility] as part of an ongoing water quality manager program and in compliance with federally mandated regulations drawn from the Clinical Laboratory Improvement Act of 1988 (CLIA '88). Some of these tests rely on the use of analyte specific reagents and are subject to specific labeling requirements by the US Food and Drug Administration. Such diagnostic tests may only be performed in a facility that is certified by the Department of Health and Human Services as a high complexity laboratory under CLIA '88. The FDA has determined that such clearance or approval is not necessary. This test is used for clinical purposes. It should not be regarded as investigational or for research. Nevertheless, federal rules concerning the medical use of analyte specific reagents require that the following disclaimer be attached to the report: This test was developed and its performance characteristics determined by the Surgical Pathology Department [facility]. It has not been cleared or approved by the U. S. Food and Drug Administration. Hernan Mcdermott MD LAB CYTOLOGY ORDERABLES Fi nal Result [facility] from Last 3 Months or Most Recently Relevant to Health Maintenance Insurance [facility] MEDICARE ADVANTAGE IDPA [facility] MEDICARE ADVANTAGE [facility] MEDICARE ADVANTAGE Advance Directives For more information, please contact: [phone] * Full Code (Latest Code Status on File) Date Activated Date Inactivated Comments 12/15/2021 3:13 PM 12/16/2021 3:43 PM Care Teams Nurse Wound Care Relationship Specialty Start Date End Date Asad Stahl DO PCP - General Internal Medicine 08/17/21 Randell Paulson MD [address] [place] [address] [place] [id number] Consulting Physician Obstetrics and Gynecology 12/16/21
--- OUTSIDE RECORDS SUMMARY | 2025-04-05 12:30 | XMS_ITS | Clinical Summary ---
Author Organization [facility] Address [address] [place] [address] Care Team Providers Care Support Dba Name Role Phone Unavailable Primary Care Provider Unavailabl e Source Comments [facility],non-owned Affiliates and Associated Physician Practices is amultiple site organization consisting of ambulatory clinics and hospital sitesin [place], [place], [place] and [place]. This disclosure is being madepursuant to the Care Everywhere program and may not contain all information available regarding this patient. Last updated 18.[facility] Active Problems Problem Noted Date Diagnosed Date Papilledema 04/03/2015 Benign intracranial hypertension 06/18/2011 Overview (09/19/2017): IIHTT Study patient. Family History Medical History Relation Name Comments Diabetes Brother Hypertension Brother CVA Father Diabetes Father Hypertension Father Diabetes Maternal Grandmother Diabetes Mother Hypertension Mother Thyroid Disease Mother Relation Name Status Comments Brother Father Maternal Grandmother Mother Social History Tobacco Use Types Packs/Day Years Used Date Smoking Tobacco: Some Days Cigarettes Smokeless Tobacco: Never Alcohol Use Standard Drinks/Week Comments No 0 (1 standard drink = 0.6 oz pur e alcohol) Comments Unknown Sex and Gender Information Value Date Recorded Sex Assigned at Not on file 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 Gender Identity Not on file Sexual Orientation Not on file Last Filed Vital Signs Vital Sign Reading Time Taken Comments Blood Pressure 110/65 11/27/2012 7:44 PM CDT Pulse 72 11/27/2012 7:44 PM CDT Temperature 36.7 C (98.1 F) 11/27/2012 7:44 PM CDT Respiratory Rate 14 11/27/2012 7:44 PM CDT Oxygen Saturation 99% 11/27/2012 7:44 PM CDT Inhaled Oxygen Concentration - - Weight 72.6 kg (160 lb) 11/27/2012 7:44 PM CDT Height 162.6 cm (5' 4) 11/27/2012 7:44 PM CDT Body Mass Index 27.46 11/27/2012 7:44 PM CDT Plan of Treatment Health Maintenance Due Date Last Done Comments COLOGUARD (AGES 45-75) - COL ON CA SCREENING 1977 COLON MONITORING 1977 COLONOSCOPY - COLON CA SCREENING 1977 CT COLONOGRAPHY - COLON CA SCREENING 1977 Colorectal Cancer Screening 1977 FIT - COLON CA SCREENING 1977 FLEX SIG - COLON CA SCREENING 1977 LIPID TESTING 1977 MAMMOGRAM 1977 HIV SCREENING 01/18/1992 HEPATITIS C SCREENING 01/13/1995 DTAP/TDAP/TD VACCINES (1 - Tdap) 01/18/1996 HEPATITIS B VACCINE (1 of 3 - 19+ 3-dose series) 01/18/1996 PNEUMOCOCCAL VACCINE (1 of 2 - PCV) 01/18/1996 PAP SMEAR 1998 DEPRESSION SCREENING 06/20/2024 MEDICARE AWV CALENDAR YEAR 2024 COVID-19 VACCINE (1 - 2023-2 5 season) 2025 INFLUENZA VACCINE (#1) 2025 ZOSTER VACCINE (1 of 2) 2027 HIB VACCINE Aged Out No longer eligi ble based on patient's age to complete this topic HPV VACCINE Aged Out No longer eligi ble based on patient's age to complete this topic MENINGOCOCCAL (Group B) VACC INE SHARED DECISION-MAKING Aged Out No longer eligibl e based on patient's age to complete this topic MENINGOCOCCAL GROUPS A/C/Y/W VACCINE Aged Out No longer eligible b ased on patient's age to complete this topic Insurance MEDICARE MEDICAID - OUT OF STATE [facility] MANAGED MEDICARE ADV [facility] MANAGED MEDICARE ADV
== END 2025-04-05 11:47 | disposition home or self-care (01) ==
LOC: ANHLAB 11:47
PROVIDERS: PCP Internal Medicine; Visit Provider Internal Medicine Hematology & Oncology
DX: D72.829 Elevated white blood cell count, unspecified (principal)
CPT/HCPCS: 36415; 80047; 85025

== ENCOUNTER 2025-04-17 08:07 | Outpatient (CLI) | payer MEDICARE, SELFPAY ==
--- NOTE | ~2025-04-17 | MM_ITS ---
EXAMINATION: MM screening miky BI w cary HISTORY: Screening TECHNIQUE: Craniocaudal and mediolateral oblique 3-D tomosynthesis images were obtained and synthetic 2-D images were generated. CAD analysis was submitted and interpreted. COMPARISON: Comparison to multiple prior studies sequentially, with oldest reviewed study dated 11/20/2021. BREAST PARENCHYMAL COMPOSITION: Comparison to multiple prior studies sequentially, with oldest reviewed study dated 08/09/2017. FINDINGS: There is no evidence of suspicious mass, calcification, or architectural distortion to suggest malignancy in either breast. There has been no suspicious interval change. IMPRESSION: 1. No mammographic evidence of malignancy. 2. Recommend routine screening mammography in one year. BI-RADS Category 1: Negative Reviewed, dictated and finalized at location C.
--- OUTSIDE RECORDS SUMMARY | 2025-04-17 08:15 | XMS_ITS | Clinical Summary ---
Author Organization [facility] Address [address] [place] [address] Care Team Providers Care Parimutuel Clerk Name Role Phone Asad Stahl DO Primary Care Provider Randell Paulson MD Unavailable [phone] Allergies No known active allergies Medications levothyroxine [...] (11/09/2021): Added automatically from request for surgery [id number] Rectocele 09/28/2021 Urge incontinence of urine 09/24/2021 Assessment & Plan (09/24/2021 1:17 PM CDT): -Failed oxybutynin and Myrbetriq in the past. -She reports urgency and loss of control of urine at times. -She is working to reduce tea and soda intake and trying to replace with water. She recently signed up for 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 KT T: Report ID: [id number] Reading Location: [id number] Procedure Note Piero Choi MD - 02/18/2025 [...] Piero Choi M.D. KT T: Report ID: [id number] Reading Location: [id number] us Alba Hendricks BOOT TRIMMER IMG US PROCEDURES Final Resu lt * Pap and High Risk HPV, reflex to Genotyping (09/28/2021 7:36 AM CDT) Thin prep (Pap test) 09/28/2021 7:36 AM CDT 09/29/2021 7:36 AM CDT Narrative PATHOLOGY [facility] - 10/01/2021 10:52 AM CDT [facility] Department of Pathology [address] [place] [address] Final Report with Addendum Note to Patients: [...] the details. Patient Name: ZENAIDA DOMÍNGUEZ Address: [address] [place] [address] Gender: F : 1975 (Age: 46) Service: Laboratory Location: N : [id number] Hospital #: [id number] Patient Type: [facility] SPECIMEN Taken: 09/28/2021 Received: 09/29/2021 Accessioned:: 09/30/2021 Reported: 10/01/2021 Physician(s): Dr. Hernan Mcdermott M.D. [facility] Diagnosis: Source of Specimen: SCREENING THIN PREP [...] determined by the Surgical Pathology Department at [facility] as part of an ongoing personnel quality assurance auditor program and in compliance with federally mandated [...] characteristics determined by the Surgical Pathology Department [facility]. It has not been cleared or approved by the U. S. Food and Drug Administration. Hernan Mcdermott MD LAB CYTOLOGY ORDERABLES Fi nal Result [facility] from Last 3 Months or Most Recently Relevant to Health Maintenance Insurance [facility] MEDICARE ADVANTAGE IDPA [facility] MEDICARE ADVANTAGE [facility] MEDICARE ADVANTAGE Advance Directives For more information, please contact: [phone] * Full Code (Latest Code Status on File) Date Activated Date Inactivated Comments 12/15/2021 3:13 PM 12/16/2021 3:43 PM Care Teams Parimutuel Clerk Relationship Specialty Start Date End Date Asad Stahl DO PCP - General Internal Medicine 08/17/21 Randell Paulson MD [address] [place] [address] [place] [id number] Consulting Physician Obstetrics and Gynecology 12/16/21
--- OUTSIDE RECORDS SUMMARY | 2025-04-17 08:15 | XMS_ITS | Clinical Summary ---
Author Organization [facility] Address [address] [place] [address] Care Team Providers Care Forensic Photographer Name Role Phone Johnny Awad MD Unavailable [phone] Jacque Pérez MD Unavailable [phone] Randell Paulson MD Unavailable [phone] Asad Stahl DO Primary Care Provider [phone] Medications fluticasone propionate (FLONASE) 50 MCG/ACT nasal spray 1 spray by Each Nostril route 2 (two) times daily. shake liquid 06/22/2022 Active levothyroxine (SYNTHROID) 125 MCG tablet Take 2 tablets (250 mcg total) by mouth every morning. 05/17/2023 Active LINZESS 145 MCG capsule Take 1 capsule (145 mcg total) by mouth every morning before breakfast. 05/18/2023 Active lisinopril (PRINIVIL) 40 MG tablet Take 1 tablet (40 mg total) by mouth daily. Active loratadine (CLARITIN) 10 MG tablet Take 1 tablet (10 mg total) by mouth daily. 05/17/2023 Active OZEMPIC 2 mg/dose injection (PEN) Inject 2 mg into the skin once a week. 05/06/2023 Active Venlafaxine HCl (VENLAFAXINE XR) 225 MG TABLET SR 24 HR 24 hr tablet Take 225 mg by mouth daily. Active albuterol sulfate HFA 108 (90 Base) MCG/ACT inhaler Inhale 2 puffs into the lungs every 6 (six) hours as needed for Wheezing. Active senna-docusate (SENOKOT-S) 8.6-50 MG tablet Take 1 tablet by mouth daily. 60 tablet 1 07/27/2023 Active HYDROcodone-chau taminophen (NORCO) 5-325 MG tabletIndicatio ns:Acute Pain < 7 Day Supply,post op Take 1-2 tablets by mouth every 6 (six) hours as needed for Pain. Indications: Acute Pain < 7 Day Supply, post op 50 tablet 07/27/2023 Active Active Problems No known active problems Immunizations Immunization Administration Dates Next Due Dtp (Generic) 01/30/1982,07/26/1978,1977 ,1977,1977 Influenza (Generic) 04/30/2013,03/26/2011 MMR (MMRII) 05/05/1978 Polio Opv (Generic) 01/30/1982,07/26/1978,1977,1977,1977 Tdap (Generic) 03/27/2013 Social History Tobacco Use Types Packs/Day Years Used Date Smoking Tobacco: Every Day Cigarettes 1 20 Smokeless Tobacco: Never Alcohol Use Standard Drinks/Week Comments Not Currently 0 (1 standard drink = 0.6 oz pur e alcohol) Comments No Sex and Gender Information Value Date Recorded Sex Assigned at Not on file Legal Sex Female 4:58 PM CDT Gender Identity Not on file Sexual Orientation Not on file Last Filed Vital Signs Vital Sign Reading Time Taken Comments Blood Pressure 100/67 07/27/2023 4:15 PM BRIM BUSTER Pulse 78 07/27/2023 4:15 PM BRIM BUSTER Temperature 36.2 C (97.2 F) 07/27/2023 4:15 PM BRIM BUSTER Respiratory Rate 16 07/27/2023 4:15 PM BRIM BUSTER Oxygen Saturation 94% 07/27/2023 4:15 PM BRIM BUSTER Inhaled Oxygen Concentration - - Weight 119.2 kg (262 lb 12.6 oz) 2023 10:30 AM BRIM BUSTER Height 177.8 cm (5' 10) 07/27/2023 10: 30 AM BRIM BUSTER Body Mass Index 37.71 07/27/2023 10:30 AM BRIM BUSTER Plan of Treatment Health Maintenance Due Date Last Done Comments Cervical Cancer Screening Pap Smear (Age 30 to 64) Every 3 Years 1977 Colorectal Cancer Screening Colonoscopy (10 Years) 1977 Annual Physical 01/18/1980 Hepatitis C 1995 Hepatitis B Vaccines (1 of 3 - 19+ 3-dose series) 01/18/1996 Pneumococcal Vaccine: Pediatrics (0 to 5 Years) and At-Risk Patients (6 to 49 Years) (1 of 2 - PCV) 01/18/1996 Cervical Cancer Screening Pap with HPV Testing (Age 30 to 64) Every 5 Years 2007 Cervical Cancer Screening with HPV 2007 Mammogram Screening 2017 DTaP, Tdap and Td Vaccines (7 - Td or Tdap) 03/27/2023 03/27/2013, 01/30/1982, 07/26/1978, Additional history exists COVID-19 Vaccine ( season) 2025 Influenza Adult (#1) 2025 04/30/2013, 03/26/20 11 Hepatitis A Vaccines Aged Out No long er eligible based on patient's age to complete this topic Meningococcal B Vaccine Aged Out No l onger eligible based on patient's age to complete this topic Meningococcal Vaccine Aged Out No alyssa ita eligible based on patient's age to complete this topic RSV Immunizations Under 20 Months Aged Out No longer eligible based on patient's age to complete this topic Insurance MED REPLACE [facility] MEDICARE MEDICAID [facility] MEDICARE Care Teams Forensic Photographer Relationship Specialty Start Date End Date Asad Stahl DO [address] [place], [place] [id number] PCP - General INTERNAL MEDICINE 05/25/23 Johnny Awad MD [address] [facility] [address] [place] [address] PULMONARY DISEASE 05/24/23 Jacque Pérez MD [address] [place] [address] ENDOCRINOLOGY 05/24/23 Randell Paulson MD [address] [place] [address] OBGYN 05/24/23
--- OUTSIDE RECORDS SUMMARY | 2025-04-17 08:15 | XMS_ITS | Encounter Summary ---
Author Organization [facility] Health Address [address] [facility] [place] [address] Care Team Providers Care Radio Station Manager Name Role Phone Unavailable Primary Care Provider Unavailabl e Encounter Details Date Type Department Care Team (Late st Contact Info) Description 08/12/2021 Lab Requisition [facility] DermPath Lab [address] [place] [phone] Erlin Pimentel MD [address] [address] Social History Tobacco Use Types Packs/Day Years Used Date Smoking Tobacco: Some Days Cigarettes Smokeless Tobacco: Never Alcohol Use Standard Drinks/Week Comments No 0 (1 standard drink = 0.6 oz pur e alcohol) Comments Unknown Sex and Gender Information Value Date Recorded Sex Assigned at Not on file Legal Sex Female 6:25 PM EGG FACTORY WORKER Gender Identity Not on file Sexual Orientation Not on file documented as of this encounter Plan of Treatment Not on file documented as of this encounter Procedures Procedure Name Priority Date/Time Associated Diagnosis Comments DERMATOPATHOLOGY Routine 08/11/2021 12:0 0 AM EGG FACTORY WORKER documented in this encounter Results * DERMATOPATHOLOGY (08/11/2021 12:00 AM EGG FACTORY WORKER) Case Report Dermatopathology Report Case: [id number] Authorizing Provider: Erlin Pimentel MD Collected: 08/11/2021 12:00 AM Ordering Location: [facility] DermPath Lab Received: 08/12/2021 04:13 PM Pathologist: Simona Kraus MD Specimen: Skin, left post thigh 2 4:01 PM [facility] DERMATOPATHOLOGY LABORATORY Final Diagnosis Specimen A. SKIN, left post thigh: SCABIES (B86) (see microscopic description) 2 4:01 PM [facility] DERMATOPATHOLOGY LABORATORY at [address] EGG FACTORY WORKER Clinical History Folliculitis vs other. Path # [id number]. 2 4:01 PM [facility] DERMATOPATHOLOGY LABORATORY Gross Description Specimen A: Received is one formalin filled container labeled with the patient's name and designated left post thigh. The specimen consists of a shave biopsy measuring [id number]. Jar 0. 2 4:01 PM [facility] DERMATOPATHOLOGY LABORATORY Microscopic Description Specimen A. SKIN, left post thigh: Sections show spongiosis. Mite parts are in present in the upper epidermis. In the dermis there is a perivascular and interstitial lymphocytic infiltrate with eosinophils. Additional deeper sections were obtained and reviewed. 2 4:01 PM [facility] DERMATOPATHOLOGY LABORATORY Disclaimer An external and internal positive and negative controls are appropriate for the histochemical, immunohistochemical and immunofluorescence stain(s) in this case (if any), except where stated explicitly. The performance characteristics of the stain(s) cited in this report were developed and its performance characteristic determined by the Dermatopathology Laboratory at [facility], directed by Dr. Ann Walker. These tests need not be, and therefore are not, approved by the [place] Food and Drug Administration. The tests are used for clinical purposes. Billing Codes Specimen Charges Stain Charges 75176 1 99829 1 2 4:01 PM [facility] DERMATOPATHOLOGY LABORATORY Embedded Images 2 4:01 PM [facility] DERMATOPATHOLOGY LABORATORY Pathology/Cytolog y TISSUE SPECIMEN FROM SKIN / Unknown 08/11/2021 08/12/2021 4:13 PM [facility] us Erlin Pimentel MD LAB - PATHOLOGY/CYTOLOGY ORDER FELICIA Final Result DERMATOPATHOLOGY LABORATORY [facility] - Department of Dermatology [address], [address] Floor [address] [phone] documented in this encounter Visit Diagnoses Not on filedocumented in this encounter
--- OUTSIDE RECORDS SUMMARY | 2025-04-17 08:15 | XMS_ITS | Clinical Summary ---
Author Organization [facility] Address [address] [place] [address] Care Team Providers Care Care Clinician Name Role Phone MelanieAsad gonsalez Alessandro Primary [...] Encounters Date Type Department Care Team Description 04/09/2025 External Device Data ST[facility] ABSTRACTION Provider, Abstract 04/09/2025 Orders Only [facility] [place] [facility]ology - [address] [place] [address] Anatoliy Ghosh MD 04/05/2025 12:15 PM CDT Office Visit [facility] [place] [facility] [address] [place] [address] Anatoliy Ghosh MD Erythrocytosis (Primary Dx) 03/05/2025 [...] on file Legal Sex Female 11:09 AM HOME SUPERVISOR Gender Identity Not on file Sexual [...] st Contact Info) Description 08/06/2025 11:15 AM HOME SUPERVISOR Office Visit [facility] [place] [facility] and Hematology [facility] [address] [place] [address] Anatoliy Ghosh MD [address] [place] [address] Health Maintenance Due Date Last [...] 03/27/2023 03/27/2013, 01/30/1982, 07/26/1978, Additional history exists CERVICAL CANCER SCREENING 09/28/2024 PAP SMEAR 09/28/2024 09/28/2021 INFLUENZA VACCINE (#1) 2025 Procedures Procedure Name Priority Date/Time Associated Diagnosis Comments BASIC METABOLIC PANEL Routine 04/05/2025 12:40 PM CDT CBC WITH AUTODIFFERENTIAL Routine 2024 12:39 PM CDT from Last 3 Months Results * BASIC METABOLIC PANEL (04/05/2025 12:40 PM CDT) Blood us Anatoliy Ghosh MD CHEMISTRY ORDERABLES Final Resu lt * CBC WITH AUTODIFFERENTIAL (04/05/2025 12:39 PM CDT) Blood us Anatoliy Ghosh MD HEMATOLOGY ORDERABLES Final Res ult from Last 3 Months Insurance Care Teams Care Clinician Relationship Specialty Start Date End Date Asad Stahl DO [address] [address] PCP - General Internal Medicine 07/30/21
--- OUTSIDE RECORDS SUMMARY | 2025-04-17 08:15 | XMS_ITS | Clinical Summary ---
Author Organization [facility] Address [address] [place] [address] Care Team Providers Care Thread Laster Name Role Phone Unavailable Primary Care Provider Unavailabl e Source Comments [facility] [employer],non-owned Affiliates and Associated Physician Practices is amultiple site organization consisting of ambulatory clinics and hospital sitesin [place], [place], [place] and [place]. This disclosure is being madepursuant to the Care Everywhere program and may not contain all information available regarding this patient. 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 MANAGED MEDICARE ADV [facility] MANAGED MEDICARE ADV
--- OUTSIDE RECORDS SUMMARY | 2025-04-17 08:15 | XMS_ITS | Clinical Summary ---
Author Organization [facility] Address [address] [place] [address] Phone Care Team Providers Care Metal Model Builder Name Role Phone MelanieAsad gonsalez Alessandro Primary [...] on file Legal Sex Female 12:07 PM SPORTS MEDICINE TRAINER Gender Identity Not on file Sexual Orientation Not on file Last Filed Vital Signs Vital Sign Reading Time Taken Comments Blood Pressure 160/130 08/21/2021 10:04 AM SPORTS MEDICINE TRAINER Pulse 93 08/21/2021 10:04 AM SPORTS MEDICINE TRAINER Temperature 36.3 C (97.4 F) 08/21/2021 10:04 AM SPORTS MEDICINE TRAINER Respiratory Rate 22 08/21/2021 10:04 AM SPORTS MEDICINE TRAINER Oxygen Saturation 91% 08/21/2021 10:04 AM SPORTS MEDICINE TRAINER Inhaled Oxygen Concentration - - Weight 145.2 kg (320 lb) 08/21/2021 10:04 AM SPORTS MEDICINE TRAINER Height 177.8 cm (5' 10) 08/21/2021 10:04 AM SPORTS MEDICINE TRAINER Body Mass Index 45.92 08/21/2021 10:04 AM SPORTS MEDICINE TRAINER Plan of Treatment Health Maintenance Due Date [...] to complete this topic Insurance MEDICARE C [facility] Advance Directives Documents on File Type Date Recorded Patient Contracts Advisor Expl anation Other Advance Directive 08/17/2021 3:29 PM UROLOGY SURGERY PRIO R AUTH APPROVAL Other Advance Directive 08/17/2021 2:21 PM MEDICAL CLEARANCE FO FOR UROLOGY SURGERY Care Teams Metal Model Builder Relationship Specialty Start Date End Date Asad Stahl DO [facility] [address] PCP - General Internal Medicine 06/03/21
== END 2025-04-17 08:08 | disposition home or self-care (01) ==
PROVIDERS: PCP Internal Medicine; Visit Provider Clinical Nurse Specialist
DX: Z12.31 Encounter for screening mammogram for malignant neoplasm of breast (principal)
CPT/HCPCS: 77063; 77067

== ENCOUNTER 2025-06-14 11:12 | Emergency (ER) | payer MEDICARE, SELFPAY ==
--- NOTE | ~2025-06-14 | CT_ITS ---
EXAMINATION: CT abdomen pelvis w con DATE: 06/14/2025 17:13 INDICATION: Left upper quadrant pain TECHNIQUE: Computed tomography (CT) of the abdomen and pelvis was performed with intravenous contrast. The dose-length product was 1440.98 mGy-cm. COMPARISON: CT dated 03/10/2023. FINDINGS: There is bilateral lower lobe airspace consolidation. Heart size normal. No significant pleural or pericardial effusion. Status post cholecystectomy. There is a suspected prominence of the bile ducts. The liver, spleen, pancreas, adrenal glands and kidneys are unremarkable. Nonobstructive bowel gas pattern. No abnormal pelvic masses or fluid collections. There is a 4 cm right adnexal cyst, likely ovarian. Moderate spondylosis at L5-S1. No acute osseous abnormality. IMPRESSION: 1. Bibasilar distended lower lobe consolidation which may represent atelectasis and/or developing pneumonia. 2: Right adnexal cyst measuring 4 cm, likely ovarian. Reviewed, dictated and finalized at location O. TREATER
--- OUTSIDE RECORDS SUMMARY | 2025-06-14 11:14 | XMS_ITS | Clinical Summary ---
Author Organization [facility] Address [address] [place] [address] Care Team Providers Care Pressroom Supervisor Name Role Phone Johnny Awad MD Unavailable [phone] Jacque Pérez MD Unavailable [phone] Randell Paulson MD Unavailable [phone] Asad Stahl DO Primary Care Provider [phone] Medications fluticasone propionate (FLONASE) 50 MCG/ACT nasal [...] Comments Blood Pressure 100/67 07/27/2023 4:15 PM COSMETICIAN APPRENTICE Pulse 78 07/27/2023 4:15 PM COSMETICIAN APPRENTICE Temperature 36.2 C (97.2 F) 07/27/2023 4:15 PM COSMETICIAN APPRENTICE Respiratory Rate 16 07/27/2023 4:15 PM COSMETICIAN APPRENTICE Oxygen Saturation 94% 07/27/2023 4:15 PM COSMETICIAN APPRENTICE Inhaled Oxygen Concentration - - Weight 119.2 kg (262 lb 12.6 oz) 2023 10:30 AM COSMETICIAN APPRENTICE Height 177.8 cm (5' 10) 07/27/2023 10: 30 AM COSMETICIAN APPRENTICE Body Mass Index 37.71 07/27/2023 10:30 AM COSMETICIAN APPRENTICE Plan of Treatment Health Maintenance Due Date [...] to complete this topic Insurance MED REPLACE [facility] MEDICARE MEDICAID [facility] MEDICARE Care Teams Pressroom Supervisor Relationship Specialty Start Date End Date Asad Stahl DO [address] [place], [place] [id number] PCP - General INTERNAL MEDICINE 05/25/23 Johnny Awad MD [address] [facility] [address] [place] [address] PULMONARY DISEASE 05/24/23 Jacque Pérez MD [address] [place] [address] ENDOCRINOLOGY 05/24/23 Randell Paulson MD [address] [place] [address] OBGYN 05/24/23
--- OUTSIDE RECORDS SUMMARY | 2025-06-14 11:14 | XMS_ITS | Clinical Summary ---
Author Organization [facility] Address [address] [place] [address] Care Team Providers Care Connection Worker Name Role Phone Unavailable Primary Care Provider Unavailabl e Source Comments [facility] [email or web address],non-owned Affiliates and Associated Physician Practices is amultiple site organization consisting of ambulatory clinics and hospital sitesin [place], [place], [place] and [place]. This disclosure is being madepursuant to the Care Everywhere program and may not contain all information available regarding this patient. Last updated 18.[facility] [email or web address] Active Problems Problem Noted Date Diagnosed Date [...] on file Legal Sex Female 6:25 PM HEALTH RESEARCHER Gender Identity Not on file Sexual Orientation [...] CALENDAR YEAR 2024 COVID-19 VACCINE (1 - 2024-2 6 season) 2025 INFLUENZA VACCINE (#1) 2025 ZOSTER [...] Insurance MEDICARE MEDICAID - OUT OF STATE [facility] MANAGED MEDICARE ADV [facility] MANAGED MEDICARE ADV
--- OUTSIDE RECORDS SUMMARY | 2025-06-14 11:14 | XMS_ITS | Encounter Summary ---
Author Organization [facility] Health Address [address] [facility] [place] [address] Care Team Providers Care Grinding Operator Name Role Phone Unavailable Primary Care Provider Unavailabl e Encounter Details Date Type Department Care Team (Late st Contact Info) Description 08/12/2021 Lab Requisition [facility] DermPath Lab [address] [place] [phone] Erlin Pimentel MD [address] [place] [address] Social History Tobacco Use Types Packs/Day Years Used Date Smoking Tobacco: Some Days Cigarettes Smokeless Tobacco: Never Alcohol Use Standard Drinks/Week Comments No 0 (1 standard drink = 0.6 oz pur e alcohol) Comments Unknown Sex and Gender Information Value Date Recorded Sex Assigned at Not on file Legal Sex Female 6:25 PM LIBRARY CLERK Gender Identity Not on file Sexual Orientation Not on file documented as of this encounter Plan of Treatment Not on file documented as of this encounter Procedures Procedure Name Priority Date/Time Associated Diagnosis Comments DERMATOPATHOLOGY Routine 08/11/2021 12:0 0 AM LIBRARY CLERK documented in this encounter Results * DERMATOPATHOLOGY (08/11/2021 12:00 AM LIBRARY CLERK) Case Report Dermatopathology Report Case: [id number] Authorizing Provider: Erlin Pimentel MD Collected: 08/11/2021 12:00 AM Ordering Location: [facility] DermPath Lab Received: 08/12/2021 04:13 PM Pathologist: Simona Kraus MD Specimen: Skin, left post thigh 2 4:[address] [facility] DERMATOPATHOLOGY LABORATORY Final Diagnosis Specimen A. SKIN, left post thigh: SCABIES (B86) (see microscopic description) 2 4:[address] [facility] DERMATOPATHOLOGY LABORATORY at [address] LIBRARY CLERK Clinical History Folliculitis vs other. Path # [id number]. 2 4:[address] [facility] DERMATOPATHOLOGY LABORATORY Gross Description Specimen A: Received is one formalin filled container labeled with the patient's name and designated left post thigh. The specimen consists of a shave biopsy measuring [id number]. Jar 0. 2 4:[address] [facility] DERMATOPATHOLOGY LABORATORY Microscopic Description Specimen A. SKIN, left post thigh: Sections show spongiosis. Mite parts are in present in the upper epidermis. In the dermis there is a perivascular and interstitial lymphocytic infiltrate with eosinophils. Additional deeper sections were obtained and reviewed. 2 4:[address] [facility] DERMATOPATHOLOGY LABORATORY Disclaimer An external and internal positive and negative controls are appropriate for the histochemical, immunohistochemical and immunofluorescence stain(s) in this case (if any), except where stated explicitly. The performance characteristics of the stain(s) cited in this report were developed and its performance characteristic determined by the Dermatopathology Laboratory at [facility], directed by Dr. Ann Walker. These tests need not be, and therefore are not, approved by the [place] Food and Drug Administration. The tests are used for clinical purposes. Billing Codes Specimen Charges Stain Charges 70273 1 [id number] 1 2 4:[address] [facility] DERMATOPATHOLOGY LABORATORY Embedded Images 2 4:[address] [facility] DERMATOPATHOLOGY LABORATORY Pathology/Cytolog y TISSUE SPECIMEN FROM SKIN / Unknown 08/11/2021 08/12/2021 4:[address] [facility] us Erlin Pimentel MD LAB - PATHOLOGY/CYTOLOGY ORDER FELICIA Final Result DERMATOPATHOLOGY LABORATORY [facility] - Department of Dermatology [address], [address] [phone] documented in this encounter Visit Diagnoses Not on filedocumented in this encounter
--- OUTSIDE RECORDS SUMMARY | 2025-06-14 11:14 | XMS_ITS | Clinical Summary ---
Author Organization [facility] Address [address] [place] [address] Phone Care Team Providers Care Classification And Treatment Director Name Role Phone MelanieAsad gonsalez Alessandro Primary [...] on file Legal Sex Female 12:07 PM SOFTWARE SECURITY ARCHITECT Gender Identity Not on file Sexual Orientation Not on file Last Filed Vital Signs Vital Sign Reading Time Taken Comments Blood Pressure 160/130 08/21/2021 10:04 AM SOFTWARE SECURITY ARCHITECT Pulse 93 08/21/2021 10:04 AM SOFTWARE SECURITY ARCHITECT Temperature 36.3 C (97.4 F) 08/21/2021 10:04 AM SOFTWARE SECURITY ARCHITECT Respiratory Rate 22 08/21/2021 10:04 AM SOFTWARE SECURITY ARCHITECT Oxygen Saturation 91% 08/21/2021 10:04 AM SOFTWARE SECURITY ARCHITECT Inhaled Oxygen Concentration - - Weight 145.2 kg (320 lb) 08/21/2021 10:04 AM SOFTWARE SECURITY ARCHITECT Height 177.8 cm (5' 10) 08/21/2021 10:04 AM SOFTWARE SECURITY ARCHITECT Body Mass Index 45.92 08/21/2021 10:04 AM SOFTWARE SECURITY ARCHITECT Plan of Treatment Health Maintenance Due Date [...] Immunization Completed 03/27/2013 Human Papillomavirus (HPV) Immunization (No Doses Required) Completed Meningococcal Immunization (ACWY) Aged Out No longer eligible based on patient's age to complete this topic Rotavirus Immunization Aged Out No lo nger eligible based on patient's age to complete this topic Insurance MEDICARE C [facility] Advance Directives Documents on File Type Date Recorded Patient Scalehouse Attendant Expl anation Other Advance Directive 08/17/2021 3:29 PM UROLOGY SURGERY PRIO R AUTH APPROVAL Other Advance Directive 08/17/2021 2:21 PM MEDICAL CLEARANCE FO FOR UROLOGY SURGERY Care Teams Classification And Treatment Director Relationship Specialty Start Date End Date Asad Stahl DO [facility] [place] [address] PCP - General Internal Medicine 06/03/21
--- OUTSIDE RECORDS SUMMARY | 2025-06-14 11:14 | XMS_ITS | Clinical Summary ---
Author Organization [facility] Address [address] [place] [address] Care Team Providers Care Sterile Products Processor Name Role Phone Asad Stahl DO Primary Care Provider [phone] Randell Paulson MD Unavailable [phone] Allergies No known active allergies Medications levothyroxine (SYNTHROID) 200 mcg tablet Take 225 mcg by mouth daily Takes (200 mcg + 25 mcg tablet = 225 mcg daily) 022 Active lisinopriL (PRINIVIL,ZESTR IL) 40 mg tablet Take 1 tablet (40 mg total) by mouth daily Active venlafaxine 225 mg tablet extended release 24hr 24 hr tablet Take 1 tablet (225 mg total) by mouth daily Active solifenacin (VESIcare) 5 mg tablet Take 1 tablet (5 mg total) by mouth daily 30 tablet 2 Active albuterol HFA (PROVENTIL HFA,VENTOLIN HFA,PROAIR HFA) 90 mcg/actuation inhaler INHALE ONE PUFF BY MOUTH EVERY 4 HOURS NEEDED FOR SHORTNESS OF BREATH OR WHEEZING Active ibuprofen (ADVIL,MOTRIN) 600 mg tablet Take by mouth every 6 (six) hours as needed Active lamoTRIgine (LaMICtal) 100 mg tablet Take 1 tablet (100 mg total) by mouth nightly Active acetaminophen-a spirin-caffeine (EXCEDRIN MIGRAINE) 250-250-65 mg per tablet Take 2 tablets by mouth every 6 (six) hours as needed Active hydroCHLOROthia zide (HYDRODIURIL) 12.5 mg tablet Take 1 tablet (12.5 mg total) by mouth daily Active omeprazole (PriLOSEC) 20 mg capsule Take 1 capsule (20 mg total) by mouth daily Active terbinafine (LamiSIL) 250 mg tablet Take 1 tablet (250 mg total) by mouth daily 023 Active Stiolto Respimat 2.5-2.5 mcg/actuation inhaler INHALE 2 PUFFS BY MOUTH DAILY 023 Active linaCLOtide (Linzess) 145 mcg capsule Take 1 capsule (145 mcg total) by mouth daily 023 Active pregabalin (LYRICA) 200 mg capsule Take 1 capsule (200 mg total) by mouth 2 (two) times a day Active rosuvastatin (CRESTOR) 5 mg tablet Take 1 tablet (5 mg total) by mouth daily Active Ozempic 2 mg/dose (8 mg/3 mL) pen injector injection INJECT 2 MG (0.75 ML) SUBCUTANEOUSLY WEEKLY ON WEDNESDAYS Active tolterodine (DETROL) 2 mg tabletIndicatio ns:Overactive bladder,Urge incontinence TAKE 1 TABLET(2 MG) BY MOUTH TWICE DAILY 180 tablet 3 Active cholecalciferol (VITAMIN D-3) 50,000 unit capsule Take 1 capsule (50,000 Units total) by mouth 025 Active trospium (SANCTURA) 20 mg tabletIndicatio ns:Urge incontinence Take 1 tablet (20 mg total) by mouth 2 (two) times a day 60 tablet 11 025 2025 Active cholecalciferol (VITAMIN D-3) 25 mcg (1,000 unit) tablet Take 1 tablet (1,000 Units total) by mouth 3 (three) times a week 2024 Discontinued Active Problems Problem Noted Date Diagnosed Date 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 -She reports urgency and loss of control of urine at times. -She is working to reduce tea and soda intake and trying to replace with water. She recently signed up for [facility] and plans on working on weight [...] Encounters Date Type Department Care Team Description 05/31/2025 Results Follow-Up [facility] Obstetrical Gynecology [address] [facility] [facility] [address] [place] [address] Randell Paulson MD Pap and High Risk HPV and Genotyping (Cytology Component) 05/22/2025 11:52 AM CLINICAL TRIAL DATA MANAGER - 05/22/2025 11:59 PM CLINICAL TRIAL DATA MANAGER Hospital Encounter [facility] [address] [place] [address] Well woman exam Discharge Disposition: Discharge to home or self care 05/22/2025 11:00 AM CLINICAL TRIAL DATA MANAGER Office Visit [facility] Obstetrical Gynecology [address] [place] [address] Randell Paulson MD Well woman exam (Primary Dx); Encounter for screening mammogram for malignant neoplasm of breast; Urge incontinence; Menopausal symptoms from Last 3 Months Immunizations Immunization Administration [...] - 06/19/2023 BACK SURGERY 06/20/2023 - 06/19/2024 HERNIA REPAIR 01/18/2022 - 02/17/2022 Medical History Medical History Date Comments Sleep [...] more drinks on one occasion? Never 12/15/2021 PHQ-2 Answer Date Recorded PHQ-2 Total Score (If total score is 3 or more points, staff should administer the PHQ-9) 4 05/22/2025 PHQ-9 Answer Date Recorded PHQ-9 Total Score 11 05/22/2025 Comments No Sex and Gender Information Value Date Recorded Sex Assigned at Not on file Legal Sex Female 1:00 PM CLINICAL TRIAL DATA MANAGER Gender Identity Not on file Sexual [...] Sign Reading Time Taken Comments Blood Pressure 130/70 05/22/2025 10:52 AM CLINICAL TRIAL DATA MANAGER Pulse 89 05/22/2025 10:52 AM CLINICAL TRIAL DATA MANAGER Temperature 36.8 C (98.2 F) 12/16/2021 7:00 AM CDT Respiratory Rate 22 12/16/2021 7:00 AM CDT Oxygen Saturation 95% 12/16/2021 7:00 AM CDT 4 LITER Inhaled Oxygen Concentration - - Weight 120.3 kg (265 lb 3.2 oz) 025 10:52 AM CLINICAL TRIAL DATA MANAGER Height 177.8 cm (5' 10) 05/22/2025 10: 52 AM CLINICAL TRIAL DATA MANAGER Body Mass Index 38.05 05/22/2025 10:52 AM CLINICAL TRIAL DATA MANAGER Plan of Treatment Health Maintenance Due Date Last Done Comments Breast Cancer Screening-Mammogram 1975 Colon Cancer Screening-Colonoscopy 1975 Hepatitis C Screening 1975 Hepatitis B Screening 1995 Pneumococcal vaccine <65 (1 of 2 - PCV) 01/18/1996 DTaP/Tdap/Td Vaccine (7 - Td or Tdap) 03/27/2023 03/27/2013, 01/30/1982, 07/26/1978, Additional history exists Influenza Vaccine (#1) 2025 04/30/2013, 2010 Cervical Cancer Screening 05/22/20262024, 05/22/2025, 09/28/2021, Additional history exists Depression Screening 05/22/2026 05/22/2025, 05/22/20 25 Regular Well Visit/Exam 18-64 05/22/2026 05/22/2025, 11/18/2023 Medical Devices Implanted Type Area Automatic Driller And Reamer Device Identifier Shelf Expiration Date Model / Serial / Lot [employer] Herlinda [id number] Solyx Advantage 9cm Incision Sling Delivery Device Mesh - [id number] Implanted:Qty: 1 on 12/15/2021 by Randell Paulson MD at [facility] N/A: Pelvis [employer] Herlinda 10/14/2024 [id number] / / [id number] Procedures Procedure Name Priority Date/Time Associated Diagnosis Comments PAP AND HIGH RISK HPV, REFLEX TO GENOTYPING Routine 05/22/2025 10:51 AM CLINICAL TRIAL DATA MANAGER Well woman exam HIGH RISK HPV DNA DETECTION WITH GENOTYPING Routine 05/22/2025 10:51 AM CLINICAL TRIAL DATA MANAGER Well woman exam from Last 3 Months Results * High Risk HPV DNA Detection with Genotyping (Molecular component) (05/22/2025 10:51 AM CLINICAL TRIAL DATA MANAGER) HPV HR 16 Not Detected Not Detected [facility] Comment:Testing performed by : [facility], [address] [place]., [address] HPV HR 18 Not Detected Not Detected [facility] Comment:Testing performed by : [facility], [address] [place]., [address] HPV HR Non 16/18 Not Detected Not Detected [facility] Comment: Interpretive Data Nucleic acid amplification for detection of high-risk Human Papilloma virus (HPV) is performed by the Bobby Michelle 6800 HPV test. This assay specifically detects HPV-16 and HPV-18 genotypes. The following HPV genotypes are detected as high-risk HPV: HPV-31, 33, 35, ,39, 45, 51, 52, 56, 58, 59, 66, and 68. This assay has been approved by the [place] States Food and Drug Administration for detection of HPV in cervical specimens collected by a physician using an endocervical brush/spatula or cervical broom and placed in the ThinPrep Pap Test PreservCyt collection containers. The performance characteristics of this test have been verified by the [facility] Molecular Infectious Disease laboratory. Correlate with separately reported cytology results, as applicable. Interpretive data last revised 22 Testing performed by: [facility], [address] [place]., [address] Endocervical 05/22/2025 10:5 1 AM CLINICAL TRIAL DATA MANAGER 05/23/2025 1:50 PM CLINICAL TRIAL DATA MANAGER Narrative [facility] - 05/24/2025 1:00 AM CLINICAL TRIAL DATA MANAGER Clinical history and diagnosis->screen Number of vials->1 Testing type->Screening Last menstrual period (date if known)->ablation us Randell Paulson MD LAB BODY FLUIDS AND STO OLS ORDERABLES Final Result [facility] [address] Department [place] [address] [facility] * Pap and High Risk HPV and Genotyping (Cytology Component) (05/22/2025 10:51 AM CLINICAL TRIAL DATA MANAGER) Thin prep (Pap test) 05/22/2025 10:51 AM CLINICAL TRIAL DATA MANAGER 05/23/2025 2:03 AM CLINICAL TRIAL DATA MANAGER Narrative PATHOLOGY [facility] - 05/31/2025 10:14 AM CLINICAL TRIAL DATA MANAGER EPIC results best viewed via link to PDF [facility] Brigida Parra Laboratory [place] [address] [place] [address] Note to Patients: This report may contain [...] can answer questions and explain the details. CYTOPATHOLOGY REPORT FINAL Patient Name: ZENAIDA DOMÍNGUEZ Gender: F : 1975 (Age: 50) Address: [address] [place] [id number] Hospital #: [id number] Service: UNKNOWN Location: Patient Type: [facility] SPECIMEN Taken: 05/22/2025 Received: 05/23/2025 Accessioned: 05/23/2025 Reported: 05/31/2025 Physician(s): Randell Paulson M.D. FINAL INTERPRETATION SOURCE OF SPECIMEN Liquid based Thin Prep pap with HPV: STATEMENT OF ADEQUACY - Satisfactory for evaluation - Endocervical cells/transformation zone sample present GENERAL CATEGORIZATION: - Negative for squamous intraepithelial lesion or malignancy Comments (Normal-Negative for High Risk HPV) HPV HR 16- Not detected HPV HR 18-Not detected HPV HR non 16/18- Not detected Interpretive Data Nucleic acid amplification for detection of high-risk Human Papilloma virus (HPV) is performed by the Bobby Michelle 6800 HPV test. This assay specifically detects HPV- 16 and HPV-18 genotypes. The following HPV genotypes are detected as high-risk HPV: HPV-31, 33, 35, 39, 45, 51, 52, 56, 58, 59, 66, and 68. This assay has been approved by the [place] Food and Drug Administration for detection of HPV in cervical specimens collected by a physician using an endocervical brush/spatula or cervical broom and placed in the ThinPrep Pap Test PreservCyt collection containers. The performance characteristics of this test have been verified by the [facility] Molecular Infectious Disease laboratory. Correlate with reported cytology results, as applicable.Testing performed by: [facility], [address] [place]., [address] CLIA # [id number] Interpretive data last revised 22 tcg/05/31/2025 10:14 DONTRELL Cortes (ASCP) Report Electronically Reviewed and Signed Out By DONTRELL Cortes (ASCP) 05/31/2025 10:14:45 Cervicovaginal Cytology (Pap Test) Disclaimer: The Pap test is a screening test used to detect cervical cancer and its precursors; it is not a diagnostic procedure. False negative and false positive results do occur. Pap test results should be interpreted in the context of pertinent clinical information and biopsy results as indicated. [facility] Clinical Laboratory Improvement Amendments (CLIA) mandate that cytologic and histologic results be correlated for laboratory corporate quality manager & improvement standards. FOR ALL HIGH-GRADE CASES we request submission of follow-up histological material and/or reports that have not been previously provided so that we may fulfill said required standards. Gross Description A. Liquid based Thin Prep pap with HPV: Cervical/vaginal - Screening ThinPrep Clinical Diagnosis and History Last Menstrual Period: ablation The patient is a 50 year old female with screening. Report Images and scanned documents, if included only viewable in PDF version The performance characteristics of some immunohistochemical stains, in-situ hybridization and fluorescence in-situ hybridization tests and immunophenotyping by flow cytometry cited in this report (if any) were determined by the Surgical Pathology Department at [facility] as part of an ongoing quality associate program and in compliance with federally mandated [...] characteristics determined by the Surgical Pathology Department of [facility]. It has not been cleared or approved by the U. S. Food and Drug Administration. Randell Paulson MD LAB CYTOLOGY ORDERABLES Final Result PATHOLOGY [facility] from Last 3 Months Insurance [facility] MEDICARE ADVANTAGE [facility] MEDICARE Address: [facility] [address] [place] [address] [employer] [facility] MEDICARE Address: [address] [address] [place] [address] Advance Directives For more information, please contact: [phone] * Full Code (Latest Code Status on File) Date Activated Date Inactivated Comments 12/15/2021 3:13 PM 12/16/2021 3:43 PM Care Teams Sterile Products Processor Relationship Specialty Start Date End Date Yablonsky, Asad B., DO PCP - General Internal Medicine 08/17/21 Randell Paulson MD [address] [facility] [address] [address] Consulting Physician Obstetrics and Gynecology 12/16/21
--- OUTSIDE RECORDS SUMMARY | 2025-06-14 11:14 | XMS_ITS | Clinical Summary ---
Author Organization [facility] Address [address] [place] [address] Care Team Providers Care Applications Developer Name Role Phone LeathaAsad hudson Alessandro HSIEH Primary Care Provider Allergies No known active [...] Encounters Date Type Department Care Team Description 06/04/2025 External Device Data STL ABSTRACTION Provider, Abstract 04/09/2025 External Device Data ST[facility] ABSTRACTION Provider, Abstract 04/09/2025 Orders Only [facility] Oncology and Hematology [facility] [address] [place] [address] Anatoliy Ghosh MD 04/05/2025 12:15 PM CDT Office Visit [facility] Oncology and Hematology - [place] [address] [place] [address] Anatoliy Ghosh MD Erythrocytosis (Primary Dx) from Last 3 Months Family History Medical [...] Date Smoking Tobacco: Every Day Cigarettes 0.7 37 Started: 06/20/1988 Tobacco Cessation:Ready to Q uit: Not Asked; Counseling Given: Not Answered Alcohol Use Standard Drinks/Week Comments Never 0 (1 standard drink = 0.6 oz pur e alcohol) Comments Unknown Sex and Gender Information Value Date Recorded Sex Assigned at Not on file Legal Sex Female 11:09 AM TESTBOARD OPERATOR Gender Identity Not on file Sexual [...] st Contact Info) Description 08/06/2025 11:15 AM TESTBOARD OPERATOR Office Visit [facility] Oncology and Hematology - [place] [address] [place] [address] Anatoliy Ghosh MD [address] [facility] [address] [place] [address] Health Maintenance Due Date Last [...] WITH AUTODIFFERENTIAL (04/05/2025 12:39 PM CDT) Blood Anatoliy Ghosh MD HEMATOLOGY ORDERABLES Final Res ult from Last 3 Months Insurance Care Teams Applications Developer Relationship Specialty Start Date End Date Asad Stahl DO [address] [address] PCP - General Internal Medicine 07/30/21
[2025-06-14 11:57] VITALS: BP 140/78; PULSE 104; RESP 16; TEMP 36.3; O2SAT 91
--- OUTSIDE RECORDS SUMMARY | 2025-06-14 15:35 | XMS_ITS | Clinical Summary ---
Author Organization [facility] Address [address] [place] [address] Care Team Providers Care Boatswain'S Mate Name Role Phone Asad Stahl DO Primary Care Provider [phone] Randell Paulson MD Unavailable [phone] Allergies No known active allergies Medications levothyroxine [...] (11/09/2021): Added automatically from request for surgery [id number] Rectocele 09/28/2021 Urge incontinence of urine 09/24/2021 Assessment & Plan (09/24/2021 1:17 PM CDT): -Failed oxybutynin and Myrbetriq in the past. -She reports urgency and loss of control of urine at times. -She is working to reduce tea and soda intake and trying to replace with water. She recently signed up for [facility] and plans on working on weight [...] Department Care Team Description 05/31/2025 Results Follow-Up [facility] Obstetrical Gynecology [address] [facility] [address] [place] [address] Randell Paulson MD Pap and High Risk HPV and Genotyping (Cytology Component) 05/22/2025 11:52 AM MACHINE UMBRELLA TIPPER - 05/22/2025 11:59 PM MACHINE UMBRELLA TIPPER Hospital Encounter [facility] [address] [place] [address] Well woman exam Discharge Disposition: Discharge to home or self care 05/22/2025 11:00 AM MACHINE UMBRELLA TIPPER Office Visit [facility] Obstetrical Gynecology [address] [facility] [address] [place] [address] Randell Paulson MD Well woman [...] on file Legal Sex Female 1:00 PM MACHINE UMBRELLA TIPPER Gender Identity Not on file Sexual Orientation [...] Comments Blood Pressure 130/70 05/22/2025 10:52 AM MACHINE UMBRELLA TIPPER Pulse 89 05/22/2025 10:52 AM MACHINE UMBRELLA TIPPER Temperature 36.8 C (98.2 F) 12/16/2021 7:00 AM CDT Respiratory Rate 22 12/16/2021 7:00 AM CDT Oxygen Saturation 95% 12/16/2021 7:00 AM CDT 4 LITER Inhaled Oxygen Concentration - - Weight 120.3 kg (265 lb 3.2 oz) 025 10:52 AM MACHINE UMBRELLA TIPPER Height 177.8 cm (5' 10) 05/22/2025 10: 52 AM MACHINE UMBRELLA TIPPER Body Mass Index 38.05 05/22/2025 10:52 AM MACHINE UMBRELLA TIPPER Plan of Treatment Health Maintenance Due Date [...] 05/22/2025, 11/18/2023 Medical Devices Implanted Type Area Quantitative Analyst Developer Device Identifier Shelf Expiration Date Model / Serial / Lot [employer] Herlinda [id number] Solyx Advantage 9cm Incision Sling Delivery Device Mesh - [id number] Implanted:Qty: 1 on 12/15/2021 by Randell Paulson MD at [facility] N/A: Pelvis [employer] Herlinda 10/14/2024 [id number] / / [id number] Procedures Procedure Name Priority Date/Time Associated Diagnosis Comments PAP AND HIGH RISK HPV, REFLEX TO GENOTYPING Routine 05/22/2025 10:51 AM MACHINE UMBRELLA TIPPER Well woman exam HIGH RISK HPV DNA DETECTION WITH GENOTYPING Routine 05/22/2025 10:51 AM MACHINE UMBRELLA TIPPER Well woman exam from Last 3 Months Results * High Risk HPV DNA Detection with Genotyping (Molecular component) (05/22/2025 10:51 AM MACHINE UMBRELLA TIPPER) HPV HR 16 Not Detected Not Detected [facility] Comment:Testing performed by : [facility], [address] [place]., [address] HPV HR 18 Not Detected Not Detected [facility] Comment:Testing performed by : [facility], [address] [place]., [address] HPV HR Non 16/18 Not Detected Not [...] this test have been verified by the [facility] Molecular Infectious Disease laboratory. Correlate with separately reported cytology results, as applicable. Interpretive data last revised 22 Testing performed by: [facility], [address] [place]., [address] Endocervical 05/22/2025 10:5 1 AM MACHINE UMBRELLA TIPPER 05/23/2025 1:50 PM MACHINE UMBRELLA TIPPER Narrative [facility] - 05/24/2025 1:00 AM MACHINE UMBRELLA TIPPER Clinical history and diagnosis->screen Number of vials->1 Testing type->Screening Last menstrual period (date if known)->ablation us Randell Paulson MD LAB BODY FLUIDS AND STO OLS ORDERABLES Final Result [facility] [address] [facility] Department [place] [address] [facility] * Pap and High Risk HPV and Genotyping (Cytology Component) (05/22/2025 10:51 AM MACHINE UMBRELLA TIPPER) Thin prep (Pap test) 05/22/2025 10:51 AM MACHINE UMBRELLA TIPPER 05/23/2025 2:03 AM MACHINE UMBRELLA TIPPER Narrative PATHOLOGY [facility] - 05/31/2025 10:14 AM MACHINE UMBRELLA TIPPER EPIC results best viewed via link to PDF [facility] Brigida Parra Laboratory [place] [address] [place] [address] Note to Patients: This report may contain [...] Gender: F : 1975 (Age: 50) Address: [address] [place] [address] Hospital #: [id number] Service: UNKNOWN Location: Patient Type: [facility] SPECIMEN Taken: 05/22/2025 Received: 05/23/2025 Accessioned: [...] this test have been verified by the [facility] Molecular Infectious Disease laboratory. Correlate with reported cytology results, as applicable.Testing performed by: [facility], [address] [place]., [address] CLIA # [id number] Interpretive data last revised 22 tcg/05/31/2025 10:14 [...] clinical information and biopsy results as indicated. [facility] Clinical Laboratory Improvement Amendments (CLIA) mandate that cytologic and histologic results be correlated for laboratory quality control tech & improvement standards. FOR ALL HIGH-GRADE CASES [...] determined by the Surgical Pathology Department at [facility] as part of an ongoing quality control tech program and in compliance with federally mandated [...] determined by the Surgical Pathology Department of [facility]. It has not been cleared or approved by the U. S. Food and Drug Administration. Randell Paulson MD LAB CYTOLOGY ORDERABLES Final Result PATHOLOGY [facility] from Last 3 Months Insurance [facility] MEDICARE ADVANT[facility] Address: [facility] [address] [place] [address] [facility] MED[facility] Address: [address] [address] [place] [address] Advance Directives For more information, please contact: [phone] * Full Code (Latest Code Status on File) Date Activated Date Inactivated Comments 12/15/2021 3:13 PM 12/16/2021 3:43 PM Care Teams Boatswain'S Mate Relationship Specialty Start Date End Date Yablonsky, Asad B., DO PCP - General Internal Medicine 08/17/21 Randell Paulson MD [address] [facility] [address] [address] Consulting Physician Obstetrics and Gynecology 12/16/21
--- OUTSIDE RECORDS SUMMARY | 2025-06-14 15:35 | XMS_ITS | Encounter Summary ---
Author Organization [facility] Health Address [address] [place] [address] Care Team Providers Care Slot Tag Inserter Name Role Phone Unavailable Primary Care Provider Unavailabl e Encounter Details Date Type Department Care Team (Late st Contact Info) Description 08/12/2021 Lab Requisition [facility] DermPath Lab [address] [place] [id number] Erlin Pimentel MD [address] [place] [address] Social History Tobacco Use Types Packs/Day Years Used Date Smoking Tobacco: Some Days Cigarettes Smokeless Tobacco: Never Alcohol Use Standard Drinks/Week Comments No 0 (1 standard drink = 0.6 oz pur e alcohol) Comments Unknown Sex and Gender Information Value Date Recorded Sex Assigned at Not on file Legal Sex Female 6:25 PM 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 Gender Identity Not on file Sexual Orientation Not on file documented as of this encounter Plan of Treatment Not on file documented as of this encounter Procedures Procedure Name Priority Date/Time Associated Diagnosis Comments DERMATOPATHOLOGY Routine 08/11/2021 12:0 0 AM 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 documented in this encounter Results * DERMATOPATHOLOGY (08/11/2021 12:00 AM 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) Case Report Dermatopathology Report Case: [id number] Authorizing Provider: Erlin Pimentel MD Collected: 08/11/2021 12:00 AM Ordering Location: [facility] Derm[facility] Lab Received: 08/12/2021 04:13 PM Pathologist: Simona Kraus MD Specimen: Skin, left post thigh 2 4:01 PM [facility] DERMATOPATHOLOGY [facility]ORAT[facility] Final Diagnosis Specimen A. SKIN, left post thigh: SCABIES ([id number]) (see microscopic description) 2 4:01 PM [facility] DERMATOPATHOLOGY LABORATORY at [address] 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 Clinical History Folliculitis vs other. Path # [id number]. 2 4:01 PM [facility] DERMATOPATHOLOGY [facility]OR[facility] Gross Description Specimen A: Received is one formalin filled container labeled with the patient's name and designated left post thigh. The specimen consists of a shave biopsy measuring [id number]. Jar 0. 2 4:01 PM [facility] DERMATOPATHOLOGY [facility]ORATORY Microscopic Description Specimen A. SKIN, left post thigh: Sections show spongiosis. Mite parts are in present in the upper epidermis. In the dermis there is a perivascular and interstitial lymphocytic infiltrate with eosinophils. Additional deeper sections were obtained and reviewed. 2 4:01 PM [facility] DERMATOPATHOLOGY [facility]ORAT[facility] Disclaimer An external and internal positive and negative controls are appropriate for the histochemical, immunohistochemical and immunofluorescence stain(s) in this case (if any), except where stated explicitly. The performance characteristics of the stain(s) cited in this report were developed and its performance characteristic determined by the Dermatopathology Laboratory at [facility], directed by Dr. Ann Walker. These tests need not be, and therefore are not, approved by the [place] Food and Drug Administration. The tests are used for clinical purposes. Billing Codes Specimen Charges Stain Charges 83644 1 93606 1 2 4:01 PM [facility] DERMATOPATHOLOGY [facility]OR[facility] Embedded Images 2 4:01 PM [facility] DERMATOPATHOLOGY [facility]OR[facility]ORY Pathology/Cytolog y TISSUE SPECIMEN FROM SKIN / Unknown 08/11/2021 08/12/2021 4:13 PM [facility] us Erlin Pimentel MD LAB - PATHOLOGY/CYTOLOGY ORDER FELICIA Final Result DERMATOPATHOLOGY LABORATORY [facility] - Department of Dermatology [address], [address] [phone] documented in this encounter Visit Diagnoses Not on filedocumented in this encounter
--- OUTSIDE RECORDS SUMMARY | 2025-06-14 15:35 | XMS_ITS | Clinical Summary ---
Author Organization [facility] Address [address] [place] [address] Care Team Providers Care Oil Well Fishing Tool Technician Name Role Phone Johnny Awad MD Unavailable [phone] Jacque Pérez MD Unavailable [phone] Randell Paulson MD Unavailable [phone] Asad Stahl DO Primary Care Provider [phone] Medications fluticasone propionate (FLONASE) 50 MCG/ACT nasal [...] Comments Blood Pressure 100/67 07/27/2023 4:15 PM WORK DISTRIBUTOR Pulse 78 07/27/2023 4:15 PM WORK DISTRIBUTOR Temperature 36.2 C (97.2 F) 07/27/2023 4:15 PM WORK DISTRIBUTOR Respiratory Rate 16 07/27/2023 4:15 PM WORK DISTRIBUTOR Oxygen Saturation 94% 07/27/2023 4:15 PM WORK DISTRIBUTOR Inhaled Oxygen Concentration - - Weight 119.2 kg (262 lb 12.6 oz) 2023 10:30 AM WORK DISTRIBUTOR Height 177.8 cm (5' 10) 07/27/2023 10: 30 AM WORK DISTRIBUTOR Body Mass Index 37.71 07/27/2023 10:30 AM WORK DISTRIBUTOR Plan of Treatment Health Maintenance Due Date [...] to complete this topic Insurance MED REPLACE [facility] MEDICARE MEDICAID [facility] MEDICARE Care Teams Oil Well Fishing Tool Technician Relationship Specialty Start Date End Date Asad Stahl DO [address] [place], [place] [id number] PCP - General INTERNAL MEDICINE 05/25/23 Johnny Awad MD [address] [facility] [address] [place] [address] PULMONARY DISEASE 05/24/23 Jacque Pérez MD [address] [place] [address] ENDOCRINOLOGY 05/24/23 Randell Paulson MD [address] [place] [address] OBGYN 05/24/23
--- OUTSIDE RECORDS SUMMARY | 2025-06-14 15:35 | XMS_ITS | Clinical Summary ---
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 Gender Identity Not on file Sexual Orientation Not on file Last Filed Vital Signs Vital Sign Reading Time Taken Comments Blood Pressure 160/130 08/21/2021 10:04 AM COLLECTION SYSTEMS MODELER Pulse 93 08/21/2021 10:04 AM COLLECTION SYSTEMS MODELER Temperature 36.3 C (97.4 F) 08/21/2021 10:04 AM COLLECTION SYSTEMS MODELER Respiratory Rate 22 08/21/2021 10:04 AM COLLECTION SYSTEMS MODELER Oxygen Saturation 91% 08/21/2021 10:04 AM COLLECTION SYSTEMS MODELER Inhaled Oxygen Concentration - - Weight 145.2 kg (320 lb) 08/21/2021 10:04 AM COLLECTION SYSTEMS MODELER Height 177.8 cm (5' 10) 08/21/2021 10:04 AM COLLECTION SYSTEMS MODELER Body Mass Index 45.92 08/21/2021 10:04 AM COLLECTION SYSTEMS MODELER Plan of Treatment Health Maintenance Due Date [...] to complete this topic Insurance MEDICARE C [facility] Advance Directives Documents on File Type Date Recorded Patient Counselor Manager Expl anation Other Advance Directive 08/17/2021 3:29 PM UROLOGY SURGERY PRIO R AUTH APPROVAL Other Advance Directive 08/17/2021 2:21 PM MEDICAL CLEARANCE FO FOR UROLOGY SURGERY Care Teams Construction Code Administrator Relationship Specialty Start Date End Date Asad Stahl DO [facility] [facility] [place] [address] PCP - General Internal Medicine 06/03/21
--- OUTSIDE RECORDS SUMMARY | 2025-06-14 15:35 | XMS_ITS | Clinical Summary ---
Author Organization [facility] Address [address] [place] [address] Care Team Providers Care Software Lead Name Role Phone Unavailable Primary Care Provider Unavailabl e Source Comments [facility],non-owned Affiliates and Associated Physician Practices is amultiple site organization consisting of ambulatory clinics and hospital sitesin [place], [place], [place] and [place]. This disclosure is being madepursuant to the Care Everywhere program and may not contain all information available regarding this patient. 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
--- OUTSIDE RECORDS SUMMARY | 2025-06-14 15:35 | XMS_ITS | Clinical Summary ---
Author Organization [facility] Address [address] [place] [address] Care Team Providers Care Auto Service Instructor Name Role Phone LeathaAsad hudson Alessandro HSIEH [...] STL ABSTRACTION Provider, Abstract 04/09/2025 Orders Only [facility] Oncology and Hematology [facility] [address] [place] [address] Anatoliy Ghosh MD 04/05/2025 12:15 PM CDT Office Visit [facility] Oncology and Hematology - [place] [address] [place] [address] Anatoliy Ghosh MD Erythrocytosis (Primary Dx) from [...] on file Legal Sex Female 11:09 AM LOGGING SUPERINTENDENT Gender Identity Not on file Sexual Orientation [...] st Contact Info) Description 08/06/2025 11:15 AM LOGGING SUPERINTENDENT Office Visit [facility] Oncology and Hematology - [place] [address] [place] [address] Anatoliy Ghosh MD [address] [place] [address] Health Maintenance Due Date Last [...] from Last 3 Months Insurance Care Teams Auto Service Instructor Relationship Specialty Start Date End Date Asad Stahl DO [address] [address] PCP - General Internal Medicine 07/30/21
[2025-06-14 15:36] VITALS: BP 129/91; PULSE 80; RESP 18; O2SAT 94
[2025-06-14] MEDS: ONDANSETRON INJ 4 MG/2 ML VIAL IV PUSH (16:00)
[2025-06-14] MEDS: SODIUM CHLORIDE 0.9% IV 1,000 ML 999 ML IV CONT (16:00)
[2025-06-14 16:05] LABS: Hematocrit 44.1 % (37.0-47.0); Hemoglobin 15.0 g/dL (12.0-15.0); Immature Granulocyte Percent A 0.3 % (0-0.5); Lymphocytes Absolute Auto 2.57 K/mm3 (0.9-3.2); Mean Corpuscular HGB Conc 34.0 g/dl (32-36); Mean Corpuscular Hemoglobin 30.6 pg (26-34); Mean Corpuscular Volume 90.0 fl (80-100); Nucleated Red Blood Cells Absolute Auto 0.000 K/mm3 (0.0-0.012); Nucleated Red Blood Cells Perc 0.0 % (0.0-0.2); Platelet Count Result 256 k/mm3 (150-375); Red Blood Count 4.90 M/mm3 (4.2-5.4); White Blood Count 13.7 K/mm3 (4.5-10.0)
[2025-06-14] MEDS: MORPHINE SULFATE (*CRX) 4 MG/ML INJ IV PUSH (16:05)
[2025-06-14 16:08] LABS: BEDSIDEPREGUCG Negative (Negative)
[2025-06-14 16:28] LABS: Add Urine Microscopic? YES; Appearance Urine Cloudy (Clear); Budding Yeast Urine Present /hpf; Glucose Urine UA Negative (Negative); Leukocyte Esterase Ur Negative LEU/UL (Negative); Nitrate Urine Negative (Negative); Non Pathogenic Casts 0-2; Specific Grav Ur 1.024 (1.001-1.035)
[2025-06-14 16:30] VITALS: O2SAT 86; O2SAT 95
--- NOTE | 2025-06-14 16:30 | PC.NURSE ---
Pt reports hx of COPD and sleep apnea, supposed to wear cpap at night but chooses to wear 2L NC only. Pt oxygen decreased to 86% after morphine administration and while resting, placed on 2L NC and increased to 95%. Pt in NAD
[2025-06-14 16:59] LABS: Alanine Aminotransferase 17 U/L (6-35); Albumin Level 3.7 g/dL (3.5-5.1); Alkaline Phosphatase 76 U/L (38-126); Anion Gap 4 mmol/L (4-12); Aspartate Amino Transferase 17 U/L (14-36); Bilirubin,Total 0.3 mg/dL (0.2-1.3); Blood Urea Nitrogen 10 mg/dL (7-17); Calcium 9.5 mg/dL (8.4-10.2); Carbon Dioxide 29 mmol/L (22-30); Chloride 106 mmol/L (98-107); Estimated CRCL calculation 113 ml/min; Estimated Glomerular Filt Rate > 60; Glucose 111 mg/dL (65-110); Lipase 96 U/L (23-300); Potassium 3.7 mmol/L (3.4-5.0); Sodium 139 mmol/L (137-145); Total Protein 6.8 g/dL (6.3-8.2)
--- NOTE | 2025-06-14 17:39 | ED_ITS ---
HPI - Abdominal Pain General Chief Complaint: Abdominal Pain Stated Complaint: left sided rib pain Time Seen by Provider: 06/14/25 15:20 History of Present Illness HPI narrative: Patient is a 50-year-old female who presents ER with pain to the left upper abdomen. It is worse with posterior abdomen and bending. Sometimes is worse with taking deep breath. She has chronic cough related to her COPD. No fevers or chills or sweats. No diarrhea. She has not have history of diverticulitis. Pain is been ongoing over last week. Related Data Home Medications ?Medication ?Instructions ?Recorded ?Confirmed ?Last Taken ?Type vitamin b BYMOUTH 01/15/25 04/02/25 Un known History Allergies Allergy/AdvReac Type Severity Reaction Status Date / Time No Known Allergies Allergy Verified 06/14/25 15:36 Review of Systems 2 Review of Systems: All systems reviewed & are unremarkable except as noted in HPI and below Constitutional: Constitutional: Reports no additional constitutional complaints Cardiovascular: Cardiovascular: Reports no additional cardiovascular complaints Respiratory: Respiratory: Reports no additional respiratory complaints Gastrointestinal: Gastrointestinal: Reports no additional gastrointestinal complaints [facility] Past Medical History Medical History Esophageal candidiasis Colon cancer screening Anxiety Leukocytosis Hypothyroidism (acquired) Hyperlipidemia Essential hypertension Body mass index (BMI) 35 or more (11/17/18) Lumbar radiculopathy Bilateral lower extremity edema Vaginal wall prolapse 12/15/2021 Diabetes mellitus Ventral incisional hernia with obstruction On home O2 Hepatic steatosis NIKOLE (obstructive sleep apnea) (~07/14/21) Chronic respiratory failure with hypoxia Urinary incontinence GERD (gastroesophageal reflux disease) Hypertrophy of both inferior nasal turbinates COPD (chronic obstructive pulmonary disease) Emphysema of lung Tobacco abuse Lesion of vocal cord Vitamin D deficiency Depression Surgical History Surgical History History of back surgery History of incisional hernia repair Open reducible incisional hernia repair with Phasix ST mesh 08/02/[address] Lee. History of bilateral tubal ligation History of carpal tunnel release Bilaterally H/O dilation and curettage History of cholecystectomy History of bunionectomy right foot H/O ventral hernia repair 01/05/22 H/O hernia repair 01/06/2022 History of laparoscopic cholecystectomy 2013 History of bladder surgery bladder sling placed in 12/2021. History of vaginal surgery History of carpal tunnel surgery 2010 left and right wrist H/O prior ablation treatment uterine ablation - 2005 H/O tubal ligation BL 2002 H/O section 1992 Family History Family History Sibling Hypertension Diabetes mellitus brother Father Hypertension Cerebrovascular accident Diabetes mellitus Heart disease Mother Diabetes mellitus Hypertension Thyroid disorder Grandparent Cancer Diabetes mellitus Daughter Thyroid disorder Social History Social History Social History: Caffeine- 6pk canned soda The patient is and lives with her . She is disabled due to her COPD. She has 4 children. She smokes approximately half a pack a cigarettes a day. She occasionally drinks an alcoholic beverage. Code status full code. Smoking packs per day: 1 Smoking cigarettes per day: 20.0 Years smoked: 30 Smoking pack-years: 30.00 Smoking status: Current every day smoker Tobacco type: cigarettes Second hand tobacco smoke exposure: No Smoking end date: 01/05/22 Alcohol intake: never Substance use: never Substance use type: does not use Lack of Transportation: No Lack of Food: Sometimes True Current Housing: I Have Housing Concerned About Future Housing: No Difficulty Paying Gas/Electric Bills: No Difficulty Paying for Meds: No Currently Unemployed: YES Education: Decline to Answer Difficulty w/ Childcare or Family Care: No Living arrangements: with family Spiritual care concerns: No Agree to blood products: Yes Exam 2 Narrative: GENERAL: Well-appearing, well-nourished, and in no acute distress. HEAD: Normocephalic, atraumatic. ENT: Mucous membranes moist. CHEST: Scattered rhonchi with rare cough. No respiratory distress. HEART: Regular rate and rhythm. Normal peripheral pulses. ABDOMEN: Soft, tender palpation left upper quadrant with some guarding, nondistended, normal active bowel sounds. EXTREMITIES: Normal range of motion. No edema. SKIN: Warm, dry, no rash. NEURO: Alert and oriented x3. PSYCH: Normal mood and affect. Course Course Emergency Course: Discussed lab and imaging results. Pain may be related to developing pneumonia and some pleurisy. Discharge home with oral antibiotics. No increase home O2 requirement. Urine with a few red blood cells and 1+ bacteria was not felt to be related to infection given moderate squamous epithelial cells. Patient will also be discharged with pain medication. While here she received IV fluid, morphine, and Zofran. We also discussed the ovarian cyst and she will follow-up with her tableau developer. Vital Signs Vital signs: Vital Signs Temperature 97.3 F L 06/14/25 11:57 Pulse Rate 104 H 06/14/25 11:57 Respiratory Rate 16 06/14/25 11:57 Blood Pressure 140/78 06/14/25 11:57 Pulse Oximetry 91 06/14/25 11:57 Oxygen Delivery Room Air 06/14/25 11:57 Temperature 97.3 F L 06/14/25 11:57 Pulse Rate 80 06/14/25 15:36 Respiratory Rate 18 06/14/25 15:36 Blood Pressure 129/91 H 06/14/25 15:36 Pulse Oximetry 95 06/14/25 16:30 Oxygen Delivery Nasal Cannula 06/14/25 16:30 Oxygen Flow Rate 2 06/14/25 16:30 [facility] Differential Diagnosis Differential Diagnosis: Pneumonia, diverticulitis, gastroenteritis, abdominal wall strain, pleurisy, sepsis Lab Data [facility] Lab Attestation statement: I personally reviewed the patient's lab results. 06/14/25 15:57 06/14/25 15:57 Labs: Lab Results 06/14/25 06/14/25 Range/Units 15:57 16:06 WBC 13.7 H (4.5-10.0) K/mm3 RBC 4.90 (4.2-5.4) M/mm3 Hgb 15.0 (12.0-15.0) g/dL Hct 44.1 (37.0-47.0) % MCV 90.0 (80-100) fl MCH 30.6 (26-34) pg MCHC 34.0 (32-36) g/dl RDW 13.2 (11.5-14.5) % Plt Count 256 (150-375) k/mm3 MPV 9.8 (7.4-10.4) fl Immature Gran % (Auto) 0.3 (0-0.5) % Neut % (Auto) 74.2 H (45.5-73.1) % Lymph % (Auto) 18.7 (18.3-44.2) % [place] % (Auto) 3.9 (2.6-8.5) % Eos % (Auto) 2.2 (0-4.4) % Baso % (Auto) 0.7 (0.2-1.2) % Lymph # (Auto) 2.57 (0.9-3.2) K/mm3 [place] # (Auto) 0.5 (0.1-0.6) K/mm3 Eos # (Auto) 0.3 (0-0.3) K/mm3 Baso # (Auto) 0.1 (0.0-0.1) K/mm3 Abs Immat Gran (auto) 0.04 H (0.00-0.031) K/mm3 Absolute Neuts (auto) 10.2 H (1.3-6.7) K/mm3 Absolute Nucleated RBC 0.000 (0.0-0.012) K/mm3 Nucleated RBC % 0.0 (0.0-0.2) % Sodium 139 (137-145) mmol/L Potassium 3.7 (3.4-5.0) mmol/L Chloride 106 (98-107) mmol/L Carbon Dioxide 29 (22-30) mmol/L Anion Gap 4 (4-12) mmol/L BUN 10 (7-17) mg/dL Creatinine 0.74 (0.7-1.0) mg/dL Estim Creat Clear Calc 113 ml/min Estimated GFR > 60 (59 - ) Glucose 111 H (65-110) mg/dL Calcium 9.5 (8.4-10.2) mg/dL Total Bilirubin 0.3 (0.2-1.3) mg/dL AST 17 (14-36) U/L ALT 17 (6-35) U/L Alkaline Phosphatase 76 (38-126) U/L Total Protein 6.8 (6.3-8.2) g/dL Albumin 3.7 (3.5-5.1) g/dL Lipase 96 (23-300) U/L Urine Color Yellow (Yellow) Urine Appearance Cloudy H (Clear) Urine pH 5.5 (5.0-9.0) Ur Specific Export 1.024 (1.001-1.035) Urine Protein Negative (Negative) mg/dL Urine Glucose (UA) Negative (Negative) mg/dL Urine Ketones Trace H (Negative) mg/dL Ur Blood (Man) Negative (Negative) Urine Nitrate Negative (Negative) Urine Bilirubin Negative (Negative) Urine Urobilinogen 1.0 (<2.0) mg/dL Leukocyte Esterase Rfl Negative (Negative) JAYLEEN/UL Urine RBC 21-50 H (0-2) /hpf Urine WBC 0-5 (0-3) /hpf Ur Squamous Epith Cells Moderate (Few) /hpf Urine Bacteria 1+ H /hpf Urine Casts 0-2 Urine Yeast (Budding) Present H (None) /hpf POC Urine HCG, Qual Negative (Negative) Imaging Data Radiologist's impression: ITS Impressions Abdomen/Pelvis CT 06/14/25 17:19 IMPRESSION: 1. Bibasilar distended lower lobe consolidation which may represent atelectasis and/or developing pneumonia. 2: Right adnexal cyst measuring 4 cm, likely ovarian. Discharge Plan Discharge Clinical Impression: Pneumonia, Ovarian cyst Patient Disposition: Home Condition: Stable Instructions: Antibiotic Form, Ovarian Cyst (ED), Pneumonia (ED) Additional Instructions: Return to the emergency department if you develop severe abdominal pain, severe nausea and vomiting to the point where you are unable to keep down fluids, if you develop chest pain or difficulty breathing, blood in your stool, dizziness or fainting, or if you develop any other new or concerning symptoms as these could be signs of more serious medical illness. Try to stay well hydrated. Patient Language: Citizen [place] Prescriptions: New doxycycline hyclate 100 mg tablet 100 mg PO BID Qty: 10 0RF amoxicillin-pot clavulanate 875-125 mg tablet 1 tablet PO Q12H Qty: 10 0RF hydrocodone-acetaminophen 5-325 mg tablet 1 tablet PO Q6H PRN (Reason: pain) Qty: 14 0RF No Action (DME) OneTouch Verio test strips Strip Qty: 100 0RF Rx Instructions: check once - twice weekly vitamin b BYMOUTH sumatriptan succinate [Imitrex] 50 mg tablet See Rx Instructions PO .COMPLEX Qty: 9 3RF Rx Instructions: take 1 tab at onset of headache; if no relief may repeat 1 tab after at least 2 hrs; max = 4 tabs/24 hr PO albuterol sulfate 90 mcg/actuation HFA aerosol inhaler 1 - 2 puff inhalation Q4-6H PRN (Reason: shortness of breath or wheezing) Qty: 8.5 11RF azelastine 137 mcg (0.1 %) spray,non-aerosol 1 spray intranasal Q12H Qty: 30 11RF Rx Instructions: administer into each nostril Ryan Maryphere 160-9-4.8 mcg/actuation HFA aerosol inhaler 2 inh inhalation BID Qty: 10.7 11RF Rx Instructions: Rinse mouth and spit after each use. Use with spacer. (DME) blood-glucose meter [CentrlTouch Verio Flex meter] [facility] Qty: 1 0RF Rx Instructions: May substitute to in-stock meter and/or covered by insurance. Use As Directed (DME) lancets [OneTouch Delica Plus Lancet] 30 gauge misc Qty: 1 0RF Rx Instructions: May substitute to in-stock and/or covered by insurance lancets. Use As Directed venlafaxine 150 mg capsule,extended release 24hr 150 mg PO DAILY Qty: 90 1RF Rx Instructions: ALONG WITH A 75 MG CAPSULE TO MAKE A TOTAL DAILY DOSE OF 225MG amlodipine 10 mg tablet 10 mg PO DAILY Qty: 90 1RF levothyroxine 200 mcg tablet See Rx Instructions .ROUTE .COMPLEX Qty: 112 1RF Dose Instruction: TAKE 1 TABLET BY MOUTH DAILY Rx Instructions: Take 1 pill from Tuesday to Tuesday and 2 pills on Sundays (8 pills a week) loratadine 10 mg tablet See Rx Instructions .ROUTE .COMPLEX Qty: 30 5RF Dose Instruction: TAKE 1 TABLET BY MOUTH ONCE DAILY Rx Instructions: TAKE 1 TABLET BY MOUTH ONCE DAILY rosuvastatin 5 mg tablet See Rx Instructions .ROUTE .COMPLEX Qty: 90 0RF Dose Instruction: TAKE 1 TABLET BY MOUTH DAILY Rx Instructions: TAKE 1 TABLET BY MOUTH DAILY lisinopril 40 mg tablet See Rx Instructions .ROUTE .COMPLEX Qty: 90 1RF Dose Instruction: TAKE 1 TABLET BY MOUTH DAILY Rx Instructions: TAKE 1 TABLET BY MOUTH DAILY venlafaxine 75 mg capsule,extended release 24hr 75 mg PO DAILY Qty: 90 1RF Rx Instructions: ALONG WITH A 150 MG CAPSULE TO MAKE A TOTAL DAILY DOSE OF 225MG Ozempic 2 mg/dose (8 mg/3 mL) pen injector 2 mg subcut WEEKLY 90 Days Qty: 9 2RF cholecalciferol (vitamin D3) 1,250 mcg (50,000 unit) capsule 1,250 mcg PO WEEKLY Qty: 14 0RF Qulipta 60 mg tablet See Rx Instructions .ROUTE .COMPLEX Qty: 90 0RF Dose Instruction: TAKE 1 TABLET BY MOUTH DAILY Rx Instructions: TAKE 1 TABLET BY MOUTH DAILY Follow-up/Referrals: Asad Stahl DO [Primary Care Provider, Internal Medicine] - 1 Week
[2025-06-14 17:58] VITALS: BP 144/75; PULSE 84; RESP 18; O2SAT 95
== END 2025-06-14 17:59 | disposition home or self-care (01) ==
PROVIDERS: Emergency Provider Emergency Medicine; PCP Internal Medicine
DX: J18.9 Pneumonia, unspecified organism (principal); N83.209 Unspecified ovarian cyst, unspecified side; E03.9 Hypothyroidism, unspecified; E78.5 Hyperlipidemia, unspecified; I10 Essential (primary) hypertension; E11.9 Type 2 diabetes mellitus without complications; J44.9 Chronic obstructive pulmonary disease, unspecified; F17.210 Nicotine dependence, cigarettes, uncomplicated
CPT/HCPCS: 36415; 74177; 80053; 81001; 81025; 83690; 85025; 96361; 96374; 96375; 99284; J2270; J2405; J7030; Q9967